=== PATIENT | female | born 1955 | race Caucasian/White ===

== ENCOUNTER 2022-05-14 21:08 | Inpatient (IN) | payer OTHER, SELFPAY ==
--- NOTE | ~2022-05-14 | XR_ITS ---
EXAMINATION: XR CHEST CLINICAL INFORMATION: Dyspnea COMPARISON: 08/25/2010 TECHNIQUE: Frontal view of the chest was obtained. FINDINGS: Heart is top normal in size. Bilateral pleural effusions with airspace opacity seen in the bilateral lower globes. Diffuse interstitial edema seen throughout the bilateral lung parenchyma. XR/XR chest 1V IMPRESSION: Diffuse interstitial edema with bilateral pleural effusions and bibasilar airspace opacities.
--- NOTE | ~2022-05-14 | XR_ITS ---
EXAMINATION: XR chest 2V CLINICAL INFORMATION: Reason for Exam persistent cough COMPARISON: No prior chest x-ray available in our system for comparison at the time of this dictation. TECHNIQUE: XR chest 2V Lungs and Ashley: Both lungs are clear. Pleura: Normal. Costophrenic angles are sharp. No pneumothorax. Heart: The heart is normal in size. Mediastinum: Subclavian line catheter tip projecting over the SVC/RA junction.. Bones: Skeletal structures included are normal for patient's age. XR/XR chest 2V IMPRESSION: Lungs remain clear. Central line catheter tip projecting over the SVC/RA junction roughly positioned.
--- NOTE | ~2022-05-14 | XR_ITS ---
EXAMINATION: XR CHEST CLINICAL INFORMATION: TLC placement COMPARISON: Chest x-ray 05/14/2022 TECHNIQUE: Frontal view of the chest was obtained. FINDINGS: Right-sided central venous catheter tip terminates in the distal SVC at the cavoatrial junction region. No pneumothorax visualized. Improved aeration at the lung bases since prior. Slightly indistinct costophrenic sulci equivocal for trace residual pleural effusions. No new airspace opacity. Unchanged cardiomediastinal silhouette. No evidence of pulmonary edema. No acute osseous injury identified. XR/XR chest 1V IMPRESSION: 1. Right-sided central venous catheter tip terminates in the distal SVC at the cavoatrial junction region. No pneumothorax. 2. Improved aeration at the lung bases since prior.
[2022-05-14 21:11] VITALS: BP 142/88; BP 144/91; PULSE 116; PULSE 119; RESP 20; TEMP 36.5; O2SAT 96; O2SAT 97; BMI 34.5
--- NOTE | 2022-05-14 21:17 | ECG_ITS ---
Test Reason : SOB Blood Pressure : / mmHG Vent. Rate : 112 BPM Atrial Rate : 112 BPM P-R Int : 206 ms QRS Dur : 132 ms QT Int : 328 ms P-R-T Axes : 048 -52 102 degrees QTc Int : 447 ms Sinus tachycardia with Premature supraventricular complexes Left axis deviation Non-specific intra-ventricular conduction block Minimal voltage criteria for LVH, may be normal variant ( Rojelio product ) Cannot rule out Septal infarct , age undetermined Possible Lateral infarct , age undetermined Abnormal ECG When compared with ECG of 25-AUG-2010 14:54, Non-specific intra-ventricular conduction block is now Present Referred By: Generic ED Physician Electronically Signed By:GIANNA DUTTON MD
[2022-05-14 21:37] LABS: MANUAL DIFF FLAG NO
[2022-05-14 21:38] LABS: Basophils Absolute Auto 0.1 X10*3/uL (0.0-0.2); Basophils Percent Auto 0.9 % (0-2); Eosinophils Absolute Auto 0.1 X10*3/uL (0.0-0.4); Eosinophils Percent Auto 0.9 % (0-4); Hematocrit 42.3 % (37.0-47.0); Hemoglobin 14.3 g/dl (12.0-16.0); Imm Gran Abs Auto 0.03 X10*3/uL (0.00-0.03); Imm Gran Pct Auto 0.4 % (0.0-0.4); Lymphocytes Absolute Auto 1.5 X10*3/uL (1.2-4.9); Mean Corpuscular HGB Conc 33.8 g/dl (31.0-35.0); Mean Corpuscular Hemoglobin 32.9 pg (27.0-33.0); Mean Corpuscular Volume 97.5 fL (80.0-98.0); Monocytes Absolute Auto 0.8 X10*3/uL (0.1-1.2); Monocytes Percent Auto 8.8 % (2-11); Platelet Count 220 X10*3/uL (160-400); Red Blood Count 4.34 X10*6/uL (4.20-5.50); Red Cell Distribution Width 12.1 % (11.0-16.0); White Blood Count 8.5 X10*3/uL (4.8-10.8)
[2022-05-14 21:51] LABS: Anion Gap 15 (12-20); Blood Urea Nitrogen 13 mg/dL (9-16); Calcium 9.5 mg/dL (8.4-10.2); Carbon Dioxide 24 mmol/L (22-29); Chloride 106 mmol/L (96-108); Creatinine Clr Calc Pharmacy 74.9; Estimated Glomerular Filt Rate > 60; Glucose Random 128 mg/dL (60-115); Potassium 4.4 mmol/L (3.3-5.1); Sodium 141 mmol/L (135-145)
[2022-05-14 22:02] VITALS: BP 128/90; PULSE 116; RESP 21; TEMP 36.7; O2SAT 97
[2022-05-14 22:14] LABS: Influenza A PCR NEGATIVE (Negative); Influenza B PCR NEGATIVE (Negative); Resp Syncy Virus RNA Qual PCR NEGATIVE (Negative); SARS COV2 PCR INHOUSE NEGATIVE (Negative)
--- NOTE | 2022-05-14 22:17 | ED.URI ---
HPI - URI/Sore Throat General Chief Complaint: Upper Respiratory Symptoms Stated Complaint: DYSPNEA Time Seen by Provider: 05/14/22 21:59 Source: patient and family Mode of arrival: ambulatory Limitations: no limitations History of Present Illness HPI Narrative: 66-year-old female in the ED today for evaluation of worsening of difficulty breathing. About a week ago patient developed upper respiratory symptoms patient thought to be viral infection, presented with coughing and congestion patient progressively been having shortness of breath which is mostly exertional and sometimes at rest, develop chest pain only with coughing. 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 Patient declined fever, chills, sick contacts, recent travel. Related Data Home Medications Medication Instructions Recorded Confirmed lisinopril 40 mg tablet 1 tab PO DAILY 05/15/22 05/15/22 Allergies Allergy/AdvReac Type Severity Reaction Status Date / Time adhesive tape [ADHESIVE TAPE] AdvReac Unknown RASH Unverified 02/02/20 15:22 Review of Systems Review of Systems: All other systems are reviewed and are negative Constitutional: Reports as per HPI and Reports no additional constitutional complaints Eyes: Reports as per HPI and Reports no additional eye complaints Reports system reviewed and no additional complaints, except as documented Cardiovascular: Reports as per HPI and Reports no additional cardiovascular complaints Respiratory: Reports as per HPI and Reports no additional respiratory complaints Gastrointestinal: Reports as per HPI and Reports no additional gastrointestinal complaints Genitourinary: Reports no additional female genitourinary complaints Musculoskeletal: Reports no additional musculoskeletal complaints Skin/Breast: Reports system reviewed and no additional complaints, except as docu Psychiatric: Reports no additional psychiatric complaints Endocrine: Reports no additional endocrine complaints Hematologic/Lymphatic: Reports no additional hematologic/lymphatic complaints Allergic/Immunologic: Reports no additional allergic/immunologic complaints Reports system reviewed and no additional complaints, except as documented and Reports Abnormal speech present [facility] Social History Social History Smoked in Last 30 Days: No Use of substances other than those prescribed or required for medical reasons: No Advance Directives: No Advance Directives Information Provided: No Patient : No Physical Exam Vital Signs: Vital Signs: Last Vital Signs Temp 97.5 F 05/15/22 01:34 Pulse 109 H 05/15/22 01:34 Resp 24 H 05/15/22 01:34 BP 145/92 H 05/15/22 01:34 Pulse Ox 94 05/15/22 01:34 O2 Del Method 05/15/22 01:34 O2 Flow Rate 2 05/15/22 01:34 Oxygen Flow Rate 3 05/14/22 21:11 BMI result Body Mass Index 34.5 Vital signs have been reviewed as appeared to be correct. Blood pressure normal. Heart rate elevated. Respiration rate normal. Temperature normal. Oxygen saturation normal. Appearance: Alert. Oriented X3. No acute distress. Head: Normal external exam. Normocephalic. Atraumatic. No Cárdenas signs noted. No raccoon eyes noted Eyes: PERRLA. EOMI. Conjunctiva and sclera normal. Eyelids normal. ENT: TM's Normal. Pharynx normal. Uvula midline. Moist mucous membranes. No trismus noted. No drooling noted. No muffled voice noted. Neck: Normal inspection. Neck supple. FROM. No adenopathy. Thyroid Normal. No meningeal signs. No neck mass noted. CVS: Normal heart rate and rhythm. Heart sound normal. No murmurs noted. Pulses normal throughout. Respiratory: No respiratory distress. Painless inspiration. Breath sounds normal. No wheezes/rales/rhonchi noted. Chest nontender. No accessory muscle usage noted or decreased air movement noted. Abdomen: Soft and nontender. Bowel sounds normal in all 4 quadrants. No distention noted. No organomegaly noted. No visible injury noted. Back: No CVA tenderness. Full range of motion noted. Skin: Skin warm and dry. Normal skin color. Normal skin turgor. No rashes/lesions/lacerations noted. Extremities: +1 bilateral lower extremity pitting edema. Extremities exhibit normal range of motion. Extremities nontender. Neuro: Oriented X 3. Cranial nerve exam: II-XII are grossly intact No motor deficit. No sensory deficit. Reflexes normal. Course Course Course Narrative: 66-year-old female came in for evaluation of progressively worsening of difficulty breathing over the past week, physical exam and history and chest x-ray is consistent with congestive heart failure. Will admit the patient for further cardiac evaluation and diuresis. Patient just moved from out of state has no cardiology or PCP in the area yet. Slight troponin elevation but no delta changes. Medications Administered Generic Name Dose Route Start Last Admin Trade Name Jadq PRN Reason Stop Dose Admin Enoxaparin Sodium 40 mg 05/15/22 01:30 05/15/22 01:46 Enoxaparin Sodium 40 Mg/0.4 Ml Syringe SUBCUT 40 mg Q24H HODAN Administration Discontinued Medications Generic Name Dose Route Start Last Admin Trade Name [place] PRN Reason Stop Dose Admin Albuterol Sulfate 2.5 mg 05/14/22 22:22 05/14/22 22:34 Albuterol Sulfate (0.083%) 2.5 Mg/3 Ml Vial.Neb INHALE 05/14/22 22:23 2.5 mg ONCE ONE Administration Albuterol/Ipratropium 3 ml 05/14/22 22:22 05/14/22 22:34 Albuterol/Iprat 2.5/0.5mg 3 Ml Ampul.Neb INHALE 05/14/22 22:23 3 ml ONCE ONE Administration Furosemide 40 mg 05/15/22 00:08 05/15/22 01:35 Furosemide 40 Mg/4 Ml Vial IVPUSH 05/15/22 00:09 40 mg ONCE ONE Administration Protocol Methylprednisolone Sodium Succinate 125 mg 05/14/22 22:22 05/14/22 22:41 Methylprednisolone Sod Succ 125 Mg/2 Ml Vial IVPUSH 05/14/22 22:23 125 mg ONCE ONE Administration Nitroglycerin 0.5 inch 05/15/22 00:08 05/15/22 00:40 Nitroglycerin 2 % Oint 1 Gm Packet TRANSDERMA 05/15/22 00:09 0.5 inch ONCE ONE Administration Medical Decision Making Differential Diagnosis Differential Diagnoses: The differential diagnosis associated with the presentation includes (Pneumonia/pulmonary embolism/viral infection/congestive heart failure/ACS.) Admission/Observation Consideration of admission/observation: Escalation of care including admission/observation considered Consult Healthcare Provider Management of the patient was discussed with: Hospitalist Lab Data MDM Lab Attestation statement: I reviewed the patient's lab results. Result Diagrams: 05/14/22 21:31 05/14/22 21:31 Labs: Lab Results 05/14/22 05/14/22 05/14/22 Range/Units 21:31 21:31 21:31 WBC 8.5 (4.8-10.8) X10*3/uL RBC 4.34 (4.20-5.50) X10*6/uL Hgb 14.3 (12.0-16.0) g/dl Hct 42.3 (37.0-47.0) % MCV 97.5 (80.0-98.0) fL MCH 32.9 (27.0-33.0) pg MCHC 33.8 (31.0-35.0) g/dl RDW 12.1 (11.0-16.0) % Plt Count 220 (160-400) X10*3/uL MPV 10.0 (9.4-12.3) fL Immature Gran % (Auto) 0.4 (0.0-0.4) % Neut % (Auto) 71.0 (45-73) % Lymph % (Auto) 18.0 L (20-40) % Mingo % (Auto) 8.8 (2-11) % Eos % (Auto) 0.9 (0-4) % Baso % (Auto) 0.9 (0-2) % Lymph # (Auto) 1.5 (1.2-4.9) X10*3/uL Mingo # (Auto) 0.8 (0.1-1.2) X10*3/uL Eos # (Auto) 0.1 (0.0-0.4) X10*3/uL Baso # (Auto) 0.1 (0.0-0.2) X10*3/uL Abs Immat Gran (auto) 0.03 (0.00-0.03) X10*3/uL Absolute Neuts (auto) 6.0 (2.0-8.3) x10*3/uL Absolute Nucleated RBC 0.000 (0.0-0.012) X10*3/uL Nucleated RBC % (auto) 0.0 (0.0-0.2) /100WBC D-Dimer High Sensitivty NG/ML Sodium 141 (135-145) mmol/L Potassium 4.4 (3.3-5.1) mmol/L Chloride 106 (96-108) mmol/L Carbon Dioxide 24 (22-29) mmol/L Anion Gap 15 (12-20) BUN 13 (9-16) mg/dL Creatinine 0.80 (0.5-1.4) mg/dL Estim Creat Clear Calc 74.9 Estimated GFR > 60 Random Glucose 128 H (60-115) mg/dL Calcium 9.5 (8.4-10.2) mg/dL Troponin I High Sens (<3.5-17.0) ng/L B-Natriuretic Peptide (<100) pg/mL Influenza Type A (PCR) NEGATIVE (Negative) Influenza Type B (PCR) NEGATIVE (Negative) RSV RNA Qual (PCR) NEGATIVE (Negative) SARS-CoV-2 RNA (RT-PCR) NEGATIVE (Negative) 05/14/22 05/14/22 05/14/22 Range/Units 21:31 23:15 23:15 WBC (4.8-10.8) X10*3/uL RBC (4.20-5.50) X10*6/uL Hgb (12.0-16.0) g/dl Hct (37.0-47.0) % MCV (80.0-98.0) fL MCH (27.0-33.0) pg MCHC (31.0-35.0) g/dl RDW (11.0-16.0) % Plt Count (160-400) X10*3/uL MPV (9.4-12.3) fL Immature Gran % (Auto) (0.0-0.4) % Neut % (Auto) (45-73) % Lymph % (Auto) (20-40) % Mingo % (Auto) (2-11) % Eos % (Auto) (0-4) % Baso % (Auto) (0-2) % Lymph # (Auto) (1.2-4.9) X10*3/uL Mingo # (Auto) (0.1-1.2) X10*3/uL Eos # (Auto) (0.0-0.4) X10*3/uL Baso # (Auto) (0.0-0.2) X10*3/uL Abs Immat Gran (auto) (0.00-0.03) X10*3/uL Absolute Neuts (auto) (2.0-8.3) x10*3/uL Absolute Nucleated RBC (0.0-0.012) X10*3/uL Nucleated RBC % (auto) (0.0-0.2) /100WBC D-Dimer High Sensitivty 211 NG/ML Sodium (135-145) mmol/L Potassium (3.3-5.1) mmol/L Chloride (96-108) mmol/L Carbon Dioxide (22-29) mmol/L Anion Gap (12-20) BUN (9-16) mg/dL Creatinine (0.5-1.4) mg/dL Estim Creat Clear Calc Estimated GFR Random Glucose (60-115) mg/dL Calcium (8.4-10.2) mg/dL Troponin I High Sens 18.0 H (<3.5-17.0) ng/L B-Natriuretic Peptide 961 H (<100) pg/mL Influenza Type A (PCR) (Negative) Influenza Type B (PCR) (Negative) RSV RNA Qual (PCR) (Negative) SARS-CoV-2 RNA (RT-PCR) (Negative) Independent Interpretation I performed an independent interpretation of an: EKG (Sinus tachycardia at 112 beats per minutes, left axis deviation, LVH, fascicular heart block.) and Plain X-Ray (Chest: Interstitial edema with bilateral pleural effusion) Radiology Impression Discussion of test interpretation with radiology: I have reviewed the radiologist's reading. Discharge Plan Discharge Clinical Impression: Congestive heart failure, Cardiomyopathy Patient Disposition: Admitted As Inpatient
[2022-05-14] MEDS: Albuterol Sulfate (0.083%) 2.5 MG/3 ML VIAL.NEB INHALE (22:34)
[2022-05-14] MEDS: Albuterol/Iprat 2.5/0.5MG 3 ML AMPUL.NEB INHALE (22:34)
[2022-05-14 22:35] VITALS: PULSE 100; RESP 18; O2SAT 94
[2022-05-14] MEDS: methylPREDNISolone Sod Succ 125 MG/2 ML VIAL IVPUSH (22:41)
[2022-05-14 22:42] VITALS: RESP 25; O2SAT 94
--- NOTE | 2022-05-14 22:58 | PC.NURSE ---
Pt BP is stable, pt is sinus tachy on the monitor. Pt's lung sound throughout the bases fine crackles. Pt has + skin turgor, a/o x 3, pt's son is at bedside.
[2022-05-14 23:27] LABS: D Dimer High Sensitivity 211 NG/ML
[2022-05-14 23:51] LABS: B Type Natriuretic Peptide 961 pg/mL (<100)
[2022-05-14 23:53] VITALS: BP 141/85; PULSE 109; RESP 30; TEMP 36.6; O2SAT 94
[2022-05-15] VITALS (8 sets, daily range): BP systolic 104–145; BP diastolic 62–92; PULSE 77–115; RESP 15–24; TEMP 36.1–36.6; O2SAT 94–96; BMI 34.4
[2022-05-15] MEDS: Nitroglycerin 2 % Oint 1 GM Packet 0.5 INCH TRANSDERMA (00:40)
--- NOTE | 2022-05-15 01:20 | PM.IMHP ---
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 pt reports orthopnea, PND, Dyspnea on minimal exertion. symptoms started 2 days ago. She denies any fever, no chills, no chest pain, no palpitations, no abdominal pain nausea or vomiting, no diarrhea constipation, no urinary symptoms and reports that she has not noticed any swelling in her legs. She reports she does not take any water pill at home. On arrival to the ED noted to be tachypneic, tachycardic, stable blood pressure, unclear if she was hypoxic but currently on 2 L of nasal cannula 94% labs are significant for a BNP of 961, otherwise unremarkable Chest x-ray shows diffuse bilateral edema with bilateral pleural effusion and bibasilar airspace opacities Review of Systems Review of Systems: Yes all other systems are reviewed and are negative [facility] Medical History (Updated 05/15/22 @ 06:13 by Dallin Mitchell MD) Cardiomyopathy due to chemotherapy GERD (gastroesophageal reflux disease) Hypertension Family History (Updated 05/15/22 @ 06:13 by Dallin Mitchell MD) Father Heart disease Surgical History (Updated 05/15/22 @ 06:13 by Dallin Mitchell MD) No pertinent past surgical history Social History (Updated 05/15/22 @ 06:13 by Dallin Mitchell MD) Alcohol intake: current Alcohol intake frequency: holidays/special occasions only Patient Tobacco Use Status: Never used Tobacco Smoked in Last 30 Days: No Use of substances other than those prescribed or required for medical reasons: No Advance Directives: No Advance Directives Information Provided: No Patient : No Meds Allergies Allergy/AdvReac Type Severity Reaction Status Date / Time adhesive tape [ADHESIVE TAPE] AdvReac Unknown RASH Unverified 02/02/20 15:22 Home Medications Medication Instructions Recorded Confirmed Last Taken Type lisinopril 40 mg tablet 1 tab PO DAILY 05/15/22 05/15/22 Unknown History Physical Exam Vital Signs and Narrative: Vital Signs: Last Vital Signs Temp 97.9 F 05/14/22 23:53 Pulse 115 H 05/15/22 00:40 Resp 30 H 05/14/22 23:53 BP 141/85 H 05/15/22 00:40 Pulse Ox 94 05/14/22 23:53 O2 Del Method 05/14/22 23:53 Oxygen Flow Rate 3 05/14/22 21:11 BMI result Body Mass Index 34.5 Results Labs CBC and Chem 7: 05/14/22 21:31 05/14/22 21:31 Labs: Laboratory Results - last 24 hr 05/14/22 05/14/22 05/14/22 21:31 21:31 21:31 MCV 97.5 MCH 32.9 MCHC 33.8 RDW 12.1 Plt Count 220 MPV 10.0 Immature Gran % (Auto) 0.4 Neut % (Auto) 71.0 Lymph % (Auto) 18.0 L Collin % (Auto) 8.8 Eos % (Auto) 0.9 Baso % (Auto) 0.9 Lymph # (Auto) 1.5 Collin # (Auto) 0.8 Eos # (Auto) 0.1 Baso # (Auto) 0.1 Abs Immat Gran (auto) 0.03 Absolute Neuts (auto) 6.0 Absolute Nucleated RBC 0.000 Nucleated RBC % (auto) 0.0 D-Dimer High Sensitivty Anion Gap 15 Estim Creat Clear Calc 74.9 Estimated GFR > 60 Random Glucose 128 H Calcium 9.5 Troponin I High Sens B-Natriuretic Peptide Influenza Type A (PCR) NEGATIVE Influenza Type B (PCR) NEGATIVE RSV RNA Qual (PCR) NEGATIVE SARS-CoV-2 RNA (RT-PCR) NEGATIVE 05/14/22 05/14/22 05/14/22 21:31 23:15 23:15 MCV MCH MCHC RDW Plt Count MPV Immature Gran % (Auto) Neut % (Auto) Lymph % (Auto) Collin % (Auto) Eos % (Auto) Baso % (Auto) Lymph # (Auto) Collin # (Auto) Eos # (Auto) Baso # (Auto) Abs Immat Gran (auto) Absolute Neuts (auto) Absolute Nucleated RBC Nucleated RBC % (auto) D-Dimer High Sensitivty 211 Anion Gap Estim Creat Clear Calc Estimated GFR Random Glucose Calcium Troponin I High Sens 18.0 H B-Natriuretic Peptide 961 H Influenza Type A (PCR) Influenza Type B (PCR) RSV RNA Qual (PCR) SARS-CoV-2 RNA (RT-PCR) Imaging Radiologist's Impressions: Impressions Chest X-Ray 05/14/22 21:44 IMPRESSION: Diffuse interstitial edema with bilateral pleural effusions and bibasilar airspace opacities. 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 presents to the hospital with complaints of shortness of breath, orthopnea, found to have CHF exacerbation # acute CHF exacerbation - has elevated BNP, chest x-ray evidence of volume overload - will treat with low sodium diet, strict I&O, daily weight, Lasix 40 daily - will obtain echocardiogram - cardiology consulted # community-acquired pneumonia - evidence of consolidation on chest x-ray - viral serology negative, afebrile, no leukocytosis, - will treat with ceftriaxone and azithromycin - follow cultures # tachycardia - likely secondary to dyspnea from CHF and volume overload, - this is not related to sepsis as patient has no fever, no leukocytosis, as well as no cough and no sputum production - treat underlying CHF # hypertension - stable - continue home antihypertensive DVT prophylaxis: Lovenox Given patient's requirement for IV Lasix patient required minimum 2 night inpatient hospital stay for further management and monitoring Time Spent With Patient Time: Total time managing care of this patient today ____ minutes. Quality Stroke Does the patient have a stroke diagnosis?: No VTE Prior VTE?: No VTE Risk Level:: Medical - moderate - high VTE Device Contraindication: Treatment Not Indicated VTE Drug Contraindication: N/A - Med Ordered
[2022-05-15] MEDS: Furosemide 40 MG/4 ML VIAL IVPUSH ×2 (01:35→08:23)
[2022-05-15] MEDS: Enoxaparin Sodium 40 MG/0.4 ML SYRINGE SUBCUT (01:46)
--- NOTE | 2022-05-15 01:47 | PC.NURSE ---
Pt's BP is elevated, pt reports she has not taken lisinopril today d/t she needs to pick the med up at the pharmacy. Pt is on going compliance aide, and it shows sinus tachy. Pt has headache 5/10, and she is diaphoretic. PT had Nitro 0.5 and it was removed d/t pt started feeling flushed and anxious. MD gave the verbal order verbally, first. Pt' son is at bedside. PT is diaphoretic at the time of the re-assessment, O2 is on 2L d/t pt sat was drooping to 88 . Pt is in sitting position and waiting for a room on the telemetry unit.
[2022-05-15 01:53] LABS: Troponin-I High Sensitivity 19.3 ng/L (<3.5-17.0)
--- NOTE | 2022-05-15 02:30 | PC.NURSE ---
Re- assessment: Pt's BP is slightly elevated, sinus tachy on the awake overnight monitor, afribile ad diaphoretic, provider was notified. Pt was placed a 16F Pro cath d/t pt HR increases during exertion and o2 drops. Pt is a/ox4, son is at bedside. PT was changed and provided a sheet, fan and a cool cloth d/t pt is sweating. Pt meds were given as order. Pt has IV 20g on her RAC. Pt has crackles on the based of the lungs. No edema, =+skin turgor, no noticeable jugular vein, pt is on NC 2L d/t o2 sat keep dropping during movement.
--- NOTE | 2022-05-15 05:29 | PC.NURSE ---
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 PT Pro was empty and her urinary output was 1,400. Pt is asleep.
--- NOTE | 2022-05-15 06:56 | PC.NURSE ---
ordered iv abx in [facility] remains unverified by pharmacy at this time, pharmacy aware.
--- NOTE | 2022-05-15 07:00 | CA_ITS ---
Transthoracic Echocardiogram Patient (Last, First, Middle): Marie العراقي A Gender: Female Date of : 1955 Age: 66 Procedure Date: 05/15/2022 Procedure Type: Transthoracic Echocardiogram Location: ER Height: 160.02 cm Weight: 88.45 kg BSA: 1.91 m2 Heart Rate: bpm BP: 120 / 77 mmHg Saddle Stitch Operator: ESPERANZA Referring MD: Dallin Mitchell MD Meat Wrapper: Thuan Pena MD Symptoms: CHF Study Quality: Technically Difficult, contrast ECG Rhythm: Sinus tachycardia Conclusions: - 1. Moderately severe LV systolic dysfunction with LVEF of 30 35% 2. Moderately dilated left atrium 3. Mild mitral regurgitation 4. Normal calculated RV systolic pressure 5. No gross pericardial effusion Findings Procedure Information Contrast agent, definity, is being given per protocol without apparent complications. Left Ventricle Normal left ventricular cavity size. There is normal left ventricular wall thickness. The left ventricular systolic function is moderate to severely decreased. The visually estimated ejection fraction is between 30-35%. Diastolic function is indeterminate on the basis of available data. Right Ventricle Normal right ventricular cavity size. There is normal right ventricular systolic function. Atria The left atrium is moderately dilated. There is lipomatous hypertrophy of the interatrial septum. Interatrial shunt cannot be excluded. The right atrium was not well visualized. Aortic Valve The aortic valve structure and function is likely normal. There is no aortic valve stenosis. There is no aortic valve regurgitation. Mitral Valve There is mild anterior and posterior mitral leaflet thickening. There is mild mitral valve regurgitation. There is no mitral valve stenosis. Pulmonic Valve The pulmonic valve was not well visualized. Tricuspid Valve Likely normal tricuspid valve structure and function. There is trace tricuspid valve regurgitation. The right ventricular systolic pressure is normal. The right ventricular systolic pressure is 22 mmHg. Normal right atrial pressure. There is no evidence of pulmonary hypertension. Great Vessels All visible segments of the aorta are normal in size. The pulmonary artery was not well visualized. Venous The inferior vena cava is normal in size and collapses greater than 50% with inspiration. Pericardium/Pleural There is no evidence of pericardial effusion. Prior Study Comparison No prior study available for comparison. Measurements 2D Linear Measurements IVSd: 0.97 0.6-0.9/0.6-1.0 cm LVIDd: 4.95 3.9-5.3/4.2-5.9 cm LVIDd Index: 2.59 2.4-3.2/2.2-3.1 cm/m2 LVIDs: 4.27 2.0-3.6 cm LVPWd: 0.92 0.7-1.1 cm LA Diam: 4.30 2.7-3.8/3.0-4.0 cm LAIDs Index: 2.25 1.5-2.3 cm/m2 LV Mass: 206.24 67-162/88-224 g LV Mass Index: 107.98 43-95/49-115 g/m2 LVOT Diam: 2.00 3.0+(-)1.3 cm 2D Systolic Function EF 4C: 37.50 >55% EF 2C: 31.80 >55% Mitral Valve E'Lateral: 2.72 E'Medial: 3.05 Aortic Valve AoV Pk Tanner: 1.04 AoV Mn Tanner: 0.77 AoV VTI: 0.18 AoV Pk Grad: 4.00 Aov Mn Grad: 3.00 LOUISA Cont.VTI: 2.17 LVOT LVOT Pk Tanner: 0.71 LVOT Mn Tanner: 0.47 LVOT VTI: 0.13 LVOT Pk Grad: 2.00 LVOT Mn Grad: 1.00 LVOT Diam: 2.00 LVOT Area: 3.14 Diastolic Function E'Medial: 3.05 E' Laterial: 2.72 Right Ventricle TAPSE (mm): 23.40 TVS' Tanner: 11.30 Tricuspid Valve TR Pk Tanner: 1.85 TR Pk Grad: 14.00 RA Press: 8.00 RVSP: 22.00 Great Vessels Aorta Sinus of Valsalva: 3.20 2.0-3.[address] Ridge: 2.44 1.7-3.4 cm Ao Asc: 3.20 2.1-3.4 cm Updated in Other Vendor System with Status of Final Thuan Pena MD electronically signed on 05/15/2022 11:54:59 AM with status of Final
[2022-05-15] MEDS: cefTRIAXone sodium 1 GM in 0.9 % Sodium Chloride 50 ML IV (07:12)
--- NOTE | 2022-05-15 07:16 | PHA.MEDREC ---
Pharmacy Consult ? Medication Reconciliation Pharmacy has reviewed the medication reconciliation completed by [facility]. There are no remarkakable issues for provider's attention. Augusta Perez, [place]
[2022-05-15 07:18] LABS: Lactic Acid 1.1 mmol/L (0.5-2.0)
[2022-05-15 07:23] LABS: Alanine Aminotransferase 26 U/L (0-31); Albumin Level 4.1 g/dL (3.5-5.0); Alkaline Phosphatase 59 U/L (39-117); Anion Gap 15 (12-20); Aspartate Amino Transferase 15 U/L (5-31); Bilirubin Total 0.8 mg/dL (0.0-1.0); Blood Urea Nitrogen 14 mg/dL (9-16); Calcium 9.2 mg/dL (8.4-10.2); Carbon Dioxide 26 mmol/L (22-29); Chloride 104 mmol/L (96-108); Estimated Glomerular Filt Rate > 60; Glucose Random 232 mg/dL (60-115); Potassium 4.1 mmol/L (3.3-5.1); Sodium 141 mmol/L (135-145); Total Protein 6.6 g/dL (6.5-8.0)
[2022-05-15] MEDS: Azithromycin 500 MG in 0.9 % Sodium Chloride 250 ML 125 MG IV (07:38)
--- NOTE | 2022-05-15 07:51 | PC.NURSE ---
report taken from citlaly marte pt here w dyspnea, elevated bnp on bloodwork, hx of cardiomyopathy in past. pt admitted inpt for chf exac/cap tx. on 2l nc satting 95% spo2... experiencing orthopnea, pt remains in semi fowlers to high fowlers for comfort. a&ox3, makes all needs known, abx infusing in rac 20g. pt has osorio catheter in place d/t diuretic tx and inability to bear weight on ble at this time. pt ate small amount of breakfast in small bites. awaiting inpt bed assignment.
[2022-05-15] MEDS: lisinopriL 40 MG TABLET PO (08:23)
--- NOTE | 2022-05-15 10:41 | MHC.CM.PN ---
CM ATTEMPTED TO SEE PT WHO WAS WITH IMAGING SERVICES CM TO RETURN
--- NOTE | 2022-05-15 11:00 | MHC.CM.PN ---
PT REPORTS SHE LIVES ALONE AND IS INDEPENDENT WITH CARE SHE DENIES USE OF DME OR SERVICES PT REPORTS SHE IS COVID VAX, NOT BOOSTED PT HAD A FIRST APPT SCHEDULED WITH LEIGHA MCLAUGHLIN TODAY, HOWEVER IS NOW INPT SHE REQUESTS APPT BE RESCHEDULED REQUEST SENT TO [facility] SHE IS UNSURE IF SHE HAS A HCP, SHE WILL CONSIDER COMPLETING ONE AND IS AWARE CM CAN ASSIST DCP HOME NO SERVICES BROTHER TO TRANSPORT
--- NOTE | 2022-05-15 11:26 | P.CONCA_ITS ---
History of Present Illness History of Present Illness Date of Service: 05/15/22 Requesting physician: Dallin Mitchell Consult reason: congestive heart failure Chief complaint: CHF exacerbation Narrative: I was consulted to see Marie in cardiology consultation today for decompensated congestive heart failure. She is a 66-year-old female with prior history of chemotherapy-induced cardiomyopathy diagnosed in 2012 and with medical therapy had recovered LVEF, last followed radiology locally couple years ago. Had no follow-up recently. She was taken off for neurohormonal modulation as per her because she said her LV ejection fraction improved and she did not need anymore. She had done well over the last few years but over the last 5 days developed progressive shortness of breath. She started with congestion starting Thursday. Then subsequently notice that she was having difficulty breathing and and yesterday was in significant respiratory distress and could not breathe and therefore decided come to the emergency room. She initially decided that this would past but did not. She had some cough but no productive phlegm. She denies any fever or chills or wheezing. When she came to the emergency room she was noted to be decompensated congestive heart failure with BNP in the 900 range which chest x-ray finding consistent with pulmonary edema there is a concern for bibasilar infiltrates and a started also on treatment for pneumonia. Patient continues to be short of breath and is emotional about it. She denies any chest pain, palpitations. Said yesterday night when she tried to get out of bed to chair and commode she was very short of breath. They therefore decided to put a Pro catheter in. Her oxygen saturations have been better but she continues to be short of breath. Denies any lightheadedness, syncope. Review of Systems Constitutional: Constitutional: Reports no additional constitutional complaints Eyes: Eyes: Reports no additional eye complaints Cardiovascular: Cardiovascular: Denies chest pain, Denies syncope, Denies rapid heart rate, Denies leg edema, Denies lightheadedness, Reports dyspnea on exertion and Reports orthopnea Respiratory: Respiratory: Reports cough and Reports dyspnea on exertion Gastrointestinal: Gastrointestinal: Reports no additional gastrointestinal com plaints Genitourinary: Genitourinary: Reports no additional female genitourinary complaints Musculoskeletal: Musculoskeletal: Reports no additional musculoskeletal complaints Integumentary/Breasts: Skin/Breast: Reports system reviewed and no additional complaints, except as docu Neurologic: Reports system reviewed and no additional complaints, except as documented and Denies syncope Psychiatric: Psychiatric: Reports no additional psychiatric complaints Endocrine: Endocrine: Reports no additional endocrine complaints Hematologic/Lymphatic: Hematologic/Lymphatic: Reports no additional hematologic/lymphatic complaints [facility] Past Medical History Medical History Cardiomyopathy due to chemotherapy GERD (gastroesophageal reflux disease) Hypertension Family History Family History Father Heart disease Surgical History Surgical History No pertinent past surgical history Social History Social History Alcohol intake: current Alcohol intake frequency: holidays/special occasions only Patient Tobacco Use Status: Never used Tobacco Smoked in Last 30 Days: No Use of substances other than those prescribed or required for medical reasons: No Advance Directives: No Advance Directives Information Provided: No Patient : No service: No Current occupational status: retired [employer] Allergies Allergy/AdvReac Type Severity Reaction Status Date / Time adhesive tape [ADHESIVE TAPE] AdvReac Unknown RASH Unverified 02/02/20 15:22 Active Medications: Current Medications Acetaminophen (Acetaminophen 325 Mg Tablet) 650 mg PO Q6H PRN PRN Reason: Pain, Mild (Pain Scale 1-3) Docusate Sodium (Docusate Sodium 100 Mg Capsule) 100 mg PO DAILY PRN PRN Reason: Constipation Enoxaparin Sodium (Enoxaparin Sodium 40 Mg/0.4 Ml Syringe) 40 mg SUBCUT Q24H [facility] Last Admin: 05/15/22 01:46 Dose: 40 mg Furosemide (Furosemide 40 Mg/4 Ml Vial) 40 mg IVPUSH DAILY [facility]; Protocol Last Admin: 05/15/22 08:23 Dose: 40 mg Ceftriaxone Sodium 1 gm/ (Sodium Chloride) 50 mls @ 100 mls/hr IV Q24H [facility] Last Infusion: 05/15/22 07:38 Dose: Infused Azithromycin 500 mg/ Sodium (Chloride) 250 mls @ 125 mls/hr IV Q24H [facility] Last Infusion: 05/15/22 09:52 Dose: Infused Lisinopril (Lisinopril 40 Mg Tablet) 40 mg PO DAILY [facility]; Protocol Last Admin: 05/15/22 08:23 Dose: 40 mg Ondansetron HCl (Ondansetron Hcl 4 Mg/2 Ml Vial) 4 mg IVPUSH Q8H PRN PRN Reason: Nausea and Vomiting Sodium Chloride (0.9 % Sodium Chloride Flush 3 Ml Syringe) 3 ml IVFLUSH QSHIFT [facility] Last Admin: 05/15/22 07:12 Dose: Not Given Home Medications Medication Instructions Recorded Confirmed Last Taken Type lisinopril 40 mg tablet 1 tab PO DAILY 05/15/22 05/15/22 Unknown History Physical Exam Vital Signs: Vital Signs: Last Vital Signs Temp 97.8 F 05/15/22 06:09 Pulse 89 05/15/22 07:01 Resp 23 H 05/15/22 07:01 BP 120/77 05/15/22 07:01 Pulse Ox 95 05/15/22 07:44 O2 Del Method 05/15/22 07:44 O2 Flow Rate 2 05/15/22 07:01 Oxygen Flow Rate 2 05/15/22 07:44 BMI result Body Mass Index 34.5 Const: General: cooperative, alert, awake and in distress moderate and respiratory Nutritional Appearance: obese Orientation/consciousness: patient oriented x3 HEENT: Head: Yes normocephalic and Yes atraumatic Neck: Neck: Yes trachea midline, Yes supple and Yes JVD Resp: Effort & Inspection: normal respiratory effort Auscultation: rales bilateral 1/[address] up Cardio: Jugular venous distension: JVD Palpation: abnormal PMI displaced PMI Rate: tachycardic Rhythm: regular rhythm Heart sounds: S1 normal heart sound present, S2 normal heart sound present, no click, Gallop heart sound present, no murmurs and no rubs GI: Auscultation: normal bowel sounds Skin: General skin exam: no rashes or lesions noted Neuro: General: patient oriented x3 and no focal motor deficits Extrem: General: Yes no clubbing, cyanosis or edema Psych: Affect: Anxious affect present Objective Labs and Meds Result diagrams: 05/14/22 21:31 05/15/22 06:55 Lab results: Laboratory Results - last 24 hr 05/14/22 05/14/22 05/14/22 21:31 21:31 21:31 WBC 8.5 RBC 4.34 Hgb 14.3 Hct 42.3 MCV 97.5 MCH 32.9 MCHC 33.8 RDW 12.1 Plt Count 220 MPV 10.0 Immature Gran % (Auto) 0.4 Neut % (Auto) 71.0 Lymph % (Auto) 18.0 L [place] % (Auto) 8.8 Eos % (Auto) 0.9 Baso % (Auto) 0.9 Lymph # (Auto) 1.5 [place] # (Auto) 0.8 Eos # (Auto) 0.1 Baso # (Auto) 0.1 Abs Immat Gran (auto) 0.03 Absolute Neuts (auto) 6.0 Absolute Nucleated RBC 0.000 Nucleated RBC % (auto) 0.0 D-Dimer High Sensitivty Sodium 141 Potassium 4.4 Chloride 106 Carbon Dioxide 24 Anion Gap 15 BUN 13 Creatinine 0.80 Estim Creat Clear Calc 74.9 Estimated GFR > 60 Random Glucose 128 H Lactic Acid Calcium 9.5 Total Bilirubin AST ALT Alkaline Phosphatase Troponin I High Sens B-Natriuretic Peptide Total Protein Albumin Influenza Type A (PCR) NEGATIVE Influenza Type B (PCR) NEGATIVE RSV RNA Qual (PCR) NEGATIVE SARS-CoV-2 RNA (RT-PCR) NEGATIVE 05/14/22 05/14/22 05/14/22 21:31 23:15 23:15 WBC RBC Hgb Hct MCV MCH MCHC RDW Plt Count MPV Immature Gran % (Auto) Neut % (Auto) Lymph % (Auto) [place] % (Auto) Eos % (Auto) Baso % (Auto) Lymph # (Auto) [place] # (Auto) Eos # (Auto) Baso # (Auto) Abs Immat Gran (auto) Absolute Neuts (auto) Absolute Nucleated RBC Nucleated RBC % (auto) D-Dimer High Sensitivty 211 Sodium Potassium Chloride Carbon Dioxide Anion Gap BUN Creatinine Estim Creat Clear Calc Estimated GFR Random Glucose Lactic Acid Calcium Total Bilirubin AST ALT Alkaline Phosphatase Troponin I High Sens 18.0 H B-Natriuretic Peptide 961 H Total Protein Albumin Influenza Type A (PCR) Influenza Type B (PCR) RSV RNA Qual (PCR) SARS-CoV-2 RNA (RT-PCR) 05/15/22 05/15/22 05/15/22 01:21 06:55 06:55 WBC RBC Hgb Hct MCV MCH MCHC RDW Plt Count MPV Immature Gran % (Auto) Neut % (Auto) Lymph % (Auto) [place] % (Auto) Eos % (Auto) Baso % (Auto) Lymph # (Auto) [place] # (Auto) Eos # (Auto) Baso # (Auto) Abs Immat Gran (auto) Absolute Neuts (auto) Absolute Nucleated RBC Nucleated RBC % (auto) D-Dimer High Sensitivty Sodium 141 Potassium 4.1 Chloride 104 Carbon Dioxide 26 Anion Gap 15 BUN 14 Creatinine 0.81 Estim Creat Clear Calc 74.0 Estimated GFR > 60 Random Glucose 232 H Lactic Acid 1.1 Calcium 9.2 Total Bilirubin 0.8 AST 15 ALT 26 Alkaline Phosphatase 59 Troponin I High Sens 19.3 H B-Natriuretic Peptide Total Protein 6.6 Albumin 4.1 Influenza Type A (PCR) Influenza Type B (PCR) RSV RNA Qual (PCR) SARS-CoV-2 RNA (RT-PCR) EKG shows sinus tachycardia with nonspecific interventricular conduction delay with left bundle morphology with PACs Imaging Radiologist's impression: Impressions Chest X-Ray 05/14/22 21:44 IMPRESSION: Diffuse interstitial edema with bilateral pleural effusions and bibasilar airspace opacities. Assessment and Plan (1) Acute exacerbation of CHF (congestive heart failure): Status: Acute Decompensated congestive heart failure which is most likely systolic in nature in this middle-aged woman with prior history of chemotherapy induced card iomyopathy with no current neurohormonal modulation. Most likely there is recurrence of her cardiomyopathy at this point time. Will obtain echocardiogram. Patient continues to remain in respiratory distress with evidence of florid heart failure. Will start on Lasix drip 5 mg an hour. Strict intake and output chart needs to be pursued. Will also start a vasodilators therapy with Diovan 40 mg b.i.d.. Hold off on beta-blockers given her acute decompensation at this point time. Once she is more euvolemic, will need neurohormonal modulation with beta-blockers. Please also add low-dose spir onolactone 12.5 mg to regimen. Eventually once blood pressure remains stable will also add Jardiance to her regimen. Echocardiogram should be done more urgently. Requested technicians to do the same. Will review once performed. Management of heart failure was discussed in details the she was emotional and anxious about it. Continue supportive therapy with oxygen replacement as needed. Will continue to follow with her. Prognosis is guarded Time Spent With Patient Time: Total time managing care of this patient today ____ minutes. Procedures Date of Service Date of Service: 05/15/22
--- NOTE | 2022-05-15 11:49 | PM.EVENT ---
Event Note Date of Service: 05/15/22 Event Note: Chart reviewed patient examined. Exam demonstrates crackles bilaterally from the inferior scapular border down. Seen by Cardiology; will start Lasix drip at 5 milligrams/hour add Diovan 20 b.i.d. and Jardiance in a.m.. Urgent 2D echo to be read by Dr. Pena. Further plans based on forthcoming data Time Spent With Patient Time: Total time managing care of this patient today ____ minutes.
[2022-05-15] MEDS: Furosemide 200 MG in 0.9 % Sodium Chloride 80 ML IVCONT (13:40)
[2022-05-15] MEDS: Valsartan 40 MG TABLET 20 MG PO ×2 (13:40→20:00)
[2022-05-15] MEDS: 0.9 % Sodium Chloride Flush 3 ML SYRINGE IVFLUSH (13:51)
[2022-05-16] MEDS: Enoxaparin Sodium 40 MG/0.4 ML SYRINGE SUBCUT (01:48)
[2022-05-16] MEDS: cefTRIAXone sodium 1 GM in 0.9 % Sodium Chloride 50 ML IV (05:23)
[2022-05-16] MEDS: Azithromycin 500 MG in 0.9 % Sodium Chloride 250 ML 125 MG IV (07:30)
[2022-05-16 08:00] VITALS: BP 96/64; PULSE 92; RESP 16; TEMP 36.1; O2SAT 96
[2022-05-16 09:07] LABS: MANUAL DIFF FLAG NO
[2022-05-16 09:11] LABS: Basophils Absolute Auto 0.1 X10*3/uL (0.0-0.2); Basophils Percent Auto 0.7 % (0-2); Eosinophils Absolute Auto 0.1 X10*3/uL (0.0-0.4); Hematocrit 43.8 % (37.0-47.0); Hemoglobin 14.5 g/dl (12.0-16.0); Imm Gran Abs Auto 0.04 X10*3/uL (0.00-0.03); Imm Gran Pct Auto 0.3 % (0.0-0.4); Lymphocytes Absolute Auto 2.8 X10*3/uL (1.2-4.9); Lymphocytes Percent Auto 24.5 % (20-40); Mean Corpuscular HGB Conc 33.1 g/dl (31.0-35.0); Mean Corpuscular Hemoglobin 32.6 pg (27.0-33.0); Mean Corpuscular Volume 98.4 fL (80.0-98.0); Mean Platelet Volume 10.7 fL (9.4-12.3); Monocytes Absolute Auto 0.8 X10*3/uL (0.1-1.2); Neutrophils Absolute Auto 7.7 x10*3/uL (2.0-8.3); Neutrophils Percent Auto 66.5 % (45-73); Platelet Count 235 X10*3/uL (160-400); Red Blood Count 4.45 X10*6/uL (4.20-5.50); Red Cell Distribution Width 12.2 % (11.0-16.0); White Blood Count 11.6 X10*3/uL (4.8-10.8)
[2022-05-16 09:45] LABS: Alanine Aminotransferase 28 U/L (0-31); Albumin Level 4.3 g/dL (3.5-5.0); Alkaline Phosphatase 54 U/L (39-117); Anion Gap 14 (12-20); Aspartate Amino Transferase 35 U/L (5-31); Bilirubin Total 0.6 mg/dL (0.0-1.0); Blood Urea Nitrogen 19 mg/dL (9-16); Calcium 9.4 mg/dL (8.4-10.2); Carbon Dioxide 34 mmol/L (22-29); Chloride 98 mmol/L (96-108); Creatinine Clr Calc Pharmacy 65.8; Estimated Glomerular Filt Rate > 60; Glucose Random 145 mg/dL (60-115); Potassium 3.8 mmol/L (3.3-5.1); Sodium 142 mmol/L (135-145)
[2022-05-16 10:21] LABS: B Type Natriuretic Peptide 251 pg/mL (<100)
[2022-05-16 11:44] VITALS: BP 123/74; PULSE 92; RESP 16; TEMP 36.1; O2SAT 94
[2022-05-16] MEDS: Spironolactone 25 MG TABLET 12.5 MG PO (12:52)
[2022-05-16] MEDS: Furosemide 200 MG in 0.9 % Sodium Chloride 80 ML IVCONT (12:53)
--- NOTE | 2022-05-16 13:27 | PM.PNCARD ---
Subjective Subjective Date of Service: 05/16/22 <ARMIDA Jeffers - Last Filed: 05/16/22 13:39> 05/16/22 <Thuan Pena MD - Last Filed: 05/16/22 13:46> Principal diagnosis: CHF, CMP <ARMIDA Jeffers - Last Filed: 05/16/22 13:39> Interval history: Seen at 1115. Today she reports breathing is improving but not back to baseline yet. SOB with moving and talking. She is still wearing O2 with cannula. Orthopnea present. No chest pains, palpitations, dizziness. Edema resolved. Tele shows SR, PACs, rate 80-100. IV lasix drip infusing. Pro in place. <ARMIDA Jeffers - Last Filed: 05/16/22 13:39> Review of Systems Review of Systems as above <ARMIDA Jeffers - Last Filed: 05/16/22 13:39> Yes all other systems are reviewed and are negative <ARMIDA Jeffers - Last Filed: 05/16/22 13:39> Physical Exam Vital Signs: Last Vital Signs Temp 97.0 F 05/16/22 11:44 Pulse 92 05/16/22 11:44 Resp 16 05/16/22 11:44 BP 123/74 05/16/22 11:44 Pulse Ox 94 05/16/22 11:44 O2 Del Method 05/16/22 11:44 O2 Flow Rate 1 05/15/22 19:43 Oxygen Flow Rate 2 05/15/22 07:44 BMI result Body Mass Index 34.4 <ARMIDA Jeffers - Last Filed: 05/16/22 13:39> Const General: cooperative and no acute distress <ARMIDA Jeffers - Last Filed: 05/16/22 13:39> Orientation/consciousness: patient oriented x3 <ARMIDA Jeffers - Last Filed: 05/16/22 13:39> Neck Neck: Yes normal visual inspection <ARMIDA Jeffers - Last Filed: 05/16/22 13:39> Resp Other: Speech is mildly strained. Increased work of breathing with movement in bed. <Renetta Dejesus NPC - Last Filed: 05/16/22 13:39> Auscultation: rales (lower lobes bilaterally), no rhonchi and no wheezes <Renetta Dejesus NPC - Last Filed: 05/16/22 13:39> Cardio Jugular venous distension: no JVD <Renetta Dejesus NPC - Last Filed: 05/16/22 13:39> Rate: regular rate <Renetta Dejesus NPC - Last Filed: 05/16/22 13:39> Rhythm: regular rhythm <Renetta Dejesus NPC - Last Filed: 05/16/22 13:39> Heart sounds: S1 normal heart sound present, S2 normal heart sound present, no gallops, no murmurs and no rubs <Renetta Dejesus TEST ENG-C - Last Filed: 05/16/22 13:39> GI Inspection: Yes normal to inspection <Renetta Dejesus NP - Last Filed: 05/16/22 13:39> Neuro General: patient oriented x3 <Renetta Dejesus NPC - Last Filed: 05/16/22 13:39> Extrem General: Yes normal to inspection <Renetta Dejesus NPC - Last Filed: 05/16/22 13:39> Psych Appearance: grossly normal <Renetta Dejesus NPC - Last Filed: 05/16/22 13:39> Mental Status: mental status grossly normal <Renetta Dejesus NPC - Last Filed: 05/16/22 13:39> Speech and movement: Normal speech and movement present <[facility] Dejesus [facility] - Last Filed: 05/16/22 13:39> Objective Labs and Meds Result diagrams: : 05/16/22 09:03 05/16/22 09:03 <Renetta Dejesus NPC - Last Filed: 05/16/22 13:39> Lab results: Laboratory Results - last 24 hr 05/16/22 05/16/22 05/16/22 09:03 09:03 09:06 WBC 11.6 H RBC 4.45 Hgb 14.5 Hct 43.8 MCV 98.4 H MCH 32.6 MCHC 33.1 RDW 12.2 Plt Count 235 MPV 10.7 Immature Gran % (Auto) 0.3 Neut % (Auto) 66.5 Lymph % (Auto) 24.5 [place] % (Auto) 7.0 Eos % (Auto) 1.0 Baso % (Auto) 0.7 Lymph # (Auto) 2.8 [place] # (Auto) 0.8 Eos # (Auto) 0.1 Baso # (Auto) 0.1 Abs Immat Gran (auto) 0.04 H Absolute Neuts (auto) 7.7 Absolute Nucleated RBC 0.000 Nucleated RBC % (auto) 0.0 Sodium 142 Potassium 3.8 Chloride 98 Carbon Dioxide 34 H Anion Gap 14 BUN 19 H Creatinine 0.91 Estim Creat Clear Calc 65.8 Estimated GFR > 60 Random Glucose 145 H Calcium 9.4 Total Bilirubin 0.6 AST 35 H ALT 28 Alkaline Phosphatase 54 B-Natriuretic Peptide 251 H Total Protein 7.0 Albumin 4.3 <ARMIDA Jeffers - Last Filed: 05/16/22 13:39> Progress Note: A&P Assessment and plan (1) Acute exacerbation of CHF (congestive heart failure): Status: Acute <ARMIDA Jeffers - Last Filed: 05/16/22 13:39> Assessment and Plan: Remote hx of chemo induced CMP with normalization of EF with med mgt. At some point was taken of neurohormonal modulation. Developed increase sob. CXR this admit showing pulm edema. BNP 961. Echo showed EF 30-35%, mod LA dilation. She is being treated for acute systolic heart failure. She is being diuresed with IV Lasix drip at 5mg hour. Fluid balance neg 1 liter. Today she reports breathing improving but not normal. Still has clinical signs of HF. BNP 251 today. Continue lasix drip. Strict I+O monitoring. Close monitoring of electrolyte and kidney function with electrolyte replacement as warranted. Continue Diovan. - Lisinopril was also on med list and it was stopped. BP this am on low side. Continue close BP monitoring. <ARMIDA Jeffers - Last Filed: 05/16/22 13:39> Remote hx of chemo induced CMP with normalization of EF with med mgt. At some point was taken of neurohormonal modulation. Developed increase sob. CXR this admit showing pulm edema. BNP 961. Echo showed EF 30-35%, mod LA dilation. She is being treated for acute systolic heart failure. She is being diuresed with IV Lasix drip at 5mg hour. Fluid balance neg 1 liter. Today she reports breathing improving but not normal. Still has clinical signs of HF. BNP 251 today. Continue lasix drip. Strict I+O monitoring. Close monitoring of electrolyte and kidney function with electrolyte replacement as warranted. Continue Diovan. - Lisinopril was also on med list and it was stopped. BP this am on low side. Continue close BP monitoring. Patient seen and examined. Case discussed with Renetta Patient doing much better. Still continues to have rales. Will continue IV Lasix drip. Blood pressure is low but was both on lisinopril and Diovan. Lisinopril has been discontinued. Continue Diovan therapy. As clinical status improves, will add other neurohormonal modulation. Added low-dose spironolactone today. Continue monitor renal function closely. Better intake and output chart needs to be maintained to guide therapy. Most likely recurrence of chemo induced cardiomyopathy. Will continue to follow with you <Thuan Pena MD - Last Filed: 05/16/22 13:46> (2) Cardiomyopathy: Status: Acute <ARMIDA Jeffers - Last Filed: 05/16/22 13:39> Assessment and Plan: No known hx of CAD. CMP most likely nonischemic in nature. Started on Diovan and will continue to add appropriate medications as condition and BP allows. <ARMIDA Jeffers - Last Filed: 05/16/22 13:39> Time Spent With Patient Time: Total time managing care of this patient today __22__ minutes. <ARMIDA Jeffers - Last Filed: 05/16/22 13:39> Progress Note: Quality Stroke Does the patient have a stroke diagnosis?: No <ARMIDA Jeffers - Last Filed: 05/16/22 13:39> Procedures Date of Service Date of Service: 05/16/22 <ARMIDA Jeffers - Last Filed: 05/16/22 13:39>
--- NOTE | 2022-05-16 14:15 | HO.PM.IMPN ---
Subjective Subjective Date of Service: 05/16/22 Interval History: Notes improvement in breathing however not back to baseline Review of Systems Denies chest pain Admits to shortness of breath improved but not back to baseline Denies nausea vomiting diarrhea Denies fever chills Physical Exam Vital Signs: Vital Signs: Last Vital Signs Temp 97.0 F 05/16/22 11:44 Pulse 92 05/16/22 11:44 Resp 16 05/16/22 11:44 BP 123/74 05/16/22 11:44 Pulse Ox 94 05/16/22 11:44 O2 Del Method 05/16/22 11:44 O2 Flow Rate 1 05/15/22 19:43 Oxygen Flow Rate 2 05/15/22 07:44 BMI result Body Mass Index 34.4 Const: Other: Awake alert no acute distress Resp: Other: Diminished throughout with scant crackles at bases Cardio: Other: No S4; positive S1-S2; GI: Other: Soft nontender nondistended normoactive bowel sounds Extrem: Other: No edema bilaterally Objective Data Active Medications Acetaminophen (Acetaminophen 325 Mg Tablet) 650 mg PO Q6H PRN PRN Reason: Pain, Mild (Pain Scale 1-3) Docusate Sodium (Docusate Sodium 100 Mg Capsule) 100 mg PO DAILY PRN PRN Reason: Constipation Enoxaparin Sodium (Enoxaparin Sodium 40 Mg/0.4 Ml Syringe) 40 mg SUBCUT Q24H [facility] Last Admin: 05/16/22 01:48 Dose: 40 mg Documented By: OSWALDO Ceftriaxone Sodium 1 gm/ (Sodium Chloride) 50 mls @ 100 mls/hr IV Q24H [facility] Last Infusion: 05/16/22 05:55 Dose: 0 mls/hr Documented By: OSWALDO Azithromycin 500 mg/ Sodium (Chloride) 250 mls @ 125 mls/hr IV Q24H [facility] Last Infusion: 05/16/22 10:18 Dose: 0 mls/hr Documented By: NILO Furosemide 200 mg/ Sodium (Chloride) 100 mls @ 2.5 mls/hr IVCONT .Q24H [facility] Last Admin: 05/16/22 12:53 Dose: 5 mg/hr, 2.5 mls/hr Documented By: NILO Ondansetron HCl (Ondansetron Hcl 4 Mg/2 Ml Vial) 4 mg IVPUSH Q8H PRN PRN Reason: Nausea and Vomiting Sodium Chloride (0.9 % Sodium Chloride Flush 3 Ml Syringe) 3 ml IVFLUSH QSHIFT [facility] Last Admin: 05/16/22 10:18 Dose: Not Given Documented By: NILO Non-Admin Reason: IV Running Spironolactone (Spironolactone 25 Mg Tablet) 12.5 mg PO DAILY [facility]; Protocol Last Admin: 05/16/22 12:52 Dose: 12.5 mg Documented By: NILO Valsartan (Valsartan 40 Mg Tablet) 20 mg PO BID [facility]; Protocol Last Admin: 05/16/22 09:59 Dose: Not Given Documented By: NILO Non-Admin Reason: Decreased Blood Pressure Labs CBC & Chem 7: 05/16/22 09:03 05/16/22 09:03 Labs: Laboratory Results - last 24 hr 05/16/22 05/16/22 05/16/22 09:03 09:03 09:06 MCV 98.4 H MCH 32.6 MCHC 33.1 RDW 12.2 Plt Count 235 MPV 10.7 Immature Gran % (Auto) 0.3 Neut % (Auto) 66.5 Lymph % (Auto) 24.5 [place] % (Auto) 7.0 Eos % (Auto) 1.0 Baso % (Auto) 0.7 Lymph # (Auto) 2.8 [place] # (Auto) 0.8 Eos # (Auto) 0.1 Baso # (Auto) 0.1 Abs Immat Gran (auto) 0.04 H Absolute Neuts (auto) 7.7 Absolute Nucleated RBC 0.000 Nucleated RBC % (auto) 0.0 Anion Gap 14 Estim Creat Clear Calc 65.8 Estimated GFR > 60 Random Glucose 145 H Calcium 9.4 Total Bilirubin 0.6 AST 35 H ALT 28 Alkaline Phosphatase 54 B-Natriuretic Peptide 251 H Total Protein 7.0 Albumin 4.3 Microbiology Microbiology Results: Microbiology 05/15/22 06:55 Blood Culture - Preliminary Blood - Venous No growth after 24 hours. 05/15/22 06:55 Blood Culture - Preliminary Blood - Venous No growth after 24 hours. 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 presents to the hospital with complaints of shortness of breath, orthopnea, found to have CHF exacerbation 1.Acute CHF exacerbation - improved on Lasix drip -2D echo demonstrates moderately severe LV systolic dysfunction with LVEF of 30-35% -continue current therapies including Diovan 20 mg b.i.d. 2.Community-acquired pneumonia - ceftriaxone/azithromycin (2) -titrate O2 to maintain sats greater than equal to 92% 3.Hypertension - acceptable control on current therapies - adjust as indicated DVT prophylaxis: Lovenox Given patient's requirement for IV Lasix patient required minimum 2 night inpatient hospital stay for further management and monitoring Time Spent With Patient Time: Total time managing care of this patient today ____ minutes. Quality Stroke Does the patient have a stroke diagnosis?: No VTE Prior VTE?: No VTE Risk Level:: Medical - moderate - high VTE Device Contraindication: Treatment Not Indicated VTE Drug Contraindication: N/A - Med Ordered
--- NOTE | 2022-05-16 15:20 | MHC.CM.PN ---
pt will be here over the weekend no sevices anticapated
[2022-05-16 15:54] VITALS: BP 101/58; PULSE 92; RESP 18; TEMP 36.2; O2SAT 95
[2022-05-16 20:00] VITALS: BP 99/66; PULSE 95; RESP 18; TEMP 36.3; O2SAT 96
[2022-05-16] MEDS: Valsartan 40 MG TABLET 20 MG PO (22:01)
[2022-05-16] MEDS: Melatonin 3 MG TABLET 6 MG PO (22:01)
[2022-05-16] MEDS: Omeprazole 40 MG CAPSULE.DR PO (22:01)
[2022-05-16 23:49] VITALS: BP 96/51; PULSE 82; RESP 18; TEMP 36.4; O2SAT 97
[2022-05-17] VITALS (7 sets, daily range): BP systolic 101–124; BP diastolic 57–71; PULSE 83–162; RESP 18–20; TEMP 36.1–36.4; O2SAT 94–97
[2022-05-17] MEDS: 0.9 % Sodium Chloride Flush 3 ML SYRINGE IVFLUSH ×4 (00:45→21:33)
[2022-05-17] MEDS: Enoxaparin Sodium 40 MG/0.4 ML SYRINGE SUBCUT (01:45)
[2022-05-17 02:58] LABS: Anion Gap 15 (12-20); Blood Urea Nitrogen 23 mg/dL (9-16); Calcium 9.1 mg/dL (8.4-10.2); Carbon Dioxide 31 mmol/L (22-29); Chloride 96 mmol/L (96-108); Creatinine Clr Calc Pharmacy 75.8; Estimated Glomerular Filt Rate > 60; Glucose Random 136 mg/dL (60-115); Magnesium 1.6 mg/dL (1.6-2.6); Potassium 3.5 mmol/L (3.3-5.1); Sodium 138 mmol/L (135-145)
[2022-05-17] MEDS: cefTRIAXone sodium 1 GM in 0.9 % Sodium Chloride 50 ML IV (06:13)
[2022-05-17] MEDS: Spironolactone 25 MG TABLET 12.5 MG PO (08:35)
[2022-05-17] MEDS: Valsartan 40 MG TABLET 20 MG PO ×2 (08:35→21:30)
[2022-05-17] MEDS: Azithromycin 500 MG in 0.9 % Sodium Chloride 250 ML 125 MG IV (08:36)
--- NOTE | 2022-05-17 10:48 | PM.PNCARD ---
Subjective Subjective Date of Service: 05/17/22 Principal diagnosis: CHF, CMP Interval history: Patient breathing much better today. Negative balance of heart 2300 CCS charted. Blood pressure is stable. Tolerating current medications. One wide complex run suggestive nonsustained VT. Either on which is suggestive more short runs of PACs with intermittent sinus rhythm Review of Systems Constitutional: Reports no additional constitutional complaints Cardiovascular: Reports dyspnea Respiratory: Reports no additional respiratory complaints and Reports dyspnea Gastrointestinal: Reports no additional gastrointestinal complaints Genitourinary: Reports no additional female genitourinary complaints Musculoskeletal: Reports no additional musculoskeletal complaints Reports system reviewed and no additional complaints, except as documented Psychiatric: Reports no additional psychiatric complaints Endocrine: Reports no additional endocrine complaints Hematologic/Lymphatic: Reports no additional hematologic/lymphatic complaints Allergic/Immunologic: Reports no additional allergic/immunologic complaints Physical Exam Vital Signs: Last Vital Signs Temp 96.9 F 05/17/22 07:49 Pulse 86 05/17/22 07:49 Resp 20 05/17/22 07:49 BP 101/57 L 05/17/22 07:49 Pulse Ox 95 05/17/22 07:49 O2 Del Method 05/17/22 07:49 O2 Flow Rate 1 05/17/22 07:49 Oxygen Flow Rate 2 05/15/22 07:44 BMI result Body Mass Index 34.4 Const General: cooperative, comfortable, alert and awake Nutritional Appearance: obese Orientation/consciousness: patient oriented x3 Neck Neck: Yes trachea midline, Yes supple and Yes no JVD Resp Effort & Inspection: normal respiratory effort Auscultation: no rales and wheezes Cardio Jugular venous distension: no JVD Palpation: abnormal PMI displaced PMI Rate: regular rate Rhythm: regular rhythm Heart sounds: S1 normal heart sound present, S2 normal heart sound present, no click, no gallops and no murmurs GI Auscultation: normal bowel sounds Skin General skin exam: no rashes or lesions noted Neuro General: patient oriented x3 and no focal motor deficits Extrem General: Yes no clubbing, cyanosis or edema Objective Labs and Meds Result diagrams: 05/16/22 09:03 05/17/22 02:24 Lab results: Laboratory Results - last 24 hr 05/17/22 02:24 Sodium 138 Potassium 3.5 Chloride 96 Carbon Dioxide 31 H Anion Gap 15 BUN 23 H Creatinine 0.79 Estim Creat Clear Calc 75.8 Estimated GFR > 60 Random Glucose 136 H Calcium 9.1 Magnesium 1.6 Progress Note: A&P Assessment and plan (1) Acute exacerbation of CHF (congestive heart failure): Status: Acute Assessment and Plan: Decompensated congestive after which is doing a lot better with 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 Clinically much improved. Switch Lasix drip to 40 mg IV daily. Strict intake and output chart needs to be pursued. Continue to monitor renal function electrolytes and replace as needed. Will add Coreg 3.125 mg b.i.d. today because of cardiomyopathy neurohormonal modulation as well as nonsustained VT. Continue valsartan Aldactone. Continue monitor blood pressure closely. Out of bed to chair. Oxygen desaturation and patient does not require oxygen ambulating the hallways. If doing okay by tomorrow plan to discharge day after tomorrow. Will continue to follow with you Time Spent With Patient Time: Total time managing care of this patient today ____ minutes. Progress Note: Quality Stroke Does the patient have a stroke diagnosis?: No Procedures Date of Service Date of Service: 05/17/22
--- NOTE | 2022-05-17 13:25 | PC.NURSE ---
Patient off of floor to ICU for central venous access via bed accompanied by Dr. Huber and DONG Mello at this time.
[2022-05-17] MEDS: LORazepam 1 MG TABLET PO (13:44)
--- NOTE | 2022-05-17 14:42 | PCN2_ITS ---
Brief Operative Note Date of procedure: 05/17/22 Pre-op diagnosis: Lack of IV access Post-op diagnosis: same Procedure: PROCEDURE:? Insertion right supraclavicular subclavian central venous line. INDICATION:? No IV access. ANESTHESIA:? local. PROCEDURE:? Vascular ultrasound was used to examine the right side (the left side was avoided because of a previous port on that side).?A medium-sized compressible subclavian vein was noted in the right infraclavicular fossa, with substantial inspiratory collapse. A much larger subclavian vein was found in the supraclavicular fossa, with less inspiratory collapse. The subclavian artery was noted more laterally. The right neck and upper chest were widely prepped and draped in full sterile fashion.? The vessels were located by US.? The medial supraclavicular subclavian vein was cannulated on the 2nd pass of the 18 gauge thin wall.? The wire was threaded without incident.? A 7 [place] by 16 cm triple-lumen catheter was advanced into the vein up to the hub via the Seldinger technique without incident.? There was good aspirate of blood x3.? The catheter was sutured x3 w 3-0 silk and a Biopatch and dry sterile dressing were applied. Postop chest x-ray showed the line in perfect position. There was no pneumothorax. The patient tolerated the procedure well w no complications. Surgeon: Pepe Link
--- NOTE | 2022-05-17 14:43 | PC.NURSE ---
Patient back on floor at this time.
--- NOTE | 2022-05-17 15:21 | HO.PM.IMPN ---
Subjective Subjective Date of Service: 05/17/22 Interval History: Breathing improved on Lasix drip. Persisting cough Review of Systems Denies chest pain Admits to shortness of breath improved but not back to baseline Denies nausea vomiting diarrhea Denies fever chills Physical Exam Vital Signs: Vital Signs: Last Vital Signs Temp 97.1 F 05/17/22 11:05 Pulse 92 05/17/22 11:05 Resp 20 05/17/22 11:05 BP 106/70 05/17/22 11:05 Pulse Ox 97 05/17/22 11:05 O2 Del Method 05/17/22 11:05 O2 Flow Rate 1 05/17/22 11:05 Oxygen Flow Rate 2 05/15/22 07:44 BMI result Body Mass Index 34.4 Const: Other: Awake alert no acute distress Resp: Other: Diminished throughout with scant crackles at bases Cardio: Other: No S4; positive S1-S2; GI: Other: Soft nontender nondistended normoactive bowel sounds Extrem: Other: No edema bilaterally Objective Data Active Medications Acetaminophen (Acetaminophen 325 Mg Tablet) 650 mg PO Q6H PRN PRN Reason: Pain, Mild (Pain Scale 1-3) Carvedilol (Carvedilol 3.125 Mg Tablet) 3.125 mg PO BID [facility]; Protocol Docusate Sodium (Docusate Sodium 100 Mg Capsule) 100 mg PO DAILY PRN PRN Reason: Constipation Enoxaparin Sodium (Enoxaparin Sodium 40 Mg/0.4 Ml Syringe) 40 mg SUBCUT Q24H [facility] Last Admin: 05/17/22 01:45 Dose: 40 mg Documented By: LEIGHTON Furosemide (Furosemide 40 Mg/4 Ml Vial) 40 mg IVPUSH DAILY [facility]; Protocol Ceftriaxone Sodium 1 gm/ (Sodium Chloride) 50 mls @ 100 mls/hr IV Q24H [facility] Last Infusion: 05/17/22 06:45 Dose: 0 mls/hr Documented By: LEIGHTON Azithromycin 500 mg/ Sodium (Chloride) 250 mls @ 125 mls/hr IV Q24H [facility] Last Infusion: 05/17/22 14:29 Dose: 0 mls/hr Documented By: MACARIO Melatonin (Melatonin 3 Mg Tablet) 6 mg PO BEDTIME PRN PRN Reason: insomnia Last Admin: 05/16/22 22:01 Dose: 6 mg Documented By: LEIGHTON Ondansetron HCl (Ondansetron Hcl 4 Mg/2 Ml Vial) 4 mg IVPUSH Q8H PRN PRN Reason: Nausea and Vomiting Sodium Chloride (0.9 % Sodium Chloride Flush 3 Ml Syringe) 3 ml IVFLUSH QSHIFT [facility] Last Admin: 05/17/22 08:37 Dose: 3 ml Documented By: MACARIO Spironolactone (Spironolactone 25 Mg Tablet) 12.5 mg PO DAILY [facility]; Protocol Last Admin: 05/17/22 08:35 Dose: 12.5 mg Documented By: MACARIO Comments: gave 0.5 pill Valsartan (Valsartan 40 Mg Tablet) 20 mg PO BID [facility]; Protocol Last Admin: 05/17/22 08:35 Dose: 20 mg Documented By: MACARIO Comments: gave 0.5 pill Labs CBC & Chem 7: 05/16/22 09:03 05/17/22 02:24 Labs: Laboratory Results - last 24 hr 05/17/22 02:24 Anion Gap 15 Estim Creat Clear Calc 75.8 Estimated GFR > 60 Random Glucose 136 H Calcium 9.1 Magnesium 1.6 Microbiology Microbiology Results: Microbiology 05/15/22 06:55 Blood Culture - Preliminary Blood - Venous No growth after 48 hours. 05/15/22 06:55 Blood Culture - Preliminary Blood - Venous No growth after 48 hours. 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 presents to the hospital with complaints of shortness of breath, orthopnea, found to have CHF exacerbation 1.Acute CHF exacerbation - DC Lasix drip. -Lasix 40 mg IV daily -continue current therapies including Diovan 20 mg b.i.d... Add Coreg 3.25 b.i.d. 2.Community-acquired pneumonia - ceftriaxone/azithromycin (3) -titrate O2 to maintain sats greater than equal to 92% 3.Hypertension - acceptable control on current therapies - adjust as indicated DVT prophylaxis: Lovenox Given patient's requirement for IV Lasix patient required minimum 2 night inpatient hospital stay for further management and monitoring Time Spent With Patient Time: Total time managing care of this patient today ____ minutes. Quality Stroke Does the patient have a stroke diagnosis?: No VTE Prior VTE?: No VTE Risk Level:: Medical - moderate - high VTE Device Contraindication: Treatment Not Indicated VTE Drug Contraindication: N/A - Med Ordered
[2022-05-17] MEDS: Metoprolol Tartrate 5 MG/5 ML VIAL IVPUSH (15:35)
--- NOTE | 2022-05-17 15:49 | PC.NURSE ---
SVT 160's started at 15:28 after pt 's family delivered the news about in the family. DR Huber notified ,came to evaluate the patient in her room. Lopressor 5 mg IV override per DR Huber order for emergency . Lopressor given at 15:35 , heart rate decreased to 110's after the Lopressor. Pt is being comforted by the family.
[2022-05-17] MEDS: carvediloL 3.125 MG TABLET PO (21:30)
[2022-05-18] VITALS (7 sets, daily range): BP systolic 95–144; BP diastolic 55–76; PULSE 72–105; RESP 15–20; TEMP 36.2–37.1; O2SAT 92–96
[2022-05-18] MEDS: Enoxaparin Sodium 40 MG/0.4 ML SYRINGE SUBCUT (01:38)
[2022-05-18] MEDS: cefTRIAXone sodium 1 GM in 0.9 % Sodium Chloride 50 ML IV (06:26)
[2022-05-18 06:32] LABS: MANUAL DIFF FLAG NO
[2022-05-18 06:36] LABS: Basophils Absolute Auto 0.1 X10*3/uL (0.0-0.2); Basophils Percent Auto 0.8 % (0-2); Eosinophils Absolute Auto 0.3 X10*3/uL (0.0-0.4); Eosinophils Percent Auto 3.7 % (0-4); Hematocrit 43.3 % (37.0-47.0); Hemoglobin 14.7 g/dl (12.0-16.0); Imm Gran Abs Auto 0.03 X10*3/uL (0.00-0.03); Imm Gran Pct Auto 0.4 % (0.0-0.4); Lymphocytes Absolute Auto 0.6 X10*3/uL (1.2-4.9); Lymphocytes Percent Auto 8.3 % (20-40); Mean Corpuscular HGB Conc 33.9 g/dl (31.0-35.0); Mean Corpuscular Hemoglobin 32.5 pg (27.0-33.0); Mean Corpuscular Volume 95.8 fL (80.0-98.0); Mean Platelet Volume 10.3 fL (9.4-12.3); Monocytes Absolute Auto 0.7 X10*3/uL (0.1-1.2); Monocytes Percent Auto 9.5 % (2-11); Neutrophils Absolute Auto 5.8 x10*3/uL (2.0-8.3); Neutrophils Percent Auto 77.3 % (45-73); Platelet Count 202 X10*3/uL (160-400); Red Blood Count 4.52 X10*6/uL (4.20-5.50); Red Cell Distribution Width 11.9 % (11.0-16.0); White Blood Count 7.6 X10*3/uL (4.8-10.8)
[2022-05-18 06:56] LABS: Alanine Aminotransferase 47 U/L (0-31); Alkaline Phosphatase 57 U/L (39-117); Anion Gap 14 (12-20); Aspartate Amino Transferase 53 U/L (5-31); Blood Urea Nitrogen 18 mg/dL (9-16); Calcium 9.8 mg/dL (8.4-10.2); Carbon Dioxide 31 mmol/L (22-29); Chloride 97 mmol/L (96-108); Creatinine Clr Calc Pharmacy 76.8; Estimated Glomerular Filt Rate > 60; Glucose Fasting 137 mg/dL (60-99); Potassium 3.8 mmol/L (3.3-5.1); Sodium 138 mmol/L (135-145); Total Protein 6.5 g/dL (6.5-8.0)
[2022-05-18 09:13] LABS: Procalcitonin 0.05 ng/mL
[2022-05-18] MEDS: Valsartan 40 MG TABLET 20 MG PO ×2 (09:54→21:10)
[2022-05-18] MEDS: Furosemide 40 MG/4 ML VIAL IVPUSH (09:54)
[2022-05-18] MEDS: 0.9 % Sodium Chloride Flush 3 ML SYRINGE IVFLUSH ×3 (09:54→21:11)
[2022-05-18] MEDS: carvediloL 3.125 MG TABLET PO ×2 (09:55→21:10)
[2022-05-18] MEDS: Spironolactone 25 MG TABLET 12.5 MG PO (09:56)
[2022-05-18] MEDS: Azithromycin 500 MG in 0.9 % Sodium Chloride 250 ML 125 MG IV (09:57)
--- NOTE | 2022-05-18 13:14 | P.PNCA_ITS ---
Subjective Subjective Date of Service: 05/18/22 Principal diagnosis: CHF, CMP Interval history: Patient developed some rapid heart rate yesterday. Reviewing the cardiac telemetry appears to be atrial fibrillation with rapid ventricular response. Converted. She had some bad news yesterday. Complains of lightheadedness. Blood pressure on the lower side. Heart rate in the 90s. Shortness of breath is much improved. Currently not using any oxygen. Review of Systems Constitutional: Reports no additional constitutional complaints Cardiovascular: Reports lightheadedness, Denies Loss of Consciousness, Reports palpitations and Reports dyspnea on exertion Respiratory: Reports no additional respiratory complaints and Reports dyspnea on exertion Gastrointestinal: Reports no additional gastrointestinal complaints Genitourinary: Reports no additional female genitourinary complaints Musculoskeletal: Reports no additional musculoskeletal complaints Reports system reviewed and no additional complaints, except as documented Psychiatric: Reports no additional psychiatric complaints Endocrine: Reports palpitations Physical Exam Vital Signs: Last Vital Signs Temp 97.2 F 05/18/22 11:17 Pulse 92 05/18/22 11:17 Resp 18 05/18/22 11:17 BP 95/55 L 05/18/22 11:17 Pulse Ox 96 05/18/22 11:17 O2 Del Method 05/18/22 11:17 O2 Flow Rate 1 05/17/22 11:05 Oxygen Flow Rate 2 05/15/22 07:44 BMI result Body Mass Index 34.4 Const General: cooperative, comfortable, alert and awake Nutritional Appearance: obese Orientation/consciousness: patient oriented x3 Neck Neck: Yes trachea midline, Yes supple and Yes no JVD Resp Effort & Inspection: normal respiratory effort Auscultation: no rales and wheezes Cardio Jugular venous distension: no JVD Palpation: abnormal PMI displaced PMI Rate: regular rate Rhythm: regular rhythm Heart sounds: S1 normal heart sound present, S2 normal heart sound present, no click, no gallops and no murmurs GI Auscultation: normal bowel sounds Skin General skin exam: no rashes or lesions noted Neuro General: patient oriented x3 and no focal motor deficits Extrem General: Yes no clubbing, cyanosis or edema Objective Labs and Meds Result diagrams: 05/18/22 06:00 05/18/22 06:00 Lab results: Laboratory Results - last 24 hr 05/18/22 05/18/22 05/18/22 06:00 06:00 06:00 WBC 7.6 RBC 4.52 Hgb 14.7 Hct 43.3 MCV 95.8 MCH 32.5 MCHC 33.9 RDW 11.9 Plt Count 202 MPV 10.3 Immature Gran % (Auto) 0.4 Neut % (Auto) 77.3 H Lymph % (Auto) 8.3 L [place] % (Auto) 9.5 Eos % (Auto) 3.7 Baso % (Auto) 0.8 Lymph # (Auto) 0.6 L [place] # (Auto) 0.7 Eos # (Auto) 0.3 Baso # (Auto) 0.1 Abs Immat Gran (auto) 0.03 Absolute Neuts (auto) 5.8 Absolute Nucleated RBC 0.000 Nucleated RBC % (auto) 0.0 Sodium 138 Potassium 3.8 Chloride 97 Carbon Dioxide 31 H Anion Gap 14 BUN 18 H Creatinine 0.78 Estim Creat Clear Calc 76.8 Estimated GFR > 60 Fasting Glucose 137 H Calcium 9.8 D Total Bilirubin 1.0 AST 53 H ALT 47 H Alkaline Phosphatase 57 Total Protein 6.5 Albumin 4.0 Procalcitonin 0.05 Imaging Radiologist's impression: Impressions Chest X-Ray 05/17/22 14:38 IMPRESSION: 1. Right-sided central venous catheter tip terminates in the distal SVC at the cavoatrial junction region. No pneumothorax. 2. Improved aeration at the lung bases since prior. Progress Note: A&P Assessment and plan (1) Acute exacerbation of CHF (congestive heart failure): Status: Acute Assessment and Plan: Patient with heart failure with acute exacerbation secondary to systolic dysfunction secondary to cardiomyopathy which appears to be recurrent chemo therapy induced cardiomyopathy. Low blood pressure noted. Not tolerating neurohormonal modulation. Hold spironolactone. Continue valsartan as well as carvedilol therapy. Can switch to p.o. Lasix starting tomorrow. Continue to monitor strict intake and output chart. Needs CHF education to be provided. Will eventually need ischemic workup can be done as outpatient although in the past she had a cardiac catheterization 2012 with cardiomyopathy which was thorpe ggestive of chemotherapy-induced cardiomyopathy. Recurrence most likely due to stopping of or outpatient neurohormonal modulation. (2) Paroxysmal atrial fibrillation: Status: Acute Assessment and Plan: Paroxysmal atrial fibrillation noted yesterday after stressful news. Currently in sinus rhythm. Add digoxin to her regimen. Will avoid antiarrhythmic drug therapy at this point time. Start on full oral anticoagulation with Eliquis 5 mg b.i.d. due to high risk for thromboembolic complication. Will continue to follow with you Time Spent With Patient Time: Total time managing care of this patient today ____ minutes. Progress Note: Quality Stroke Does the patient have a stroke diagnosis?: No Procedures Date of Service Date of Service: 05/18/22
--- NOTE | 2022-05-18 13:21 | P.PNIM_ITS ---
Subjective Subjective Date of Service: 05/18/22 Interval History: symptomatic AF yesterday, converted c/o dyspnea though improved Review of Systems Review of Systems: Yes all other systems are reviewed and are negative Physical Exam Vital Signs: Vital Signs: Last Vital Signs Temp 97.2 F 05/18/22 11:17 Pulse 92 05/18/22 11:17 Resp 18 05/18/22 11:17 BP 95/55 L 05/18/22 11:17 Pulse Ox 96 05/18/22 11:17 O2 Del Method 05/18/22 11:17 O2 Flow Rate 1 05/17/22 11:05 Oxygen Flow Rate 2 05/15/22 07:44 BMI result Body Mass Index 34.4 Gen: in no acute distress HEENT: sclera anicteric, moist mucus membranes Neck: supple Lungs: clear to auscultation bilaterally Heart: regular rate and rhythm, no murmurs Abd: soft, non-tender, non-distended Ext: no edema Skin: warm/well-perfused Neuro: alert and oriented x3, no focal findings Psych: appropriate affect Objective Data Active Medications Acetaminophen (Acetaminophen 325 Mg Tablet) 650 mg PO Q6H PRN PRN Reason: Pain, Mild (Pain Scale 1-3) Albuterol/Ipratropium (Albuterol/Iprat 2.5/0.5mg 3 Ml Ampul.Neb) 3 ml INHALE RQ4H PRN PRN Reason: shortness of breath or wheeze Carvedilol (Carvedilol 3.125 Mg Tablet) 3.125 mg PO BID [facility]; Protocol Last Admin: 05/18/22 09:55 Dose: 3.125 mg Documented By: MACARIO Docusate Sodium (Docusate Sodium 100 Mg Capsule) 100 mg PO DAILY PRN PRN Reason: Constipation Enoxaparin Sodium (Enoxaparin Sodium 40 Mg/0.4 Ml Syringe) 40 mg SUBCUT Q24H [facility] Last Admin: 05/18/22 01:38 Dose: 40 mg Documented By: MEI Furosemide (Furosemide 40 Mg/4 Ml Vial) 40 mg IVPUSH DAILY [facility]; Protocol Last Admin: 05/18/22 09:54 Dose: 40 mg Documented By: MACARIO Ceftriaxone Sodium 1 gm/ (Sodium Chloride) 50 mls @ 100 mls/hr IV Q24H [facility] Last Infusion: 05/18/22 10:04 Dose: 0 mls/hr Documented By: MACARIO Azithromycin 500 mg/ Sodium (Chloride) 250 mls @ 125 mls/hr IV Q24H [facility] Last Infusion: 05/18/22 12:12 Dose: 0 mls/hr Documented By: MACARIO Melatonin (Melatonin 3 Mg Tablet) 6 mg PO BEDTIME PRN PRN Reason: insomnia Last Admin: 05/16/22 22:01 Dose: 6 mg Documented By: LEIGHTON Ondansetron HCl (Ondansetron Hcl 4 Mg/2 Ml Vial) 4 mg IVPUSH Q8H PRN PRN Reason: Nausea and Vomiting Sodium Chloride (0.9 % Sodium Chloride Flush 3 Ml Syringe) 3 ml IVFLUSH QSHIFT [facility] Last Admin: 05/18/22 09:54 Dose: 3 ml Documented By: MACARIO Spironolactone (Spironolactone 25 Mg Tablet) 12.5 mg PO DAILY [facility]; Protocol Last Admin: 05/18/22 09:56 Dose: 12.5 mg Documented By: MACARIO Valsartan (Valsartan 40 Mg Tablet) 20 mg PO BID [facility]; Protocol Last Admin: 05/18/22 09:54 Dose: 20 mg Documented By: MACARIO Labs CBC & Chem 7: 05/18/22 06:00 05/18/22 06:00 Labs: Laboratory Results - last 24 hr 05/18/22 05/18/22 05/18/22 06:00 06:00 06:00 MCV 95.8 MCH 32.5 MCHC 33.9 RDW 11.9 Plt Count 202 MPV 10.3 Immature Gran % (Auto) 0.4 Neut % (Auto) 77.3 H Lymph % (Auto) 8.3 L [place] % (Auto) 9.5 Eos % (Auto) 3.7 Baso % (Auto) 0.8 Lymph # (Auto) 0.6 L [place] # (Auto) 0.7 Eos # (Auto) 0.3 Baso # (Auto) 0.1 Abs Immat Gran (auto) 0.03 Absolute Neuts (auto) 5.8 Absolute Nucleated RBC 0.000 Nucleated RBC % (auto) 0.0 Anion Gap 14 Estim Creat Clear Calc 76.8 Estimated GFR > 60 Fasting Glucose 137 H Calcium 9.8 D Total Bilirubin 1.0 AST 53 H ALT 47 H Alkaline Phosphatase 57 Total Protein 6.5 Albumin 4.0 Procalcitonin 0.05 Microbiology Microbiology Results: Microbiology 05/15/22 06:55 Blood Culture - Preliminary Blood - Venous No growth after 48 hours. 05/15/22 06:55 Blood Culture - Preliminary Blood - Venous No growth after 48 hours. 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 presenting with dyspnea + orthopnea, found to have HFrEF # acute HFrEF (LVEF 30%) - furosemide gtt -> 40 mg IV daily, monitor I+O (2.8L cumulatively this admission) + BNP + electrolytes - continue valsartan + carvedilol, hold spironolactone due to low BP - outpt cardiology clinic f/u and ischemic evaluation # paroxysmal AF - continue carvedilol, start digoxin - anticoagulate with apixaban # PNA - d#4 ceftriaxone + azithromycin # VTE ppx: apixaban # dispo: anticipate home with [facility]NA in next 1-2d In my clinical judgment, the patient requires continued inpatient hospitalization for the following reasons: IV diuresis + ABX Time Spent With Patient Time: Total time managing care of this patient today __39__ minutes. Quality Stroke Does the patient have a stroke diagnosis?: No VTE Prior VTE?: No VTE Risk Level:: Medical - moderate - high VTE Device Contraindication: Treatment Not Indicated VTE Drug Contraindication: N/A - Med Ordered
[2022-05-18] MEDS: Digoxin 0.25 MG TABLET PO (13:44)
[2022-05-18] MEDS: guaiFENesin DM 100/10/5 ML 5 ML SYRUP PO (21:45)
[2022-05-19 03:21] VITALS: BP 138/79; PULSE 98; RESP 15; TEMP 36.8; O2SAT 91
[2022-05-19] MEDS: cefTRIAXone sodium 1 GM in 0.9 % Sodium Chloride 50 ML IV (05:56)
[2022-05-19 06:01] LABS: MANUAL DIFF FLAG NO
[2022-05-19 06:16] LABS: Basophils Absolute Auto 0.1 X10*3/uL (0.0-0.2); Basophils Percent Auto 0.8 % (0-2); Eosinophils Absolute Auto 0.2 X10*3/uL (0.0-0.4); Eosinophils Percent Auto 2.2 % (0-4); Hematocrit 42.5 % (37.0-47.0); Hemoglobin 14.6 g/dl (12.0-16.0); Imm Gran Abs Auto 0.06 X10*3/uL (0.00-0.03); Imm Gran Pct Auto 0.8 % (0.0-0.4); Lymphocytes Absolute Auto 0.6 X10*3/uL (1.2-4.9); Lymphocytes Percent Auto 8.4 % (20-40); Mean Corpuscular HGB Conc 34.4 g/dl (31.0-35.0); Mean Corpuscular Hemoglobin 33.2 pg (27.0-33.0); Mean Corpuscular Volume 96.6 fL (80.0-98.0); Mean Platelet Volume 10.3 fL (9.4-12.3); Monocytes Absolute Auto 0.9 X10*3/uL (0.1-1.2); Monocytes Percent Auto 13.1 % (2-11); Neutrophils Absolute Auto 5.4 x10*3/uL (2.0-8.3); Neutrophils Percent Auto 74.7 % (45-73); Platelet Count 168 X10*3/uL (160-400); Red Cell Distribution Width 11.9 % (11.0-16.0); White Blood Count 7.2 X10*3/uL (4.8-10.8)
[2022-05-19 06:27] LABS: B Type Natriuretic Peptide 207 pg/mL (<100)
[2022-05-19 06:37] LABS: Alanine Aminotransferase 54 U/L (0-31); Albumin Level 3.9 g/dL (3.5-5.0); Alkaline Phosphatase 50 U/L (39-117); Anion Gap 14 (12-20); Aspartate Amino Transferase 60 U/L (5-31); Bilirubin Total 0.6 mg/dL (0.0-1.0); Blood Urea Nitrogen 13 mg/dL (9-16); Calcium 9.4 mg/dL (8.4-10.2); Carbon Dioxide 31 mmol/L (22-29); Chloride 96 mmol/L (96-108); Creatinine Clr Calc Pharmacy 80.9; Estimated Glomerular Filt Rate > 60; Glucose Fasting 143 mg/dL (60-99); Magnesium 1.8 mg/dL (1.6-2.6); Potassium 3.7 mmol/L (3.3-5.1); Sodium 137 mmol/L (135-145); Total Protein 6.4 g/dL (6.5-8.0)
[2022-05-19 08:00] VITALS: BP 115/61; PULSE 96; RESP 20; TEMP 36.7; O2SAT 96
[2022-05-19] MEDS: Valsartan 40 MG TABLET 20 MG PO ×2 (09:37→21:30)
[2022-05-19] MEDS: Digoxin 0.25 MG TABLET PO (09:37)
[2022-05-19] MEDS: Furosemide 40 MG/4 ML VIAL IVPUSH (09:37)
[2022-05-19] MEDS: Azithromycin 500 MG in 0.9 % Sodium Chloride 250 ML 125 MG IV (09:37)
[2022-05-19] MEDS: carvediloL 3.125 MG TABLET PO ×2 (09:37→21:29)
[2022-05-19] MEDS: 0.9 % Sodium Chloride Flush 3 ML SYRINGE IVFLUSH ×3 (09:38→21:30)
[2022-05-19] MEDS: guaiFENesin DM 100/10/5 ML 5 ML SYRUP PO ×3 (09:44→21:29)
[2022-05-19 11:14] VITALS: BP 97/57; PULSE 92; RESP 20; TEMP 36.7; O2SAT 93
--- NOTE | 2022-05-19 11:31 | PM.DS ---
DS: Providers Provider Date of Service: 05/19/22 Date of admission: 05/15/22 01:18 Date of discharge: 05/19/22 Primary care physician: Jasmina Carballo MD Consults: 05/15/22 01:18 Consult to Cardiology Routine Consulting Provider: Thuan Pena Reason for consultation: CHF Has provider been notified: No DS: Diagnosis Discharge Diagnosis (1) Acute exacerbation of CHF (congestive heart failure): Status: Acute (2) Community acquired pneumonia: Status: Acute (3) Acute on chronic HFrEF (heart failure with reduced ejection fraction): Status: Acute (4) Cardiomyopathy: Status: Acute DS: Summary Hospital Course Hospital Course: from admission history and physical by hospitalist Dallin Mitchell MD, 05/15/22: 66-year-old female with past medical history of 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 pt reports orthopnea, PND, Dyspnea on minimal exertion.? symptoms started 2 days ago.? She denies any fever, no chills, no chest pain, no palpitations, no abdominal pain nausea or vomiting, no diarrhea constipation, no urinary symptoms and reports that she has not noticed any swelling in her legs.? She reports she does not take any water pill at home.? 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 She was presenting with dyspnea + orthopnea and admitted for decompensated HF. Echocardiography demonstrated markedly reduced LVEF of 30%. She was diuresed with furosemide drip and fluid balance was cumulatively 2.7L over the course of admission. Cardiology was consulted. She was started on neurohormonal modulation with valsartan and carvedilol and will need close outpatient cardiology follow-up including ischemic workup. She had a few runs of paroxysmal atrial fibrillation and digoxin was started, along with apixaban for anticoagulation. For pneumonia, she was treated with five days of ceftriaxone and azithromycin and discharged on two days of cefuroxime. VNA services were arranged and she should follow up with Primary Care and Cardiology in 1-2 weeks. \ Time Spent with Patient Time attestation: Total time managing care of this patient today __41__ minutes. Discharge coordination time: Greater than 30 minutes Quality: Safe Use of Opioids Does Pt have an Active Cancer Diagnosis on the Problem List?: No Quality: Stroke Does the patient have a stroke diagnosis?: No Physical Exam Vital Signs: Vital Signs: Last Vital Signs Temp 98.0 F 05/19/22 11:14 Pulse 92 05/19/22 11:14 Resp 20 05/19/22 11:14 BP 97/57 L 05/19/22 11:14 Pulse Ox 93 05/19/22 11:14 O2 Del Method 05/19/22 11:14 O2 Flow Rate 1 05/17/22 11:05 Oxygen Flow Rate 2 05/15/22 07:44 BMI result Body Mass Index 34.4 Gen: in no acute distress HEENT: sclera anicteric, moist mucus membranes Neck: supple Lungs: clear to auscultation bilaterally Heart: regular rate and rhythm, no murmurs Abd: soft, non-tender, non-distended Ext: no edema Skin: warm/well-perfused Neuro: alert and oriented x3, no focal findings Psych: appropriate affect DS: Data Data Completed and Pending Completed studies during hospitalization [Text1]: Laboratory Results WBC 7.2 X10*3/uL (4.8-10.8) 05/19/22 05:51 RBC 4.40 X10*6/uL (4.20-5.50) 05/19/22 05:51 Hgb 14.6 g/dl (12.0-16.0) 05/19/22 05:51 Hct 42.5 % (37.0-47.0) 05/19/22 05:51 MCV 96.6 fL (80.0-98.0) 05/19/22 05:51 MCH 33.2 pg (27.0-33.0) H 05/19/22 05:51 MCHC 34.4 g/dl (31.0-35.0) 05/19/22 05:51 RDW 11.9 % (11.0-16.0) 05/19/22 05:51 Plt Count 168 X10*3/uL (160-400) 05/19/22 05:51 MPV 10.3 fL (9.4-12.3) 05/19/22 05:51 Immature Gran % (Auto) 0.8 % (0.0-0.4) H 05/19/22 05:51 Neut % (Auto) 74.7 % (45-73) H 05/19/22 05:51 Lymph % (Auto) 8.4 % (20-40) L 05/19/22 05:51 [place] % (Auto) 13.1 % (2-11) H 05/19/22 05:51 Eos % (Auto) 2.2 % (0-4) 05/19/22 05:51 Baso % (Auto) 0.8 % (0-2) 05/19/22 05:51 Lymph # (Auto) 0.6 X10*3/uL (1.2-4.9) L 05/19/22 05:51 [place] # (Auto) 0.9 X10*3/uL (0.1-1.2) 05/19/22 05:51 Eos # (Auto) 0.2 X10*3/uL (0.0-0.4) 05/19/22 05:51 Baso # (Auto) 0.1 X10*3/uL (0.0-0.2) 05/19/22 05:51 Abs Immat Gran (auto) 0.06 X10*3/uL (0.00-0.03) H 05/19/22 05:51 Absolute Neuts (auto) 5.4 x10*3/uL (2.0-8.3) 05/19/22 05:51 Absolute Nucleated RBC 0.000 X10*3/uL (0.0-0.012) 05/19/22 05:51 Nucleated RBC % (auto) 0.0 /100WBC (0.0-0.2) 05/19/22 05:51 D-Dimer High Sensitivty 211 NG/ML 05/14/22 23:15 Sodium 137 mmol/L (135-145) 05/19/22 05:51 Potassium 3.7 mmol/L (3.3-5.1) 05/19/22 05:51 Chloride 96 mmol/L (96-108) 05/19/22 05:51 Carbon Dioxide 31 mmol/L (22-29) H 05/19/22 05:51 Anion Gap 14 (12-20) 05/19/22 05:51 BUN 13 mg/dL (9-16) 05/19/22 05:51 Creatinine 0.74 mg/dL (0.5-1.4) 05/19/22 05:51 Estim Creat Clear Calc 80.9 05/19/22 05:51 Estimated GFR > 60 05/19/22 05:51 Random Glucose Cancelled 05/19/22 05:51 Fasting Glucose 143 mg/dL (60-99) H 05/19/22 05:51 Lactic Acid 1.1 mmol/L (0.5-2.0) 05/15/22 06:55 Calcium 9.4 mg/dL (8.4-10.2) 05/19/22 05:51 Magnesium 1.8 mg/dL (1.6-2.6) 05/19/22 05:51 Total Bilirubin 0.6 mg/dL (0.0-1.0) 05/19/22 05:51 AST 60 U/L (5-31) H 05/19/22 05:51 ALT 54 U/L (0-31) H 05/19/22 05:51 Alkaline Phosphatase 50 U/L (39-117) 05/19/22 05:51 Troponin I High Sens 19.3 ng/L (<3.5-17.0) H 05/15/22 01:21 B-Natriuretic Peptide 207 pg/mL (<100) H 05/19/22 05:51 Total Protein 6.4 g/dL (6.5-8.0) L 05/19/22 05:51 Albumin 3.9 g/dL (3.5-5.0) 05/19/22 05:51 Procalcitonin 0.05 ng/mL 05/18/22 06:00 Influenza Type A (PCR) NEGATIVE (Negative) 05/14/22 21:31 Influenza Type B (PCR) NEGATIVE (Negative) 05/14/22 21:31 RSV RNA Qual (PCR) NEGATIVE (Negative) 05/14/22 21:31 SARS-CoV-2 RNA (RT-PCR) NEGATIVE (Negative) 05/14/22 21:31 Impressions Chest X-Ray 05/17/22 14:38 IMPRESSION: 1. Right-sided central venous catheter tip terminates in the distal SVC at the cavoatrial junction region. No pneumothorax. 2. Improved aeration at the lung bases since prior. TTE 05/15/22 1. Moderately severe LV systolic dysfunction with LVEF of 30-35%? 2. Moderately dilated left atrium? 3. Mild mitral regurgitation ? 4. Normal calculated RV systolic pressure? 5. No gross pericardial effusion ? ?? Discharge Plan Discharge Anticipated Discharge Date/Time: 05/19/22 11:16 Patient Disposition: Home Health Service Discharge Diagnosis: congestive heart failure atrial fibrillation pneumonia Referrals: Jasmina Carballo MD [Primary Care Provider] - 1 Week Thuan Pena MD [Physician] - 1 Week Discharge Medications: New digoxin 250 mcg (0.25 mg) Tablet 0.25 mg PO DAILY Qty: 30 0RF carvedilol 3.125 mg Tablet 3.125 mg PO BID Qty: 60 0RF Protocol: Hold for SBP/HR < HOLD for SBP < : 90 HOLD for HR < : 60 valsartan 40 mg Tablet 20 mg PO BID Qty: 30 0RF Protocol: Hold for SBP< HOLD for SBP < : 90 cefuroxime axetil 500 mg tablet 500 mg PO BID Qty: 4 0RF apixaban 5 mg tablet 5 mg PO BID Qty: 60 0RF furosemide 40 mg tablet 40 mg PO DAILY Qty: 30 0RF Discontinued lisinopril 40 mg tablet 1 tab PO DAILY Label Comments: 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 Discharge Orders: Discharge Order (Routine); Ordered 05/19/22 Ordered By: Porfirio Lindo Diet: Low salt diet Activity on Discharge: As tolerated Stand Alone Forms: Patient Portal Discharge page Care Plan Goals: cardiac health stroke prevention recovery from pneumonia Health Concerns: congestive heart failure atrial fibrillation Plan of Treatment: stop lisinopril take carvedilol 3.125 mg twice daily take valsartan 20 mg twice daily take digoxin 250 mcg once daily take furosemide 40 mg once daily take apixaban 5 mg twice daily restrict sodium to maximum 2000 mg/day weigh yourself daily and call your doctor if your weight goes up by 5 lb or more follow up with Dr Pena from [facility] in 1-2 weeks take cefuroxime 500 mg twice daily for 2 more days Please follow up with your primary care doctor within 1 week. Return to the hospital if you experience recurrent or worsening symptoms. Assessment: See Discharge Summary.
--- NOTE | 2022-05-19 11:48 | MHC.CM.PN ---
Patient has been medically cleared for dc to home today with new VNA for CHF teaching. CM has informed MD that it is very unlikely (despite broad vna search initiation)that a VNA can be secured because all VNAs in this area have been reporting the inability to accept Patients related to staffing and/or various reasons. Also, Patient is not yet established with her PCP/Dr. Jasmina Carballo.
[2022-05-19] MEDS: Apixaban 5 MG TABLET PO ×2 (11:50→21:29)
--- NOTE | 2022-05-19 12:09 | HO.PM.IMPN ---
Subjective Subjective Date of Service: 05/19/22 Interval History: dyspnea improved no runs of AF Review of Systems Review of Systems: Yes all other systems are reviewed and are negative Physical Exam Vital Signs: Vital Signs: Last Vital Signs Temp 98.0 F 05/19/22 11:14 Pulse 92 05/19/22 11:14 Resp 20 05/19/22 11:14 BP 97/57 L 05/19/22 11:14 Pulse Ox 93 05/19/22 11:14 O2 Del Method 05/19/22 11:14 O2 Flow Rate 1 05/17/22 11:05 Oxygen Flow Rate 2 05/15/22 07:44 BMI result Body Mass Index 34.4 Gen: in no acute distress HEENT: sclera anicteric, moist mucus membranes Neck: supple Lungs: clear to auscultation bilaterally Heart: regular rate and rhythm, no murmurs Abd: soft, non-tender, non-distended Ext: no edema Skin: warm/well-perfused Neuro: alert and oriented x3, no focal findings Psych: appropriate affect Objective Data Active Medications Acetaminophen (Acetaminophen 325 Mg Tablet) 650 mg PO Q6H PRN PRN Reason: Pain, Mild (Pain Scale 1-3) Albuterol/Ipratropium (Albuterol/Iprat 2.5/0.5mg 3 Ml Ampul.Neb) 3 ml INHALE RQ4H PRN PRN Reason: shortness of breath or wheeze Apixaban (Apixaban 5 Mg Tablet) 5 mg PO BID [facility] Last Admin: 05/19/22 11:50 Dose: 5 mg Documented By: CARY Carvedilol (Carvedilol 3.125 Mg Tablet) 3.125 mg PO BID [facility]; Protocol Last Admin: 05/19/22 09:37 Dose: 3.125 mg Documented By: CARY Digoxin (Digoxin 0.25 Mg Tablet) 0.25 mg PO DAILY [facility] Last Admin: 05/19/22 09:37 Dose: 0.25 mg Documented By: CARY Docusate Sodium (Docusate Sodium 100 Mg Capsule) 100 mg PO DAILY PRN PRN Reason: Constipation Furosemide (Furosemide 40 Mg/4 Ml Vial) 40 mg IVPUSH DAILY [facility]; Protocol Last Admin: 05/19/22 09:37 Dose: 40 mg Documented By: CARY Guaifenesin/Dextromethorphan (Guaifenesin Dm 100/10/5 Ml 5 Ml Syrup) 5 ml PO Q4H PRN PRN Reason: cough Last Admin: 05/19/22 09:44 Dose: 5 ml Documented By: CARY Ceftriaxone Sodium 1 gm/ (Sodium Chloride) 50 mls @ 100 mls/hr IV Q24H [facility] Last Infusion: 05/19/22 07:28 Dose: 0 mls/hr Documented By: PETE Azithromycin 500 mg/ Sodium (Chloride) 250 mls @ 125 mls/hr IV Q24H [facility] Last Infusion: 05/19/22 11:51 Dose: 0 mls/hr Documented By: CARY Melatonin (Melatonin 3 Mg Tablet) 6 mg PO BEDTIME PRN PRN Reason: insomnia Last Admin: 05/16/22 22:01 Dose: 6 mg Documented By: LEIGHTON Ondansetron HCl (Ondansetron Hcl 4 Mg/2 Ml Vial) 4 mg IVPUSH Q8H PRN PRN Reason: Nausea and Vomiting Sodium Chloride (0.9 % Sodium Chloride Flush 3 Ml Syringe) 3 ml IVFLUSH QSHIFT [facility] Last Admin: 05/19/22 09:38 Dose: 3 ml Documented By: CARY Valsartan (Valsartan 40 Mg Tablet) 20 mg PO BID [facility]; Protocol Last Admin: 05/19/22 09:37 Dose: 20 mg Documented By: CARY Labs CBC & Chem 7: 05/19/22 05:51 05/19/22 05:51 Labs: Laboratory Results - last 24 hr 05/19/22 05/19/22 05/19/22 05:51 05:51 05:51 MCV 96.6 MCH 33.2 H MCHC 34.4 RDW 11.9 Plt Count 168 MPV 10.3 Immature Gran % (Auto) 0.8 H Neut % (Auto) 74.7 H Lymph % (Auto) 8.4 L [place] % (Auto) 13.1 H Eos % (Auto) 2.2 Baso % (Auto) 0.8 Lymph # (Auto) 0.6 L [place] # (Auto) 0.9 Eos # (Auto) 0.2 Baso # (Auto) 0.1 Abs Immat Gran (auto) 0.06 H Absolute Neuts (auto) 5.4 Absolute Nucleated RBC 0.000 Nucleated RBC % (auto) 0.0 Anion Gap 14 Estim Creat Clear Calc 80.9 Estimated GFR > 60 Random Glucose Cancelled Fasting Glucose 143 H Calcium 9.4 Magnesium 1.8 Total Bilirubin 0.6 AST 60 H ALT 54 H Alkaline Phosphatase 50 B-Natriuretic Peptide 207 H Total Protein 6.4 L Albumin 3.9 Assessment and Plan (1) Acute exacerbation of CHF (congestive heart failure): Status: Acute (2) Community acquired pneumonia: Status: Acute Plan hospital d#5 66yo F with hx 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 13 yr ago presenting with dyspnea + orthopnea, found to have HFrEF # acute HFrEF (LVEF 30%) - furosemide gtt -> 40 mg IV daily, monitor I+O (2.7L cumulatively this admission) + BNP + electrolytes - continue valsartan + carvedilol, hold spironolactone due to low BP - outpt cardiology clinic f/u and ischemic evaluation # paroxysmal AF - continue carvedilol, start digoxin - anticoagulate with apixaban # PNA - d#5 ceftriaxone + azithromycin # VTE ppx: apixaban # dispo: PT eval In my clinical judgment, the patient requires continued inpatient hospitalization for the following reasons: IV diuresis + ABX Time Spent With Patient Time: Total time managing care of this patient today __35__ minutes. Quality Stroke Does the patient have a stroke diagnosis?: No VTE Prior VTE?: No VTE Risk Level:: Medical - moderate - high VTE Device Contraindication: Treatment Not Indicated VTE Drug Contraindication: N/A - Med Ordered
--- NOTE | 2022-05-19 12:09 | MHC.CM.PN ---
Per MD, Patient will not be dc to home today and MD is ordering a PT eval. CM will follow.
--- NOTE | 2022-05-19 13:09 | P.PNCA_ITS ---
Subjective Subjective Date of Service: 05/19/22 Principal diagnosis: CHF, CMP Interval history: Patient complains of fatigue. He is to be exertional shortness of breath but says she is 90% better. Noted to have brief atrial flutter. Was started on digoxin yesterday. Denies palpitations. Denies lightheadedness, syncope. Blood pressure has improved. Review of Systems Constitutional: Reports fatigue and Reports weakness Cardiovascular: Reports no additional cardiovascular complaints Respiratory: Reports no additional respiratory complaints Musculoskeletal: Reports no additional musculoskeletal complaints Skin/Breast: Reports system reviewed and no additional complaints, except as docu Reports system reviewed and no additional complaints, except as documented and Reports weakness Endocrine: Reports no additional endocrine complaints and Reports fatigue Physical Exam Vital Signs: Last Vital Signs Temp 98.0 F 05/19/22 11:14 Pulse 92 05/19/22 11:14 Resp 20 05/19/22 11:14 BP 97/57 L 05/19/22 11:14 Pulse Ox 93 05/19/22 11:14 O2 Del Method 05/19/22 11:14 O2 Flow Rate 1 05/17/22 11:05 Oxygen Flow Rate 2 05/15/22 07:44 BMI result Body Mass Index 34.4 Const General: cooperative, comfortable, alert and awake Nutritional Appearance: obese Orientation/consciousness: patient oriented x3 Neck Neck: Yes trachea midline, Yes supple and Yes no JVD Resp Effort & Inspection: normal respiratory effort Auscultation: no rales and wheezes Cardio Jugular venous distension: no JVD Palpation: abnormal PMI displaced PMI Rate: regular rate Rhythm: regular rhythm Heart sounds: S1 normal heart sound present, S2 normal heart sound present, no click, no gallops and no murmurs GI Auscultation: normal bowel sounds Skin General skin exam: no rashes or lesions noted Neuro General: patient oriented x3 and no focal motor deficits Extrem General: Yes no clubbing, cyanosis or edema Objective Labs and Meds Result diagrams: 05/19/22 05:51 05/19/22 05:51 Lab results: Laboratory Results - last 24 hr 05/19/22 05/19/22 05/19/22 05:51 05:51 05:51 WBC 7.2 RBC 4.40 Hgb 14.6 Hct 42.5 MCV 96.6 MCH 33.2 H MCHC 34.4 RDW 11.9 Plt Count 168 MPV 10.3 Immature Gran % (Auto) 0.8 H Neut % (Auto) 74.7 H Lymph % (Auto) 8.4 L [place] % (Auto) 13.1 H Eos % (Auto) 2.2 Baso % (Auto) 0.8 Lymph # (Auto) 0.6 L [place] # (Auto) 0.9 Eos # (Auto) 0.2 Baso # (Auto) 0.1 Abs Immat Gran (auto) 0.06 H Absolute Neuts (auto) 5.4 Absolute Nucleated RBC 0.000 Nucleated RBC % (auto) 0.0 Sodium 137 Potassium 3.7 Chloride 96 Carbon Dioxide 31 H Anion Gap 14 BUN 13 Creatinine 0.74 Estim Creat Clear Calc 80.9 Estimated GFR > 60 Random Glucose Cancelled Fasting Glucose 143 H Calcium 9.4 Magnesium 1.8 Total Bilirubin 0.6 AST 60 H ALT 54 H Alkaline Phosphatase 50 B-Natriuretic Peptide 207 H Total Protein 6.4 L Albumin 3.9 Progress Note: A&P Assessment and plan (1) Acute on chronic HFrEF (heart failure with reduced ejection fraction): Status: Acute Assessment and Plan: Heart failure with reduced ejection fraction secondary to moderately severe LV systolic dysfunction. Patient ischemic workup. Continue current neurohormonal modulation with valsartan, carvedilol. Could not tolerate Aldactone therapy due to low blood pressure. This is on hold. It as outpatient will eventually try to switch her to Entresto and add Aldactone to her regimen. Consider Jardiance 10 mg to her regimen. Continue rhythm control approach, see below. Continue current diuretic dose. Out of bed to chair. Consider physical therapy consultation. Pulmonary management as per hospitalist team. (2) Paroxysmal atrial fibrillation: Status: Acute Assessment and Plan: Continues to intermittent episodes of atrial flutter. Given her heart failure with reduced ejection fraction, will benefit from rhythm control approach will continue pursue rhythm control approach. Start on amiodarone 400 mg b.i.d. to maintain rhythm for 2 weeks followed by 200 mg daily. Continue full oral anticoagulation Eliquis. Discontinue digoxin therapy. Will sign of the case at this point time. Please perform EKG tomorrow morning. Will follow-up as outpatient Time Spent With Patient Time: Total time managing care of this patient today ____ minutes. Progress Note: Quality Stroke Does the patient have a stroke diagnosis?: No Procedures Date of Service Date of Service: 05/19/22
[2022-05-19] MEDS: Amiodarone HCL 200 MG TABLET 400 MG PO ×2 (13:43→21:29)
[2022-05-19 15:20] VITALS: BP 100/65; PULSE 102; RESP 20; TEMP 36.1; O2SAT 96
[2022-05-19 19:09] VITALS: BP 107/74; PULSE 95; RESP 20; TEMP 36.2; O2SAT 94
[2022-05-19 23:10] VITALS: BP 115/55; PULSE 85; RESP 17; TEMP 36.3; O2SAT 97
[2022-05-20 03:53] VITALS: BP 103/57; PULSE 75; RESP 17; TEMP 36.4; O2SAT 92
[2022-05-20] MEDS: cefTRIAXone sodium 1 GM in 0.9 % Sodium Chloride 50 ML IV (06:20)
[2022-05-20 06:33] LABS: MANUAL DIFF FLAG NO
[2022-05-20 06:36] LABS: Basophils Absolute Auto 0.1 X10*3/uL (0.0-0.2); Eosinophils Absolute Auto 0.1 X10*3/uL (0.0-0.4); Eosinophils Percent Auto 2.4 % (0-4); Hematocrit 43.1 % (37.0-47.0); Hemoglobin 14.8 g/dl (12.0-16.0); Imm Gran Abs Auto 0.05 X10*3/uL (0.00-0.03); Imm Gran Pct Auto 0.9 % (0.0-0.4); Lymphocytes Absolute Auto 0.9 X10*3/uL (1.2-4.9); Mean Corpuscular HGB Conc 34.3 g/dl (31.0-35.0); Mean Corpuscular Hemoglobin 33.2 pg (27.0-33.0); Mean Corpuscular Volume 96.6 fL (80.0-98.0); Mean Platelet Volume 10.6 fL (9.4-12.3); Monocytes Absolute Auto 1.1 X10*3/uL (0.1-1.2); Monocytes Percent Auto 19.2 % (2-11); Neutrophils Absolute Auto 3.5 x10*3/uL (2.0-8.3); Neutrophils Percent Auto 61.5 % (45-73); Platelet Count 163 X10*3/uL (160-400); Red Blood Count 4.46 X10*6/uL (4.20-5.50); White Blood Count 5.7 X10*3/uL (4.8-10.8)
[2022-05-20 06:56] LABS: B Type Natriuretic Peptide 115 pg/mL (<100)
[2022-05-20 06:59] LABS: Alanine Aminotransferase 60 U/L (0-31); Albumin Level 3.9 g/dL (3.5-5.0); Alkaline Phosphatase 51 U/L (39-117); Anion Gap 14 (12-20); Aspartate Amino Transferase 54 U/L (5-31); Bilirubin Total 0.5 mg/dL (0.0-1.0); Blood Urea Nitrogen 14 mg/dL (9-16); Calcium 9.4 mg/dL (8.4-10.2); Carbon Dioxide 30 mmol/L (22-29); Chloride 96 mmol/L (96-108); Creatinine Clr Calc Pharmacy 80.9; Estimated Glomerular Filt Rate > 60; Glucose Fasting 124 mg/dL (60-99); Glucose Random 124 mg/dL (60-115); Magnesium 1.9 mg/dL (1.6-2.6); Potassium 3.5 mmol/L (3.3-5.1); Sodium 136 mmol/L (135-145); Total Protein 6.4 g/dL (6.5-8.0)
[2022-05-20 08:00] VITALS: BP 102/62; PULSE 79; RESP 20; TEMP 36.7; O2SAT 92
--- NOTE | 2022-05-20 08:00 | ECG_ITS ---
Test Reason : cp Blood Pressure : / mmHG Vent. Rate : 104 BPM Atrial Rate : 104 BPM P-R Int : 210 ms QRS Dur : 136 ms QT Int : 370 ms P-R-T Axes : 057 -65 097 degrees QTc Int : 486 ms Sinus tachycardia with 1st degree A-V block Premature atrial complexes Left axis deviation Left ventricular hypertrophy with QRS widening and repolarization abnormality ( R in aVL , Rojelio product ) Abnormal ECG When compared with ECG of 14-MAY-2022 21:20, No significant changes seen Referred By: Porfirio Lindo Electronically Signed By:JITENDRA SAHU
[2022-05-20 08:37] LABS: Procalcitonin 0.05 ng/mL
[2022-05-20] MEDS: Valsartan 40 MG TABLET 20 MG PO (09:37)
[2022-05-20] MEDS: Amiodarone HCL 200 MG TABLET 400 MG PO ×2 (09:37→20:29)
[2022-05-20] MEDS: 0.9 % Sodium Chloride Flush 3 ML SYRINGE IVFLUSH ×3 (09:37→20:30)
[2022-05-20] MEDS: Furosemide 40 MG TABLET PO (09:37)
[2022-05-20] MEDS: Apixaban 5 MG TABLET PO ×2 (09:38→20:29)
[2022-05-20] MEDS: carvediloL 3.125 MG TABLET PO ×2 (09:38→20:30)
[2022-05-20] MEDS: guaiFENesin DM 100/10/5 ML 5 ML SYRUP PO ×2 (09:41→20:29)
--- NOTE | 2022-05-20 11:10 | P.PNIM_ITS ---
Subjective Subjective Date of Service: 05/20/22 Interval History: very tired dyspnea improved no chest pain no further atrial flutter since yesterday around noon Review of Systems Review of Systems: Yes all other systems are reviewed and are negative Physical Exam Vital Signs: Vital Signs: Last Vital Signs Temp 98.1 F 05/20/22 08:00 Pulse 79 05/20/22 08:00 Resp 20 05/20/22 08:00 BP 102/62 05/20/22 08:00 Pulse Ox 92 05/20/22 08:00 O2 Del Method 05/20/22 08:00 O2 Flow Rate 1 05/17/22 11:05 Oxygen Flow Rate 2 05/15/22 07:44 BMI result Body Mass Index 34.4 Gen: in no acute distress HEENT: sclera anicteric, moist mucus membranes Neck: supple Lungs: clear to auscultation bilaterally Heart: regular rate and rhythm, no murmurs Abd: soft, non-tender, non-distended Ext: no edema Skin: warm/well-perfused Neuro: alert and oriented x3, no focal findings Psych: appropriate affect Objective Data Active Medications Acetaminophen (Acetaminophen 325 Mg Tablet) 650 mg PO Q6H PRN PRN Reason: Pain, Mild (Pain Scale 1-3) Albuterol/Ipratropium (Albuterol/Iprat 2.5/0.5mg 3 Ml Ampul.Neb) 3 ml INHALE RQ4H PRN PRN Reason: shortness of breath or wheeze Amiodarone HCl (Amiodarone Hcl 200 Mg Tablet) 400 mg PO BID [facility] Last Admin: 05/20/22 09:37 Dose: 400 mg Documented By: PRERNA Apixaban (Apixaban 5 Mg Tablet) 5 mg PO BID [facility] Last Admin: 05/20/22 09:38 Dose: 5 mg Documented By: PRERNA Carvedilol (Carvedilol 3.125 Mg Tablet) 3.125 mg PO BID [facility]; Protocol Last Admin: 05/20/22 09:38 Dose: 3.125 mg Documented By: PRERNA Docusate Sodium (Docusate Sodium 100 Mg Capsule) 100 mg PO DAILY PRN PRN Reason: Constipation Furosemide (Furosemide 40 Mg Tablet) 40 mg PO DAILY [facility]; Protocol Last Admin: 05/20/22 09:37 Dose: 40 mg Documented By: PRERNA Guaifenesin/Dextromethorphan (Guaifenesin Dm 100/10/5 Ml 5 Ml Syrup) 5 ml PO Q4H PRN PRN Reason: cough Last Admin: 05/20/22 09:41 Dose: 5 ml Documented By: PRERNA Ceftriaxone Sodium 1 gm/ (Sodium Chloride) 50 mls @ 100 mls/hr IV Q24H [facility] Last Infusion: 05/20/22 09:38 Dose: 0 mls/hr Documented By: PRERNA Melatonin (Melatonin 3 Mg Tablet) 6 mg PO BEDTIME PRN PRN Reason: insomnia Last Admin: 05/16/22 22:01 Dose: 6 mg Documented By: JOSHUA-HODANLM Ondansetron HCl (Ondansetron Hcl 4 Mg/2 Ml Vial) 4 mg IVPUSH Q8H PRN PRN Reason: Nausea and Vomiting Sodium Chloride (0.9 % Sodium Chloride Flush 3 Ml Syringe) 3 ml IVFLUSH QSHIFT [facility] Last Admin: 05/20/22 09:37 Dose: 3 ml Documented By: PRERNA Valsartan (Valsartan 40 Mg Tablet) 20 mg PO BID [facility]; Protocol Last Admin: 05/20/22 09:37 Dose: 20 mg Documented By: PRERNA Labs CBC & Chem 7: 05/20/22 06:21 05/20/22 06:21 Labs: Laboratory Results - last 24 hr 05/20/22 05/20/22 05/20/22 06:21 06:21 06:21 MCV 96.6 MCH 33.2 H MCHC 34.3 RDW 12.0 Plt Count 163 MPV 10.6 Immature Gran % (Auto) 0.9 H Neut % (Auto) 61.5 Lymph % (Auto) 15.0 L Donley % (Auto) 19.2 H Eos % (Auto) 2.4 Baso % (Auto) 1.0 Lymph # (Auto) 0.9 L Donley # (Auto) 1.1 Eos # (Auto) 0.1 Baso # (Auto) 0.1 Abs Immat Gran (auto) 0.05 H Absolute Neuts (auto) 3.5 Absolute Nucleated RBC 0.000 Nucleated RBC % (auto) 0.0 Anion Gap 14 Estim Creat Clear Calc 80.9 Estimated GFR > 60 Random Glucose 124 H Fasting Glucose 124 H Calcium 9.4 Magnesium 1.9 Total Bilirubin 0.5 AST 54 H ALT 60 H Alkaline Phosphatase 51 B-Natriuretic Peptide 115 H Total Protein 6.4 L Albumin 3.9 Procalcitonin 05/20/22 06:21 MCV MCH MCHC RDW Plt Count MPV Immature Gran % (Auto) Neut % (Auto) Lymph % (Auto) Donley % (Auto) Eos % (Auto) Baso % (Auto) Lymph # (Auto) Donley # (Auto) Eos # (Auto) Baso # (Auto) Abs Immat Gran (auto) Absolute Neuts (auto) Absolute Nucleated RBC Nucleated RBC % (auto) Anion Gap Estim Creat Clear Calc Estimated GFR Random Glucose Fasting Glucose Calcium Magnesium Total Bilirubin AST ALT Alkaline Phosphatase B-Natriuretic Peptide Total Protein Albumin Procalcitonin 0.05 Microbiology Microbiology Results: Microbiology 05/15/22 06:55 Blood Culture - Final Blood - Venous No growth after 5 days. 05/15/22 06:55 Blood Culture - Final Blood - Venous No growth after 5 days. 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 amiodarone started 05/19/22, plan 400 mg bid x 2 wk then 200 mg daily per Cardiology - anticoagulate with apixaban # PNA - d#10/22 ceftriaxone, completed 5d of azithromycin, PCT low, BCx negative # VTE ppx: apixaban # dispo: PT eval In my clinical judgment, the patient requires continued inpatient hospitalization for the following reasons: placement Time Spent With Patient Time: Total time managing care of this patient today ____ minutes. Quality Stroke Does the patient have a stroke diagnosis?: No VTE Prior VTE?: No VTE Risk Level:: Medical - moderate - high VTE Device Contraindication: Treatment Not Indicated VTE Drug Contraindication: N/A - Med Ordered
[2022-05-20 11:44] VITALS: BP 90/54; PULSE 75; RESP 20; TEMP 36.2; O2SAT 96
[2022-05-20 12:21] VITALS: BP 100/60
--- NOTE | 2022-05-20 15:03 | MHC.CM.PN ---
CM SPOKE WITH PT INSURANCE CO ([employer]) AND THEY DO NOT HAVE A SNF BENEFIT. NOTIFIED. PT HAS NOT YET ESTABLISHED WITH HER NEW PCP. CM WILL CONTINUE TO FOLLOW.
[2022-05-20 15:22] VITALS: BP 110/61; PULSE 81; RESP 17; TEMP 36.2; O2SAT 93
--- NOTE | 2022-05-20 16:00 | MHC.CM.PN ---
CM MET WITH FAMILY AND PT TO INFORM THAT PT'S INSURANCE DOES NOT HAVE A SNF BENEFIT AND TO CONFIRM NAME OF PCP (WINIFRED MCLAUGHLIN AT [facility]) CM WILL CONTINUE TO FOLLOW.
[2022-05-20 16:48] LABS: TSH reflex Free T4 1.29 uIU/mL (0.32-4.0)
[2022-05-20 19:22] VITALS: BP 101/56; PULSE 80; RESP 17; TEMP 36.2; O2SAT 94
[2022-05-21] VITALS (11 sets, daily range): BP systolic 96–117; BP diastolic 56–75; PULSE 71–87; RESP 12–20; TEMP 35.7–36.6; O2SAT 93–97
--- NOTE | 2022-05-21 00:19 | PC.NURSE ---
HS BP 101/56, pt asymptomatic. Dr Kraus notified pt was due to receive Amiodarone, Carvedilol and Valsartan. Was reported earlier in the day pt's BP 90/54 and pt was dizzy and diaphoretic. Told to hold Valsartan and give the others.
[2022-05-21] MEDS: cefTRIAXone sodium 1 GM in 0.9 % Sodium Chloride 50 ML IV (06:23)
--- NOTE | 2022-05-21 09:30 | P.CDIC_ITS ---
CDI Concurrent Query Documentation Clarification: PHYSICIAN'S DOCUMENTATION REQUEST Date of Query: 05/21/22929 Patient Name: Marie العراقي Admit Date: 05/15/22 Dear Doctor, A review of the medical record indicates additional documentation may be needed. Please review below and update the documentation accordingly. Clinical Indicators: Is there a diagnosis that correlates with the findings below: Risk Factors/Clinical Indicators/Treatments POA/RESOLVED/TREAT/RULE OUT Per provider progress note on 05/17: Admits to SOB and persisting cough Per provider note on 05/18: c/o dyspnea and crackles heard bilaterally Per cardiology consult on 05/15: Patient continues to remain in respiratory distress with evidence of florid heart failure. Rales heard bilaterally 1/[address] Per cardiology consult on 05/16: Speech is mildly strained. Increased work of breathing with movement in bed. Vitals: RR -05/14: 30 -05/15: 24 O2 sat remaining low 90s with patient requiring supplemental O2 Other indicators: -Patient being treated for PNA -Patient being treated for acute CHF exa cerbation Clarify which of the following accurately represents the patient's respiratory status: * Acute respiratory failure * Other (please specify) * Unable to determine Please include type if known: * Hypoxic * Hypercapnic * Hypoxic and hypercapnic * Unable to determine Use of terms such as suspected, likely, concern for, or probable (associated with a specific diagnosis that is being evaluated, monitored, or treated as if it exists) are acceptable and can be coded in the inpatient setting, when documented at the time of discharge. Thank you, Valencia Angeles MS, RN, CCRN Extension: [phone] Please use your independent medical judgment in providing your response. THIS QUERY IS PART OF THE PERMANENT MEDICAL RECORD Provider Response: Other Other Diagnosis: ahrf
--- NOTE | 2022-05-21 09:46 | P.CDIC_ITS ---
CDI Concurrent Query Documentation Clarification: PHYSICIAN'S DOCUMENTATION REQUEST Date of Query: 05/21/22 0947 Patient Name: Marie العراقي Admit Date: 05/15/22 Dear Doctor, A review of the medical record indicates additional documentation may be needed. Please review below and update the documentation accordingly. Clinical Indicators: Is there a diagnosis that correlates with the findings below: Risk Factors/Clinical Indicators/Treatments BMI: 34.5 Height: 5t 3in Weight: 88.36kg If possible, please provide an associated diagnosis related to the abnormal BMI, such as: BMI: * Obesity * Due to excess calories * Drug induced * Due to other cause * Severe or Morbid Obesity * With alveolar hypoventilation * Without alveolar hypoventilation Or: * BMI is not significant * Other (please specify) * Unable to determine Use of terms such as suspected, likely, concern for, or probable (associated with a specific diagnosis that is being evaluated, monitored, or treated as if it exists) are acceptable and can be coded in the inpatient setting, when documented at the time of discharge. Thank you, Valencia Angeles MS, RN, CCRN Extension: [phone] Please use your independent medical judgment in providing your response. THIS QUERY IS PART OF THE PERMANENT MEDICAL RECORD Provider Response: Other Other Diagnosis: nonmorbid obesity
[2022-05-21] MEDS: Furosemide 40 MG TABLET PO (09:47)
[2022-05-21] MEDS: Apixaban 5 MG TABLET PO ×2 (09:47→20:29)
[2022-05-21] MEDS: Amiodarone HCL 200 MG TABLET 400 MG PO ×2 (09:47→20:29)
[2022-05-21] MEDS: 0.9 % Sodium Chloride Flush 3 ML SYRINGE IVFLUSH ×2 (09:48→16:40)
--- NOTE | 2022-05-21 11:30 | P.PNCA_ITS ---
Subjective Subjective Date of Service: 05/21/22 Principal diagnosis: CHF, CMP Interval history: Patient states that she just feels weak. Very dizzy. Shortness of breath is significantly improved since the time of admission. Review of Systems Review of Systems Yes all other systems are reviewed and are negative Constitutional: Reports as per HPI Eyes: Reports as per HPI Reports as per HPI Cardiovascular: Reports as per HPI, Denies acrocyanosis, Denies cool extremities, Denies chest pain, Denies leg edema, Reports lightheadedness, Denies palpitations and Denies dyspnea Respiratory: Reports as per HPI, Reports no additional respiratory complaints and Denies dyspnea Gastrointestinal: Reports as per HPI and Reports no additional gastrointestinal complaints Genitourinary: Reports as per HPI Musculoskeletal: Reports no additional musculoskeletal complaints and Reports as per HPI Skin/Breast: Reports system reviewed and no additional complaints, except as docu Reports system reviewed and no additional complaints, except as documented and Reports as per HPI Psychiatric: Reports no additional psychiatric complaints and Reports as per HPI Endocrine: Reports no additional endocrine complaints, Reports as per HPI and Denies palpitations Hematologic/Lymphatic: Reports no additional hematologic/lymphatic complaints and Reports as per HPI Allergic/Immunologic: Reports no additional allergic/immunologic complaints and Reports as per HPI Physical Exam Vital Signs: Last Vital Signs Temp 96.8 F 05/21/22 07:44 Pulse 87 05/21/22 11:14 Resp 12 05/21/22 07:44 BP 98/70 05/21/22 11:14 Pulse Ox 95 05/21/22 07:44 O2 Del Method 05/21/22 07:44 O2 Flow Rate 1 05/17/22 11:05 Oxygen Flow Rate 2 05/15/22 07:44 BMI result Body Mass Index 34.4 Const General: comfortable and no acute distress Orientation/consciousness: patient oriented x3 HEENT Other: Unremarkable Head: Yes normal to inspection Neck Neck: Yes normal visual inspection Chest Chest palpation & inspection: normal inspection of the chest Resp Other: Minimal crackles Cardio Palpation: normal PMI Heart sounds: S1 normal heart sound present, S2 normal heart sound present, no gallops, no murmurs and no rubs GI Palpation (GI): Soft to palpation Back/Spine/Pelvis Other: unremarkable Skin General skin exam: no rashes or lesions noted Neuro General: patient oriented x3 Extrem General: Yes normal to inspection Psych Mental Status: mental status grossly normal Objective Labs and Meds Result diagrams: 05/20/22 06:21 05/20/22 06:21 Lab results: Laboratory Results - last 24 hr 05/20/22 06:21 TSH 1.29 Progress Note: A&P Assessment and plan (1) Acute on chronic HFrEF (heart failure with reduced ejection fraction): Status: Acute Assessment and Plan: Echocardiogram with LVEF of 30-35%. Moderately dilated left atrium and mild mitral regurgitation. 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 She used to see Dr. Wilkinson, but nothing recently. At this time, she is significantly improved from volume status. Cardiac BNP has also come down lot from the admission numbers. Initially, 961 but now 115. Currently, main concern is rather feeling dizzy and she has blood pressures and 90s. Hence we will hold off on the Coreg and valsartan. Okay for p.o. Lasix but if still dizzy may have to cut back on the dose for that too. Eventually, she will need ischemia workup. (2) Paroxysmal atrial fibrillation: Status: Acute Assessment and Plan: Remains in sinus rhythm. On amiodarone and Eliquis. In the EKG from yesterday, sinus rhythm with PACs; slight KS prolongation. Corrected QT is also slightly prolonged at 486 milliseconds but she also has a widening QRS and hence that plays a role. Can follow LFTs. Thyroid function seems okay. Plan Discussed with Dr. Lindo. Time Spent With Patient Time: Total time managing care of this patient today 40 minutes. Progress Note: Quality Stroke Does the patient have a stroke diagnosis?: No Procedures Date of Service Date of Service: 05/21/22
--- NOTE | 2022-05-21 11:32 | HO.PM.IMPN ---
Subjective Subjective Date of Service: 05/21/22 Interval History: Tired, dizzy. BP improved. Orthostatics negative. No chest pain. No dyspnea. Mild cough. Review of Systems Review of Systems: Yes all other systems are reviewed and are negative Physical Exam Vital Signs: Vital Signs: Last Vital Signs Temp 96.8 F 05/21/22 07:44 Pulse 87 05/21/22 11:14 Resp 12 05/21/22 07:44 BP 98/70 05/21/22 11:14 Pulse Ox 95 05/21/22 07:44 O2 Del Method 05/21/22 07:44 O2 Flow Rate 1 05/17/22 11:05 Oxygen Flow Rate 2 05/15/22 07:44 BMI result Body Mass Index 34.4 Gen: in no acute distress HEENT: sclera anicteric, moist mucus membranes Neck: supple Lungs: clear to auscultation bilaterally Heart: regular rate and rhythm, no murmurs Abd: soft, non-tender, non-distended Ext: no edema Skin: warm/well-perfused Neuro: alert and oriented x3, no focal findings Psych: appropriate affect Objective Data Active Medications Acetaminophen (Acetaminophen 325 Mg Tablet) 650 mg PO Q6H PRN PRN Reason: Pain, Mild (Pain Scale 1-3) Albuterol/Ipratropium (Albuterol/Iprat 2.5/0.5mg 3 Ml Ampul.Neb) 3 ml INHALE RQ4H PRN PRN Reason: shortness of breath or wheeze Amiodarone HCl (Amiodarone Hcl 200 Mg Tablet) 400 mg PO BID [facility] Last Admin: 05/21/22 09:47 Dose: 400 mg Documented By: PRERNA Apixaban (Apixaban 5 Mg Tablet) 5 mg PO BID [facility] Last Admin: 05/21/22 09:47 Dose: 5 mg Documented By: PRERNA Docusate Sodium (Docusate Sodium 100 Mg Capsule) 100 mg PO DAILY PRN PRN Reason: Constipation Furosemide (Furosemide 40 Mg Tablet) 40 mg PO DAILY [facility]; Protocol Last Admin: 05/21/22 09:47 Dose: 40 mg Documented By: PRERNA Guaifenesin/Dextromethorphan (Guaifenesin Dm 100/10/5 Ml 5 Ml Syrup) 5 ml PO Q4H PRN PRN Reason: cough Last Admin: 05/20/22 20:29 Dose: 5 ml Documented By: JR Melatonin (Melatonin 3 Mg Tablet) 6 mg PO BEDTIME PRN PRN Reason: insomnia Last Admin: 05/16/22 22:01 Dose: 6 mg Documented By: JOSHUA-HODANLM Ondansetron HCl (Ondansetron Hcl 4 Mg/2 Ml Vial) 4 mg IVPUSH Q8H PRN PRN Reason: Nausea and Vomiting Sodium Chloride (0.9 % Sodium Chloride Flush 3 Ml Syringe) 3 ml IVFLUSH QSHIFT [facility] Last Admin: 05/21/22 09:48 Dose: 3 ml Documented By: BERHANEORRuYni Labs CBC & Chem 7: 05/20/22 06:21 05/20/22 06:21 Labs: Laboratory Results - last 24 hr 05/20/22 06:21 TSH 1.29 Microbiology Microbiology Results: Microbiology 05/15/22 06:55 Blood Culture - Final Blood - Venous No growth after 5 days. 05/15/22 06:55 Blood Culture - Final Blood - Venous No growth after 5 days. 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 amiodarone started 05/19/22, plan 400 mg bid x 2 wk then 200 mg daily per Cardiology. no recurrence of AF since 05/19 - anticoagulate with apixaban # mildly elevated transaminases - recheck LFTs in AM # PNA - completed 7d of ceftriaxone plus 5d of azithromycin, PCT low, BCx negative # VTE ppx: apixaban # dispo: PT eval pending In my clinical judgment, the patient requires continued inpatient hospitalization for the following reasons: low BP, placement Pt and family requesting transfer to [facility] They spoke to underground utility locator Juan Merida there who said he would accept the patient if a bed became available. Per Diane at the [facility] transfer line, no bed openings currently but recheck tomorrow. Records faxed over yesterday. Time Spent With Patient Time: Total time managing care of this patient today __40__ minutes. Quality Stroke Does the patient have a stroke diagnosis?: No VTE Prior VTE?: No VTE Risk Level:: Medical - moderate - high VTE Device Contraindication: Treatment Not Indicated VTE Drug Contraindication: N/A - Med Ordered
--- NOTE | 2022-05-21 13:04 | MHC.CM.PN ---
Per [facility]OUNDS discussion, Patient is not yet medically cleared for dc (BP monitoring & needs PT eval); PT eval to assist with best disposition. CM will follow.
[2022-05-22] MEDS: 0.9 % Sodium Chloride Flush 3 ML SYRINGE IVFLUSH ×2 (00:45→09:14)
[2022-05-22 04:00] VITALS: BP 116/58; PULSE 67; RESP 15; TEMP 36.1; O2SAT 97
[2022-05-22 07:43] VITALS: BP 104/58; PULSE 79; RESP 20; TEMP 36.3; O2SAT 95
[2022-05-22 08:23] LABS: Alanine Aminotransferase 48 U/L (0-31); Albumin Level 3.9 g/dL (3.5-5.0); Alkaline Phosphatase 50 U/L (39-117); Anion Gap 13 (12-20); Aspartate Amino Transferase 30 U/L (5-31); Bilirubin Total 0.4 mg/dL (0.0-1.0); Blood Urea Nitrogen 16 mg/dL (9-16); Calcium 9.2 mg/dL (8.4-10.2); Carbon Dioxide 30 mmol/L (22-29); Chloride 99 mmol/L (96-108); Estimated Glomerular Filt Rate > 60; Glucose Random 115 mg/dL (60-115); Potassium 3.3 mmol/L (3.3-5.1); Sodium 139 mmol/L (135-145); Total Protein 6.2 g/dL (6.5-8.0)
[2022-05-22] MEDS: Furosemide 40 MG TABLET PO (09:14)
[2022-05-22] MEDS: Apixaban 5 MG TABLET PO (09:14)
[2022-05-22] MEDS: guaiFENesin DM 100/10/5 ML 5 ML SYRUP PO (09:14)
[2022-05-22] MEDS: Amiodarone HCL 200 MG TABLET 400 MG PO (09:14)
--- NOTE | 2022-05-22 10:33 | P.PNCA_ITS ---
Subjective Subjective Date of Service: 05/22/22 Principal diagnosis: CHF, CMP Interval history: Dizziness seems improved. Shortness of breath is much improved from time of admission. Review of Systems Review of Systems Yes all other systems are reviewed and are negative Constitutional: Reports as per HPI Eyes: Reports as per HPI Reports as per HPI Cardiovascular: Reports as per HPI, Denies acrocyanosis, Denies cool extremitie s, Denies chest pain, Denies leg edema, Reports lightheadedness, Denies palpitations and Denies dyspnea Respiratory: Reports as per HPI, Reports no additional respiratory complaints and Denies dyspnea Gastrointestinal: Reports as per HPI and Reports no additional gastrointestinal complaints Musculoskeletal: Reports no additional musculoskeletal complaints and Reports as per HPI Skin/Breast: Reports system reviewed and no additional complaints, except as docu Reports system reviewed and no additional complaints, except as documented and Reports as per HPI Psychiatric: Reports no additional psychiatric complaints and Reports as per HPI Endocrine: Reports no additional endocrine complaints, Reports as per HPI and Denies palpitations Hematologic/Lymphatic: Reports no additional hematologic/lymphatic complaints and Reports as per HPI Allergic/Immunologic: Reports no additional allergic/immunologic complaints and Reports as per HPI Physical Exam Vital Signs: Last Vital Signs Temp 97.3 F 05/22/22 07:43 Pulse 79 05/22/22 07:43 Resp 20 05/22/22 07:43 BP 104/58 L 05/22/22 07:43 Pulse Ox 95 05/22/22 07:43 O2 Del Method 05/22/22 07:43 O2 Flow Rate 1 05/17/22 11:05 Oxygen Flow Rate 2 05/15/22 07:44 BMI result Body Mass Index 34.4 Const General: comfortable and no acute distress Orientation/consciousness: patient oriented x3 HEENT Other: Unremarkable Head: Yes normal to inspection Neck Neck: Yes normal visual inspection Chest Chest palpation & inspection: normal inspection of the chest Resp Other: Minimal crackles Cardio Palpation: normal PMI Heart sounds: S1 normal heart sound present, S2 normal heart sound present, no gallops, no murmurs and no rubs GI Palpation (GI): Soft to palpation Back/Spine/Pelvis Other: unremarkable Skin General skin exam: no rashes or lesions noted Neuro General: patient oriented x3 Extrem General: Yes normal to inspection Psych Mental Status: mental status grossly normal Objective Labs and Meds Result diagrams: 05/20/22 06:21 05/22/22 07:22 Lab results: Laboratory Results - last 24 hr 05/22/22 07:22 Sodium 139 Potassium 3.3 Chloride 99 Carbon Dioxide 30 H Anion Gap 13 BUN 16 Creatinine 0.73 Estim Creat Clear Calc 82.0 Estimated GFR > 60 Random Glucose 115 Calcium 9.2 Total Bilirubin 0.4 AST 30 ALT 48 H Alkaline Phosphatase 50 Total Protein 6.2 L Albumin 3.9 Progress Note: A&P Assessment and plan (1) Acute on chronic HFrEF (heart failure with reduced ejection fraction): Status: Acute Assessment and Plan: Echocardiogram with LVEF of 30-35%. Moderately dilated left atrium and mild mitral regurgitation. By history, chemo induced cardiomyopathy but no active cardiology follow-up recently. Due to low blood pressure/continue dizziness, off Coreg and valsartan. Dizziness seems improved. She states she even walk without much of difficulty. Otherwise, euvolemic appearing on exam. Hence can decrease the Lasix even further. Eventually, ischemia workup. (2) Paroxysmal atrial fibrillation: Status: Acute Assessment and Plan: Remains in sinus rhythm. On amiodarone and Eliquis. After 1 week loading dose, can decrease to 200 mg daily. Telemetry shows sinus rhythm with PACs but no clear atrial fibrillation. She does feel some chest fluttering likely from PACs. Discussed about this with the patient. EKG/thyroid function will need to be followed up as an outpatient. Plan Discussed with Dr. Fraire. Time Spent With Patient Time: Total time managing care of this patient today 35 minutes. Progress Note: Quality Stroke Does the patient have a stroke diagnosis?: No Procedures Date of Service Date of Service: 05/22/22
--- NOTE | 2022-05-22 10:53 | PM.DS ---
DS: Providers Provider Date of Service: 05/22/22 Date of admission: 05/15/22 01:18 Primary care physician: Jasmina Carballo MD Consults: 05/15/22 01:18 Consult to Cardiology Routine Consulting Provider: Thuan Pena Reason for consultation: CHF Has provider been notified: No DS: Diagnosis Discharge Diagnosis (1) Acute on chronic HFrEF (heart failure with reduced ejection fraction): Status: Acute (2) Paroxysmal atrial fibrillation: Status: Acute DS: Summary Hospital Course Hospital Course: from admission history and physical by hospitalist Dallin Mitchell MD, 05/15/22: 66-year-old female with past medical history of 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 pt reports orthopnea, PND, Dyspnea on minimal exertion.? symptoms started 2 days ago.? She denies any fever, no chills, no chest pain, no palpitations, no abdominal pain nausea or vomiting, no diarrhea constipation, no urinary symptoms and reports that she has not noticed any swelling in her legs.? She reports she does not take any water pill at home.? 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 She was presenting with dyspnea + orthopnea and admitted for decompensated HF. Echocardiography demonstrated markedly reduced LVEF of 30%. She was diuresed with furosemide drip and fluid balance was cumulatively 2.7L over the course of admission. Cardiology was consulted. She was started on neurohormonal modulation with valsartan and carvedilol but medications were subsequently discontinued due to dizziness and soft blood pressures, will need close outpatient cardiology follow-up including ischemic workup. Patient is now being discharged home on 20 mg of Lasix. She was noted to have paroxysmal atrial fibrillation and digoxin was started, along with apixaban for anticoagulation, on May 19 patient went into atrial flutter with heart rate in 100s BP was stable but patient was symptomatic, seen by Cardiology digoxin was discontinued and patient started on amiodarone loading dose patient spontaneously converted to normal sinus rhythm, will continue amiodarone 400 mg b.i.d. through June 02 and then 200 mg by mouth daily. QTC 486 with wide QRS likely repolarization abnormality recommend outpatient EKG follow-up cardiology. Patient's family requested transfer to [facility], They spoke to tram operator Juan Merida there who said he would accept the patient, patient waited in the hospital for 2 days , since no beds available therefore patient wishes to be discharged home recommended outpatient follow-up at [facility]. For pneumonia, she was treated with five days of ceftriaxone and azithromycin and discharged on two days of cefuroxime. follow up with Primary Care and Cardiology in 1-2 weeks. Acute hypoxic respiratory failure due to heart failure and pneumonia resolved Obesity weight reduction recommended Time Spent with Patient Time attestation: Total time managing care of this patient today ____ minutes. Discharge coordination time: Greater than 30 minutes Quality: Safe Use of Opioids Does Pt have an Active Cancer Diagnosis on the Problem List?: No Quality: Stroke Does the patient have a stroke diagnosis?: No Physical Exam Vital Signs: Vital Signs: Last Vital Signs Temp 97.3 F 05/22/22 07:43 Pulse 79 05/22/22 07:43 Resp 20 05/22/22 07:43 BP 104/58 L 05/22/22 07:43 Pulse Ox 95 05/22/22 07:43 O2 Del Method 05/22/22 07:43 O2 Flow Rate 1 05/17/22 11:05 Oxygen Flow Rate 2 05/15/22 07:44 BMI result Body Mass Index 34.4 Const: Other: General resting comfortably in no acute distress. Neck supple no JVD. CVS regular rate rhythm, Respiratory lungs clear to auscultation, no respiratory distress, no wheeze, no rhonchi. Gastrointestinal abdomen soft, nontender, bowel sounds audible, no guarding , no rigidity. Extremities no edema. Neuro nonfocal Skin no rash Psych appropriate affect DS: Data Data Completed and Pending Labs on day of discharge: Laboratory Results - last 24 hr 05/22/22 07:22 Sodium 139 Potassium 3.3 Chloride 99 Carbon Dioxide 30 H Anion Gap 13 BUN 16 Creatinine 0.73 Estim Creat Clear Calc 82.0 Estimated GFR > 60 Random Glucose 115 Calcium 9.2 Total Bilirubin 0.4 AST 30 ALT 48 H Alkaline Phosphatase 50 Total Protein 6.2 L Albumin 3.9 Discharge Plan Discharge Anticipated Discharge Date/Time: 05/19/22 11:16 Patient Disposition: Home Health Service Discharge Diagnosis: congestive heart failure atrial fibrillation pneumonia Acute hypoxic respiratory failure resolved Referrals: Jasmina Carballo MD [Primary Care Provider] - 1 Week Thuan Pena MD [Physician] - 1 Week Discharge Medications: New apixaban 5 mg tablet 5 mg PO BID Qty: 60 0RF amiodarone 200 mg tablet See Rx Instructions .ROUTE .COMPLEX Qty: 90 0RF Rx Instructions: take amiodarone 2x 200 mg (400mg) twice daily through June 02 Then take amiodarone 200 mg 1 tablet by mouth daily orally furosemide [Lasix] 20 mg tablet 20 mg PO DAILY Qty: 30 0RF Discontinued lisinopril 40 mg tablet 1 tab PO DAILY Label Comments: PT reports, 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 Discharge Orders: Discharge Order (Routine); Ordered 05/22/22 Ordered By: Reva Fraire Diet: Low salt diet Activity on Discharge: As tolerated Stand Alone Forms: Patient Portal Discharge page Care Plan Goals: cardiac health stroke prevention recovery from pneumonia Health Concerns: congestive heart failure atrial fibrillation Plan of Treatment: stop lisinopril take furosemide 20 mg once daily, check weight daily if noted to have 3 lb weight gain take additional lasix 20mg, and call your doctor. take apixaban 5 mg twice daily Take amiodarone 200 mg x 2 total 400 mg twice daily through June 02 then take amiodarone 200 mg once daily restrict sodium to maximum 2000 mg/day weigh yourself daily and call your doctor if your weight goes up by 3 lb or more follow up with Dr Pena from [facility] in 1-2 weeks Please follow up with your primary care doctor within 1 week. Return to the hospital if you experience recurrent or worsening symptoms. Assessment: See Discharge Summary.
--- NOTE | 2022-05-22 11:19 | MHC.CM.PN ---
Patient has been medically cleared for dc to home today and per ROUNDS discussion, it will be home, self care.
[2022-05-22 11:31] VITALS: BP 106/64; PULSE 69; RESP 20; TEMP 36.2; O2SAT 94
== END 2022-05-22 12:25 | disposition home or self-care (01) | DRG 291 ==
LOC: HO.ED 05-15 00:30 → HO.EDOVER 05-15 01:29 → HO.IMC 05-15 11:40
PROVIDERS: Family Medicine; Hospitalist; Nurse Practitioner Family; Admitting Provider Internal Medicine; Emergency Provider Emergency Medicine; PCP Family Medicine; Visit Provider Hospitalist
DX: I11.0 Hypertensive heart disease with heart failure (principal); I50.21 Acute systolic (congestive) heart failure; J18.9 Pneumonia, unspecified organism; J96.01 Acute respiratory failure with hypoxia; I48.92 Unspecified atrial flutter; I48.0 Paroxysmal atrial fibrillation; E66.9 Obesity, unspecified; K21.9 Gastro-esophageal reflux disease without esophagitis; I42.7 Cardiomyopathy due to drug and external agent; R00.0 Tachycardia, unspecified; T45.1X5S Adverse effect of antineoplastic and immunosuppressive drugs, sequela; Z91.040 Latex allergy status; Z68.34 Body mass index [BMI] 34.0-34.9, adult; Z85.72 Personal history of non-Hodgkin lymphomas; Z20.822 Contact with and (suspected) exposure to COVID-19
CPT/HCPCS: 0241U; 36415; 71045; 71046; 80048; 80053; 83605; 83735; 83880; 84145; 84443; 84484; 85025; 85379; 87040; 93005; 93306; 94640; 96374; 96375; 99285; C1758; J0456; J0696; J1650; J1940; J2930; Q9957

== ENCOUNTER → 2022-07-14 09:24 | Outpatient (REF) | payer OTHER, SELFPAY ==
--- NOTE | ~2022-07-14 | NM_ITS ---
Lexiscan Myocardial perfusion study Indication: Congestive heart failure, assess for coronary disease and ischemia Technique: The patient was brought in for a Lexiscan perfusion study on 07/14/2022 and was injected 0.4 mg of Lexiscan intravenously. Within a minute of this injection 30 mCi of sestamibi was given intravenously. Images were obtained using the SPECT gamma camera interlaced with the gating device. Images were obtained in supine position. Resting perfusion study was performed on 07/17/2022. Patient was administered 30 mCi of sestamibi intravenously at rest. Images were then obtained in supine position. Total DLP 117mGy-cm. Images were processed with the software and compared side to side in short axis, horizontal long axis and vertical long axis views. Findings: Raw acquisition reviewed. The stress perfusion study showed absent tracer uptake in the apical part of inferior wall and adjacent apex. There is some improvement with CT attenuation correction. Possibly diaphragmatic attenuation components.. The gated study shows diminished LV systolic function with calculated LVEF of 34%. LV cavity is dilated in size. The gated study shows globally reduced wall thickening and contraction of segments. Inferior apex appears severely hypokinetic. Resting study shows mildly reduced tracer uptake in the apical inferior wall. With CT attenuation correction, similar. Gating at rest reveals ejection fraction of 40% with diminished inferior apical contractility. The findings are consistent with inferior apical and adjacent apical perfusion defect with reversible and some fixed components. NM/NM loren perf SPECT rest & str Impression: 1. Myocardial perfusion imaging study shows probable infarction in the inferior apex and adjacent apex with some christin-infarct ischemia. However, this is not adequate to explain the degree of cardiomyopathy. 2. Gated LVEF is 34% during stress and 40% during rest. 3. Transient ischemic dilatation not present, but LV cavity dilated. EKG component of the test reported separately.
--- NOTE | 2022-07-14 09:28 | CA_ITS ---
Acquisition Time: 2022-07-14 09:45:53 Total Exercise Time: 00:02:00 Test Indications: AFIB, LVH Medications: SEE H Protocol: LEXISCAN Max HR: 096 BPM 61% of Pred: 156 BPM Max BP: 128/070 mmHG Max Work Load: 1.0 METS Pharmacological stress test using Lexiscan while sitting. Patient tolerated well, reported chest pressure after injection, resolved in recovery period. EKG without arrhythmias, non-diagnostic for ischemia. Normotensive response to exercise. Test reviewed with Dr. Pena. Referred By: Thuan Pena Overread By: Milana Deleon NP
--- NOTE | 2022-07-14 09:28 | HM_ITS ---
Conclusion: 1. Patient was monitored for total period of 3 days and 3 hours 2. Baseline was normal sinus rhythm with average heart of 85 beats per minute 3. Very rare ectopy noted 4. No atrial fibrillation noted 5. No significant pauses or bradycardia noted 6. Patient reported 4 events that correlated with sinus rhythm MTDD
[2022-07-14 12:40] LABS: B Type Natriuretic Peptide 165 pg/mL (<100)
[2022-07-14 12:46] LABS: Anion Gap 11 (12-20); Blood Urea Nitrogen 13 mg/dL (9-16); Calcium 9.4 mg/dL (8.4-10.2); Carbon Dioxide 29 mmol/L (22-29); Chloride 104 mmol/L (96-108); Estimated Glomerular Filt Rate > 60; Glucose Random 124 mg/dL (60-115); Potassium 4.4 mmol/L (3.3-5.1); Sodium 140 mmol/L (135-145)
== END ==
LOC: HO.CARD 09:24
PROVIDERS: Visit Provider Internal Medicine Cardiovascular Disease
DX: I50.9 Heart failure, unspecified (principal); I42.9 Cardiomyopathy, unspecified; I48.0 Paroxysmal atrial fibrillation
CPT/HCPCS: 36415; 78452; 80048; 83880; 93017; 93242; A9500; J0280; J2785

== ENCOUNTER → 2022-07-23 14:33 | Outpatient (BNVA) | payer OTHER, SELFPAY | PROVIDERS: Visit Provider Internal Medicine Cardiovascular Disease | DX: I50.20 Unspecified systolic (congestive) heart failure (principal); I48.0 Paroxysmal atrial fibrillation | CPT/HCPCS: 99212 ==

== ENCOUNTER 2022-07-30 12:44 | Outpatient (REF) | payer OTHER, SELFPAY ==
[2022-07-30 13:09] LABS: Hematocrit 42.4 % (37.0-47.0); Hemoglobin 13.7 g/dl (12.0-16.0); Mean Corpuscular HGB Conc 32.3 g/dl (31.0-35.0); Mean Corpuscular Hemoglobin 31.5 pg (27.0-33.0); Mean Corpuscular Volume 97.5 fL (80.0-98.0); Mean Platelet Volume 10.1 fL (9.4-12.3); Platelet Count 256 X10*3/uL (160-400); Red Blood Count 4.35 X10*6/uL (4.20-5.50); Red Cell Distribution Width 13.5 % (11.0-16.0); White Blood Count 6.9 X10*3/uL (4.8-10.8)
[2022-07-30 13:15] LABS: INTERNATIONAL NORM RATIO 1.3 (0.9-1.1); Prothrombin Time 14.9 SEC (10.0-13.1)
[2022-07-30 13:51] LABS: Anion Gap 12 (12-20); Blood Urea Nitrogen 19 mg/dL (9-16); Calcium 9.6 mg/dL (8.4-10.2); Carbon Dioxide 33 mmol/L (22-29); Chloride 101 mmol/L (96-108); Estimated Glomerular Filt Rate 52; Glucose Random 154 mg/dL (60-115); Potassium 4.7 mmol/L (3.3-5.1); Sodium 141 mmol/L (135-145)
== END 2022-07-30 12:45 | disposition home or self-care (01) ==
LOC: HO.LAB 12:44
PROVIDERS: Visit Provider Internal Medicine Cardiovascular Disease
DX: I50.20 Unspecified systolic (congestive) heart failure (principal)
CPT/HCPCS: 36415; 80048; 85027; 85610

== ENCOUNTER → 2022-09-08 10:28 | Outpatient (BNVA) | payer OTHER, SELFPAY | PROVIDERS: Visit Provider Internal Medicine Cardiovascular Disease | DX: I50.20 Unspecified systolic (congestive) heart failure (principal); I48.0 Paroxysmal atrial fibrillation | CPT/HCPCS: 93005; 99212 ==

== ENCOUNTER → 2022-10-06 10:41 | Outpatient (REF) | payer MEDICARE, SELFPAY ==
[2022-09-30 08:58] VITALS: BP 110/58; BP 116/60; BP 118/60; BMI 35.1
--- NOTE | 2022-10-06 10:49 | CA_ITS ---
Transthoracic Echocardiogram Patient (Last, First, Middle): Marie العراقي A Gender: Female Date of : 1955 Age: 67 Procedure Date: 10/06/2022 Procedure Type: Transthoracic Echocardiogram Location: OP Height: 160.02 cm Weight: 86.18 kg BSA: 1.89 m2 Heart Rate: 63 bpm BP: 115 / 70 mmHg Supervisor Receiving And Processing: HAROON Referring MD: Thuan Pena MD Symptoms: I42.9 - Cardiomyopathy, unspecified Study Quality: Adequate. Limited Echo ECG Rhythm: Sinus Conclusions: - The left ventricular systolic function is mildly decreased. The visually estimated ejection fraction is between 40-45%. Findings Left Ventricle Normal left ventricular cavity size. The left ventricular systolic function is mildly decreased. The visually estimated ejection fraction is between 40 45%. The calculated ejection fraction is 44% by biplane method. There is paradoxical septal motion consistent with a left bundle branch block. There is mild septal asymmetric hypertrophy. Venous The inferior vena cava is normal in size and collapses greater than 50% with inspiration. Prior Study Comparison Changes noted compared to prior study dated: 05/15/2022. Improvement in LVEF. Measurements 2D Linear Measurements IVSd: 1.05 0.6-0.9/0.6-1.0 cm LVIDd: 5.24 3.9-5.3/4.2-5.9 cm LVIDd Index: 2.77 2.4-3.2/2.2-3.1 cm/m2 LVIDs: 3.88 2.0-3.6 cm LVPWd: 0.87 0.7-1.1 cm LA Diam: 4.70 2.7-3.8/3.0-4.0 cm LAIDs Index: 2.49 1.5-2.3 cm/m2 LV Mass: 232.43 67-162/88-224 g LV Mass Index: 122.98 43-95/49-115 g/m2 LVOT Diam: 2.10 3.0+(-)1.3 cm 2D Systolic Function EF 4C: 45.60 >55% EF 2C: 42.80 >55% EF BiP: 43.70 >55% Mitral Valve MV Pk E: 0.78 MV PK A: 0.60 MV Decel Time: 170.00 E/A: 1.30 E'Lateral: 6.96 E'Medial: 6.09 E/E' Med: 12.70 E/E' Lat: 11.10 PHT: 50.00 MVA PHT: 4.40 Decel [place]: 4.56 LVOT LVOT Pk Tanner: 0.71 LVOT Mn Tanner: 0.56 LVOT VTI: 0.17 LVOT Pk Grad: 2.00 LVOT Mn Grad: 1.00 LVOT Diam: 2.10 LVOT Area: 3.46 Diastolic Function MV Pk E: 0.78 MV Pk A: 0.60 E/A: 1.30 E'Medial: 6.09 E/E' Med: 12.70 E' Laterial: 6.96 E/E' Lat: 11.10 Updated in Other Vendor System with Status of Final Brennen Kapadia MD electronically signed on 10/08/2022 10:52:08 AM with status of Final
[2022-10-06 12:41] LABS: Cholesterol 318 mg/dL; HDL Cholesterol 81 mg/dL; LDL Cholesterol Calculated 211 mg/dl; Triglycerides 131 mg/dL
== END ==
LOC: HO.CARD 10:41
PROVIDERS: Absent Provider Nurse Practitioner Family; Visit Provider Internal Medicine Cardiovascular Disease
DX: I25.10 Atherosclerotic heart disease of native coronary artery without angina pectoris (principal); I42.9 Cardiomyopathy, unspecified; I50.20 Unspecified systolic (congestive) heart failure
CPT/HCPCS: 36415; 80061; 93308

== ENCOUNTER → 2022-11-20 10:34 | Outpatient (BNVA) | payer MEDICARE, SELFPAY ==
[2022-09-30 08:58] VITALS: BP 110/58; BP 116/60
[2022-10-30 08:31] VITALS: BP 94/50; BMI 35.1
== END ==
PROVIDERS: Visit Provider Internal Medicine Cardiovascular Disease
DX: I50.20 Unspecified systolic (congestive) heart failure (principal); I48.0 Paroxysmal atrial fibrillation
CPT/HCPCS: 93005; 99212

== ENCOUNTER 2022-12-12 10:53 | Outpatient (REF) | payer MEDICARE, SELFPAY ==
[2022-09-30 08:58] VITALS: BP 110/58; BP 116/60
[2022-11-26 11:39] VITALS: BP 94/50; BMI 35.1
[2022-12-12 12:23] LABS: Alanine Aminotransferase 14 U/L (0-31); Albumin Level 4.1 g/dL (3.5-5.0); Alkaline Phosphatase 55 U/L (39-117); Anion Gap 14 (12-20); Aspartate Amino Transferase 15 U/L (5-31); Bilirubin Total 0.7 mg/dL (0.0-1.0); Blood Urea Nitrogen 16 mg/dL (9-16); Carbon Dioxide 27 mmol/L (22-29); Chloride 103 mmol/L (96-108); Cholesterol 211 mg/dL; Estimated Glomerular Filt Rate > 60; Glucose Random 130 mg/dL (60-115); HDL Cholesterol 86 mg/dL; LDL Cholesterol Calculated 107 mg/dl; Potassium 4.4 mmol/L (3.3-5.1); Sodium 140 mmol/L (135-145); Total Protein 6.9 g/dL (6.5-8.0); Triglycerides 90 mg/dL
[2022-12-12 12:26] LABS: B Type Natriuretic Peptide 44 pg/mL (<100)
== END 2022-12-12 10:54 | disposition home or self-care (01) ==
LOC: HO.LAB 10:53
PROVIDERS: Internal Medicine Cardiovascular Disease; Visit Provider Nurse Practitioner Family
DX: E78.5 Hyperlipidemia, unspecified (principal); I50.20 Unspecified systolic (congestive) heart failure
CPT/HCPCS: 36415; 80053; 80061; 83880

== ENCOUNTER → 2023-02-20 09:56 | Outpatient (REF) | payer MEDICARE, SELFPAY ==
[2022-12-09 15:08] VITALS: BP 110/58; BP 116/60; BP 94/50; BMI 35.1
== END ==
LOC: HO.CARD 09:56
PROVIDERS: Visit Provider Internal Medicine Cardiovascular Disease
DX: I42.9 Cardiomyopathy, unspecified (principal); I50.20 Unspecified systolic (congestive) heart failure
CPT/HCPCS: 93308; Q9957

== ENCOUNTER → 2023-02-20 10:12 | Outpatient (BNV) | payer MEDICARE, SELFPAY ==
[2022-12-09 15:08] VITALS: BP 110/58; BP 116/60; BP 94/50; BMI 35.1
== END ==
PROVIDERS: Visit Provider Internal Medicine
DX: I42.9 Cardiomyopathy, unspecified (principal)
CPT/HCPCS: 93308

== ENCOUNTER 2023-03-11 14:08 | Outpatient (AMB) | payer MEDICARE, SELFPAY ==
[2022-09-30 08:58] VITALS: BP 110/58; BP 116/60
[2022-10-30 08:31] VITALS: BP 94/50; BMI 35.1
[2022-12-09 15:08] VITALS: BP 110/58; BP 116/60; BP 94/50; BMI 35.1
--- NOTE | 2023-03-11 14:19 | MHC.OFFVIS ---
Intake Vital Signs 03/11/23 14:20 Height 5 ft 3 in Weight 209 lb 7.026 oz BMI 37.1 BP 132/74 Blood Pressure Location Lt brachial Position Sitting Pulse 71 Intake Visit Reasons: 3 mth f/up labs/ bryson echo/ [facility]al[facility]b Intake Note: 3 month follow-up limited echo and labs has been feeling good Enrollment Advisor Required: No Allergies adhesive tape [ADHESIVE TAPE] Adverse Reaction (Unknown, Verified 05/16/22 00:05) RASH latex Adverse Reaction (Unknown, Verified 05/16/22 00:05) Rash perflutren Adverse Reaction (Verified 02/20/23 11:18) Back Pain Medication List - Last Reconciled 03/11/23 by Thuan Pena MD amiodarone 200 mg PO DAILY apixaban 5 mg PO BID atorvastatin 40 mg PO BEDTIME carvedilol (Coreg) 6.25 mg PO BID 90 days furosemide (Lasix) 20 mg PO DAILY sacubitril-valsartan 49-51 mg (Entresto) 1 tab PO BID HPI HPI Comments History of Present Illness Details Marie comes for follow-up. She has been doing very well from cardiac perspective. However she canceled her appointment to electrophysiology as she thought that she was not having any recurrent episodes of atrial fibrillation she did not need ablation. She is taking all her medications. Heart failure symptoms are well controlled. She has no orthopnea, PND, leg edema. She started working again. She denies any prolonged palpitations irregular heartbeat. No bleeding issues or neurologic events. [facility] Medical History GERD (gastroesophageal reflux disease) Hypertension Cardiomyopathy due to chemotherapy Cardiomyopathy Congestive heart failure Surgical History No pertinent past surgical history Family History Father Heart disease Social History Household Members: None Housing: House Do you presently have visiting nurse or other home services: No Alcohol intake: current Alcohol intake frequency: holidays/special occasions only Patient Tobacco Use Status: Never used Tobacco service: No Current occupational status: retired Review of Systems Const Denies chills, Denies fatigue, Denies fever(s), Denies frequent falls, Denies weakness, Denies weight gain and Denies weight loss ENT Denies dizziness Card Denies chest pain, Denies leg edema, Denies lightheadedness, Denies palpitations, Denies dyspnea, Denies dyspnea on exertion, Denies orthopnea and Denies other (loss of consciousness) Resp Denies cough, Denies dyspnea and Denies dyspnea on exertion GI Denies hematochezia and Denies change in stool character Musc Denies abnormal gait, Denies muscle weakness, Denies numbness, Denies radiating pain into limb and Denies tingling Neuro Denies abnormal gait, Denies dizziness, Denies frequent falls, Denies numbness, Denies tingling and Denies weakness Endo Denies fatigue and Denies palpitations Physical Exam Vital Signs: Last Vital Signs Pulse 71 03/11/23 14:20 BP 132/74 03/11/23 14:20 BMI result Body Mass Index 37.1 Const General: cooperative, comfortable, no acute distress, alert, awake and well groomed Nutritional Appearance: overweight Orientation/consciousness: patient oriented x3 Limitations: no limitations Neck Neck: Yes trachea midline, Yes supple and Yes no JVD Resp Effort & Inspection: normal respiratory effort Auscultation: clear to auscultation bilaterally Cardio Jugular venous distension: no JVD Rate: regular rate Rhythm: regular rhythm Heart sounds: S1 normal heart sound present, S2 normal heart sound present, no click, no gallops and no murmurs GI Auscultation: normal bowel sounds Skin General skin exam: no rashes or lesions noted Neuro General: patient oriented x3 and no focal motor deficits Extrem General: Yes no clubbing, cyanosis or edema Office Procedures EKG Details: EKG shows normal sinus rhythm with first-degree AV block with left axis deviation and nonspecific intraventricular conduction delay with QT interval of 458 milliseconds and QRS duration 130 milliseconds [id number], Complete Assessment & Plan Assessment & Plan (1) Heart failure with reduced ejection fraction: Code(s): I50.20 - Unspecified systolic (congestive) heart failure Plan: Heart failure with reduced ejection fraction with [id number] LV systolic dysfunction with last LVEF of 41%. 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 LV systolic function has stabilized. Her heart failure symptoms have significantly improved and currently NYHA class 1 with rhythm management as well as current medical therapy. Continue current diuretic regimen. Daily weight monitoring avoidance of salt loading was discussed continue current neurohormonal modulation with carvedilol as well as Entresto therapy. Semi annual renal function test should be pursued. Management of heart failure was discussed in details including daily weight monitoring avoidance of salt loading. Additional diuretics as need be. Continue participate in physical activity as tolerated as well as weight reduction program. (2) Paroxysmal atrial fibrillation: Code(s): I48.0 - Paroxysmal atrial fibrillation Plan: Paroxysmal atrial fibrillation with stabilized episodes of atrial fibrillation with no recurrence. Currently on amiodarone therapy to maintain rhythm. Has done very well with rhythm control approach. Will continue pursue rhythm control approach although given her age, should pursue an alternative antiarrhythmic drug therapy after ablation. This was discussed with her in details. Will refer to EPS again to further consider for the same. Consider alternative agent such as Tikosyn. Continue full oral anticoagulation, currently on Eliquis 5 mg b.i.d.. Semi annual renal function test should be pursued. Will follow up in the clinic in 6 months time, sooner p.r.n.. Thank you for allowing me to partake in her care Medications: Refilled sacubitril-valsartan 49-51 mg (Entresto) 1 tab PO BID 180 tabs 3RF Coding Level of Care Code Est Pt Level 4 (53701) Diagnoses Heart failure with reduced ejection fraction I50.20 Paroxysmal atrial fibrillation I48.0 CPT Codes EKG - CPT: 54204-[id number], Complete ([id number])
[2023-03-11 14:20] VITALS: BP 132/74; PULSE 71; BMI 37.1
== END 2023-03-11 14:42 | disposition home or self-care (01) ==
PROVIDERS: PCP Family Medicine; Visit Provider Internal Medicine Cardiovascular Disease
DX: I50.20 Unspecified systolic (congestive) heart failure (principal); I48.0 Paroxysmal atrial fibrillation
CPT/HCPCS: 93010; 99214

== ENCOUNTER → 2023-03-11 14:08 | Outpatient (BNVA) | payer MEDICARE, SELFPAY ==
[2022-12-09 15:08] VITALS: BP 110/58; BP 116/60; BP 94/50; BMI 35.1
== END ==
PROVIDERS: Visit Provider Internal Medicine Cardiovascular Disease
DX: I50.20 Unspecified systolic (congestive) heart failure (principal); I48.0 Paroxysmal atrial fibrillation
CPT/HCPCS: 93005; 99212

== ENCOUNTER 2023-06-26 10:54 | Outpatient (AMB) | payer MEDICARE, SELFPAY ==
[2022-12-09 15:08] VITALS: BP 110/58; BP 116/60; BP 94/50; BMI 35.1
[2023-06-23 08:35] VITALS: BP 110/58; BP 116/60; BP 94/50; BMI 35.1
--- NOTE | 2023-06-26 11:22 | MHC.OFFVISCO ---
Intake Intake Visit Reasons: Anticoagulation Communications And Signals Supervisor Required: No Allergies adhesive tape [ADHESIVE TAPE] Adverse Reaction (Unknown, Verified 06/26/23 11:09) RASH latex Adverse Reaction (Unknown, Verified 06/26/23 11:09) Rash perflutren Adverse Reaction (Verified 06/26/23 11:09) Back Pain and leg pain Medication List - Last Reconciled 06/26/23 by Georgiana Casanova RN amiodarone 200 mg PO DAILY apixaban 5 mg PO BID 90 days atorvastatin 40 mg PO BEDTIME 90 days carvedilol (Coreg) 6.25 mg PO BID 90 days furosemide (Lasix) 20 mg PO Q OTHER DAY sacubitril-valsartan 49-51 mg (Entresto) 1 tab PO BID warfarin 5 mg PO DIRECTED Is last menstrual period known: No Post menopausal: Yes Patient : No Nursing Note New patient, Anticoagulation Education INR 1.3? out of therapeutic range Medications and supplements reviewed Patient status: s/p ablation last 06/25/23 - states she has not noticed any prolonged afib - maybe occ irregular heart beats, states she feels much better Eliquis too expensive for her and refuses to tile picker another prescription pt on warfarin x 3 days now,today will be her 4th day, bridged with her last 3 doses of Eliquis finished her last dose of Eliquis yesterday 06/25/23, She is filling out financial form to submit to [employer] in hopes to reduce cost to go back on it Medications or supplements: no new meds but states she will be weaning off amiodarone Diet: good - eats a mix of fruits and vegetables - eating healthier, and trying to loose weight, discussed to avoid snacking in between meal Denies any signs and symptoms of bleeding or clotting or unusual bruising Bleeding, bruising, clotting discussed s/sx with education Nutritional guidance given: cont to eat a mix of fruits and vegetables - avoiding greens today Dose: increase todays dose to 7.5mg then 5mg sat sun and recheck Thursday F/U INR Date : 06/29/23?? pt came for warfarin education today and given education packet with instruction and good verbal understanding HR regular 68 b/p 114/70 lungs clear bilat, resp easy and unlabored, no edema, pt pleasant A+Ox3, states she has a little bit of a lazy left s/p clot during time of her chemo 2002 Patient verbalizing understanding of instructions given. 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 Illness/Depression: No Is last menstrual period known: No Post menopausal: Yes Patient : No Surgeries: HYSTERECTOMY 1999, APPENDECTOMY AND GALL BLADDER AGE LATE 30S, KNEE SURGERY LIU CYST REMOVAL AGE EARLY 40S, CARDIAC ABLATION 06/2023 DISCS REPAIR IN NECK C 3-4 Anti-Coag. Education Record Teaching Recipient: Patient What is the easiest way to learn: Reading, Listening and Demonstration List any additional concerns (family/financial etc.): may transfer back to [facility] Communications And Signals Supervisor Required: No Readiness To Learn: Excellent Teaching Methods: Audiovisual Education Intervention/Brief Description of Teaching 1. Able to state reason for taking Warfarin: Yes 2. Able to state Pain Management techniques: Yes 3. Able to state action of Warfarin.: Yes Able to state current dose, pill color, how and when Warfarin to be taken: Yes Able to identify signs of bleeding &/or clotting: Yes 4. Able to identify need to keep diet consistent in regard to vitamin K intake: Yes Able to state restriction on alcohol: Yes 5. Able to state need for compliance with PT/INR testing: Yes Describes rationale for carrying ID and wearing Medic Alert bracelet: Yes Patient instructed to monitor for excess bruising or signs/symptoms of clotting or bleeding: Yes 6. Able to state that there are drugs that interact with Warfin: Yes 7. Able to state the need to seek medical attention when illness/injury occur.: Yes Describes the need to avoid activities with high risk of injury: Yes 8. Able to state duration of treatment: Yes 9. Demonstrates understanding of notifying all providers of pending dental surgical, or other invasive procedures: Yes 10. Able to state Home Care instructions Questionnaires HAS-BLED Does the patient had uncontrolled Hypertension?: No Does the patient have renal disease?: No Does the patient have liver disease?: No Does the patient have a history of stroke?: No Has the patient had major bleeding or predisposition to bleeding?: No Does the patient have labile INRs?: Yes Is the patient over 65 years of age?: Yes Is the patient on medications that gives them a predisposition to bleeding?: Yes Does the patient use alcohol?: Yes HAS-BLED Score: 4 CHADSVASC Age: <65 Gender: Female Does the patient have a history of CHF?: Yes Does the patient have a history of Hypertension?: Yes Does the patient have a history of Stroke/TIA/Thromboembolism?: Yes Does the patient have a history of Vascular Disease (prior KS, PAD or aortic plaque)?: Yes Does the patient have a history of Diabetes?: No CHADS VACS Score: 6 Himanshu Prediction Score Rsk VTE Active Cancer: No Previous VTE, excluding superficial vein thrombosis: Yes (pt states behind left eye) Reduced mobility: No Already known Thrombophilic Condition: Yes With-in last month Trauma and/or Surgery: No Elderly 70 year or older: No Heart and/or Respiratory Failure: Yes Acute Myocardial infarction and/or Ischemic Stroke: No Acute Infection and/or Rheumatologic Disorder: No Obesity (BMI 30 or greater): Yes Ongoing Hormonal Treatment: No Score: 8 Himanshu Score less than 4; Low Risk of VTE Himanshu Score 4 or greater; High Risk of VTE Coding Level of Care Code New Patient Level 2 Diagnoses Current use of anticoagulant therapy Z79.01 Assessment & Plan Assessment & Plan (1) Current use of anticoagulant therapy: Code(s): Z79.01 - assisted (current) use of anticoagulants Category: Medical Medications: Changed From furosemide (Lasix) 20 mg PO DAILY 90 tabs 3RF To furosemide (Lasix) 20 mg PO Q OTHER DAY
[2023-06-26 14:24] LABS: Prothrombin Time Whole Bld POC 15.8 sec (11.1-13.5); ~PT, ~INR - Anti Coag Clinic 1.3 (0.9-1.1)
== END 2023-06-26 13:54 | disposition home or self-care (01) ==
LOC: HO.ACS 10:54
PROVIDERS: PCP Internal Medicine; Visit Provider Internal Medicine
DX: Z79.01 Long term (current) use of anticoagulants (principal)

== ENCOUNTER → 2023-06-26 10:54 | Outpatient (BNVA) | payer MEDICARE, SELFPAY ==
[2023-06-23 08:35] VITALS: BP 110/58; BP 116/60; BP 94/50; BMI 35.1
== END ==
PROVIDERS: PCP Internal Medicine; Visit Provider Internal Medicine
DX: I48.0 Paroxysmal atrial fibrillation (principal); Z79.01 Long term (current) use of anticoagulants; Z51.81 Encounter for therapeutic drug level monitoring
CPT/HCPCS: 85610; 99202

== ENCOUNTER 2023-07-01 08:32 | Outpatient (AMB) | payer MEDICARE, SELFPAY ==
[2022-12-09 15:08] VITALS: BP 110/58; BP 116/60; BP 94/50; BMI 35.1
[2023-06-23 08:35] VITALS: BP 110/58; BP 116/60; BP 94/50; BMI 35.1
[2023-07-01 08:38] LABS: Prothrombin Time Whole Bld POC 34.9 sec (11.1-13.5); ~PT, ~INR - Anti Coag Clinic 2.9 (0.9-1.1)
--- NOTE | 2023-07-01 08:49 | MHC.OFFVISCO ---
Intake Intake Visit Reasons: Anticoagulation Allergies adhesive tape [ADHESIVE TAPE] Adverse Reaction (Unknown, Verified 07/01/23 08:33) RASH latex Adverse Reaction (Unknown, Verified 07/01/23 08:33) Rash perflutren Adverse Reaction (Verified 07/01/23 08:33) Back Pain and leg pain Nursing Note INR: 2.9 in therapeutic range Medications and supplements reviewed No changes in health, diet, medications, or supplements, Denies any signs and symptoms of bleeding or bruising or clotting. Bleeding, bruising, clotting discussed Nutritional guidance given, be sure to resume usual greens Dose: continue 5 mg daily F/U INR: 5 days Patient verbalizes understanding of instructions given Anti-Coag Initial Assessment Social Hx Patient Tobacco Use Status: Never used Tobacco alcohol intake: current Alcohol intake frequency: a few times a week (MAYBE 1 A WEEK) Cardiovascular Hx: CHF (2002), Arrhythmias (ABLATION AT [facility] 06/18/2023 ), Cardiomyopathy (DX 2002 S/P CHEMO TREAT) and Varicose Veins Lung Disease HX: DVT/PE (HX DVT BEHIND EYE 2002 S/P [facility] ) Blood Disorder Hx: Anemia (ONLY DURING THE CHEMO ) and Hyperlipidemia (CHOLESTORAL MED ) Hx: Other (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 Illness/Depression: No Coding Level of Care Code Est Patient Level 1 Diagnoses Current use of anticoagulant therapy Z79.01 Results AMB INR Fingerstick AMB INR Fingerstick 2.9 Last Edit by Lola Tran RN on 07/01/23 08:37 interface delay Assessment & Plan Assessment & Plan (1) Current use of anticoagulant therapy: Code(s): Z79.01 - emt intermediate (current) use of anticoagulants Category: Medical
== END 2023-07-01 08:53 | disposition home or self-care (01) ==
LOC: HO.ACS 08:32
PROVIDERS: PCP Internal Medicine; Visit Provider Internal Medicine
DX: Z79.01 Long term (current) use of anticoagulants (principal)

== ENCOUNTER → 2023-07-01 08:32 | Outpatient (BNVA) | payer MEDICARE, SELFPAY ==
[2023-06-23 08:35] VITALS: BP 110/58; BP 116/60; BP 94/50; BMI 35.1
== END ==
PROVIDERS: PCP Internal Medicine; Visit Provider Internal Medicine
DX: I48.0 Paroxysmal atrial fibrillation (principal); Z79.01 Long term (current) use of anticoagulants; Z51.81 Encounter for therapeutic drug level monitoring
CPT/HCPCS: 85610; 99211

== ENCOUNTER 2023-07-07 09:21 | Outpatient (AMB) | payer MEDICARE, SELFPAY ==
[2023-06-23 08:35] VITALS: BP 110/58; BP 116/60; BP 94/50; BMI 35.1
[2023-07-07 09:29] LABS: Prothrombin Time Whole Bld POC 65.2 sec (11.1-13.5); ~PT, ~INR - Anti Coag Clinic 5.4 (0.9-1.1)
--- NOTE | 2023-07-07 09:44 | MHC.OFFVISCO ---
Intake Intake Visit Reasons: Anticoagulation Allergies adhesive tape [ADHESIVE TAPE] Adverse Reaction (Unknown, Verified 07/01/23 08:33) RASH latex Adverse Reaction (Unknown, Verified 07/01/23 08:33) Rash perflutren Adverse Reaction (Verified 07/01/23 08:33) Back Pain and leg pain Nursing Note INR 5.4 out of therapeutic range - refused lab draw today - not feeling well with her cold - has not been tested -however presents itself as Upper Resp Virus Flu or RSV with the copious amt of phlegm and coughing and fatigue Medications and supplements reviewed Patient status: * pt developed cold symptoms and decrease appetite and all over malaise x 5 days or so. *decreased appetite- explained can raise the INR *did not eat greens- explained can raise the INR * took tyelnol and ibuprofen, and dayquil- explained both can raise the INR and the risk of taking ibuprofen *dosing still being adjusted only her 3 rd visit today *not aquainted with PCP yet *leaving for [facility] next week 07/16/23 x 12 days to visit grandchildren - tripped booked for a while needs script to have INR checked while there x 2 weekly and prn symptoms to report to [facility] [phone] or fax [phone] filled out financial form for Charleen will fax today - it is hoped that it will be approved prior trip next week Medications or supplements: cold meds Diet: has been fair, feels like she can eat today Denies any signs and symptoms of bleeding or clotting or unusual bruising Bleeding, bruising, clotting discussed Nutritional guidance given: try to eat cooked greens today or tomorrow Dose: hold today's dose, 2.5mg tomorrow, then 5mg and chk Thursday F/U INR Date : 07/10/23Thursday ?? Patient verbalizing understanding of instructions given. Anti-Coag Initial Assessment Social Hx Patient Tobacco Use Status: Never used Tobacco alcohol intake: current Alcohol intake frequency: a few times a week (MAYBE 1 A WEEK) Cardiovascular Hx: CHF (2002), Arrhythmias (ABLATION AT [facility] 06/18/2023 ), Cardiomyopathy (DX 2002 S/P CHEMO TREAT) and Varicose Veins Lung Disease HX: DVT/PE (HX DVT BEHIND EYE 2002 S/P [facility] ) Blood Disorder Hx: Anemia (ONLY DURING THE CHEMO ) and Hyperlipidemia (CHOLESTORAL MED ) Hx: Other (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 Illness/Depression: No Coding Level of Care Code Est Patient Level 1 Diagnoses Current use of anticoagulant therapy Z79.01 Results AMB INR Fingerstick AMB INR Fingerstick 5.4 Last Edit by Georgiana Casanova RN on 07/07/23 09:34 manual entry Assessment & Plan Assessment & Plan (1) Current use of anticoagulant therapy: Code(s): Z79.01 - skilled nursing (current) use of anticoagulants Category: Medical
== END 2023-07-07 10:16 | disposition home or self-care (01) ==
LOC: HO.ACS 09:21
PROVIDERS: PCP Internal Medicine; Visit Provider Internal Medicine
DX: Z79.01 Long term (current) use of anticoagulants (principal)

== ENCOUNTER → 2023-07-07 09:21 | Outpatient (BNVA) | payer MEDICARE, SELFPAY ==
[2023-06-23 08:35] VITALS: BP 110/58; BP 116/60; BP 94/50; BMI 35.1
== END ==
PROVIDERS: PCP Internal Medicine; Visit Provider Internal Medicine
DX: I48.0 Paroxysmal atrial fibrillation (principal); Z79.01 Long term (current) use of anticoagulants; Z51.81 Encounter for therapeutic drug level monitoring
CPT/HCPCS: 85610; 99211

== ENCOUNTER 2023-07-10 15:36 | Outpatient (AMB) | payer MEDICARE, SELFPAY ==
[2023-06-23 08:35] VITALS: BP 110/58; BP 116/60; BP 94/50; BMI 35.1
[2023-07-10 15:43] LABS: Prothrombin Time Whole Bld POC 47.4 sec (11.1-13.5)
--- NOTE | 2023-07-10 16:04 | MHC.OFFVISCO ---
Intake Intake Visit Reasons: Anticoagulation Allergies adhesive tape [ADHESIVE TAPE] Adverse Reaction (Unknown, Verified 07/10/23 15:41) RASH latex Adverse Reaction (Unknown, Verified 07/10/23 15:41) Rash perflutren Adverse Reaction (Verified 07/10/23 15:41) Back Pain and leg pain Medication List - Last Reconciled 07/10/23 by Maya Felton RN amiodarone 200 mg PO DAILY apixaban 5 mg PO BID 90 days atorvastatin 40 mg PO BEDTIME 90 days carvedilol (Coreg) 6.25 mg PO BID 90 days esomeprazole magnesium (Nexium) 20 mg PO DAILY furosemide (Lasix) 20 mg PO Q OTHER DAY sacubitril-valsartan 49-51 mg (Entresto) 1 tab PO BID warfarin 5 mg See Protocol PO DIRECTED Nursing Note NO CP,SOB,DIET/MED CHANGES,FALLS OR SX OF BLEEDING. HOLD WARFARIN TODAY, 5MGM TOMORROW AND DECREASE TO 2.5MGM ON 07/12 AND FOLLOW-UP ON 07/13. WILL BE SURE TO HAVE GREENS GOOD UNDERSTANFING OF DOSING INSTR. Anti-Coag Initial Assessment Social Hx Patient Tobacco Use Status: Never used Tobacco alcohol intake: current Alcohol intake frequency: a few times a week (MAYBE 1 A WEEK) Cardiovascular Hx: CHF (2002), Arrhythmias (ABLATION AT [facility] 06/18/2023 ), Cardiomyopathy (DX 2002 S/P CHEMO TREAT) and Varicose Veins Lung Disease HX: DVT/PE (HX DVT BEHIND EYE 2002 S/P [facility] ) Blood Disorder Hx: Anemia (ONLY DURING THE CHEMO ) and Hyperlipidemia (CHOLESTORAL MED ) Hx: Other (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 Illness/Depression: No Coding Level of Care Code Est Patient Level 1 Diagnoses Current use of anticoagulant therapy Z79.01 Results AMB INR Fingerstick AMB INR Fingerstick 4.0 Last Edit by Maya Felton RN on 07/10/23 15:43 Assessment & Plan Assessment & Plan (1) Current use of anticoagulant therapy: Code(s): Z79.01 - half-way (current) use of anticoagulants Category: Medical
== END 2023-07-10 16:06 | disposition home or self-care (01) ==
LOC: HO.ACS 15:36
PROVIDERS: PCP Internal Medicine; Visit Provider Internal Medicine
DX: Z79.01 Long term (current) use of anticoagulants (principal)

== ENCOUNTER → 2023-07-10 15:36 | Outpatient (BNVA) | payer MEDICARE, SELFPAY ==
[2023-06-23 08:35] VITALS: BP 110/58; BP 116/60; BP 94/50; BMI 35.1
== END ==
PROVIDERS: PCP Internal Medicine; Visit Provider Internal Medicine
DX: I48.0 Paroxysmal atrial fibrillation (principal); Z79.01 Long term (current) use of anticoagulants; Z51.81 Encounter for therapeutic drug level monitoring
CPT/HCPCS: 85610; 99211

== ENCOUNTER 2023-07-13 15:55 | Outpatient (AMB) | payer MEDICARE, SELFPAY ==
[2023-06-23 08:35] VITALS: BP 110/58; BP 116/60; BP 94/50; BMI 35.1
[2023-07-13 16:02] LABS: Prothrombin Time Whole Bld POC 39.2 sec (11.1-13.5); ~PT, ~INR - Anti Coag Clinic 3.3 (0.9-1.1)
--- NOTE | 2023-07-13 16:15 | MHC.OFFVISCO ---
Intake Intake Visit Reasons: Anticoagulation Allergies adhesive tape [ADHESIVE TAPE] Adverse Reaction (Unknown, Verified 07/13/23 15:56) RASH latex Adverse Reaction (Unknown, Verified 07/13/23 15:56) Rash perflutren Adverse Reaction (Verified 07/13/23 15:56) Back Pain and leg pain Medication List - Last Reconciled 07/13/23 by Georgiana Casanova RN amiodarone 200 mg PO DAILY apixaban 5 mg PO BID 90 days atorvastatin 40 mg PO BEDTIME 90 days carvedilol (Coreg) 6.25 mg PO BID 90 days esomeprazole magnesium (Nexium) 20 mg PO DAILY furosemide (Lasix) 20 mg PO Q OTHER DAY sacubitril-valsartan 49-51 mg (Entresto) 1 tab PO BID warfarin 5 mg See Protocol PO DIRECTED Nursing Note INR 3.3 out of therapeutic range Medications and supplements reviewed Patient status: FEELING BETTER S/P URI ATE GREENS AND BLUEGBERRIES AND CHICKEN SOUP Medications or supplements: NO CHANGES Diet: IMPROVED Denies any signs and symptoms of bleeding or clotting or unusual bruising Bleeding, bruising, clotting discussed Nutritional guidance given: GREENS THEN RESUME USUAL DIET TOMORROW Dose: 2.5MG TODAY AND TOMORROW F/U INR Date : THU ELIQUIS FORMS FILLED IN AGAIN AND FAXED AGAIN TODAY?? Patient verbalizing understanding of instructions given. 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
== END 2023-07-13 16:17 | disposition home or self-care (01) ==
LOC: HO.ACS 15:55
PROVIDERS: PCP Internal Medicine; Visit Provider Internal Medicine
DX: Z79.01 Long term (current) use of anticoagulants (principal)

== ENCOUNTER → 2023-07-13 15:55 | Outpatient (BNVA) | payer MEDICARE, SELFPAY ==
[2023-06-23 08:35] VITALS: BP 110/58; BP 116/60; BP 94/50; BMI 35.1
== END ==
PROVIDERS: PCP Internal Medicine; Visit Provider Internal Medicine
DX: I48.0 Paroxysmal atrial fibrillation (principal); Z79.01 Long term (current) use of anticoagulants; Z51.81 Encounter for therapeutic drug level monitoring
CPT/HCPCS: 85610; 99211

== ENCOUNTER 2023-07-15 09:06 | Outpatient (AMB) | payer MEDICARE, SELFPAY ==
[2023-06-23 08:35] VITALS: BP 110/58; BP 116/60; BP 94/50; BMI 35.1
[2023-07-15 09:22] LABS: Prothrombin Time Whole Bld POC 25.9 sec (11.1-13.5); ~PT, ~INR - Anti Coag Clinic 2.2 (0.9-1.1)
--- NOTE | 2023-07-15 09:29 | MHC.OFFVISCO ---
Intake Intake Visit Reasons: Anticoagulation Allergies adhesive tape [ADHESIVE TAPE] Adverse Reaction (Unknown, Verified 07/15/23 09:06) RASH latex Adverse Reaction (Unknown, Verified 07/15/23 09:06) Rash perflutren Adverse Reaction (Verified 07/15/23 09:06) Back Pain and leg pain Medication List - Last Reconciled 07/15/23 by Georgiana Casanova RN amiodarone 200 mg PO DAILY apixaban 5 mg PO BID 90 days atorvastatin 40 mg PO BEDTIME 90 days carvedilol (Coreg) 6.25 mg PO BID 90 days esomeprazole magnesium (Nexium) 20 mg PO DAILY furosemide (Lasix) 20 mg PO Q OTHER DAY sacubitril-valsartan 49-51 mg (Entresto) 1 tab PO BID warfarin 5 mg See Protocol PO DIRECTED Nursing Note Pt leaving for vacation to [place] tomorrow to return 07/29/23. Pt has lab slip for INR chk while in [place] for 07/20/23 then prn per INR, Eliquis financial assist form sent x 2, paper work given to pt incase she needs it in [place], Pt instructed to call Eliquis to assess status, if approved,pt instructed to call Probate Lawyer for Eliquis order, Pt educated that an INR needs to be done prior to starting Eliquis to determine when safe to start. INR: 2.2 in therapeutic range Medications and supplements reviewed Pt feeling better and has recovered from cold No changes in health, diet, medications, or supplements, Denies any signs and symptoms of bleeding or bruising or clotting. Bleeding, bruising, clotting discussed Nutritional guidance given - review food list weekly, eat a mix of fruits and vegetables Dose: 2.5mg x 5 days/ 5mg x 2 days =22.5mg for the week F/U INR: 07/20/23 then prn situatution of INR and Eliquis Any unusual bleeding or bruising - call [facility] or go to ER or urgent care Patient verbalizes understanding of instructions given Anti-Coag Initial Assessment Social Hx Patient Tobacco Use Status: Never used Tobacco alcohol intake: current Alcohol intake frequency: a few times a week (MAYBE 1 A WEEK) Cardiovascular Hx: CHF (2002), Arrhythmias (ABLATION AT [facility] 06/18/2023 ), Cardiomyopathy (DX 2002 S/P CHEMO TREAT) and Varicose Veins Lung Disease HX: DVT/PE (HX DVT BEHIND EYE 2002 S/P [facility] ) Blood Disorder Hx: Anemia (ONLY DURING THE CHEMO ) and Hyperlipidemia (CHOLESTORAL MED ) Hx: Other (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
== END 2023-07-15 09:35 | disposition home or self-care (01) ==
LOC: HO.ACS 09:06
PROVIDERS: PCP Internal Medicine; Visit Provider Internal Medicine
DX: Z79.01 Long term (current) use of anticoagulants (principal)

== ENCOUNTER → 2023-07-15 09:06 | Outpatient (BNVA) | payer MEDICARE, SELFPAY ==
[2023-06-23 08:35] VITALS: BP 110/58; BP 116/60; BP 94/50; BMI 35.1
== END ==
PROVIDERS: PCP Internal Medicine; Visit Provider Internal Medicine
DX: I48.0 Paroxysmal atrial fibrillation (principal); Z79.01 Long term (current) use of anticoagulants; Z51.81 Encounter for therapeutic drug level monitoring
CPT/HCPCS: 85610; 99211

== ENCOUNTER 2023-07-30 09:51 | Outpatient (AMB) | payer MEDICARE, SELFPAY ==
[2023-06-23 08:35] VITALS: BP 110/58; BP 116/60; BP 94/50; BMI 35.1
[2023-07-30 10:03] LABS: Prothrombin Time Whole Bld POC 24.4 sec (11.1-13.5)
--- NOTE | 2023-07-30 10:11 | MHC.OFFVISCO ---
Intake Intake Visit Reasons: Anticoagulation Allergies adhesive tape [ADHESIVE TAPE] Adverse Reaction (Unknown, Verified 07/30/23 09:56) RASH latex Adverse Reaction (Unknown, Verified 07/30/23 09:56) Rash perflutren Adverse Reaction (Verified 07/30/23 09:56) Back Pain and leg pain Medication List - Last Reconciled 07/30/23 by Lola Tran, RN amiodarone 200 mg PO DAILY apixaban 5 mg PO BID 90 days atorvastatin 40 mg PO BEDTIME 90 days carvedilol (Coreg) 6.25 mg PO BID 90 days esomeprazole magnesium (Nexium) 20 mg PO DAILY furosemide (Lasix) 20 mg PO Q OTHER DAY sacubitril-valsartan 49-51 mg (Entresto) 1 tab PO BID warfarin 5 mg See Protocol PO DIRECTED Nursing Note INR: 2.0 in therapeutic range OF 2-3 Medications and supplements reviewed, no changes No changes in health, diet, medications, or supplements, Denies any signs and symptoms of bleeding or bruising or clotting. Bleeding, bruising, clotting discussed Nutritional guidance given to have a serving of food from the reds list today then to continue to balance greens and reds. Food list reviewed with pt and education given regarding food list and servings. 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
== END 2023-07-30 10:14 | disposition home or self-care (01) ==
LOC: HO.ACS 09:51
PROVIDERS: PCP Internal Medicine; Visit Provider Internal Medicine
DX: Z79.01 Long term (current) use of anticoagulants (principal)

== ENCOUNTER → 2023-07-30 09:51 | Outpatient (BNVA) | payer MEDICARE, SELFPAY ==
[2023-06-23 08:35] VITALS: BP 110/58; BP 116/60; BP 94/50; BMI 35.1
== END ==
PROVIDERS: PCP Internal Medicine; Visit Provider Internal Medicine
DX: I48.0 Paroxysmal atrial fibrillation (principal); Z79.01 Long term (current) use of anticoagulants; Z51.81 Encounter for therapeutic drug level monitoring
CPT/HCPCS: 85610; 99212

== ENCOUNTER 2023-08-06 09:53 | Outpatient (AMB) | payer MEDICARE, SELFPAY ==
[2023-06-23 08:35] VITALS: BP 110/58; BP 116/60; BP 94/50; BMI 35.1
[2023-08-06 10:01] LABS: Prothrombin Time Whole Bld POC 63.9 sec (11.1-13.5); ~PT, ~INR - Anti Coag Clinic 5.3 (0.9-1.1)
--- NOTE | 2023-08-06 10:15 | MHC.OFFVISCO ---
Intake Intake Visit Reasons: Anticoagulation Allergies adhesive tape [ADHESIVE TAPE] Adverse Reaction (Unknown, Verified 08/06/23 09:56) RASH latex Adverse Reaction (Unknown, Verified 08/06/23 09:56) Rash perflutren Adverse Reaction (Verified 08/06/23 09:56) Back Pain and leg pain Medication List - Last Reconciled 08/06/23 by Lola Tran, RN amiodarone 200 mg PO DAILY apixaban 5 mg PO BID 90 days atorvastatin 40 mg PO BEDTIME 90 days carvedilol (Coreg) 6.25 mg PO BID 90 days esomeprazole magnesium (Nexium) 20 mg PO DAILY furosemide (Lasix) 20 mg PO Q OTHER DAY sacubitril-valsartan 49-51 mg (Entresto) 1 tab PO BID warfarin 5 mg See Protocol PO DIRECTED Nursing Note INR: 5.3 out of therapeutic range of 2-3 Medications and supplements reviewed, no changes No changes in health, diet, medications, or supplements, Denies any signs and symptoms of bleeding or bruising or clotting. Bleeding, bruising, clotting discussed and pt understands she is at an increased risk of bleeding and to go to ER if any injury, fall where she hit her head, or any injury with increased bleeding or unusual bruising utritional guidance given to avoid food from the reds list for next 2 days and to have foods from the greens list next 2 days the to balance reds and greens Dose: 5.3 F/U INR: 5 days Patient verbalizes understanding of instructions given Anti-Coag Initial Assessment Social Hx Patient Tobacco Use Status: Never used Tobacco alcohol intake: current Alcohol intake frequency: a few times a week (MAYBE 1 A WEEK) Cardiovascular Hx: CHF (2002), Arrhythmias (ABLATION AT [facility] 06/18/2023 ), Cardiomyopathy (DX 2002 S/P CHEMO TREAT) and Varicose Veins Lung Disease HX: DVT/PE (HX DVT BEHIND EYE 2002 S/P [facility] ) Blood Disorder Hx: Anemia (ONLY DURING THE CHEMO ) and Hyperlipidemia (CHOLESTORAL MED ) Hx: Other (HYSTERECTOMY 1999 FIBROID TUMORS- LEFT OVARIES, 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
== END 2023-08-06 10:21 | disposition home or self-care (01) ==
LOC: HO.ACS 09:53
PROVIDERS: PCP Internal Medicine; Visit Provider Internal Medicine
DX: Z79.01 Long term (current) use of anticoagulants (principal)

== ENCOUNTER → 2023-08-06 09:53 | Outpatient (BNVA) | payer MEDICARE, SELFPAY ==
[2023-06-23 08:35] VITALS: BP 110/58; BP 116/60; BP 94/50; BMI 35.1
== END ==
PROVIDERS: PCP Internal Medicine; Visit Provider Internal Medicine
DX: I48.0 Paroxysmal atrial fibrillation (principal); Z79.01 Long term (current) use of anticoagulants; Z51.81 Encounter for therapeutic drug level monitoring
CPT/HCPCS: 85610; 99211

== ENCOUNTER 2023-08-10 10:13 | Outpatient (AMB) | payer MEDICARE, SELFPAY ==
[2023-06-23 08:35] VITALS: BP 110/58; BP 116/60; BP 94/50; BMI 35.1
[2023-08-10 10:29] LABS: Prothrombin Time Whole Bld POC 23.4 sec (11.1-13.5); ~PT, ~INR - Anti Coag Clinic 1.9 (0.9-1.1)
--- NOTE | 2023-08-10 10:44 | MHC.OFFVISCO ---
Intake Intake Visit Reasons: Anticoagulation Allergies adhesive tape [ADHESIVE TAPE] Adverse Reaction (Unknown, Verified 08/10/23 10:22) RASH latex Adverse Reaction (Unknown, Verified 08/10/23 10:22) Rash perflutren Adverse Reaction (Verified 08/10/23 10:22) Back Pain and leg pain Medication List - Last Reconciled 08/10/23 by Lola García, RN amiodarone 200 mg PO DAILY apixaban 5 mg PO BID 90 days atorvastatin 40 mg PO BEDTIME 90 days carvedilol (Coreg) 6.25 mg PO BID 90 days esomeprazole magnesium (Nexium) 20 mg PO DAILY furosemide (Lasix) 20 mg PO Q OTHER DAY sacubitril-valsartan 49-51 mg (Entresto) 1 tab PO BID warfarin 5 mg See Protocol PO DIRECTED Nursing Note Amb to ACS feeling ok Medications and supplements reviewed No new changes in health, diet, medications, or supplements Denies any unusual signs and symptoms of bruising, bleeding Denies any new Chest pain, SOB, or clotting INR: 1.9 just below therapeutic range ( recent 5.3 with 1 day hold 08/05) Nutritional guidance given: balance greens and reds in diet, be consistent Dose: continue current dosing;2.5mg x 6 days and 5mg x 1 day (Thursday) F/U INR:1 week Patient verbalizes understanding of instructions given with accurate read back/ teach back of dosing Anti-Coag Initial Assessment Social Hx Patient Tobacco Use Status: Never used Tobacco alcohol intake: current Alcohol intake frequency: a few times a week (MAYBE 1 A WEEK) Cardiovascular Hx: CHF (2002), Arrhythmias (ABLATION AT [facility] 06/18/2023 ), Cardiomyopathy (DX 2002 S/P CHEMO TREAT) and Varicose Veins Lung Disease HX: DVT/PE (HX DVT BEHIND EYE 2003 S/P [facility] ) Blood Disorder Hx: Anemia (ONLY DURING THE CHEMO ) and Hyperlipidemia (CHOLESTORAL MED ) Hx: Other (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
== END 2023-08-10 14:22 | disposition home or self-care (01) ==
LOC: HO.ACS 10:13
PROVIDERS: PCP Internal Medicine; Visit Provider Internal Medicine
DX: Z79.01 Long term (current) use of anticoagulants (principal)

== ENCOUNTER → 2023-08-10 10:13 | Outpatient (BNVA) | payer MEDICARE, SELFPAY ==
[2023-06-23 08:35] VITALS: BP 110/58; BP 116/60; BP 94/50; BMI 35.1
== END ==
PROVIDERS: PCP Internal Medicine; Visit Provider Internal Medicine
DX: I48.0 Paroxysmal atrial fibrillation (principal); Z79.01 Long term (current) use of anticoagulants; Z51.81 Encounter for therapeutic drug level monitoring
CPT/HCPCS: 85610; 99211

== ENCOUNTER 2023-08-21 10:51 | Outpatient (AMB) | payer MEDICARE, SELFPAY ==
[2023-06-23 08:35] VITALS: BP 110/58; BP 116/60; BP 94/50; BMI 35.1
--- NOTE | 2023-08-21 11:04 | MHC.OFFVISCO ---
Intake Intake Visit Reasons: Anticoagulation Allergies adhesive tape [ADHESIVE TAPE] Adverse Reaction (Unknown, Verified 08/21/23 10:59) RASH latex Adverse Reaction (Unknown, Verified 08/21/23 10:59) Rash perflutren Adverse Reaction (Verified 08/21/23 10:59) Back Pain and leg pain Medication List - Last Reconciled 08/21/23 by Andreina Montana, RN amiodarone 200 mg PO DAILY apixaban 5 mg PO BID 90 days atorvastatin 40 mg PO BEDTIME 90 days carvedilol (Coreg) 6.25 mg PO BID 90 days esomeprazole magnesium (Nexium) 20 mg PO DAILY furosemide (Lasix) 20 mg PO Q OTHER DAY sacubitril-valsartan 49-51 mg (Entresto) 1 tab PO BID warfarin 5 mg See Protocol PO DIRECTED Nursing Note INR: 2.6- in therapeutic range of 2-3 Medications and supplements reviewed- pt took increased lasix this week x 2 for weight gain and sob per cardiology back to furosemide 20mg qod No changes in health, diet, medications, or supplements, Denies any signs and symptoms of bleeding or bruising or clotting. Bleeding, bruising, clotting discussed Nutritional guidance given Dose: 2.5mg x 6, 5mg x 1 F/U INR: 1 week Patient verbalizes understanding of instructions given pt with recent c.o cold symptoms Anti-Coag Initial Assessment Social Hx Patient Tobacco Use Status: Never used Tobacco alcohol intake: current Alcohol intake frequency: a few times a week (MAYBE 1 A WEEK) Cardiovascular Hx: CHF (2002), Arrhythmias (ABLATION AT [facility] 06/18/2023 ), Cardiomyopathy (DX 2002 S/P CHEMO TREAT) and Varicose Veins Lung Disease HX: DVT/PE (HX DVT BEHIND EYE 2003 S/P [place] ) Blood Disorder Hx: Anemia (ONLY DURING THE CHEMO ) and Hyperlipidemia (CHOLESTORAL MED ) Hx: Other (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
[2023-08-21 11:05] LABS: Prothrombin Time Whole Bld POC 31.2 sec (11.1-13.5); ~PT, ~INR - Anti Coag Clinic 2.6 (0.9-1.1)
== END 2023-08-21 11:15 | disposition home or self-care (01) ==
LOC: HO.ACS 10:51
PROVIDERS: PCP Internal Medicine; Visit Provider Internal Medicine
DX: Z79.01 Long term (current) use of anticoagulants (principal)

== ENCOUNTER → 2023-08-21 10:51 | Outpatient (BNVA) | payer MEDICARE, SELFPAY ==
[2023-06-23 08:35] VITALS: BP 110/58; BP 116/60; BP 94/50; BMI 35.1
== END ==
PROVIDERS: PCP Internal Medicine; Visit Provider Internal Medicine
DX: I48.0 Paroxysmal atrial fibrillation (principal); Z79.01 Long term (current) use of anticoagulants; Z51.81 Encounter for therapeutic drug level monitoring
CPT/HCPCS: 85610; 99211

== ENCOUNTER 2023-09-02 13:21 | Outpatient (AMB) | payer MEDICARE, SELFPAY ==
[2023-06-23 08:35] VITALS: BP 110/58; BP 116/60; BP 94/50; BMI 35.1
--- NOTE | 2023-09-02 13:46 | MHC.OFFVISCO ---
Intake Intake Visit Reasons: Anticoagulation Allergies adhesive tape [ADHESIVE TAPE] Adverse Reaction (Unknown, Verified 09/02/23 13:38) RASH latex Adverse Reaction (Unknown, Verified 09/02/23 13:38) Rash perflutren Adverse Reaction (Verified 09/02/23 13:38) Back Pain and leg pain Medication List - Last Reconciled 09/02/23 by Andreina Montana RN amiodarone 200 mg PO DAILY apixaban 5 mg PO BID 90 days atorvastatin 40 mg PO BEDTIME 90 days carvedilol (Coreg) 6.25 mg PO BID 90 days esomeprazole magnesium (Nexium) 20 mg PO DAILY furosemide (Lasix) 20 mg PO Q OTHER DAY sacubitril-valsartan 49-51 mg (Entresto) 1 tab PO BID warfarin 5 mg See Protocol PO DIRECTED Nursing Note INR 3.4-? out of therapeutic range of 2-3 Medications and supplements reviewed Patient status: pt c.o left knee pain Medications or supplements: taking ibuprofen- aware of bleed risk, tylenol enc, has pcp appt thursday Diet: good Denies any signs and symptoms of bleeding or clotting or unusual bruising Bleeding, bruising, clotting discussed Nutritional guidance given: eat greens to lower Dose: 2.5mg today then cont reg, 2.5mg x 6, 5mg x 1 F/U INR Date : 1 week Patient verbalizing understanding of instructions given. Anti-Coag Initial Assessment Social Hx Patient Tobacco Use Status: Never used Tobacco alcohol intake: current Alcohol intake frequency: a few times a week (MAYBE 1 A WEEK) Cardiovascular Hx: CHF (2002), Arrhythmias (ABLATION AT [facility] 06/18/2023 ), Cardiomyopathy (DX 2002 S/P CHEMO TREAT) and Varicose Veins Lung Disease HX: DVT/PE (HX DVT BEHIND EYE 2002 S/P [place] ) Blood Disorder Hx: Anemia (ONLY DURING THE CHEMO ) and Hyperlipidemia (CHOLESTORAL MED ) Hx: Other (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
[2023-09-02 13:53] LABS: Prothrombin Time Whole Bld POC 41.2 sec (11.1-13.5); ~PT, ~INR - Anti Coag Clinic 3.4 (0.9-1.1)
== END 2023-09-02 14:02 | disposition home or self-care (01) ==
LOC: HO.ACS 13:21
PROVIDERS: PCP Internal Medicine; Visit Provider Internal Medicine
DX: Z79.01 Long term (current) use of anticoagulants (principal)

== ENCOUNTER → 2023-09-02 13:21 | Outpatient (BNVA) | payer MEDICARE, SELFPAY ==
[2023-06-23 08:35] VITALS: BP 110/58; BP 116/60; BP 94/50; BMI 35.1
== END ==
PROVIDERS: PCP Internal Medicine; Visit Provider Internal Medicine
DX: I48.0 Paroxysmal atrial fibrillation (principal); Z79.01 Long term (current) use of anticoagulants; Z51.81 Encounter for therapeutic drug level monitoring
CPT/HCPCS: 85610; 99211

== ENCOUNTER 2023-09-07 07:56 | Outpatient (AMB) | payer MEDICARE, SELFPAY ==
[2022-12-09 15:08] VITALS: BP 110/58; BP 116/60; BP 94/50; BMI 35.1
[2023-06-23 08:35] VITALS: BP 110/58; BP 116/60; BP 94/50; BMI 35.1
[2023-09-07 07:59] VITALS: BP 132/68; PULSE 72; O2SAT 98; BMI 36.3
--- NOTE | 2023-09-07 07:59 | A.OFFPC_ITS ---
Vital Signs 09/07/23 07:59 Height 5 ft 3 in Weight 205 lb BMI 36.3 BP 132/68 Blood Pressure Location Lt brachial Position Sitting Pulse 72 Pulse Source Pulse Oximeter Pulse Oximetry (%) 98 Oxygen Delivery Method Room Air Intake Visit Reasons: npv- discuss medical issues( rescheduled) Portfolio Lead Required: No Accompanied by: Self / Same As Patient Allergies adhesive tape [ADHESIVE TAPE] Adverse Reaction (Unknown, Verified 09/07/23 08:15) RASH latex Adverse Reaction (Unknown, Verified 09/07/23 08:15) Rash perflutren Adverse Reaction (Verified 09/07/23 08:15) Back Pain and leg pain Medication List - Last Reconciled 09/07/23 by Lela Nichols MD amiodarone 200 mg PO DAILY apixaban 5 mg PO BID 90 days atorvastatin 40 mg PO BEDTIME 90 days carvedilol (Coreg) 6.25 mg PO BID 90 days esomeprazole magnesium (Nexium) 20 mg PO DAILY furosemide (Lasix) 20 mg PO Q OTHER DAY sacubitril-valsartan 49-51 mg (Entresto) 1 tab PO BID warfarin 5 mg See Protocol PO DIRECTED Tobacco use date assessed: 09/07/23 Fall risk assessment: No Falls in past year Last assessed Fall Risk: 09/07/23 Dental Screening Dental Screen Date: 09/07/23 Did you have a dental visit in the last 12 months?: No Did you have a dental problem in the last 6 months where you did not have access to dental care?: No Was dental information given to patient?: Patient has dentist HPI HPI Comments History of Present Illness Details This is a 67-year-old female with chronic systolic congestive heart failure secondary to chemotherapy, paroxysmal atrial fibrillation currently on Coumadin, GERD and pure hypercholesterolemia that comes today to establish care. She complains of left knee and lower leg pain medially and has a lump that is tender that started about a week ago. Ultrasound venous duplex will be done today to rule out DVT. She denies any previous trauma. She has history of non- Hodgkin's lymphoma over 20 years ago and received chemotherapy and is currently in remission. Denies any fever or lymphadenopathy. Has some dyspnea on exertion. No chest pain. Compliant with medications. GERD has been stable with PPIs. Has history of elevated cholesterol and lipid panel will be order. Congestive heart failure and atrial fibrillation are follow by cardiology which has an appointment next week. Last echocardiogram showed ejection fraction of 41%. Has not gain 5 lb in a week. For her atrial fibrillation she was on Eliquis at the beginning but it is too expensive and now she is on Coumadin. [facility] Medical History (Updated 09/07/23 @ 08:43 by Lela Nichols MD) Hyperlipemia Community acquired pneumonia GERD (gastroesophageal reflux disease) Hypertension Cardiomyopathy due to chemotherapy Cardiomyopathy Congestive heart failure Surgical History S/P ablation of atrial fibrillation No pertinent past surgical history Family History Father Heart disease Mother Stroke Daughter No problems noted. Son No problems noted. Son No problems noted. 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 1. Little interest or pleasure in doing things: not at all 2. Feeling down, depressed, or hopeless: not at all 3. Trouble falling or staying asleep, or sleeping too much: not at all 4. Feeling tired or having little energy: not at all 5. Poor appetite or overeating: not at all 6. Feeling bad about yourself - or that you are a failure or have let yourself or your family down: not at all 7. Trouble concentrating on things, such as reading the newspaper or watching television: not at all 8. Moving or speaking so slowly that other people could have noticed. Or the opposite - being so fidgety or restless that you have been moving around a lot more than usual: not at all 9. Thoughts that you would be better off or of hurting yourself in some way: not at all Total score: 0 Depression Screening Interpretation: Negative Depression Screening Done: Yes 39592 - PHQ-9 Billing: Yes Source: Developed by Drs. Jay Valencia, Jasmina Barth, Han Chavez and colleagues, with an educational victorina from [employer]. Thrive Questionnaire Date Thrive assessed: 09/07/23 I am a: Patient What is your living situation today?: I have a steady place to live Within the past 12 months, did the food you bought not last and you didn't have the money to get more?: Never true Within the past 12 months, did you worry whether your food would run out before you got money to buy more?: Never true Do you have trouble paying for medicines?: No Do you have trouble getting transportation to medical appointments?: No Do you have trouble paying your heating and electricity bill?: No Do you have trouble taking care of your child, family member or friend?: No Do you have trouble with day-to-day activities such as bathing, preparing meals, shopping, managing finances, etc.?: No Are you currently unemployed and looking for a job?: No Are you interested in more education?: No Currently or been in a relationship where the following occur: no concerns reported THRIVE Score: 0 AUDIT C Alcohol Use Questionnaire (AUDIT-C) 1. How often do you have a drink containing alcohol?: 2-3 times a week 2. How many drinks containing alcohol do you have on a typical day when you are drinking?: 1 or 2 3. How often do you have six or more drinks on one occasion?: Never Total Score: 3 HOUSTON-7 AMB Questionnaire HOUSTON-7 Date HOUSTON - 7 assessed: 09/07/23 Feeling nervous, anxious, or on edge: 0 = Not at all Not being able to stop or control worryin = Not at all Worrying too much about different things: 0 = Not at all Trouble relaxin = Not at all Being so restless that it is hard to sit still: 0 = Not at all Becoming easily annoyed or irritable: 0 = Not at all Feeling afraid as if something awful might happen: 0 = Not at all Total HOUSTON-7 score (0-4 normal; 5-9 mild; 10-14 moderate; 15-21 severe): 0 Source: Developed by Drs. Jay Valencia, Jasmina Barth, Han Chavez and colleagues, with an educational victorina from [employer]. HOUSTON-7 Assessment Billing HOUSTON-7 Assessment Tool: HOUSTON-7 Assessment 07571 Review of Systems Const All systems reviewed & are unremarkable except as noted in HPI and below Eyes Reports no additional complaints, Denies change in vision and Denies other visual disturbances Card Denies chest pain at rest, Denies chest pain with activity, Denies edema, Denies irregular heart rhythm, Denies claudication, Denies dyspnea, Reports dyspnea on exertion, Denies orthopnea, Denies paroxysmal nocturnal dyspnea and Denies slow heart rate Resp Denies cough, Denies dyspnea and Reports dyspnea on exertion Musc Reports arthralgias and Reports joint swelling Physical exam (Primary Care) Vital Signs: Last Vital Signs Pulse 72 09/07/23 07:59 BP 132/68 09/07/23 07:59 Pulse Ox 98 09/07/23 07:59 Oxygen Delivery Method Room Air 09/07/23 07:59 BMI result Body Mass Index 36.3 BMI Assessment/Plan discussion: High Tobacco/Smoking Status: Tobacco use Status Tobacco use date assessed 09/07/23 09/07/23 08:08 Patient Tobacco Use Status Never used Tobacco 09/07/23 08:08 e-Cigarette/Vaping Use Never Used 09/07/23 08:08 PHQ-9: PHQ-9 Score PHQ-9: Total score 0 09/07/23 08:08 Depression Screening Interpretation: Negative Thrive Assessment: Date of Thrive Assessment Date Thrive assessed 09/07/23 09/07/23 08:08 Currently or been in a relationship where the following occur: no concerns repo rted Resp Effort & Inspection: normal respiratory effort Auscultation: clear to auscultation bilaterally Cardio Jugular venous distension: no JVD Rate: regular rate Rhythm: regular rhythm Heart sounds: S1 normal heart sound present and S2 normal heart sound present Extrem General: Yes full ROM Left lower extremity: knee (mass palpated medially posterior) Details: tenderness Psych Appearance: grossly normal Assessment and Plan Assessment & Plan (1) Heart failure with reduced ejection fraction: Code(s): I50.20 - Unspecified systolic (congestive) heart failure Plan: Continue carvedilol and furosemide every other day. The goal is to not gain 5 lb in a week. Follow-up with Cardiology. (2) Paroxysmal atrial fibrillation: Code(s): I48.0 - Paroxysmal atrial fibrillation Plan: Continue amiodarone and Coumadin. The goal is heart rate control. Keep INR from 2-3 and follow with Coumadin Clinic. Continue follow-up with Cardiology. (3) Non-Hodgkins lymphoma: Comment: In remission Code(s): C85.90 - Non-Hodgkin lymphoma, unspecified, unspecified site Qualifiers: Non-Hodgkin lymphoma type: unspecified type Lymphoma site: multiple regions Qualified Code(s): C85.98 - Non-Hodgkin lymphoma, unspecified, lymph nodes of multiple sites Plan: CBC ordered. (4) GERD (gastroesophageal reflux disease): Code(s): K21.9 - Gastro-esophageal reflux disease without esophagitis Qualifiers: Esophagitis presence: esophagitis presence not specified Qualified Code(s): K21.9 - Gastro-esophageal reflux disease without esophagitis Plan: Continue PPIs. (5) Left leg pain: Code(s): M79.605 - Pain in left leg Plan: Ultrasound ordered to rule out DVT. Orders: Orders XR DEXA axial skeleton Today N95.9 - Unspecified menopausal and perimenopausal disorder US venous duplex LE LT Today M79.605 - Pain in left leg Lipid Panel Today E78.5 - Hyperlipidemia, unspecified Comprehensive [place]. Panel Fast Today I50.20 - Unspecified systolic (congestive) heart failure NT-proBNP Today I50.20 - Unspecified systolic (congestive) heart failure MM screening mammo BI Today Z12.31 - Encounter for screening mammogram for malignant neoplasm of breast XR knee LT 2V Today M25.562 - Pain in left knee Complete Blood Count Auto Diff Today C85.90 - Non-Hodgkin lymphoma, unspecified, unspecified site Referrals Cologuard Test Z12.11 - Encounter for screening for malignant neoplasm of colon, Z12.12 - Encounter for screening for malignant neoplasm of rectum Coding Level of Care Code New Pt Level 4 (53198) Diagnoses Heart failure with reduced ejection fraction I50.20 Paroxysmal atrial fibrillation I48.0 Non-Hodgkin lymphoma of lymph nodes of multiple regions, unspecified non-Hodgkin lymphoma type C85.98 Non-Hodgkin lymphoma type: unspecified type Lymphoma site: multiple regions Gastroesophageal reflux disease, unspecified whether esophagitis present K21.9 Esophagitis presence: esophagitis presence not specified Left leg pain M79.605 Additional Codes HOUSTON-7 Assessment Billing - HOUSTON-7 Assessment Tool: HOUSTON-7 Assessment 44694 ([id number]) Time Spent (min) 26
== END 2023-09-07 08:34 | disposition home or self-care (01) ==
PROVIDERS: PCP Internal Medicine; Visit Provider Internal Medicine
DX: I50.20 Unspecified systolic (congestive) heart failure (principal); I48.0 Paroxysmal atrial fibrillation; C85.98 Non-Hodgkin lymphoma, unspecified, lymph nodes of multiple sites; K21.9 Gastro-esophageal reflux disease without esophagitis; M79.605 Pain in left leg
CPT/HCPCS: 99204

== ENCOUNTER 2023-09-07 10:37 | Outpatient (REF) | payer MEDICARE, SELFPAY ==
[2023-06-23 08:35] VITALS: BP 110/58; BP 116/60; BP 94/50; BMI 35.1
--- NOTE | ~2023-09-07 | US_ITS ---
EXAMINATION: US VENOUS ULTRASOUND WITH DOPPLER LOWER EXTREMITY, LEFT CLINICAL INFORMATION: Left lower extremity pain COMPARISON: None available. TECHNIQUE: Ultrasound of the deep veins is performed from the hip to the calf with compression sonography and color and pulse Doppler assessment. Spectral analysis with color-flow imaging is performed. FINDINGS: There is normal venous compression and respiratory variation and augmented flow. The visualized common femoral vein, superficial femoral vein, profunda femoral vein, popliteal vein, and the trifurcation region shows no evidence of deep venous thrombosis. Mcarthur's cyst is seen in the left medial popliteal fossa measuring 3.9 x 1.1 x 0.9 cm . The contralateral right common femoral vein appears normal. If the patient's symptoms persist, followup ultrasound in 5 days 7 days might be of value to exclude proximal propagation from a non-visualized calf vein. US/US venous duplex LE IMPRESSION: No DVT demonstrated in the left lower extremity.
--- NOTE | 2023-09-07 14:47 | CA_ITS ---
Transthoracic Echocardiogram Patient (Last, First, Middle): Marie العراقي A Gender: Female Date of : 1955 Age: 67 Procedure Date: 09/07/2023 Procedure Type: Transthoracic Echocardiogram Location: OP Height: 160.02 cm Weight: 90.72 kg BSA: 1.93 m2 Heart Rate: bpm BP: 122 / 85 mmHg Braid Cutter: HAROON Referring MD: Thuan Pena MD Merchandising Team Lead: Thuan Pena MD Symptoms: I48.0 - Paroxysmal atrial fibrillation Study Quality: Fair ECG Rhythm: Undetermined Conclusions: - 1. Mildly reduced LV ejection fraction 45-50% with pseudonormal filling pattern 2. Mildly dilated left atrium 3. Normal cardiac valvular Dopplers 4. No gross pericardial effusion Findings Left Ventricle Normal left ventricular cavity size. There is normal left ventricular wall thickness. The left ventricular systolic function is mildly decreased. The visually estimated ejection fraction is between 45-50%. Spectral Doppler is indicative of a pseudonormal filling pattern. Definity was not given due to back pain reaction during previous Echocardiogram. Right Ventricle Normal right ventricular cavity size and systolic function. Atria The left atrium is mildly dilated. Interatrial shunt cannot be excluded. The right atrium is normal in size. Aortic Valve The aortic valve was not well visualized. There is no aortic valve stenosis. There is no aortic valve regurgitation. Mitral Valve There is mild anterior and posterior mitral leaflet thickening. There is mild mitral annular calcification. There is trace mitral valve regurgitation. There is no mitral valve stenosis. Pulmonic Valve The pulmonic valve was not well visualized. Tricuspid Valve Likely normal tricuspid valve structure and function. Tricuspid regurgitation envelope is inadequate for calculation of right ventricular systolic pressure. There is no evidence of pulmonary hypertension. Great Vessels The pulmonary artery was not well visualized. There is no dilatation of the ascending aorta measuring 3.40 cm. Venous The inferior vena cava is normal in size and collapses greater than 50% with inspiration. Pericardium/Pleural There is no evidence of pericardial effusion. Prior Study Comparison Changes noted compared to prior study dated: 02/20/2023. LV systolic function has improved marginally Measurements 2D Linear Measurements IVSd: 1.10 0.6-0.9/0.6-1.0 cm LVIDd: 5.33 3.9-5.3/4.2-5.9 cm LVIDd Index: 2.76 2.4-3.2/2.2-3.1 cm/m2 LVIDs: 4.29 2.0-3.6 cm LVPWd: 1.05 0.7-1.1 cm LA Diam: 5.20 2.7-3.8/3.0-4.0 cm LAIDs Index: 2.69 1.5-2.3 cm/m2 LV Mass: 277.77 67-162/88-224 g LV Mass Index: 143.92 43-95/49-115 g/m2 LVOT Diam: 2.00 3.0+(-)1.3 cm 2D Systolic Function EF 4C: 47.70 >55% EF 2C: 38.30 >55% EF BiP: 45.10 >55% Mitral Valve MV Pk E: 0.94 MV PK A: 0.46 MV Decel Time: 154.00 E/A: 2.00 E'Lateral: 9.14 E'Medial: 4.46 E/E' Med: 21.00 E/E' Lat: 10.30 PHT: 45.00 MVA PHT: 4.89 Decel [place]: 6.10 Aortic Valve AoV Pk Tanner: 1.28 AoV Mn Tanner: 0.95 AoV VTI: 0.26 AoV Pk Grad: 7.00 Aov Mn Grad: 4.00 LOUISA Cont.VTI: 1.98 LVOT LVOT Pk Tanner: 0.76 LVOT Mn Tanner: 0.53 LVOT VTI: 0.17 LVOT Pk Grad: 2.00 LVOT Mn Grad: 1.00 LVOT Diam: 2.00 LVOT Area: 3.14 Diastolic Function MV Pk E: 0.94 MV Pk A: 0.46 E/A: 2.00 E'Medial: 4.46 E/E' Med: 21.00 E' Laterial: 9.14 E/E' Lat: 10.30 Right Ventricle TAPSE (mm): 18.90 TVS' Tanner: 12.10 Tricuspid Valve RA Press: 3.00 Great Vessels Aorta Sinus of Valsalva: 3.20 2.0-3.5 cm Ao Asc: 3.40 2.1-3.4 cm Pulmonary Valve PV Pk Tanner: 0.80 Peak PV Grad: 3.00 Updated in Other Vendor System with Status of Final Thuan Pena MD electronically signed on 09/08/2023 11:40:54 AM with status of Final
== END 2023-09-07 10:38 | disposition home or self-care (01) ==
LOC: HO.US 10:37
PROVIDERS: PCP Internal Medicine; Visit Provider Internal Medicine
DX: I48.0 Paroxysmal atrial fibrillation (principal); I50.20 Unspecified systolic (congestive) heart failure; R06.02 Shortness of breath
CPT/HCPCS: 93306; 93971

== ENCOUNTER → 2023-09-07 14:47 | Outpatient (BNV) | payer MEDICARE, SELFPAY ==
[2023-06-23 08:35] VITALS: BP 110/58; BP 116/60; BP 94/50; BMI 35.1
== END ==
PROVIDERS: PCP Internal Medicine; Visit Provider Internal Medicine Cardiovascular Disease
DX: I34.81 Nonrheumatic mitral (valve) annulus calcification (principal)
CPT/HCPCS: 93306

== ENCOUNTER 2023-09-09 09:49 | Outpatient (AMB) | payer MEDICARE, SELFPAY ==
[2023-06-23 08:35] VITALS: BP 110/58; BP 116/60; BP 94/50; BMI 35.1
--- NOTE | 2023-09-09 09:57 | MHC.OFFVISCO ---
Intake Intake Visit Reasons: Anticoagulation Allergies adhesive tape [ADHESIVE TAPE] Adverse Reaction (Unknown, Verified 09/09/23 09:51) RASH latex Adverse Reaction (Unknown, Verified 09/09/23 09:51) Rash perflutren Adverse Reaction (Verified 09/09/23 09:51) Back Pain and leg pain Medication List - Last Reconciled 09/09/23 by Andreina Montana RN amiodarone 200 mg PO DAILY apixaban 5 mg PO BID 90 days atorvastatin 40 mg PO BEDTIME 90 days carvedilol (Coreg) 6.25 mg PO BID 90 days esomeprazole magnesium (Nexium) 20 mg PO DAILY furosemide (Lasix) 20 mg PO Q OTHER DAY sacubitril-valsartan 49-51 mg (Entresto) 1 tab PO BID warfarin 5 mg See Protocol PO DIRECTED Nursing Note INR 4.9-? out of therapeutic range of 2-3 Medications and supplements reviewed Patient status: pt cont to c.o left knee pain, taking tylenol 2 tabs per day, and ibuprofen prn- aware bleed risk pt had u/s of left leg per pcp which was neg, upcoming xray Medications or supplements: no changes Diet: appetite is good Denies any signs and symptoms of bleeding or clotting or unusual bruising Bleeding, bruising, clotting discussed - aware risk of bleeding with elev inr Nutritional guidance given: eat greens to lower, no reds for 2-3 days Dose: hold dose today then reduce to 2.5mg x 7 F/U INR Date : thursday09/11/23? Patient verbalizing understanding of instructions given. 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
[2023-09-09 09:58] LABS: ~PT, ~INR - Anti Coag Clinic 4.9 (0.9-1.1)
== END 2023-09-09 10:13 | disposition home or self-care (01) ==
LOC: HO.ACS 09:49
PROVIDERS: PCP Internal Medicine; Visit Provider Internal Medicine
DX: Z79.01 Long term (current) use of anticoagulants (principal)

== ENCOUNTER → 2023-09-09 09:49 | Outpatient (BNVA) | payer MEDICARE, SELFPAY ==
[2023-06-23 08:35] VITALS: BP 110/58; BP 116/60; BP 94/50; BMI 35.1
== END ==
PROVIDERS: PCP Internal Medicine; Visit Provider Internal Medicine
DX: I48.0 Paroxysmal atrial fibrillation (principal); Z51.81 Encounter for therapeutic drug level monitoring; Z79.01 Long term (current) use of anticoagulants
CPT/HCPCS: 85610; 99211

== ENCOUNTER 2023-09-11 14:31 | Outpatient (AMB) | payer MEDICARE, SELFPAY ==
[2023-06-23 08:35] VITALS: BP 110/58; BP 116/60; BP 94/50; BMI 35.1
--- NOTE | 2023-09-11 15:10 | MHC.OFFVISCO ---
Intake Intake Visit Reasons: Anticoagulation Allergies adhesive tape [ADHESIVE TAPE] Adverse Reaction (Unknown, Verified 09/11/23 14:51) RASH latex Adverse Reaction (Unknown, Verified 09/11/23 14:51) Rash perflutren Adverse Reaction (Verified 09/11/23 14:51) Back Pain and leg pain Medication List - Last Reconciled 09/11/23 by Georgiana Casanova RN amiodarone 200 mg PO DAILY apixaban 5 mg PO BID 90 days atorvastatin 40 mg PO BEDTIME 90 days carvedilol (Coreg) 6.25 mg PO BID 90 days esomeprazole magnesium (Nexium) 20 mg PO DAILY furosemide (Lasix) 20 mg PO Q OTHER DAY sacubitril-valsartan 49-51 mg (Entresto) 1 tab PO BID warfarin 5 mg See Protocol PO DIRECTED Nursing Note INR: 2.7 in therapeutic range Medications and supplements reviewed- has been taking tylenol for possible bakers cyst behind knee for discomfort- states it does not seem to be helping. tylenol can raise the INR - she has been taking it several days / week when she works because she stands for long periods of time. She ate a lot of greens the past few days Denies any signs and symptoms of bleeding or bruising or clotting. Bleeding, bruising, clotting discussed Nutritional guidance given - review food list - eat a mix of fruits and vegetables Dose: try dose of 2.5mg daily and f/u next week same day as cardiology appt F/U INR: 09/15/23 Patient verbalizes understanding of instructions given Anti-Coag Initial Assessment Social Hx Patient Tobacco Use Status: Never used Tobacco alcohol intake: current Alcohol intake frequency: a few times a month (MAYBE 1 A WEEK) Cardiovascular Hx: CHF (2002), Arrhythmias (ABLATION AT [facility] 06/18/2023 ), Cardiomyopathy (DX 2002 S/P CHEMO TREAT) and Varicose Veins Lung Disease HX: DVT/PE (HX DVT BEHIND EYE 2002 S/P [facility] ) Blood Disorder Hx: Anemia (ONLY DURING THE CHEMO ) and Hyperlipidemia (CHOLESTORAL MED ) Hx: Other (HYSTERECTOMY 1999 FIBROID TUMORS- LEFT OVARIES, 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
[2023-09-12 14:41] LABS: Prothrombin Time Whole Bld POC 31.9 sec (11.1-13.5); ~PT, ~INR - Anti Coag Clinic 2.7 (0.9-1.1)
== END 2023-09-11 15:14 | disposition home or self-care (01) ==
LOC: HO.ACS 14:31
PROVIDERS: PCP Internal Medicine; Visit Provider Internal Medicine
DX: Z79.01 Long term (current) use of anticoagulants (principal)

== ENCOUNTER → 2023-09-11 14:31 | Outpatient (BNVA) | payer MEDICARE, SELFPAY ==
[2023-06-23 08:35] VITALS: BP 110/58; BP 116/60; BP 94/50; BMI 35.1
== END ==
PROVIDERS: PCP Internal Medicine; Visit Provider Internal Medicine
DX: I48.0 Paroxysmal atrial fibrillation (principal); Z51.81 Encounter for therapeutic drug level monitoring; Z79.01 Long term (current) use of anticoagulants
CPT/HCPCS: 85610; 99211

== ENCOUNTER 2023-09-15 10:15 | Outpatient (REF) | payer MEDICARE, SELFPAY ==
[2023-06-23 08:35] VITALS: BP 110/58; BP 116/60; BP 94/50; BMI 35.1
--- NOTE | ~2023-09-15 | XR_ITS ---
EXAMINATION: XR KNEE, LEFT CLINICAL INFORMATION: Pain in left knee COMPARISON: None available. TECHNIQUE: AP and lateral views of the left knee. FINDINGS: No fracture. Trace joint effusion. Alignment is anatomic. There is mild narrowing of the medial joint compartment with marginal osteophyte formation. Question mild narrowing of the patellofemoral joint compartment. Varicose veins are seen in the medial aspect of the thigh and also in the medial aspect of the calf. Question mild soft tissue fullness posterior to the knee which could represent a Mcarthur's cyst. Ultrasound of the popliteal fossa could be obtained for further evaluation. XR/XR knee LT 2V IMPRESSION: 1. Mild osteoarthritis. 2. Question mild soft tissue fullness posterior to the knee which could represent a Mcarthur's cyst. Ultrasound of the popliteal fossa could be obtained for further evaluation.
== END 2023-09-15 10:16 | disposition home or self-care (01) ==
LOC: HO.XRAY 10:15
PROVIDERS: PCP Internal Medicine; Visit Provider Internal Medicine Cardiovascular Disease
DX: M25.562 Pain in left knee (principal); I50.20 Unspecified systolic (congestive) heart failure; I48.0 Paroxysmal atrial fibrillation; Z51.81 Encounter for therapeutic drug level monitoring; Z79.01 Long term (current) use of anticoagulants; Z79.899 Other long term (current) drug therapy
CPT/HCPCS: 73560; 85610; 93005; 99211; 99212

== ENCOUNTER 2023-09-15 10:15 | Outpatient (AMB) | payer MEDICARE, SELFPAY ==
[2023-06-23 08:35] VITALS: BP 110/58; BP 116/60; BP 94/50; BMI 35.1
[2023-09-15 10:20] VITALS: BP 120/80; PULSE 71; BMI 35.5
--- NOTE | 2023-09-15 10:20 | MHC.OFFVIS ---
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 Required: No Allergies adhesive tape [ADHESIVE TAPE] Adverse Reaction (Unknown, Verified 09/15/23 11:13) RASH latex Adverse Reaction (Unknown, Verified 09/15/23 11:13) Rash perflutren Adverse Reaction (Verified 09/15/23 11:13) Back Pain and leg pain Medication List - Last Reconciled 09/15/23 by Thuan Pena MD amiodarone 200 mg PO DAILY atorvastatin 40 mg PO BEDTIME 90 days carvedilol (Coreg) 6.25 mg PO BID 90 days esomeprazole magnesium (Nexium) 20 mg PO DAILY furosemide (Lasix) 20 mg PO Q OTHER DAY sacubitril-valsartan 49-51 mg (Entresto) 1 tab PO BID warfarin 5 mg See Protocol PO DIRECTED HPI Comments Details: Marie comes for follow-up. She underwent ablation in June. Following that she continues to have symptoms of palpitation underwent a Holter monitor. This did show no atrial fibrillation with intermittent episodes of PACs, PVCs and short episodes of SVT. Following that she would 1 episode where she had developed about 8 lb weight gain with worsening symptoms of shortness of breath. At that time she would call or office and we would increase Lasix on every day basis she is lost 7 lb. Her breathing is improved since then although she continues to have symptoms exertional fatigue also has exertional shortness of breath. She also not happy that she had to switch from Eliquis to warfarin therapy but she said the cost was a big issue. She would like to do more research on it. She says she is to come every week for her INR checks. Takes all her medications including amiodarone. Her most recent echocardiogram showed LV ejection fraction which has improved but mildly reduced at 45-50% with pseudonormal filling pattern. Left atrium is mildly enlarged. There is no significant abnormality of cardiac valvular Doppler. She denies any orthopnea, PND. FOR[facility]LY [facility], [facility] Medical History Hyperlipemia Community acquired pneumonia GERD (gastroesophageal reflux disease) Hypertension Cardiomyopathy due to chemotherapy Cardiomyopathy Congestive heart failure Surgical History S/P ablation of atrial fibrillation No pertinent past surgical history Family History Father Heart disease Mother Stroke Daughter No problems noted. Son No problems noted. Son No problems noted. 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 Current occupational exposures/hazards: No Cognitive needs: No Hearing needs: No Vision needs: Yes Review of Systems Const Denies chills, Denies fatigue, Denies fever(s), Denies frequent falls, Denies weakness, Denies weight gain and Denies weight loss ENT Denies dizziness Card Denies chest pain, Denies leg edema, Denies lightheadedness, Denies palpitations, Denies dyspnea, Denies dyspnea on exertion, Denies orthopnea and Denies other (loss of consciousness) Resp Denies cough, Denies dyspnea and Denies dyspnea on exertion GI Denies hematochezia and Denies change in stool character Musc Denies abnormal gait, Denies muscle weakness, Denies numbness, Denies radiating pain into limb and Denies tingling Neuro Denies abnormal gait, Denies dizziness, Denies frequent falls, Denies numbness, Denies tingling and Denies weakness Endo Denies fatigue and Denies palpitations Physical Exam Vital Signs: Last Vital Signs Pulse 71 09/15/23 10:20 BP 120/80 09/15/23 10:20 BMI result Body Mass Index 35.5 Const General: cooperative, comfortable, no acute distress, alert, awake and well groomed Nutritional Appearance: overweight Orientation/consciousness: patient oriented x3 Limitations: no limitations Neck Neck: Yes trachea midline, Yes supple and Yes no JVD Resp Effort & Inspection: normal respiratory effort Auscultation: clear to auscultation bilaterally Cardio Jugular venous distension: no JVD Rate: regular rate Rhythm: regular rhythm Heart sounds: S1 normal heart sound present, S2 normal heart sound present, no click, no gallops and no murmurs GI Auscultation: normal bowel sounds Skin General skin exam: no rashes or lesions noted Neuro General: patient oriented x3 and no focal motor deficits Extrem General: Yes no clubbing, cyanosis or edema Office Procedures EKG Details: EKG shows normal sinus rhythm with first-degree AV block with nonspecific IVCD [id number], Complete Results AMB INR Fingerstick AMB INR Fingerstick 3.0 Last Edit by Lola Tran RN on 09/15/23 11:18 interface delay Assessment & Plan Assessment & Plan (1) Heart failure with reduced ejection fraction: Code(s): I50.20 - Unspecified systolic (congestive) heart failure Category: Medical Plan: Heart failure with reduced ejection fraction with improving LV ejection fraction. However she continues to have symptoms exertional shortness of breath and fatigue. NYHA class 2 symptoms. She had recently developed worsening fluid overload which was easily treated with increased diuretic therapy. Advised to continue maintain Lasix 20 mg every other day. Importance of daily weight monitoring and taking additional diuretics right away was discussed with her to avoid hospitalizations. She understands and agrees. Continue rhythm control approach. Continue current neurohormonal modulation with Entresto and carvedilol therapy. Heart failure management was discussed. Given her persistent symptoms will refer her to phase 2 cardiac rehabilitation again. She like to participate in the same. Management of heart failure syndrome was discussed in details. (2) Paroxysmal atrial fibrillation: Code(s): I48.0 - Paroxysmal atrial fibrillation Category: Medical Plan: Paroxysmal atrial fibrillation still persistent symptoms of palpitations. Although the as reduction in overall palpitation burden since last month or so. Will continue monitor clinically. She is done well with rhythm control approach will continue pursue rhythm control approach. She is status post ablation therapy. Continue to avoid stimulants. Continue amiodarone therapy for now. Eventually if she remains in sinus rhythm will taper down amiodarone therapy with a goal to come off amiodarone therapy and to an alternative antiarrhythmic drug therapy. She will most likely require antiarrhythmic drug therapy in the future. Continue full oral anticoagulation, she wants to switch from warfarin to Eliquis. She will look at different options. Have provide her with a skip. She is advised to call me when she gets Eliquis and at that point time will give her further instructions. Follow up in the clinic in 3 months time, sooner p.r.n.. Thank you for allowing me to partake in the care Medications: New apixaban (Eliquis) 5 mg PO BID 60 tabs 5RF Coding Level of Care Code Est Pt Level 4 (48611) Diagnoses Heart failure with reduced ejection fraction I50.20 Paroxysmal atrial fibrillation I48.0 CPT Codes EKG - CPT: 76244-[id number], Complete ([id number])
== END 2023-09-15 10:56 | disposition home or self-care (01) ==
PROVIDERS: PCP Internal Medicine; Visit Provider Internal Medicine Cardiovascular Disease
DX: I50.20 Unspecified systolic (congestive) heart failure (principal); I48.0 Paroxysmal atrial fibrillation
CPT/HCPCS: 93010; 99214

== ENCOUNTER 2023-09-15 11:06 | Outpatient (AMB) | payer MEDICARE, SELFPAY ==
[2023-06-23 08:35] VITALS: BP 110/58; BP 116/60; BP 94/50; BMI 35.1
[2023-09-15 11:18] LABS: Prothrombin Time Whole Bld POC 35.9 sec (11.1-13.5)
--- NOTE | 2023-09-15 11:23 | MHC.OFFVISCO ---
Intake Intake Visit Reasons: Anticoagulation Allergies adhesive tape [ADHESIVE TAPE] Adverse Reaction (Unknown, Verified 09/15/23 11:13) RASH latex Adverse Reaction (Unknown, Verified 09/15/23 11:13) Rash perflutren Adverse Reaction (Verified 09/15/23 11:13) Back Pain and leg pain Medication List - Last Reconciled 09/15/23 by Lola Tran RN amiodarone 200 mg PO DAILY apixaban (Eliquis) 5 mg PO BID atorvastatin 40 mg PO BEDTIME 90 days carvedilol (Coreg) 6.25 mg PO BID 90 days esomeprazole magnesium (Nexium) 20 mg PO DAILY furosemide (Lasix) 20 mg PO Q OTHER DAY sacubitril-valsartan 49-51 mg (Entresto) 1 tab PO BID warfarin 5 mg See Protocol PO DIRECTED Nursing Note INR: 3.0 in therapeutic range of 2-3 Medications and supplements reviewed: no new or discontinued meds No changes in health, diet, medications, or supplements: NO Denies any signs and symptoms of bleeding or bruising or clotting. Bleeding, bruising, clotting discussed Nutritional guidance given to have a serving of greens today then to balance reds and greens Dose: continue usual dose of 2.5mg daily F/U INR: 2 weeks Patient verbalizes understanding of instructions given Anti-Coag Initial Assessment Social Hx Patient Tobacco Use Status: Never used Tobacco alcohol intake: current Alcohol intake frequency: a few times a month (MAYBE 1 A WEEK) Cardiovascular Hx: CHF (2002), Arrhythmias (ABLATION AT [facility] 06/18/2023 ), Cardiomyopathy (DX 2002 S/P CHEMO TREAT) and Varicose Veins Lung Disease HX: DVT/PE (HX DVT BEHIND EYE 2003 S/P [facility] ) Blood Disorder Hx: Anemia (ONLY DURING THE CHEMO ) and Hyperlipidemia (CHOLESTORAL MED ) Hx: Other (HYSTERECTOMY 1999 FIBROID TUMORS- LEFT OVARIES, 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
== END 2023-09-15 11:26 | disposition home or self-care (01) ==
LOC: HO.ACS 11:06
PROVIDERS: PCP Internal Medicine; Visit Provider Internal Medicine
DX: Z79.01 Long term (current) use of anticoagulants (principal)

== ENCOUNTER 2023-09-30 12:37 | Outpatient (REF) | payer MEDICARE, SELFPAY ==
[2023-06-23 08:35] VITALS: BP 110/58; BP 116/60; BP 94/50; BMI 35.1
--- NOTE | ~2023-09-30 | MM_ITS ---
EXAMINATION: BONE DENSITOMETRY CLINICAL INDICATION: Unspecified menopausal and perimenopausal disorder. COMPARISON: This is the patient's baseline examination. TECHNIQUE: Using a [employer] DXA System (software version: 13.1) manufactured by [employer], dual-energy x-ray absorptiometry was performed of the lumbar spine and left hip. The images are of good technical quality. Summary results are attached. FINDINGS: LEFT FEMUR, NECK: BMD 1.292 g/cm2, Z-score 2.7, T-score 1.8, normal. LEFT FEMUR, TOTAL: BMD 1.293 g/cm2, Z-score 2.8, T-score 2.3, normal. AP SPINE L1-L2 (excluding L3 and L4): The data of L1-L4 has been changed to exclude the L3 and L4 vertebral bodies, because degenerative sclerosis at these levels may cause overestimation of lumbar spine density. BMD 1.481 g/cm2, Z-score 3.3, T-score 2.6, normal. IDENTIFIED RISK FACTORS: Early menopause, secondary osteoporosis, hysterectomy, history of fracture (adult). HISTORY OF FRACTURE: Other. MEDICATIONS: None listed. MM/XR DEXA axial skeleton IMPRESSION: 1. DIAGNOSIS: Normal bone density based on the lowest T-score value of 1.8 in the femoral neck applying World Health Organization criteria. 2. 10-YEAR FRACTURE RISK PREDICTION, FRAX: According to the guidelines, FRAX calculation should only be performed on patients in the osteopenia bone density category. Therefore, FRAX was not performed on this patient. 3. Treatment Recommendations: NOF guidelines recommend consideration for treatment in postmenopausal women and men age 50 and older presenting with the following: -A hip or vertebral (clinical or morphometric) fracture. -T-score less than or equal to -2.5 at the femoral neck or spine after appropriate evaluation to exclude secondary causes. -Low bone mass at the hip or spine and a 10-year fracture probability by FRAX of greater than or equal to 3% for hip fracture or greater than or equal to 20% for major osteoporotic fracture based on the [place] adapted WHO algorithm. 4. Other Recommendations: All treatment decisions require clinical judgment and consideration of individual patient factors, including patient preferences, comorbidities, previous drug use, risk factors not captured in the FRAX model (e.g. frailty, falls, vitamin D deficiency, increased bone turnover, interval significant decline in bone density) and possible under or overestimation of fracture risk by FRAX. FUTURE SCAN RECOMMENDATION: People with diagnosed cases of osteoporosis or at high risk for fracture should have regular bone mineral density tests. For patients eligible for Medicare, routine testing is allowed once every 2 years. The testing frequency can be increased to one year for patients who have rapidly progressing disease, those who are receiving or discontinuing medical therapy to restore bone mass, or have additional risk factors.
--- NOTE | ~2023-09-30 | MM_ITS ---
EXAMINATION: MM SCREENING DIGITAL BREAST TOMOSYNTHESIS, BILATERAL CLINICAL INFORMATION: Screening. Asymptomatic. COMPARISON: Mammography: This study is compared with prior exams dating back to 2016. TECHNIQUE: Digital breast tomosynthesis is performed in both the craniocaudal and mediolateral oblique views along with computer-aided detection (CAD). Synthesized 2D images are generated from the tomosynthesis. FINDINGS: The breasts are almost entirely fatty (ACR BI-RADS breast composition Category a). There are no significant masses, abnormal calcifications, or other abnormalities. MM/MM tomosynthesis screening BI IMPRESSION: No mammographic evidence of malignancy. ASSESSMENT: BI-RADS BI-RADS 1 - Negative RECOMMENDATION: Routine annual mammography screening. 1 year F/U This examination should not preclude the clinical evaluation of a suspicious palpable abnormality. This patient's information was entered into a reminder system with a target due date for their next mammogram.
== END 2023-09-30 12:38 | disposition home or self-care (01) ==
LOC: HO.MAMMO 12:37
PROVIDERS: PCP Internal Medicine; Visit Provider Internal Medicine
DX: N95.9 Unspecified menopausal and perimenopausal disorder (principal); I48.0 Paroxysmal atrial fibrillation; Z12.31 Encounter for screening mammogram for malignant neoplasm of breast; Z13.820 Encounter for screening for osteoporosis; Z51.81 Encounter for therapeutic drug level monitoring; Z79.01 Long term (current) use of anticoagulants
CPT/HCPCS: 77063; 77067; 77080; 85610; 99211

== ENCOUNTER → 2023-09-30 13:00 | Outpatient (BNV) | payer MEDICARE, SELFPAY ==
[2023-06-23 08:35] VITALS: BP 110/58; BP 116/60; BP 94/50; BMI 35.1
== END ==
PROVIDERS: PCP Internal Medicine; Visit Provider Radiology Diagnostic Radiology
DX: Z12.31 Encounter for screening mammogram for malignant neoplasm of breast (principal)
CPT/HCPCS: 77063; 77067

== ENCOUNTER 2023-10-14 13:55 | Outpatient (AMB) | payer MEDICARE, SELFPAY ==
[2023-06-23 08:35] VITALS: BP 110/58; BP 116/60; BP 94/50; BMI 35.1
[2023-10-14 14:15] LABS: Prothrombin Time Whole Bld POC 24.5 sec (11.1-13.5)
--- NOTE | 2023-10-14 14:23 | MHC.OFFVISCO ---
Intake Intake Visit Reasons: Anticoagulation Allergies adhesive tape [ADHESIVE TAPE] Adverse Reaction (Unknown, Verified 10/14/23 14:07) RASH latex Adverse Reaction (Unknown, Verified 10/14/23 14:07) Rash perflutren Adverse Reaction (Verified 10/14/23 14:07) Back Pain and leg pain Medication List - Last Reconciled 10/14/23 by Georgiana Casanova RN amiodarone 200 mg PO DAILY apixaban (Eliquis) 5 mg PO BID atorvastatin 40 mg PO BEDTIME 90 days carvedilol (Coreg) 6.25 mg PO BID 90 days esomeprazole magnesium (Nexium) 20 mg PO DAILY furosemide (Lasix) 20 mg PO Q OTHER DAY sacubitril-valsartan 49-51 mg (Entresto) 1 tab PO BID warfarin 5 mg See Protocol PO DIRECTED Nursing Note INR: 2.0 in therapeutic range Pt has been eating more protein and greens - she was enc to eat more orange and reds to help raise the INR Medications and supplements reviewed No changes in health, diet, medications, or supplements, Denies any signs and symptoms of bleeding or bruising or clotting. Bleeding, bruising, clotting discussed Nutritional guidance given Dose: 2.5MG DAILY F/U INR: 2 WEEKS Patient verbalizes understanding of instructions given Anti-Coag Initial Assessment Social Hx Patient Tobacco Use Status: Never used Tobacco alcohol intake: current Alcohol intake frequency: a few times a month (MAYBE 1 A WEEK) Cardiovascular Hx: CHF (2002), Arrhythmias (ABLATION AT [facility] 06/18/2023 ), Cardiomyopathy (DX 2002 S/P CHEMO TREAT) and Varicose Veins Lung Disease HX: DVT/PE (HX DVT BEHIND EYE 2002 S/P [facility] ) Blood Disorder Hx: Anemia (ONLY DURING THE CHEMO ) and Hyperlipidemia (CHOLESTORAL MED ) Hx: Other (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
== END 2023-10-14 14:25 | disposition home or self-care (01) ==
LOC: HO.ACS 13:55
PROVIDERS: PCP Internal Medicine; Visit Provider Internal Medicine
DX: Z79.01 Long term (current) use of anticoagulants (principal)

== ENCOUNTER → 2023-10-14 13:55 | Outpatient (BNVA) | payer MEDICARE, SELFPAY ==
[2023-06-23 08:35] VITALS: BP 110/58; BP 116/60; BP 94/50; BMI 35.1
== END ==
PROVIDERS: PCP Internal Medicine; Visit Provider Internal Medicine
DX: I48.0 Paroxysmal atrial fibrillation (principal); Z79.01 Long term (current) use of anticoagulants; Z51.81 Encounter for therapeutic drug level monitoring
CPT/HCPCS: 85610; 99211

== ENCOUNTER 2023-11-06 13:56 | Outpatient (AMB) | payer MEDICARE, SELFPAY ==
[2023-06-23 08:35] VITALS: BP 110/58; BP 116/60; BP 94/50; BMI 35.1
[2023-11-06 14:05] LABS: Prothrombin Time Whole Bld POC 17.5 sec (11.1-13.5); ~PT, ~INR - Anti Coag Clinic 1.5 (0.9-1.1)
--- NOTE | 2023-11-06 14:17 | MHC.OFFVISCO ---
Intake Intake Visit Reasons: Anticoagulation Allergies adhesive tape [ADHESIVE TAPE] Adverse Reaction (Unknown, Verified 11/06/23 13:58) RASH latex Adverse Reaction (Unknown, Verified 11/06/23 13:58) Rash perflutren Adverse Reaction (Verified 11/06/23 13:58) Back Pain and leg pain Medication List - Last Reconciled 11/06/23 by Georgiana Casanova RN amiodarone 200 mg PO DAILY apixaban (Eliquis) 5 mg PO BID atorvastatin 40 mg PO BEDTIME 90 days carvedilol (Coreg) 6.25 mg PO BID 90 days esomeprazole magnesium (Nexium) 20 mg PO DAILY furosemide (Lasix) 20 mg PO Q OTHER DAY sacubitril-valsartan 49-51 mg (Entresto) 1 tab PO BID warfarin 5 mg See Protocol PO DIRECTED Nursing Note INR 1.5 out of therapeutic range- denies any missed doses Medications and supplements reviewed Patient status: Has changed out coffee for iced tea- only having 2 ice tea/ day, eating more salads with heat.(could be lowering INR) Medications or supplements: no longer taking ibuprofen or tylenol for a while for her knee( can have lower INR by not taking them) Diet: eating more madhavi lettuce Denies any signs and symptoms of bleeding or clotting or unusual bruising Bleeding, bruising, clotting discussed Nutritional guidance given: avoid greens today, eat orange or reds today and eat more foods that raise the INR when having more salads Dose: increase weekly dose 5mg x 1 day/ 2.5mg x 6 days F/U INR Date : 5 days due to low INR ? pt aware low INR is risk for clotting and stroke and will seek medical attention of any s/sx? Patient verbalizing understanding of instructions given. msg sent to PCP with f/u call - spoke with Ani who will convey msg to medical team Anti-Coag Initial Assessment Social Hx Patient Tobacco Use Status: Never used Tobacco alcohol intake: current Alcohol intake frequency: a few times a month (MAYBE 1 A WEEK) Cardiovascular Hx: CHF (2002), Arrhythmias (ABLATION AT [facility] 06/18/2023 ), Cardiomyopathy (DX 2002 S/P CHEMO TREAT) and Varicose Veins Lung Disease HX: DVT/PE (HX DVT BEHIND EYE 2002 S/P [facility] ) Blood Disorder Hx: Anemia (ONLY DURING THE CHEMO ) and Hyperlipidemia (CHOLESTORAL MED ) Hx: Other (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
== END 2023-11-06 14:35 | disposition home or self-care (01) ==
LOC: HO.ACS 13:56
PROVIDERS: PCP Internal Medicine; Visit Provider Internal Medicine
DX: Z79.01 Long term (current) use of anticoagulants (principal)

== ENCOUNTER → 2023-11-06 13:56 | Outpatient (BNVA) | payer MEDICARE, SELFPAY ==
[2023-06-23 08:35] VITALS: BP 110/58; BP 116/60; BP 94/50; BMI 35.1
== END ==
PROVIDERS: PCP Internal Medicine; Visit Provider Internal Medicine
DX: I48.0 Paroxysmal atrial fibrillation (principal); Z79.01 Long term (current) use of anticoagulants; Z51.81 Encounter for therapeutic drug level monitoring
CPT/HCPCS: 85610; 99211

== ENCOUNTER 2023-11-11 09:43 | Outpatient (AMB) | payer MEDICARE, SELFPAY ==
[2023-06-23 08:35] VITALS: BP 110/58; BP 116/60; BP 94/50; BMI 35.1
[2023-11-11 09:56] LABS: Prothrombin Time Whole Bld POC 22.3 sec (11.1-13.5); ~PT, ~INR - Anti Coag Clinic 1.9 (0.9-1.1)
--- NOTE | 2023-11-11 09:56 | MHC.OFFVISCO ---
Intake Intake Visit Reasons: Anticoagulation Allergies adhesive tape [ADHESIVE TAPE] Adverse Reaction (Unknown, Verified 11/11/23 09:52) RASH latex Adverse Reaction (Unknown, Verified 11/11/23 09:52) Rash perflutren Adverse Reaction (Verified 11/11/23 09:52) Back Pain and leg pain Medication List - Last Reconciled 11/11/23 by Andreina Montana RN amiodarone 200 mg PO DAILY apixaban (Eliquis) 5 mg PO BID atorvastatin 40 mg PO BEDTIME 90 days carvedilol (Coreg) 6.25 mg PO BID 90 days esomeprazole magnesium (Nexium) 20 mg PO DAILY furosemide (Lasix) 20 mg PO Q OTHER DAY sacubitril-valsartan 49-51 mg (Entresto) 1 tab PO BID warfarin 5 mg See Protocol PO DIRECTED Nursing Note INR 1.9?? out of therapeutic range of 2-3 Medications and supplements reviewed Patient status: no c.o, prev inr 1.5, weekly dosing increased Medications or supplements: no changes Diet: same- eating more protein Denies any signs and symptoms of bleeding or clotting or unusual bruising Bleeding, bruising, clotting discussed Nutritional guidance given: no greens today, eat a red today Dose: 5 mg today, then cont 2.5mg x 6. 5mg x 1 F/U INR Date : 10 days? Patient verbalizing understanding of instructions given. Anti-Coag Initial Assessment Social Hx Patient Tobacco Use Status: Never used Tobacco alcohol intake: current Alcohol intake frequency: a few times a month (MAYBE 1 A WEEK) Cardiovascular Hx: CHF (2002), Arrhythmias (ABLATION AT [facility] 06/18/2023 ), Cardiomyopathy (DX 2002 S/P CHEMO TREAT) and Varicose Veins Lung Disease HX: DVT/PE (HX DVT BEHIND EYE 2003 S/P [facility] ) Blood Disorder Hx: Anemia (ONLY DURING THE CHEMO ) and Hyperlipidemia (CHOLESTORAL MED ) Hx: Other (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 Illness/Depression: No Coding Level of Care Code Est Patient Level 1 Diagnoses Current use of anticoagulant therapy Z79.01 Assessment & Plan Assessment & Plan (1) Current use of anticoagulant therapy: Code(s): Z79.01 - prison (current) use of anticoagulants Category: Medical
== END 2023-11-11 10:03 | disposition home or self-care (01) ==
LOC: HO.ACS 09:43
PROVIDERS: PCP Internal Medicine; Visit Provider Internal Medicine
DX: Z79.01 Long term (current) use of anticoagulants (principal)

== ENCOUNTER → 2023-11-11 09:43 | Outpatient (BNVA) | payer MEDICARE, SELFPAY ==
[2023-06-23 08:35] VITALS: BP 110/58; BP 116/60; BP 94/50; BMI 35.1
== END ==
PROVIDERS: PCP Internal Medicine; Visit Provider Internal Medicine
DX: I48.0 Paroxysmal atrial fibrillation (principal); Z79.01 Long term (current) use of anticoagulants; Z51.81 Encounter for therapeutic drug level monitoring
CPT/HCPCS: 85610; 99211

== ENCOUNTER 2023-12-10 15:25 | Outpatient (AMB) | payer MEDICARE, SELFPAY ==
[2023-06-23 08:35] VITALS: BP 110/58; BP 116/60; BP 94/50; BMI 35.1
[2023-12-10 15:39] LABS: Prothrombin Time Whole Bld POC 54.8 sec (11.1-13.5); ~PT, ~INR - Anti Coag Clinic 4.6 (0.9-1.1)
--- NOTE | 2023-12-10 15:49 | MHC.OFFVISCO ---
Intake Intake Visit Reasons: Anticoagulation Allergies adhesive tape [ADHESIVE TAPE] Adverse Reaction (Unknown, Verified 12/10/23 15:27) RASH latex Adverse Reaction (Unknown, Verified 12/10/23 15:27) Rash perflutren Adverse Reaction (Verified 12/10/23 15:27) Back Pain and leg pain Medication List - Last Reconciled 12/10/23 by Lola Tran, RN amiodarone 200 mg PO DAILY apixaban (Eliquis) 5 mg PO BID atorvastatin 40 mg PO BEDTIME 90 days carvedilol (Coreg) 6.25 mg PO BID 90 days esomeprazole magnesium (Nexium) 20 mg PO DAILY furosemide (Lasix) 20 mg PO Q OTHER DAY sacubitril-valsartan 49-51 mg (Entresto) 1 tab PO BID warfarin 5 mg See Protocol PO DIRECTED Nursing Note INR 4.6?out of therapeutic range of 2-3 Pt has been on vacation for past 2 weeks and has had more summer fruits that raise the INR, also has had a couple alcoholic drinks. Upon further assessment, it was discovered that pt has been taking 5mg on Thu and Thu. She was only to take the extra warfarin on her last visit 11/11/23 because the INR then was 1.9. SHe has been taking 5mg 2x/wk since that visit. Medications and supplements reviewed Patient status: well Medications or supplements: no changes Diet: vacation diet as stated above Denies any signs and symptoms of bleeding or clotting or unusual bruising Bleeding, bruising, clotting discussed Nutritional guidance given: to hold the summer fruits and alcohol and to have a serving of cooked greens today and Dose: hold today's dose of 2.5mg then resume usual dose of 2.5mg X 6 days and 5 mg X 1 day (Sun) F/U INR Date : 4 days?? Patient verbalizing understanding of instructions given. 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
== END 2023-12-10 15:59 | disposition home or self-care (01) ==
LOC: HO.ACS 15:25
PROVIDERS: PCP Internal Medicine; Visit Provider Internal Medicine
DX: Z79.01 Long term (current) use of anticoagulants (principal)

== ENCOUNTER → 2023-12-10 15:25 | Outpatient (BNVA) | payer MEDICARE, SELFPAY ==
[2023-06-23 08:35] VITALS: BP 110/58; BP 116/60; BP 94/50; BMI 35.1
== END ==
PROVIDERS: PCP Internal Medicine; Visit Provider Internal Medicine
DX: I48.0 Paroxysmal atrial fibrillation (principal); Z79.01 Long term (current) use of anticoagulants; Z51.81 Encounter for therapeutic drug level monitoring
CPT/HCPCS: 85610; 99211

== ENCOUNTER 2023-12-14 11:02 | Outpatient (AMB) | payer MEDICARE, SELFPAY ==
[2023-06-23 08:35] VITALS: BP 110/58; BP 116/60; BP 94/50; BMI 35.1
[2023-12-14 11:08] LABS: Prothrombin Time Whole Bld POC 40.7 sec (11.1-13.5); ~PT, ~INR - Anti Coag Clinic 3.4 (0.9-1.1)
--- NOTE | 2023-12-14 11:17 | MHC.OFFVISCO ---
Intake Intake Visit Reasons: Anticoagulation Allergies adhesive tape [ADHESIVE TAPE] Adverse Reaction (Unknown, Verified 12/14/23 11:03) RASH latex Adverse Reaction (Unknown, Verified 12/14/23 11:03) Rash perflutren Adverse Reaction (Verified 12/14/23 11:03) Back Pain and leg pain Medication List - Last Reconciled 12/14/23 by Maya Felton RN amiodarone 200 mg PO DAILY apixaban (Eliquis) 5 mg PO BID atorvastatin 40 mg PO BEDTIME 90 days carvedilol (Coreg) 6.25 mg PO BID 90 days esomeprazole magnesium (Nexium) 20 mg PO DAILY furosemide (Lasix) 20 mg PO Q OTHER DAY sacubitril-valsartan 49-51 mg (Entresto) 1 tab PO BID warfarin 5 mg See Protocol PO DIRECTED Nursing Note NO CP,SOB,DIET/MED CHANGES,FALLS OR X OF BLEEDING. PT.STATES THAT SHE HAS BEEN EATING GREENS, SO WILL HOLD WARFARIN AGAIN TODAY TEN RESUME USUAL DOSE AND FOLLOW-UP IN 1 WEEK. GOOD UNDERSTANDING OF DOSING INSTR. SOME DIETARY INSTR.GIVEN Anti-Coag Initial Assessment Social Hx Patient Tobacco Use Status: Never used Tobacco alcohol intake: current Alcohol intake frequency: a few times a month (MAYBE 1 A WEEK) Cardiovascular Hx: CHF (2002), Arrhythmias (ABLATION AT [facility] 06/18/2023 ), Cardiomyopathy (DX 2002 S/P CHEMO TREAT) and Varicose Veins Lung Disease HX: DVT/PE (HX DVT BEHIND EYE 2002 S/P [facility] ) Blood Disorder Hx: Anemia (ONLY DURING THE CHEMO ) and Hyperlipidemia (CHOLESTORAL MED ) Hx: Other (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 Illness/Depression: No Coding Level of Care Code Est Patient Level 1 Diagnoses Current use of anticoagulant therapy Z79.01 Assessment & Plan Assessment & Plan (1) Current use of anticoagulant therapy: Code(s): Z79.01 - prison (current) use of anticoagulants Category: Medical
== END 2023-12-14 11:19 | disposition home or self-care (01) ==
LOC: HO.ACS 11:02
PROVIDERS: PCP Internal Medicine; Visit Provider Internal Medicine
DX: Z79.01 Long term (current) use of anticoagulants (principal)

== ENCOUNTER → 2023-12-14 11:02 | Outpatient (BNVA) | payer MEDICARE, SELFPAY ==
[2023-06-23 08:35] VITALS: BP 110/58; BP 116/60; BP 94/50; BMI 35.1
== END ==
PROVIDERS: PCP Internal Medicine; Visit Provider Internal Medicine
DX: I48.0 Paroxysmal atrial fibrillation (principal); Z79.01 Long term (current) use of anticoagulants; Z51.81 Encounter for therapeutic drug level monitoring
CPT/HCPCS: 85610; 99211

== ENCOUNTER 2023-12-24 13:16 | Outpatient (AMB) | payer MEDICARE, SELFPAY ==
[2023-06-23 08:35] VITALS: BP 110/58; BP 116/60; BP 94/50; BMI 35.1
[2023-12-24 13:37] LABS: Prothrombin Time Whole Bld POC 31.9 sec (11.1-13.5); ~PT, ~INR - Anti Coag Clinic 2.7 (0.9-1.1)
--- NOTE | 2023-12-24 13:45 | MHC.OFFVISCO ---
Intake Intake Visit Reasons: Anticoagulation Allergies adhesive tape [ADHESIVE TAPE] Adverse Reaction (Unknown, Verified 12/24/23 13:32) RASH latex Adverse Reaction (Unknown, Verified 12/24/23 13:32) Rash perflutren Adverse Reaction (Verified 12/24/23 13:32) Back Pain and leg pain Medication List - Last Reconciled 12/24/23 by Lola Tran, RN amiodarone 200 mg PO DAILY apixaban (Eliquis) 5 mg PO BID atorvastatin 40 mg PO BEDTIME 90 days carvedilol (Coreg) 6.25 mg PO BID 90 days esomeprazole magnesium (Nexium) 20 mg PO DAILY furosemide (Lasix) 20 mg PO Q OTHER DAY sacubitril-valsartan 49-51 mg (Entresto) 1 tab PO BID warfarin 5 mg See Protocol PO DIRECTED Nursing Note INR: 2.7 in therapeutic range 2-3 Medications and supplements reviewed No changes in health, diet, medications, or supplements, Denies any signs and symptoms of bleeding or bruising or clotting. Bleeding, bruising, clotting discussed Nutritional guidance given to continue to balance reds and greens Dose: 2.5mg X6 days and 5mg X 1 day F/U INR: 2 weeks Patient verbalizes understanding of instructions given Anti-Coag Initial Assessment Social Hx Patient Tobacco Use Status: Never used Tobacco alcohol intake: current Alcohol intake frequency: a few times a month (MAYBE 1 A WEEK) Cardiovascular Hx: CHF (2002), Arrhythmias (ABLATION AT [facility] 06/18/2023 ), Cardiomyopathy (DX 2002 S/P CHEMO TREAT) and Varicose Veins Lung Disease HX: DVT/PE (HX DVT BEHIND EYE 2003 S/P [facility] ) Blood Disorder Hx: Anemia (ONLY DURING THE CHEMO ) and Hyperlipidemia (CHOLESTORAL MED ) Hx: Other (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
== END 2023-12-24 13:53 | disposition home or self-care (01) ==
LOC: HO.ACS 13:16
PROVIDERS: PCP Internal Medicine; Visit Provider Internal Medicine
DX: Z79.01 Long term (current) use of anticoagulants (principal)

== ENCOUNTER → 2023-12-24 13:16 | Outpatient (BNVA) | payer MEDICARE, SELFPAY ==
[2023-06-23 08:35] VITALS: BP 110/58; BP 116/60; BP 94/50; BMI 35.1
== END ==
PROVIDERS: PCP Internal Medicine; Visit Provider Internal Medicine
DX: I48.0 Paroxysmal atrial fibrillation (principal); Z79.01 Long term (current) use of anticoagulants; Z51.81 Encounter for therapeutic drug level monitoring
CPT/HCPCS: 85610; 99211

== ENCOUNTER 2024-01-08 14:54 | Outpatient (AMB) | payer MEDICARE, SELFPAY ==
[2023-06-23 08:35] VITALS: BP 110/58; BP 116/60; BP 94/50; BMI 35.1
[2024-01-08 15:06] LABS: Prothrombin Time Whole Bld POC 26.1 sec (11.1-13.5); ~PT, ~INR - Anti Coag Clinic 2.2 (0.9-1.1)
--- NOTE | 2024-01-08 15:07 | MHC.OFFVISCO ---
Intake Intake Visit Reasons: Anticoagulation Allergies adhesive tape [ADHESIVE TAPE] Adverse Reaction (Unknown, Verified 01/08/24 14:56) RASH latex Adverse Reaction (Unknown, Verified 01/08/24 14:56) Rash perflutren Adverse Reaction (Verified 01/08/24 14:56) Back Pain and leg pain Medication List - Last Reconciled 01/08/24 by Lola Tran RN amiodarone 200 mg PO DAILY apixaban (Eliquis) 5 mg PO BID atorvastatin 40 mg PO BEDTIME 90 days carvedilol (Coreg) 6.25 mg PO BID 90 days esomeprazole magnesium (Nexium) 20 mg PO DAILY furosemide (Lasix) 20 mg PO Q OTHER DAY sacubitril-valsartan 49-51 mg (Entresto) 1 tab PO BID warfarin 5 mg See Protocol PO DIRECTED Nursing Note INR: 2.2 in therapeutic range Medications and supplements reviewed No changes in health, diet, medications, or supplements, Denies any signs and symptoms of bleeding or bruising or clotting. Bleeding, bruising, clotting discussed Nutritional guidance given Dose: 2.5mg X 6 days and 5mg X 1 day F/U INR: 3 weeks Patient verbalizes understanding of instructions given Anti-Coag Initial Assessment Social Hx Patient Tobacco Use Status: Never used Tobacco alcohol intake: current Alcohol intake frequency: a few times a month (MAYBE 1 A WEEK) Cardiovascular Hx: CHF (2002), Arrhythmias (ABLATION AT [facility] 06/18/2023 ), Cardiomyopathy (DX 2002 S/P CHEMO TREAT) and Varicose Veins Lung Disease HX: DVT/PE (HX DVT BEHIND EYE 2002 S/P [facility] ) Blood Disorder Hx: Anemia (ONLY DURING THE CHEMO ) and Hyperlipidemia (CHOLESTORAL MED ) Hx: Other (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
== END 2024-01-08 15:11 | disposition home or self-care (01) ==
LOC: HO.ACS 14:54
PROVIDERS: PCP Internal Medicine; Visit Provider Internal Medicine
DX: Z79.01 Long term (current) use of anticoagulants (principal)

== ENCOUNTER → 2024-01-08 14:54 | Outpatient (BNVA) | payer MEDICARE, SELFPAY ==
[2023-06-23 08:35] VITALS: BP 110/58; BP 116/60; BP 94/50; BMI 35.1
== END ==
PROVIDERS: PCP Internal Medicine; Visit Provider Internal Medicine
DX: I48.0 Paroxysmal atrial fibrillation (principal); Z79.01 Long term (current) use of anticoagulants; Z51.81 Encounter for therapeutic drug level monitoring
CPT/HCPCS: 85610; 99211

== ENCOUNTER 2024-02-02 14:07 | Outpatient (AMB) | payer MEDICARE, SELFPAY ==
[2023-06-23 08:35] VITALS: BP 110/58; BP 116/60; BP 94/50; BMI 35.1
[2024-02-02 14:28] LABS: Prothrombin Time Whole Bld POC 20.5 sec (11.1-13.5); ~PT, ~INR - Anti Coag Clinic 1.7 (0.9-1.1)
--- NOTE | 2024-02-02 14:35 | MHC.OFFVISCO ---
Intake Intake Visit Reasons: Anticoagulation Allergies adhesive tape [ADHESIVE TAPE] Adverse Reaction (Unknown, Verified 02/02/24 14:23) RASH latex Adverse Reaction (Unknown, Verified 02/02/24 14:23) Rash perflutren Adverse Reaction (Verified 02/02/24 14:23) Back Pain and leg pain Medication List - Last Reconciled 02/02/24 by Lola Tran, RN amiodarone 200 mg PO DAILY apixaban (Eliquis) 5 mg PO BID atorvastatin 40 mg PO BEDTIME 90 days carvedilol (Coreg) 6.25 mg PO BID 90 days esomeprazole magnesium (Nexium) 20 mg PO DAILY furosemide (Lasix) 20 mg PO Q OTHER DAY sacubitril-valsartan 49-51 mg (Entresto) 1 tab PO BID warfarin 5 mg See Protocol PO DIRECTED Nursing Note INR 1.7?out of therapeutic range of 2-3 Medications and supplements reviewed Patient status: well Medications or supplements: no changes Diet: pt states she stopped fruits such as melons from her diet when her INR was high and has increased greens intake Denies any signs and symptoms of bleeding or clotting or unusual bruising Bleeding, bruising, clotting discussed Nutritional guidance given: to balance fruits and vegetables Dose: increase today's dose to 5mg then resume usual dose of 2.5mg X 6 days and 5mg X 1 day F/U INR Date : 1 week?? Patient verbalizing understanding of instructions given. Anti-Coag Initial Assessment Social Hx Patient Tobacco Use Status: Never used Tobacco alcohol intake: current Alcohol intake frequency: a few times a month (MAYBE 1 A WEEK) Cardiovascular Hx: CHF (2002), Arrhythmias (ABLATION AT [facility] 06/18/2023 ), Cardiomyopathy (DX 2002 S/P CHEMO TREAT) and Varicose Veins Lung Disease HX: DVT/PE (HX DVT BEHIND EYE 2002 S/P [facility] ) Blood Disorder Hx: Anemia (ONLY DURING THE CHEMO ) and Hyperlipidemia (CHOLESTORAL MED ) Hx: Other (HYSTERECTOMY 1999 FIBROID TUMORS- LEFT OVARIES, 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 Illness/Depression: No Coding Level of Care Code Est Patient Level 1 Diagnoses Current use of anticoagulant therapy Z79.01 Results AMB INR Fingerstick AMB INR Fingerstick 1.7 Last Edit by Lola Tran RN on 02/02/24 14:31 interface delay Assessment & Plan Assessment & Plan (1) Current use of anticoagulant therapy: Code(s): Z79.01 - [facility] (current) use of anticoagulants Category: Medical
== END 2024-02-02 14:43 | disposition home or self-care (01) ==
LOC: HO.ACS 14:07
PROVIDERS: PCP Internal Medicine; Visit Provider Internal Medicine
DX: Z79.01 Long term (current) use of anticoagulants (principal)

== ENCOUNTER → 2024-02-02 14:07 | Outpatient (BNVA) | payer MEDICARE, SELFPAY ==
[2023-06-23 08:35] VITALS: BP 110/58; BP 116/60; BP 94/50; BMI 35.1
== END ==
PROVIDERS: PCP Internal Medicine; Visit Provider Internal Medicine
DX: I48.0 Paroxysmal atrial fibrillation (principal); Z79.01 Long term (current) use of anticoagulants; Z51.81 Encounter for therapeutic drug level monitoring
CPT/HCPCS: 85610; 99211

== ENCOUNTER 2024-02-18 09:31 | Outpatient (AMB) | payer MEDICARE, SELFPAY ==
[2023-06-23 08:35] VITALS: BP 110/58; BP 116/60; BP 94/50; BMI 35.1
--- NOTE | 2024-02-18 10:02 | MHC.OFFVISCO ---
Intake Intake Visit Reasons: Anticoagulation Allergies adhesive tape [ADHESIVE TAPE] Adverse Reaction (Unknown, Verified 02/18/24 09:53) RASH latex Adverse Reaction (Unknown, Verified 02/18/24 09:53) Rash perflutren Adverse Reaction (Verified 02/18/24 09:53) Back Pain and leg pain Medication List - Last Reconciled 02/18/24 by Lola Tran RN amiodarone 200 mg PO DAILY apixaban (Eliquis) 5 mg PO BID atorvastatin 40 mg PO BEDTIME 90 days carvedilol (Coreg) 6.25 mg PO BID 90 days esomeprazole magnesium (Nexium) 20 mg PO DAILY furosemide (Lasix) 20 mg PO Q OTHER DAY sacubitril-valsartan 49-51 mg (Entresto) 1 tab PO BID warfarin 5 mg See Protocol PO DIRECTED Nursing Note INR: 2.6 in therapeutic range of 2-3 Medications and supplements reviewed No changes in health, diet, medications, or supplements, Denies any signs and symptoms of bleeding or bruising or clotting. Bleeding, bruising, clotting discussed Nutritional guidance given Dose: 2.5mg X 6 days and 5mg X 1 day (SUN) F/U INR: 3 weeks Patient verbalizes understanding of instructions given Anti-Coag Initial Assessment Social Hx Patient Tobacco Use Status: Never used Tobacco alcohol intake: current Alcohol intake frequency: a few times a month (MAYBE 1 A WEEK) Cardiovascular Hx: CHF (2002), Arrhythmias (ABLATION AT [facility] 06/18/2023 ), Cardiomyopathy (DX 2002 S/P CHEMO TREAT) and Varicose Veins Lung Disease HX: DVT/PE (HX DVT BEHIND EYE 2002 S/P [facility] ) Blood Disorder Hx: Anemia (ONLY DURING THE CHEMO ) and Hyperlipidemia (CHOLESTORAL MED ) Hx: Other (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
[2024-02-18 10:04] LABS: Prothrombin Time Whole Bld POC 31.6 sec (11.1-13.5); ~PT, ~INR - Anti Coag Clinic 2.6 (0.9-1.1)
== END 2024-02-18 10:05 | disposition home or self-care (01) ==
LOC: HO.ACS 09:31
PROVIDERS: PCP Internal Medicine; Visit Provider Internal Medicine
DX: Z79.01 Long term (current) use of anticoagulants (principal)

== ENCOUNTER → 2024-02-18 09:31 | Outpatient (BNVA) | payer MEDICARE, SELFPAY ==
[2023-06-23 08:35] VITALS: BP 110/58; BP 116/60; BP 94/50; BMI 35.1
== END ==
PROVIDERS: PCP Internal Medicine; Visit Provider Internal Medicine
DX: I48.0 Paroxysmal atrial fibrillation (principal); Z79.01 Long term (current) use of anticoagulants; Z51.81 Encounter for therapeutic drug level monitoring
CPT/HCPCS: 85610; 99211

== ENCOUNTER 2024-03-31 14:29 | Outpatient (AMB) | payer MEDICARE, SELFPAY ==
[2023-06-23 08:35] VITALS: BP 110/58; BP 116/60; BP 94/50; BMI 35.1
[2024-03-31 14:39] LABS: Prothrombin Time Whole Bld POC 36.8 sec (11.1-13.5); ~PT, ~INR - Anti Coag Clinic 3.1 (0.9-1.1)
--- NOTE | 2024-03-31 14:45 | MHC.OFFVISCO ---
Intake Intake Visit Reasons: Anticoagulation Allergies adhesive tape [ADHESIVE TAPE] Adverse Reaction (Unknown, Verified 03/31/24 14:33) RASH latex Adverse Reaction (Unknown, Verified 03/31/24 14:33) Rash perflutren Adverse Reaction (Verified 03/31/24 14:33) Back Pain and leg pain Medication List - Last Reconciled 03/31/24 by Georgiana Casanova RN amiodarone 200 mg PO DAILY apixaban (Eliquis) 5 mg PO BID atorvastatin 40 mg PO BEDTIME 90 days carvedilol (Coreg) 6.25 mg PO BID 90 days esomeprazole magnesium (Nexium) 20 mg PO DAILY furosemide (Lasix) 20 mg PO Q OTHER DAY sacubitril-valsartan 49-51 mg (Entresto) 1 tab PO BID warfarin 5 mg See Protocol PO DIRECTED Nursing Note INR: 3.1 ALMOST therapeutic range Medications and supplements reviewed pt had URI and still lingering - she has taken coricidan which could raise the INR and some herbal teas Denies any signs and symptoms of bleeding or bruising or clotting. Bleeding, bruising, clotting discussed Nutritional guidance given - Review food list weekly, eat an extra serving of greens either today or tomorrow- do not go overboared - INR is only .1 over range Dose: KEEP Same dose 5mg x 1 day/ 2.5mg x 6 days F/U INR: 3 weeks if stable then go 4 weeks Patient verbalizes understanding of instructions given Anti-Coag Initial Assessment Social Hx Patient Tobacco Use Status: Never used Tobacco alcohol intake: current Alcohol intake frequency: a few times a month (MAYBE 1 A WEEK) Cardiovascular Hx: CHF (2002), Arrhythmias (ABLATION AT [facility] 06/18/2023 ), Cardiomyopathy (DX 2002 S/P CHEMO TREAT) and Varicose Veins Lung Disease HX: DVT/PE (HX DVT BEHIND EYE 2002 S/P [facility] ) Blood Disorder Hx: Anemia (ONLY DURING THE CHEMO ) and Hyperlipidemia (CHOLESTORAL MED ) Hx: Other (HYSTERECTOMY 1999 FIBROID TUMORS- LEFT OVARIES, 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 Illness/Depression: No Coding Level of Care Code Est Patient Level 1 Diagnoses Current use of anticoagulant therapy Z79.01 Assessment & Plan Assessment & Plan (1) Current use of anticoagulant therapy: Code(s): Z79.01 - [facility] (current) use of anticoagulants Category: Medical
== END 2024-03-31 14:52 | disposition home or self-care (01) ==
LOC: HO.ACS 14:29
PROVIDERS: PCP Internal Medicine; Visit Provider Internal Medicine
DX: Z79.01 Long term (current) use of anticoagulants (principal)

== ENCOUNTER → 2024-03-31 14:29 | Outpatient (BNVA) | payer MEDICARE, SELFPAY ==
[2023-06-23 08:35] VITALS: BP 110/58; BP 116/60; BP 94/50; BMI 35.1
== END ==
PROVIDERS: PCP Internal Medicine; Visit Provider Internal Medicine
DX: I48.0 Paroxysmal atrial fibrillation (principal); Z79.01 Long term (current) use of anticoagulants; Z51.81 Encounter for therapeutic drug level monitoring
CPT/HCPCS: 85610; 99211

== ENCOUNTER 2024-04-26 10:25 | Outpatient (AMB) | payer MEDICARE, SELFPAY ==
[2023-06-23 08:35] VITALS: BP 110/58; BP 116/60; BP 94/50; BMI 35.1
[2024-04-26 10:37] LABS: Prothrombin Time Whole Bld POC 35.4 sec (11.1-13.5)
--- NOTE | 2024-04-26 10:52 | MHC.OFFVISCO ---
Intake Intake Visit Reasons: Anticoagulation Allergies adhesive tape [ADHESIVE TAPE] Adverse Reaction (Unknown, Verified 04/26/24 10:30) RASH latex Adverse Reaction (Unknown, Verified 04/26/24 10:30) Rash perflutren Adverse Reaction (Verified 04/26/24 10:30) Back Pain and leg pain Medication List - Last Reconciled 04/26/24 by Georgiana Casanova RN amiodarone 200 mg PO DAILY atorvastatin 40 mg PO BEDTIME 90 days carvedilol (Coreg) 6.25 mg PO BID 90 days esomeprazole magnesium (Nexium) 20 mg PO DAILY furosemide (Lasix) 20 mg PO Q OTHER DAY PRN sacubitril-valsartan 49-51 mg (Entresto) 1 tab PO BID warfarin 5 mg See Protocol PO DIRECTED Nursing Note INR: 3.0 in therapeutic range Medications and supplements reviewed No changes in health, diet, medications, or supplements, Denies any signs and symptoms of bleeding or bruising or clotting. Bleeding, bruising, clotting discussed Nutritional guidance given - Eat a mix of fruits and vegetables review food list during the Holidays Dose: 5mg x 1 day/ 2.5mg x 6 days F/U INR: 4 weeks Patient verbalizes understanding of instructions given Anti-Coag Initial Assessment Social Hx Patient Tobacco Use Status: Never used Tobacco alcohol intake: current Alcohol intake frequency: a few times a month (MAYBE 1 A WEEK) Cardiovascular Hx: CHF (2002), Arrhythmias (ABLATION AT [facility] 06/18/2023 ), Cardiomyopathy (DX 2002 S/P CHEMO TREAT) and Varicose Veins Lung Disease HX: DVT/PE (HX DVT BEHIND EYE 2002 S/P [facility] ) Blood Disorder Hx: Anemia (ONLY DURING THE CHEMO ) and Hyperlipidemia (CHOLESTORAL MED ) Hx: Other (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 Illness/Depression: No Anti-Coag. Education Record Education Intervention/Brief Description of Teaching 4. Able to identify need to keep diet consistent in regard to vitamin K intake: Yes Able to state restriction on alcohol: Yes 9. Demonstrates understanding of notifying all providers of pending dental 10. Able to state Home Care instructions Additional comments: review of food lists for the holiday with good verbal understanding - she stated I think I got it Coding Level of Care Code Est Patient Level 1 Diagnoses Current use of anticoagulant therapy Z79.01 Results AMB INR Fingerstick AMB INR Fingerstick 3.0 Last Edit by Georgiana Casanova RN on 04/26/24 10:40 manual entry Assessment & Plan Assessment & Plan (1) Current use of anticoagulant therapy: Code(s): Z79.01 - half-way (current) use of anticoagulants Category: Medical
== END 2024-04-26 10:56 | disposition home or self-care (01) ==
LOC: HO.ACS 10:25
PROVIDERS: PCP Internal Medicine; Visit Provider Internal Medicine
DX: Z79.01 Long term (current) use of anticoagulants (principal)

== ENCOUNTER → 2024-04-26 10:25 | Outpatient (BNVA) | payer MEDICARE, SELFPAY ==
[2023-06-23 08:35] VITALS: BP 110/58; BP 116/60; BP 94/50; BMI 35.1
== END ==
PROVIDERS: PCP Internal Medicine; Visit Provider Internal Medicine
DX: I48.0 Paroxysmal atrial fibrillation (principal); Z79.01 Long term (current) use of anticoagulants; Z51.81 Encounter for therapeutic drug level monitoring
CPT/HCPCS: 85610; 99211

== ENCOUNTER 2024-05-24 10:13 | Outpatient (AMB) | payer MEDICARE, SELFPAY ==
[2023-06-23 08:35] VITALS: BP 110/58; BP 116/60; BP 94/50; BMI 35.1
[2024-05-24 10:27] LABS: Prothrombin Time Whole Bld POC 53.2 sec (11.1-13.5); ~PT, ~INR - Anti Coag Clinic 4.4 (0.9-1.1)
--- NOTE | 2024-05-24 10:33 | MHC.OFFVISCO ---
Intake Intake Visit Reasons: Anticoagulation Allergies adhesive tape [ADHESIVE TAPE] Adverse Reaction (Unknown, Verified 05/24/24 10:23) RASH latex Adverse Reaction (Unknown, Verified 05/24/24 10:23) Rash perflutren Adverse Reaction (Verified 05/24/24 10:23) Back Pain and leg pain Medication List - Last Reconciled 05/24/24 by Lola Tran RN amiodarone 200 mg PO DAILY atorvastatin 40 mg PO BEDTIME 90 days carvedilol (Coreg) 6.25 mg PO BID 90 days esomeprazole magnesium (Nexium) 20 mg PO DAILY furosemide (Lasix) 20 mg PO Q OTHER DAY PRN sacubitril-valsartan 49-51 mg (Entresto) 1 tab PO BID warfarin 5 mg See Protocol PO DIRECTED Nursing Note INR: 4.4?out of therapeutic range of 2-3 Pt confirms not watching her diet with the recent holidays and Medications and supplements reviewed Patient status: well Medications or supplements: no changes Denies any signs and symptoms of bleeding or clotting or unusual bruising Bleeding, bruising, clotting discussed Nutritional guidance given: to have a serving of greens today. Pt states she will have cooked spinach. Dose: Hold today's dose of 2.5mg then usual dose of 2.5mg X 6 days and 5mg X 1 day F/U INR Date : 2 weeks Patient verbalizing understanding of instructions given. Anti-Coag Initial Assessment Social Hx Patient Tobacco Use Status: Never used Tobacco alcohol intake: current Alcohol intake frequency: a few times a month (MAYBE 1 A WEEK) Cardiovascular Hx: CHF (2002), Arrhythmias (ABLATION AT [facility] 06/18/2023 ), Cardiomyopathy (DX 2002 S/P CHEMO TREAT) and Varicose Veins Lung Disease HX: DVT/PE (HX DVT BEHIND EYE 2003 S/P [facility] ) Blood Disorder Hx: Anemia (ONLY DURING THE CHEMO ) and Hyperlipidemia (CHOLESTORAL MED ) Hx: Other (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 Illness/Depression: No Coding Level of Care Code Est Patient Level 1 Diagnoses Current use of anticoagulant therapy Z79.01 Results AMB INR Fingerstick AMB INR Fingerstick 4.4 Last Edit by Lola Tran RN on 05/24/24 10:28 interface delay Assessment & Plan Assessment & Plan (1) Current use of anticoagulant therapy: Code(s): Z79.01 - longterm (current) use of anticoagulants Category: Medical
== END 2024-05-24 10:38 | disposition home or self-care (01) ==
LOC: HO.ACS 10:13
PROVIDERS: PCP Internal Medicine; Visit Provider Internal Medicine
DX: Z79.01 Long term (current) use of anticoagulants (principal)

== ENCOUNTER → 2024-05-24 10:13 | Outpatient (BNVA) | payer MEDICARE, SELFPAY ==
[2023-06-23 08:35] VITALS: BP 110/58; BP 116/60; BP 94/50; BMI 35.1
== END ==
PROVIDERS: PCP Internal Medicine; Visit Provider Internal Medicine
DX: I48.0 Paroxysmal atrial fibrillation (principal); Z79.01 Long term (current) use of anticoagulants; Z51.81 Encounter for therapeutic drug level monitoring
CPT/HCPCS: 85610; 99211

== ENCOUNTER 2024-07-06 14:35 | Outpatient (AMB) | payer MEDICARE, SELFPAY ==
[2023-06-23 08:35] VITALS: BP 110/58; BP 116/60; BP 94/50; BMI 35.1
--- OUTSIDE RECORDS SUMMARY | 2024-07-06 14:36 | XMS_ITS | Clinical Summary ---
Author Organization [facility] Address [address] [place] [address] Care Team Providers Care Dye Feeder Name Role Phone Unavailable Primary Care Provider Unavailabl e Source Comments PLEASE NOTE, if this patient is a minor, it may be UNLAWFUL to discuss sensitive information that is contained in these records (such as FAMILY PLANNING, MENTAL HEALTH or SUBSTANCE ABUSE) with the minor patient's parent or other person without the patient's specific authorization.[facility] Allergies Active Allergy Reactions Criticality Noted Date Comments Latex 09/22/2018 Medications carvediloL (COREG) 25 mg tablet TAKE 1 TABLET(25 MG) BY MOUTH DAILY 07/21/2019 Active esomeprazole magnesium (NEXIUM) [address] capsule Take 1 Cap by mouth Active lisinopriL 40 mg tablet TAKE 1 TABLET(40 MG) BY MOUTH DAILY 07/06/2019 Active Social History Tobacco Use Types Packs/Day Years Used Date Smoking Tobacco: Never Assessed Social Connections Answer Date Recorded Social Connections and Isolation 0 08/12/2019 Financial Resource Strain Answer Date R ecorded Financial Resource Strain 0 2019 Stress Answer Date Recorded Stress 0 08/12/2019 Physical Activity Answer Date Recorded Physical Activity 0 08/12/2019 Food Insecurity Answer Date Recorded Food 0 08/12/2019 Transportation Needs Answer Date Record ed Transportation 0 08/12/2019 Housing Stability Answer Date Recorded Housing 0 08/12/2019 Safety and Environment Answer Date Juarez rded Safety 0 08/12/2019 Utilities Answer Date Recorded Utilities 0 08/12/2019 Employment Answer Date Recorded Employment 0 08/12/2019 Comments Unknown Sex and Gender Information Value Date Recorded Sex Assigned at Not on file Legal Sex Female 1:46 PM PDT Gender Identity Not on file Sexual Orientation Not on file Last Filed Vital Signs Vital Sign Reading Time Taken Comments Blood Pressure 164/98 08/12/2019 2:10 PM PDT Pulse 78 08/12/2019 2:10 PM PDT Temperature 36.9 ??C (98.4 ??F) 08/12/2019 2:10 PM PD T Respiratory Rate 20 08/12/2019 2:10 PM PDT Oxygen Saturation 97% 08/12/2019 2:10 PM PDT Inhaled Oxygen Concentration - - Weight - - Height - - Body Mass Index - - Plan of Treatment Not on file Insurance [employer] COMMERCIAL CLAIMS Member Subscriber Plan / Payer (Ef fective 2019-Present) Name:Marie العراقي Relation to Subscriber:Self Name:Marie العراقي Payer ID:[id number] Group ID:Not on file Type:Thang Address: [facility] [address] [place] [address]
--- NOTE | 2024-07-06 14:42 | MHC.OFFVISCO ---
Intake Intake Visit Reasons: Anticoagulation Allergies adhesive tape [ADHESIVE TAPE] Adverse Reaction (Unknown, Verified 07/06/24 14:38) RASH latex Adverse Reaction (Unknown, Verified 07/06/24 14:38) Rash perflutren Adverse Reaction (Verified 07/06/24 14:38) Back Pain and leg pain Medication List - Last Reconciled 07/06/24 by Andreina Montana RN amiodarone 200 mg PO DAILY atorvastatin 40 mg PO BEDTIME 90 days carvedilol (Coreg) 6.25 mg PO BID 90 days esomeprazole magnesium (Nexium) 20 mg PO DAILY furosemide (Lasix) 20 mg PO Q OTHER DAY PRN sacubitril-valsartan 49-51 mg (Entresto) 1 tab PO BID warfarin 5 mg See Protocol PO DIRECTED Nursing Note INR 3.6- out of therapeutic range OF 2-3 Medications and supplements reviewed Patient status: pt has not been to acs since 05/24/24. states had cold symptoms, GI symptoms with diarrhea. now s/s resolved pt understands importance if inr monitoring Medications or supplements: no changes Diet: appetite is better Denies any signs and symptoms of bleeding or clotting or unusual bruising Bleeding, bruising, clotting discussed Nutritional guidance given: eat greens to lower, no reds for 2 days Dose: hold 2.5mg today then cont 2.5mg x 6, 5mg x 1 F/U INR Date : 2 weeks?? Patient verbalizing understanding of instructions given. Anti-Coag Initial Assessment Social Hx Patient Tobacco Use Status: Never used Tobacco alcohol intake: current Alcohol intake frequency: a few times a month (MAYBE 1 A WEEK) Cardiovascular Hx: CHF (2002), Arrhythmias (ABLATION AT [facility] 06/18/2023 ), Cardiomyopathy (DX 2002 S/P CHEMO TREAT) and Varicose Veins Lung Disease HX: DVT/PE (HX DVT BEHIND EYE 2002 S/P [facility] ) Blood Disorder Hx: Anemia (ONLY DURING THE CHEMO ) and Hyperlipidemia (CHOLESTORAL MED ) Hx: Other (HYSTERECTOMY 1999 FIBROID TUMORS- LEFT OVARIES, 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 Illness/Depression: No Coding Level of Care Code Est Patient Level 1 Diagnoses Current use of anticoagulant therapy Z79.01 Assessment & Plan Assessment & Plan (1) Current use of anticoagulant therapy: Code(s): Z79.01 - manager intermediate (current) use of anticoagulants Category: Medical
[2024-07-06 14:43] LABS: Prothrombin Time Whole Bld POC 43.3 sec (11.1-13.5); ~PT, ~INR - Anti Coag Clinic 3.6 (0.9-1.1)
== END 2024-07-06 14:49 | disposition home or self-care (01) ==
LOC: HO.ACS 14:35
PROVIDERS: PCP Internal Medicine; Visit Provider Internal Medicine
DX: Z79.01 Long term (current) use of anticoagulants (principal)

== ENCOUNTER → 2024-07-06 14:35 | Outpatient (BNVA) | payer MEDICARE, SELFPAY ==
[2023-06-23 08:35] VITALS: BP 110/58; BP 116/60; BP 94/50; BMI 35.1
== END ==
PROVIDERS: PCP Internal Medicine; Visit Provider Internal Medicine
DX: I48.0 Paroxysmal atrial fibrillation (principal); Z79.01 Long term (current) use of anticoagulants; Z51.81 Encounter for therapeutic drug level monitoring
CPT/HCPCS: 85610; 99211

== ENCOUNTER 2024-07-20 15:22 | Outpatient (AMB) | payer MEDICARE, SELFPAY ==
[2023-06-23 08:35] VITALS: BP 110/58; BP 116/60; BP 94/50; BMI 35.1
--- NOTE | 2024-07-20 15:28 | MHC.OFFVISCO ---
Intake Intake Visit Reasons: Anticoagulation Allergies adhesive tape [ADHESIVE TAPE] Adverse Reaction (Unknown, Verified 07/20/24 15:22) RASH latex Adverse Reaction (Unknown, Verified 07/20/24 15:22) Rash perflutren Adverse Reaction (Verified 07/20/24 15:22) Back Pain and leg pain Medication List - Last Reconciled 07/20/24 by Andreina Montana RN amiodarone 200 mg PO DAILY atorvastatin 40 mg PO BEDTIME 90 days carvedilol (Coreg) 6.25 mg PO BID 90 days esomeprazole magnesium (Nexium) 20 mg PO DAILY PRN furosemide (Lasix) 20 mg PO Q OTHER DAY PRN sacubitril-valsartan 49-51 mg (Entresto) 1 tab PO BID warfarin 5 mg See Protocol PO DIRECTED Nursing Note INR 3.4-?? out of therapeutic range of 2-3 Medications and supplements reviewed Patient status: occ diarrhea this week Medications or supplements: no changes Diet: appetite is good, eats greens Denies any signs and symptoms of bleeding or clotting or unusual bruising Bleeding, bruising, clotting discussed Nutritional guidance given: eat greens today Dose: hold dose today then cont 2.5mg x 6, 5mg x 1 F/U INR Date : 2 weeks? Patient verbalizing understanding of instructions given. Anti-Coag Initial Assessment Social Hx Patient Tobacco Use Status: Never used Tobacco alcohol intake: current Alcohol intake frequency: a few times a month (MAYBE 1 A WEEK) Cardiovascular Hx: CHF (2002), Arrhythmias (ABLATION AT [facility] 06/18/2023 ), Cardiomyopathy (DX 2002 S/P CHEMO TREAT) and Varicose Veins Lung Disease HX: DVT/PE (HX DVT BEHIND EYE 2003 S/P [facility] ) Blood Disorder Hx: Anemia (ONLY DURING THE CHEMO ) and Hyperlipidemia (CHOLESTORAL MED ) Hx: Other (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 Illness/Depression: No Coding Level of Care Code Est Patient Level 1 Diagnoses Current use of anticoagulant therapy Z79.01 Results AMB INR Fingerstick AMB INR Fingerstick 3.4 Last Edit by Andreina Montana RN on 07/20/24 15:35 interface delay Assessment & Plan Assessment & Plan (1) Current use of anticoagulant therapy: Code(s): Z79.01 - [facility] (current) use of anticoagulants Category: Medical
--- OUTSIDE RECORDS SUMMARY | 2024-07-20 18:36 | XMS_ITS | Clinical Summary ---
Author Organization [facility] Address [address] [place] [address] Care Team Providers Care Media Traffic Manager Name Role Phone Unavailable Primary Care Provider [...] Plan of Treatment Not on file Insurance [employer] COMMERCIAL CLAIMS Member Subscriber Plan / Payer (Ef fective 2019-Present) Name:Marie العراقي Relation to Subscriber:Self Name:Marie العراقي Payer ID:[id number] Group ID:Not on file Type:Thang Address: [facility] [address] [place] [address]
[2024-07-21 08:26] LABS: ~PT, ~INR - Anti Coag Clinic 3.4 (0.9-1.1)
== END 2024-07-20 15:40 | disposition home or self-care (01) ==
LOC: HO.ACS 15:22
PROVIDERS: PCP Internal Medicine; Visit Provider Internal Medicine
DX: Z79.01 Long term (current) use of anticoagulants (principal)

== ENCOUNTER → 2024-07-20 15:22 | Outpatient (BNVA) | payer MEDICARE, SELFPAY ==
[2023-06-23 08:35] VITALS: BP 110/58; BP 116/60; BP 94/50; BMI 35.1
== END ==
PROVIDERS: PCP Internal Medicine; Visit Provider Internal Medicine
DX: I48.0 Paroxysmal atrial fibrillation (principal); Z79.01 Long term (current) use of anticoagulants; Z51.81 Encounter for therapeutic drug level monitoring
CPT/HCPCS: 85610; 99211

== ENCOUNTER 2024-08-03 15:24 | Outpatient (AMB) | payer MEDICARE, SELFPAY ==
[2023-06-23 08:35] VITALS: BP 110/58; BP 116/60; BP 94/50; BMI 35.1
[2024-08-03 15:30] LABS: ~PT, ~INR - Anti Coag Clinic 2.5 (0.9-1.1)
--- NOTE | 2024-08-03 15:37 | MHC.OFFVISCO ---
Intake Intake Visit Reasons: Anticoagulation Allergies adhesive tape [ADHESIVE TAPE] Adverse Reaction (Unknown, Verified 08/03/24 15:23) RASH latex Adverse Reaction (Unknown, Verified 08/03/24 15:23) Rash perflutren Adverse Reaction (Verified 08/03/24 15:23) Back Pain and leg pain Medication List - Last Reconciled 08/03/24 by Lola García, RN amiodarone 200 mg PO DAILY atorvastatin 40 mg PO BEDTIME 90 days carvedilol (Coreg) 6.25 mg PO BID 90 days esomeprazole magnesium (Nexium) 20 mg PO DAILY PRN furosemide (Lasix) 20 mg PO Q OTHER DAY PRN sacubitril-valsartan 49-51 mg (Entresto) 1 tab PO BID warfarin 5 mg See Protocol PO DIRECTED Nursing Note Amb to ACS feeling well, sts so much better than last few visits Medications and supplements reviewed No changes in health, diet, medications, or supplements, no further diarrhea Denies any signs and symptoms of bleeding, bruising, or clotting. Bleeding, bruising, clotting discussed INR: 2.5 in therapeutic range Dose: continue usual dosing 5mg x 1 day an 2.5mg x 6 days balance greens and reds in diet, review food list, be consistent with greens F/U INR:2 weeks Patient verbalizes understanding of instructions given Anti-Coag Initial Assessment Social Hx Patient Tobacco Use Status: Never used Tobacco alcohol intake: current Alcohol intake frequency: a few times a month (MAYBE 1 A WEEK) Cardiovascular Hx: CHF (2002), Arrhythmias (ABLATION AT [facility] 06/18/2023 ), Cardiomyopathy (DX 2002 S/P CHEMO TREAT) and Varicose Veins Lung Disease HX: DVT/PE (HX DVT BEHIND EYE 2003 S/P [facility] ) Blood Disorder Hx: Anemia (ONLY DURING THE CHEMO ) and Hyperlipidemia (CHOLESTORAL MED ) Hx: Other (HYSTERECTOMY 1999 FIBROID TUMORS- LEFT OVARIES, 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
--- OUTSIDE RECORDS SUMMARY | 2024-08-03 17:23 | XMS_ITS | Clinical Summary ---
Author Organization [facility] Address [address] [place] [address] Care Team Providers Care Diamond Finishing Supervisor Name Role Phone Unavailable Primary Care Provider [...] Plan of Treatment Not on file Insurance [employer] COMMERCIAL CLAIMS Member Subscriber Plan / Payer (Ef fective 2019-Present) Name:Marie العراقي Relation to Subscriber:Self Name:Marie العراقي Payer ID:[id number] Group ID:Not on file Type:Thang Address: [facility] [address] [place] [address]
== END 2024-08-03 15:42 | disposition home or self-care (01) ==
LOC: HO.ACS 15:24
PROVIDERS: PCP Internal Medicine; Visit Provider Internal Medicine Medical Oncology
DX: Z79.01 Long term (current) use of anticoagulants (principal)

== ENCOUNTER → 2024-08-03 15:24 | Outpatient (BNVA) | payer MEDICARE, SELFPAY ==
[2023-06-23 08:35] VITALS: BP 110/58; BP 116/60; BP 94/50; BMI 35.1
== END ==
PROVIDERS: PCP Internal Medicine; Visit Provider Internal Medicine Medical Oncology
DX: I48.0 Paroxysmal atrial fibrillation (principal); Z79.01 Long term (current) use of anticoagulants; Z51.81 Encounter for therapeutic drug level monitoring
CPT/HCPCS: 85610; 99211

== ENCOUNTER 2024-08-26 13:59 | Outpatient (AMB) | payer MEDICARE, SELFPAY ==
[2023-06-23 08:35] VITALS: BP 110/58; BP 116/60; BP 94/50; BMI 35.1
--- NOTE | 2024-08-26 14:13 | MHC.OFFVISCO ---
Intake Intake Visit Reasons: Anticoagulation Allergies adhesive tape [ADHESIVE TAPE] Adverse Reaction (Unknown, Verified 08/03/24 15:23) RASH latex Adverse Reaction (Unknown, Verified 08/03/24 15:23) Rash perflutren Adverse Reaction (Verified 08/03/24 15:23) Back Pain and leg pain Post menopausal: Yes Patient : No Nursing Note INR: 2.3 in therapeutic range Medications and supplements reviewed No changes in health, diet, medications, or supplements, Denies any signs and symptoms of bleeding or bruising or clotting. Bleeding, bruising, clotting discussed Nutritional guidance given Dose: 5mg x 1 day/ 2.5mg x 6 days F/U INR: 3 weeks Patient verbalizes understanding of instructions given Anti-Coag Initial Assessment Social Hx Patient Tobacco Use Status: Never used Tobacco alcohol intake: current Alcohol intake frequency: a few times a month (MAYBE 1 A WEEK) Cardiovascular Hx: CHF (2002), Arrhythmias (ABLATION AT [facility] 06/18/2023 ), Cardiomyopathy (DX 2002 S/P CHEMO TREAT) and Varicose Veins Lung Disease HX: DVT/PE (HX DVT BEHIND EYE 2002 S/P [facility] ) Blood Disorder Hx: Anemia (ONLY DURING THE CHEMO ) and Hyperlipidemia (CHOLESTORAL MED ) Hx: Other (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 Illness/Depression: No Post menopausal: Yes Patient : No Questionnaires HAS-BLED Does the patient had uncontrolled Hypertension?: No Does the patient have renal disease?: No Does the patient have liver disease?: No Does the patient have a history of stroke?: No Has the patient had major bleeding or predisposition to bleeding?: No Does the patient have labile INRs?: Yes Is the patient over 65 years of age?: Yes Is the patient on medications that gives them a predisposition to bleeding?: Yes Does the patient use alcohol?: Yes HAS-BLED Score: 4 CHADSVASC Age: <65 Gender: Female Does the patient have a history of CHF?: Yes Does the patient have a history of Hypertension?: Yes Does the patient have a history of Stroke/TIA/Thromboembolism?: Yes (behind eye 2002 s/p chemo ) Does the patient have a history of Vascular Disease (prior [place], PAD or aortic plaque)?: Yes Does the patient have a history of Diabetes?: No CHADS VACS Score: 6 Himanshu Prediction Score Rsk VTE Active Cancer: No Previous VTE, excluding superficial vein thrombosis: Yes (pt states behind left eye) Reduced mobility: No Already known Thrombophilic Condition: No With-in last month Trauma and/or Surgery: No Elderly 70 year or older: No Heart and/or Respiratory Failure: Yes Acute Myocardial infarction and/or Ischemic Stroke: No Acute Infection and/or Rheumatologic Disorder: No Obesity (BMI 30 or greater): Yes Ongoing Hormonal Treatment: No Score: 5 Himanshu Score less than 4; Low Risk of VTE Himanshu Score 4 or greater; High Risk of VTE Coding Level of Care Code Est Patient Level 1 Diagnoses Current use of anticoagulant therapy Z79.01 Results AMB INR Fingerstick AMB INR Fingerstick 2.3 Last Edit by Georgiana Casanova RN on 08/26/24 14:09 manual entry Assessment & Plan Assessment & Plan (1) Current use of anticoagulant therapy: Code(s): Z79.01 - 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
--- OUTSIDE RECORDS SUMMARY | 2024-08-26 14:22 | XMS_ITS | Clinical Summary ---
Author Organization [facility] Address [address] [place] [address] Care Team Providers Care Painting Machine Operator Name Role Phone Unavailable Primary Care Provider [...] Plan of Treatment Not on file Insurance [email or web address] COMMERCIAL CLAIMS Member Subscriber Plan / Payer (Ef fective 2019-Present) Name:Marie العراقي Relation to Subscriber:Self Name:Marie العراقي Payer ID:[id number] Group ID:Not on file Type:Thang Address: [facility] [address] [place] [address]
[2024-08-26 14:51] LABS: Prothrombin Time Whole Bld POC 27.2 sec (11.1-13.5); ~PT, ~INR - Anti Coag Clinic 2.3 (0.9-1.1)
== END 2024-08-26 14:19 | disposition home or self-care (01) ==
LOC: HO.ACS 13:59
PROVIDERS: PCP Internal Medicine; Visit Provider Internal Medicine Medical Oncology
DX: Z79.01 Long term (current) use of anticoagulants (principal)

== ENCOUNTER → 2024-08-26 13:59 | Outpatient (BNVA) | payer MEDICARE, SELFPAY ==
[2023-06-23 08:35] VITALS: BP 110/58; BP 116/60; BP 94/50; BMI 35.1
== END ==
PROVIDERS: PCP Internal Medicine; Visit Provider Internal Medicine Medical Oncology
DX: I48.0 Paroxysmal atrial fibrillation (principal); Z51.81 Encounter for therapeutic drug level monitoring; Z79.01 Long term (current) use of anticoagulants
CPT/HCPCS: 85610; 99211

== ENCOUNTER 2024-09-22 09:11 | Outpatient (AMB) | payer MEDICARE, SELFPAY ==
[2023-06-23 08:35] VITALS: BP 110/58; BP 116/60; BP 94/50; BMI 35.1
[2024-09-22 09:19] LABS: Prothrombin Time Whole Bld POC 59.2 sec (11.1-13.5); ~PT, ~INR - Anti Coag Clinic 4.9 (0.9-1.1)
--- NOTE | 2024-09-22 09:27 | MHC.OFFVISCO ---
Intake Intake Visit Reasons: Anticoagulation Allergies adhesive tape [ADHESIVE TAPE] Adverse Reaction (Unknown, Verified 09/22/24 09:12) RASH latex Adverse Reaction (Unknown, Verified 09/22/24 09:12) Rash perflutren Adverse Reaction (Verified 09/22/24 09:12) Back Pain and leg pain Medication List - Last Reconciled 09/22/24 by Georgiana Casanova RN amiodarone 200 mg PO DAILY atorvastatin 40 mg PO BEDTIME 90 days carvedilol 6.25 mg PO BID esomeprazole magnesium (Nexium) 20 mg PO DAILY PRN furosemide (Lasix) 20 mg PO Q OTHER DAY PRN sacubitril-valsartan 49-51 mg (Entresto) 1 tab PO BID warfarin 5 mg See Protocol PO DIRECTED Nursing Note INR: 4.9 out of therapeutic range Medications and supplements reviewed *Has a family member about to pass on hospice - had a few drinks with family planning hospice preparations * May have not had enough greens or more reds *took a few doses of tylenol Denies any signs and symptoms of bleeding of bruising or clotting. Bleeding, bruising, clotting discussed Nutritional guidance given - have more greens when taking more tylenol and or ETOH Dose: hold today and tomorrow then resume usual dose 5mg x 1 day/ 2.5mg x 6 days F/U INR: 1 week Patient verbalizes understanding of instructions given with read back aware of bleeding risks Anti-Coag Initial Assessment Social Hx Patient Tobacco Use Status: Never used Tobacco alcohol intake: current Alcohol intake frequency: a few times a month (MAYBE 1 A WEEK) Cardiovascular Hx: CHF (2002), Arrhythmias (ABLATION AT [facility] 06/18/2023 ), Cardiomyopathy (DX 2002 S/P CHEMO TREAT) and Varicose Veins Lung Disease HX: DVT/PE (HX DVT BEHIND EYE 2003 S/P [facility] ) Blood Disorder Hx: Anemia (ONLY DURING THE CHEMO ) and Hyperlipidemia (CHOLESTORAL MED ) Hx: Other (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 Illness/Depression: No Coding Level of Care Code Est Patient Level 1 Diagnoses Current use of anticoagulant therapy Z79.01 Results AMB INR Fingerstick AMB INR Fingerstick 4.9 Last Edit by Georgiana Casanova RN on 09/22/24 09:24 manual entry Assessment & Plan Assessment & Plan (1) Current use of anticoagulant therapy: Code(s): Z79.01 - [facility] (current) use of anticoagulants Category: Medical
--- OUTSIDE RECORDS SUMMARY | 2024-09-22 09:42 | XMS_ITS | Clinical Summary ---
Author Organization [facility] Address [address] [place] [address] Care Team Providers Care Senior Systems Programmer Name Role Phone Unavailable Primary Care Provider [...] Plan of Treatment Not on file Insurance [employer] COMMERCIAL CLAIMS Member Subscriber Plan / Payer (Ef fective 2019-Present) Name:Marie العراقي Relation to Subscriber:Self Name:Marie العراقي Payer ID:[id number] Group ID:Not on file Type:Thang Address: [facility] [address] [place] [address]
== END 2024-09-22 10:11 | disposition home or self-care (01) ==
LOC: HO.ACS 09:11
PROVIDERS: PCP Internal Medicine; Visit Provider Internal Medicine Medical Oncology
DX: Z79.01 Long term (current) use of anticoagulants (principal)

== ENCOUNTER → 2024-09-22 09:11 | Outpatient (BNVA) | payer MEDICARE, SELFPAY ==
[2023-06-23 08:35] VITALS: BP 110/58; BP 116/60; BP 94/50; BMI 35.1
== END ==
PROVIDERS: PCP Internal Medicine; Visit Provider Internal Medicine Medical Oncology
DX: I48.0 Paroxysmal atrial fibrillation (principal); Z79.01 Long term (current) use of anticoagulants; Z51.81 Encounter for therapeutic drug level monitoring; I50.20 Unspecified systolic (congestive) heart failure
CPT/HCPCS: 85610; 93005; 99211; 99212

== ENCOUNTER 2024-09-22 09:38 | Outpatient (AMB) | payer MEDICARE, SELFPAY ==
[2023-06-23 08:35] VITALS: BP 110/58; BP 116/60; BP 94/50; BMI 35.1
[2024-09-22 09:58] VITALS: BP 120/80; PULSE 68; BMI 34.8
--- NOTE | 2024-09-22 09:58 | A.OFFVIS_ITS ---
Vital Signs 09/22/24 09:58 Height 5 ft 3 in Weight 196 lb 3.382 oz BMI 34.8 BP 120/80 Blood Pressure Location Lt brachial Position Sitting Pulse 68 Intake Visit Reasons: Follow up Intake Note: Follow-up with ekg feeling good Vacuum Cooker Operator Required: No Allergies adhesive tape [ADHESIVE TAPE] Adverse Reaction (Unknown, Verified 09/22/24 09:12) RASH latex Adverse Reaction (Unknown, Verified 09/22/24 09:12) Rash perflutren Adverse Reaction (Verified 09/22/24 09:12) Back Pain and leg pain Medication List - Last Reconciled 09/22/24 by Thuan Pena MD amiodarone 200 mg PO DAILY atorvastatin 40 mg PO BEDTIME 90 days carvedilol 6.25 mg PO BID esomeprazole magnesium (Nexium) 20 mg PO DAILY PRN furosemide (Lasix) 20 mg PO Q OTHER DAY PRN sacubitril-valsartan 49-51 mg (Entresto) 1 tab PO BID warfarin 5 mg See Protocol PO DIRECTED HPI Comments Details: Marie comes for follow-up. She comes after a very long gap. Not sure who was providing her with prescriptions for medications. She says she takes all her medications. She going to after more than a year. She says she has not had any episodes of atrial fibrillation in the last year. She has taking warfarin [facility]. Her last INR this morning was 4.9. She has been taking Entresto, carvedilol, atorvastatin. She takes Lasix every other day. Says and if she would not take Lasix she would get leg swelling in his left extremity only. Denies any orthopnea, PND. No prolonged palpitation irregular heartbeat, lightheadedness, syncope. [facility] Medical History Hyperlipemia Community acquired pneumonia GERD (gastroesophageal reflux disease) Hypertension Cardiomyopathy due to chemotherapy Cardiomyopathy Congestive heart failure Surgical History S/P ablation of atrial fibrillation No pertinent past surgical history Family History Father Heart disease Mother Stroke Daughter No problems noted. Son No problems noted. Son No problems noted. 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 Current occupational exposures/hazards: No Cognitive needs: No Hearing needs: No Vision needs: Yes Review of Systems Const Denies chills, Denies fatigue, Denies fever(s), Denies frequent falls, Denies weakness, Denies weight gain and Denies weight loss ENT Denies dizziness Card Denies chest pain, Denies leg edema, Denies lightheadedness, Denies palpitations, Denies dyspnea, Denies dyspnea on exertion, Denies orthopnea and Denies other (loss of consciousness) Resp Denies cough, Denies dyspnea and Denies dyspnea on exertion GI Denies hematochezia and Denies change in stool character Musc Denies abnormal gait, Denies muscle weakness, Denies numbness, Denies radiating pain into limb and Denies tingling Neuro Denies abnormal gait, Denies dizziness, Denies frequent falls, Denies numbness, Denies tingling and Denies weakness Endo Denies fatigue and Denies palpitations Physical Exam Vital Signs: Last Vital Signs Pulse 68 09/22/24 09:58 BP 120/80 09/22/24 09:58 BMI result Body Mass Index 34.8 Const General: cooperative, comfortable, no acute distress, alert, awake and well groomed Nutritional Appearance: overweight Orientation/consciousness: patient oriented x3 Limitations: no limitations Neck Neck: Yes trachea midline, Yes supple and Yes no JVD Resp Effort & Inspection: normal respiratory effort Auscultation: clear to auscultation bilaterally Cardio Jugular venous distension: no JVD Rate: regular rate Rhythm: regular rhythm Heart sounds: S1 normal heart sound present, S2 normal heart sound present, no click, no gallops and no murmurs GI Auscultation: normal bowel sounds Skin General skin exam: no rashes or lesions noted Neuro General: patient oriented x3 and no focal motor deficits Extrem General: Yes no clubbing, cyanosis or edema Office Procedures EKG Details: EKG shows normal sinus rhythm with first-degree AV block with nonspecific intraventricular conduction block with poor R-wave progression with suggestion of lateral as well as septal infarct, could be due to cardiomyopathy process 22433-[id number], Complete Results AMB INR Fingerstick AMB INR Fingerstick 4.9 Last Edit by Georgiana Casanova RN on 09/22/24 09:24 manual entry Assessment & Plan Assessment & Plan (1) Heart failure with reduced ejection fraction: Code(s): I50.20 - Unspecified systolic (congestive) heart failure Category: Medical Plan: Heart failure with reduced ejection fraction, clinically euvolemic and well compensated. Continue on current neurohormonal modulation with Entresto as well as carvedilol. Question chemotherapy-induced versus atrial fibril lation/tachycardia mediated cardiomyopathy. Unclear. Follow-up echocardiogram near future. Continue current low-dose diuretic therapy. Daily weight monitoring avoidance salt loading was discussed. Continue rhythm control approach. Importance of compliance with follow-up was discussed. If she has poor compliance, would ask her to switch to a different it audit manager in the future. (2) Paroxysmal atrial fibrillation: Code(s): I48.0 - Paroxysmal atrial fibrillation Category: Medical Plan: Paroxysmal atrial fibrillation which has remained suppressed status post ablation. Has not had any episodes of atrial fibrillation on amiodarone therap y. High risk for non follow-up with therapy was discussed with her. Toxicity associated with amiodarone was discussed. For now will reduce amiodarone 200 mg daily. Obtain blood work as his chest x-ray today. Continue to avoid stimulants. Eventually will switch to an alternative antiarrhythmic drug therapy if her left atrial chamber size is not significantly enlarged and/or LV ejection fraction is improved. Continue warfarin therapy as she says that Eliquis is too expensive. Being [facility]. Maintain target INR between 2 and 3. Follow up in the clinic in 3 months time, sooner p.r.n.. Thank you for allowing me to partake in her care Orders: Orders Basic Metabolic Panel Today I48.0 - Paroxysmal atrial fibrillation Complete Blood Count no Diff Today I48.0 - Paroxysmal atrial fibrillation B Type Natriuretic Peptide Today I48.0 - Paroxysmal atrial fibrillation TSH reflex Free T4 Today I48.0 - Paroxysmal atrial fibrillation CA echo transthoracic complete Today I50.20 - Unspecified systolic (congestive) heart failure Liver Panel Today I48.0 - Paroxysmal atrial fibrillation XR chest 2V Today I48.0 - Paroxysmal atrial fibrillation Medications: New amiodarone 100 mg PO DAILY 30 tabs 2RF I48.0 - Paroxysmal atrial fibrillation Discontinued amiodarone Discontinued Reason: Doctor's Order 200 mg PO DAILY 90 tabs 1RF Coding Level of Care Code Est Pt Level 4 (89176) Complex EM visit Add On G2211 Diagnoses Heart failure with reduced ejection fraction I50.20 Paroxysmal atrial fibrillation I48.0 CPT Codes EKG - CPT: 43188-Juxzzrizkybbauqox, Complete ([id number])
--- OUTSIDE RECORDS SUMMARY | 2024-09-22 10:23 | XMS_ITS | Clinical Summary ---
Author Organization [facility] Address [address] [place] [address] Care Team Providers Care Audio Visual Aids Director Name Role Phone Unavailable Primary Care Provider [...] Plan of Treatment Not on file Insurance [employer] COMMERCIAL CLAIMS Member Subscriber Plan / Payer (Ef fective 2019-Present) Name:Marie العراقي Relation to Subscriber:Self Name:Marie العراقي Payer ID:[id number] Group ID:Not on file Type:Thang Address: [facility] [address] [place] [address]
== END 2024-09-22 10:26 | disposition home or self-care (01) ==
LOC: HO.HCS 09:39
PROVIDERS: PCP Internal Medicine; Visit Provider Internal Medicine Cardiovascular Disease
DX: I50.20 Unspecified systolic (congestive) heart failure (principal); I48.0 Paroxysmal atrial fibrillation
CPT/HCPCS: 93010; 99214; G2211

== ENCOUNTER 2024-09-23 | Outpatient (REF) | payer MEDICARE, SELFPAY ==
[2023-06-23 08:35] VITALS: BP 110/58; BP 116/60; BP 94/50; BMI 35.1
--- NOTE | ~2024-09-23 | XR_ITS ---
EXAMINATION: XR CHEST CLINICAL INFORMATION: I48.0 - Paroxysmal atrial fibrillation COMPARISON: May 19, 2022. TECHNIQUE: 2 views of the chest were obtained. FINDINGS: Bilateral pulmonary reticular pattern. Mild prominence of the interstitial markings. No consolidation pleural effusion or pneumothorax. No hyperinflation. Cardiomediastinal silhouette size is normal. Right-sided central venous line has been removed. Multilevel thoracic and upper lumbar stenosis. Degenerative changes in the common clavicular joint radiopaque material overlapping the lower cervical spine. XR/XR chest 2V IMPRESSION: Acute on chronic airspace disease should be considered. Electronically signed by: Nir Wiseman MD 09/23/2024 09:14 AM EDT RP
[2024-09-23 09:47] LABS: Mean Corpuscular HGB Conc 32.5 g/dl (31.0-35.0); Mean Corpuscular Hemoglobin 32.2 pg (27.0-33.0); Mean Platelet Volume 10.8 fL (9.4-12.3); Platelet Count 218 X10*3/uL (160-400); Red Blood Count 4.04 X10*6/uL (4.20-5.50); Red Cell Distribution Width 14.1 % (11.0-16.0); White Blood Count 7.3 X10*3/uL (4.8-10.8)
[2024-09-23 10:11] LABS: B Type Natriuretic Peptide 532 pg/mL (<100)
[2024-09-23 10:18] LABS: Alanine Aminotransferase 19 U/L (0-31); Alkaline Phosphatase 61 U/L (39-117); Anion Gap 12 (12-20); Aspartate Amino Transferase 18 U/L (5-31); Bilirubin Direct 0.2 mg/dL (0.0-0.5); Bilirubin Total 0.5 mg/dL (0.0-1.0); Blood Urea Nitrogen 20 mg/dL (9-16); Calcium 9.3 mg/dL (8.4-10.2); Carbon Dioxide 29 mmol/L (22-29); Chloride 101 mmol/L (96-108); Estimated Glomerular Filt Rate > 60; Glucose Random 138 mg/dL (60-115); Sodium 137 mmol/L (135-145); Total Protein 6.7 g/dL (6.5-8.0)
[2024-09-23 10:39] LABS: TSH reflex Free T4 4.27 uIU/mL (0.32-4.0)
[2024-09-23 11:14] LABS: Free T4 (Free Thyroxine) 1.09 ng/dL (0.71-1.85)
--- OUTSIDE RECORDS SUMMARY | 2024-11-14 13:11 | XMS_ITS | Clinical Summary ---
Author Organization [facility] Address [address] [place] [address] Care Team Providers Care Screener Operator Name Role Phone Unavailable Primary Care [...] ID:[id number] Group ID:Not on file Type:Thang Address: [facility] [address] [place] [address]
== END 2024-09-23 00:01 | disposition home or self-care (01) ==
LOC: HO.XRAY
PROVIDERS: PCP Internal Medicine; Visit Provider Internal Medicine Cardiovascular Disease
DX: I48.0 Paroxysmal atrial fibrillation (principal); I11.0 Hypertensive heart disease with heart failure; I50.20 Unspecified systolic (congestive) heart failure
CPT/HCPCS: 36415; 71046; 80048; 80076; 83880; 84439; 84443; 85027

== ENCOUNTER → 2024-09-23 08:56 | Outpatient (BNV) | payer MEDICARE, SELFPAY ==
[2023-06-23 08:35] VITALS: BP 110/58; BP 116/60; BP 94/50; BMI 35.1
== END ==
PROVIDERS: PCP Internal Medicine; Visit Provider Radiology Diagnostic Radiology
DX: I48.0 Paroxysmal atrial fibrillation (principal)
CPT/HCPCS: 71046

== ENCOUNTER 2024-09-28 13:22 | Outpatient (REF) | payer MEDICARE, SELFPAY ==
[2023-06-23 08:35] VITALS: BP 110/58; BP 116/60; BP 94/50; BMI 35.1
--- OUTSIDE RECORDS SUMMARY | 2024-09-28 13:33 | XMS_ITS | Clinical Summary ---
Author Organization [facility] Address [address] [place] [address] Care Team Providers Care Superintendent Division Name Role Phone Unavailable Primary Care Provider [...] Plan of Treatment Not on file Insurance [email or web address] COMMERCIAL CLAIMS Member Subscriber Plan / Payer (Ef fective 2019-Present) Name:Marie العراقي Relation to Subscriber:Self Name:Marie العراقي Payer ID:[id number] Group ID:Not on file Type:Thang Address: [facility] [address] [place] [address]
[2024-09-28 15:00] LABS: Anion Gap 13 (12-20); Blood Urea Nitrogen 19 mg/dL (9-16); Calcium 9.6 mg/dL (8.4-10.2); Carbon Dioxide 32 mmol/L (22-29); Chloride 101 mmol/L (96-108); Estimated Glomerular Filt Rate > 60; Glucose Random 122 mg/dL (60-115); Potassium 4.9 mmol/L (3.3-5.1); Sodium 141 mmol/L (135-145)
[2024-09-28 15:05] LABS: B Type Natriuretic Peptide 306 pg/mL (<100)
== END 2024-09-28 13:23 | disposition home or self-care (01) ==
LOC: HO.LAB 13:22
PROVIDERS: Visit Provider Internal Medicine Cardiovascular Disease
DX: I50.20 Unspecified systolic (congestive) heart failure (principal); Z79.01 Long term (current) use of anticoagulants
CPT/HCPCS: 36415; 80048; 83880; 85610; 99211

== ENCOUNTER 2024-09-28 13:28 | Outpatient (AMB) | payer MEDICARE, SELFPAY ==
[2023-06-23 08:35] VITALS: BP 110/58; BP 116/60; BP 94/50; BMI 35.1
[2024-09-28 13:34] LABS: Prothrombin Time Whole Bld POC 21.5 sec (11.1-13.5); ~PT, ~INR - Anti Coag Clinic 1.8 (0.9-1.1)
--- NOTE | 2024-09-28 13:53 | MHC.OFFVISCO ---
Intake Intake Visit Reasons: Anticoagulation Allergies adhesive tape [ADHESIVE TAPE] Adverse Reaction (Unknown, Verified 09/28/24 13:29) RASH latex Adverse Reaction (Unknown, Verified 09/28/24 13:29) Rash perflutren Adverse Reaction (Verified 09/28/24 13:29) Back Pain and leg pain Medication List - Last Reconciled 09/28/24 by Maya Felton RN amiodarone 100 mg PO DAILY atorvastatin 40 mg PO BEDTIME 90 days carvedilol 6.25 mg PO BID esomeprazole magnesium (Nexium) 20 mg PO DAILY PRN furosemide (Lasix) 20 mg PO DAILY Jardiance (empagliflozin) 10 mg PO DAILY NS sacubitril-valsartan 49-51 mg (Entresto) 1 tab PO BID warfarin 5 mg See Protocol PO DIRECTED Nursing Note PT.HAS HAD INCREASED SOB WITH MINIMAL EXERTION AND SOME ANKLE EDEMA. AMIODARONE HAS BEEN DECREASED TO 100MGM DAILY, WITH HOPES TO D/C SOON. HAS INCREASED LASIX TO 20MGM DAILY INSTEAD OF PRN. PT.NOTES SOME IMPROVEMENT, BUT STILL VERY TIRED. CARDIAC ECHO AND LUNG CT ARE PLANNED. PT.HAS NO SOB OR CP AT THIS TIME, AND DENIES ANY SX OF BLEEDING. BOOST WARFARIN TO 5MGM TODAY THEN RESUME USUAL DOSE AND FOLLOW-UP HERE IN 1 WEEK. NO GREENS 2 DAYS GOOD UNDERSTANDING OF DOSING INSTR. 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 Illness/Depression: No Coding Level of Care Code Est Patient Level 1 Diagnoses Current use of anticoagulant therapy Z79.01 Assessment & Plan Assessment & Plan (1) Current use of anticoagulant therapy: Code(s): Z79.01 - alf (current) use of anticoagulants Category: Medical
== END 2024-09-28 14:00 | disposition home or self-care (01) ==
LOC: HO.ACS 13:28
PROVIDERS: PCP Internal Medicine; Visit Provider Internal Medicine Medical Oncology
DX: Z79.01 Long term (current) use of anticoagulants (principal)

== ENCOUNTER 2024-10-06 14:14 | Outpatient (AMB) | payer MEDICARE, SELFPAY ==
[2023-06-23 08:35] VITALS: BP 110/58; BP 116/60; BP 94/50; BMI 35.1
[2024-10-06 14:33] LABS: Prothrombin Time Whole Bld POC 44.6 sec (11.1-13.5); ~PT, ~INR - Anti Coag Clinic 3.7 (0.9-1.1)
--- NOTE | 2024-10-06 14:45 | MHC.OFFVISCO ---
Intake Intake Visit Reasons: Anticoagulation Allergies adhesive tape [ADHESIVE TAPE] Adverse Reaction (Unknown, Verified 10/06/24 14:24) RASH latex Adverse Reaction (Unknown, Verified 10/06/24 14:24) Rash perflutren Adverse Reaction (Verified 10/06/24 14:24) Back Pain and leg pain Medication List - Last Reconciled 10/06/24 by Georgiana Casanova RN amiodarone 100 mg PO DAILY atorvastatin 40 mg PO BEDTIME 90 days carvedilol 6.25 mg PO BID esomeprazole magnesium (Nexium) 20 mg PO DAILY PRN furosemide (Lasix) 20 mg PO DAILY Jardiance (empagliflozin) 10 mg PO DAILY NS sacubitril-valsartan 49-51 mg (Entresto) 1 tab PO BID warfarin 5 mg See Protocol PO DIRECTED Nursing Note INR 3.7 out of therapeutic range Medications and supplements reviewed Patient status: had a close family member just pass away today Medications or supplements: amiodarone was decreaed few weeks ago from 200mg to 100mg with the plan to winnie off, also started Jardiance - which has no effect on INR but may so indirectly in how it affects her. Diet: good Denies any signs and symptoms of bleeding or clotting or unusual bruising Bleeding, bruising, clotting discussed Nutritional guidance given: have a serving of greens today Dose: keep same dose for now 5mg thursday/ 2.5mg x 6 days F/U INR Date : 2 weeks ?? Patient verbalizing understanding of instructions given. Anti-Coag Initial Assessment Social Hx Patient Tobacco Use Status: Never used Tobacco alcohol intake: current Alcohol intake frequency: a few times a month (MAYBE 1 A WEEK) Cardiovascular Hx: CHF (2002), Arrhythmias (ABLATION AT [facility] 06/18/2023 ), Cardiomyopathy (DX 2002 S/P CHEMO TREAT) and Varicose Veins Lung Disease HX: DVT/PE (HX DVT BEHIND EYE 2002 S/P [facility] ) Blood Disorder Hx: Anemia (ONLY DURING THE CHEMO ) and Hyperlipidemia (CHOLESTORAL MED ) Hx: Other (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 Illness/Depression: No Coding Level of Care Code Est Patient Level 1 Diagnoses Current use of anticoagulant therapy Z79.01 Results AMB INR Fingerstick AMB INR Fingerstick 3.7 Last Edit by Georgiana Casanova RN on 10/06/24 14:34 Assessment & Plan Assessment & Plan (1) Current use of anticoagulant therapy: Code(s): Z79.01 - [facility] (current) use of anticoagulants Category: Medical
== END 2024-10-06 14:56 | disposition home or self-care (01) ==
LOC: HO.ACS 14:14
PROVIDERS: Visit Provider Internal Medicine Medical Oncology
DX: Z79.01 Long term (current) use of anticoagulants (principal)

== ENCOUNTER → 2024-10-06 14:14 | Outpatient (BNVA) | payer MEDICARE, SELFPAY ==
[2023-06-23 08:35] VITALS: BP 110/58; BP 116/60; BP 94/50; BMI 35.1
== END ==
PROVIDERS: Visit Provider Internal Medicine Medical Oncology
DX: I48.0 Paroxysmal atrial fibrillation (principal); Z79.01 Long term (current) use of anticoagulants; Z51.81 Encounter for therapeutic drug level monitoring
CPT/HCPCS: 85610; 99211

== ENCOUNTER → 2024-10-21 08:57 | Outpatient (REF) | payer MEDICARE, SELFPAY ==
[2023-06-23 08:35] VITALS: BP 110/58; BP 116/60; BP 94/50; BMI 35.1
--- NOTE | 2024-10-21 08:59 | CA_ITS ---
Transthoracic Echocardiogram Patient (Last, First, Middle): Marie العراقي A Gender: Female Date of : 1955 Age: 69 Procedure Date: 10/21/2024 Procedure Type: Transthoracic Echocardiogram Location: OP Height: 160.02 cm Weight: 88.91 kg BSA: 1.92 m2 Heart Rate: bpm BP: 128 / 78 mmHg Sales Development Executive: TO Referring MD: Thuan Pena MD Symptoms: I50.20 - Unspecified systolic (congestive) heart failure Study Quality: Fair/DEFINITY ALLERGY Conclusions: - The left ventricular systolic function is moderately decreased. The calculated ejection fraction is 35% by biplane method. - Evidence suggests grade II (moderate) diastolic dysfunction. - No obvious valvular pathology seen on this study. Findings Left Ventricle Normal left ventricular cavity size. There is normal left ventricular wall thickness. The left ventricular systolic function is moderately decreased. The calculated ejection fraction is 35% by biplane method. There is moderate global hypokinesis. Evidence suggests grade II (moderate) diastolic dysfunction. Right Ventricle Normal right ventricular cavity size. There is mildly decreased right ventricular systolic function. Atria The left atrium is moderately dilated. The right atrium is normal in size. Aortic Valve There is a normal trileaflet aortic valve. There is no aortic valve stenosis. There is no aortic valve regurgitation. Mitral Valve There is mild mitral annular calcification. There is trace mitral valve regurgitation. There is no mitral valve stenosis. Pulmonic Valve There is trace pulmonic valve regurgitation. Tricuspid Valve There is no tricuspid valve regurgitation. Tricuspid regurgitation envelope is inadequate for calculation of right ventricular systolic pressure. Great Vessels The asc aorta is normal in size. Venous The inferior vena cava is normal in size and collapses greater than 50% with inspiration. Pericardium/Pleural There is a trivial pericardial effusion. Prior Study Comparison Changes noted compared to prior study dated: 09/07/2023. LVEF lower than previously reported. Recommendations, Care & Conclusions No obvious valvular pathology seen on this study. Measurements 2D Linear Measurements IVSd: 0.97 0.6-0.9/0.6-1.0 cm LVIDd: 5.46 3.9-5.3/4.2-5.9 cm LVIDd Index: 2.84 2.4-3.2/2.2-3.1 cm/m2 LVIDs: 4.19 2.0-3.6 cm LVPWd: 0.87 0.7-1.1 cm LA Diam: 5.00 2.7-3.8/3.0-4.0 cm LAIDs Index: 2.60 1.5-2.3 cm/m2 LV Mass: 236.13 67-162/88-224 g LV Mass Index: 122.98 43-95/49-115 g/m2 LVOT Diam: 2.10 3.0+(-)1.3 cm 2D Systolic Function EF 4C: 35.30 >55% EF 2C: 33.30 >55% EF BiP: 34.50 >55% Mitral Valve MV Pk E: 0.67 MV PK A: 0.27 MV Decel Time: 214.00 E/A: 2.40 E'Lateral: 8.49 E'Medial: 3.48 E/E' Med: 19.20 E/E' Lat: 7.90 PHT: 63.00 MVA PHT: 3.49 Decel Villalba: 3.13 Aortic Valve AoV Pk Tanner: 1.01 AoV Mn Tanner: 0.80 AoV VTI: 0.24 AoV Pk Grad: 4.00 Aov Mn Grad: 3.00 LOUISA Cont.VTI: 2.12 LVOT LVOT Pk Tanner: 0.60 LVOT Mn Tanner: 0.48 LVOT VTI: 0.15 LVOT Pk Grad: 1.00 LVOT Mn Grad: 1.00 LVOT Diam: 2.10 LVOT Area: 3.46 Diastolic Function MV Pk E: 0.67 MV Pk A: 0.27 E/A: 2.40 E'Medial: 3.48 E/E' Med: 19.20 E' Laterial: 8.49 E/E' Lat: 7.90 Right Ventricle TAPSE (mm): 18.90 TVS' Tanner: 9.79 Tricuspid Valve RA Press: 3.00 Great Vessels Aorta Sinus of Valsalva: 3.15 2.0-3.5 cm Ao Asc: 3.30 2.1-3.4 cm Updated in Other Vendor System with Status of Final Brennen Kapadia MD electronically signed on 10/22/2024 1:55:09 PM with status of Final
--- OUTSIDE RECORDS SUMMARY | 2024-10-21 09:16 | XMS_ITS | Clinical Summary ---
Author Organization [facility] Address [address] [place] [address] Care Team Providers Care Movable Bulkhead Installer Name Role Phone Unavailable Primary Care Provider [...] Plan of Treatment Not on file Insurance [employer] COMMERCIAL CLAIMS Member Subscriber Plan / Payer (Ef fective 2019-Present) Name:Marie العراقي Relation to Subscriber:Self Name:Marie العراقي Payer ID:[id number] Group ID:Not on file Type:Thang Address: [facility] [address] [place] [address]
== END ==
LOC: HO.CARD 08:57
PROVIDERS: Visit Provider Internal Medicine Cardiovascular Disease
DX: I50.20 Unspecified systolic (congestive) heart failure (principal); I48.0 Paroxysmal atrial fibrillation; Z51.81 Encounter for therapeutic drug level monitoring; Z79.01 Long term (current) use of anticoagulants
CPT/HCPCS: 85610; 93306; 99211

== ENCOUNTER → 2024-10-21 08:59 | Outpatient (BNV) | payer MEDICARE, SELFPAY ==
[2023-06-23 08:35] VITALS: BP 110/58; BP 116/60; BP 94/50; BMI 35.1
== END ==
PROVIDERS: Visit Provider Internal Medicine
DX: I34.81 Nonrheumatic mitral (valve) annulus calcification (principal)
CPT/HCPCS: 93306

== ENCOUNTER 2024-10-21 10:00 | Outpatient (AMB) | payer MEDICARE, SELFPAY ==
[2023-06-23 08:35] VITALS: BP 110/58; BP 116/60; BP 94/50; BMI 35.1
[2024-10-21 10:04] LABS: Prothrombin Time Whole Bld POC 19.6 sec (11.1-13.5); ~PT, ~INR - Anti Coag Clinic 1.6 (0.9-1.1)
--- NOTE | 2024-10-21 10:12 | MHC.OFFVISCO ---
Intake Intake Visit Reasons: Anticoagulation Allergies adhesive tape [ADHESIVE TAPE] Adverse Reaction (Unknown, Verified 10/21/24 10:00) RASH latex Adverse Reaction (Unknown, Verified 10/21/24 10:00) Rash perflutren Adverse Reaction (Verified 10/21/24 10:00) Back Pain and leg pain Medication List - Last Reconciled 10/21/24 by Lola Tran, RN amiodarone 100 mg PO DAILY atorvastatin 40 mg PO BEDTIME 90 days carvedilol 6.25 mg PO BID esomeprazole magnesium (Nexium) 20 mg PO DAILY PRN furosemide (Lasix) 20 mg PO DAILY Jardiance (empagliflozin) 10 mg PO DAILY NS sacubitril-valsartan 49-51 mg (Entresto) 1 tab PO BID warfarin 5 mg See Protocol PO DIRECTED Nursing Note INR: 1.6?out of therapeutic range of 2-3 INR high, 3.7 last visit on 10/06/24 and pt had broccoli, asparagus and brussel sprouts Medications and supplements reviewed Patient status: well Medications or supplements: no change Diet: other than above, no changes Denies any signs and symptoms of bleeding or clotting or unusual bruising Bleeding, bruising, clotting discussed Nutritional guidance given: food list reviewed. Pt will hold greens X 2 days and will have strawberries and melons X 2 days Dose: increase today's dose to 5mg (2.5mg) then 2.5mg X 6 days and 5mg X 1 day (Sun) F/U INR Date: 2 weeks?? Patient verbalizing understanding of instructions given. Anti-Coag Initial Assessment Social Hx Patient Tobacco Use Status: Never used Tobacco alcohol intake: current Alcohol intake frequency: a few times a month (MAYBE 1 A WEEK) Cardiovascular Hx: CHF (2002), Arrhythmias (ABLATION AT [facility] 06/18/2023 ), Cardiomyopathy (DX 2002 S/P CHEMO TREAT) and Varicose Veins Lung Disease HX: DVT/PE (HX DVT BEHIND EYE 2002 S/P [facility] ) Blood Disorder Hx: Anemia (ONLY DURING THE CHEMO ) and Hyperlipidemia (CHOLESTORAL MED ) Hx: Other (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 Illness/Depression: No Coding Level of Care Code Est Patient Level 1 Diagnoses Current use of anticoagulant therapy Z79.01 Assessment & Plan Assessment & Plan (1) Current use of anticoagulant therapy: Code(s): Z79.01 - jail (current) use of anticoagulants Category: Medical
== END 2024-10-21 10:24 | disposition home or self-care (01) ==
LOC: HO.ACS 10:00
PROVIDERS: PCP Internal Medicine; Visit Provider Internal Medicine Medical Oncology
DX: Z79.01 Long term (current) use of anticoagulants (principal)

== ENCOUNTER 2024-11-04 13:30 | Outpatient (AMB) | payer MEDICARE, SELFPAY ==
[2023-06-23 08:35] VITALS: BP 110/58; BP 116/60; BP 94/50; BMI 35.1
--- OUTSIDE RECORDS SUMMARY | 2024-11-04 13:34 | XMS_ITS | Clinical Summary ---
Author Organization [facility] Address [address] [place] [address] Care Team Providers Care Rollway Worker Name Role Phone Unavailable Primary Care Provider [...] 78 08/12/2019 2:10 PM PDT Temperature 36.9 C (98.4 F) 08/12/2019 2:10 PM PDT Respiratory Rate 20 08/12/2019 2:10 PM PDT Oxygen Saturation 97% 08/12/2019 2:10 PM PDT Inhaled Oxygen Concentration - - Weight - - Height - - Body Mass Index - - Plan of Treatment Not on file Insurance [employer]ER[employer] CLAIMS Member Subscriber Plan / Payer (Ef fective 2019-Present) Name:Marie العراقي Relation to Subscriber:Self Name:Marie العراقي Payer ID:[id number] Group ID:Not on file Type:Thang Address: [facility] [address] [place] [address]
[2024-11-04 13:43] LABS: Prothrombin Time Whole Bld POC 21.1 sec (11.1-13.5); ~PT, ~INR - Anti Coag Clinic 1.8 (0.9-1.1)
--- NOTE | 2024-11-04 13:55 | MHC.OFFVISCO ---
Intake Intake Visit Reasons: Anticoagulation Allergies adhesive tape (ADHESIVE TAPE) Adverse Reaction (Unknown, Verified 11/04/24 13:37) RASH latex Adverse Reaction (Unknown, Verified 11/04/24 13:37) Rash perflutren Adverse Reaction (Verified 11/04/24 13:37) Back Pain and leg pain Medication List - Last Reconciled 11/04/24 by Georgiana Casanova RN amiodarone 100 mg PO DAILY atorvastatin 40 mg PO BEDTIME 90 days carvedilol 6.25 mg PO BID esomeprazole magnesium (Nexium) 20 mg PO DAILY PRN furosemide (Lasix) 20 mg PO DAILY Jardiance (empagliflozin) 10 mg PO DAILY NS sacubitril-valsartan 49-51 mg (Entresto) 1 tab PO BID warfarin 5 mg See Protocol PO DIRECTED Nursing Note INR: 1.8 out of therapeutic range range is 2.0 -3.0 Medications and supplements reviewed Pt eating healthier and exercising more EF down to 31% on Echo from chemo has up coming CT scan of lungs Denies any signs and symptoms of bleeding or bruising or clotting. Bleeding, bruising, clotting discussed Nutritional guidance given- no greens x 3 days, orange and reds to help raise the INR Dose: 5mg 2 days/ 2.5mg x 5 days F/U INR: 10 days to see affects of dosing Patient verbalizes understanding of instructions given Anti-Coag Initial Assessment Social Hx Patient Tobacco Use Status: Never used Tobacco alcohol intake: current Alcohol intake frequency: a few times a month (MAYBE 1 A WEEK) Cardiovascular Hx: CHF (2002), Arrhythmias (ABLATION AT [facility] 06/18/2023 ), Cardiomyopathy (DX 2002 S/P CHEMO TREAT) and Varicose Veins Lung Disease HX: DVT/PE (HX DVT BEHIND EYE 2002 S/P [facility] ) Blood Disorder Hx: Anemia (ONLY DURING THE CHEMO ) and Hyperlipidemia (CHOLESTORAL MED ) Hx: Other (HYSTERECTOMY 1999 FIBROID TUMORS- LEFT OVARIES, 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 Illness/Depression: No Coding Level of Care Code Est Patient Level 1 Diagnoses Current use of anticoagulant therapy Z79.01 Results AMB INR Fingerstick AMB INR Fingerstick 1.8 Last Edit by Georgiana Casanova RN on 11/04/24 13:43 manual entry Assessment & Plan Assessment & Plan (1) Current use of anticoagulant therapy: Code(s): Z79.01 - detention (current) use of anticoagulants Category: Medical
== END 2024-11-04 14:00 | disposition home or self-care (01) ==
LOC: HO.ACS 13:30
PROVIDERS: PCP Internal Medicine; Visit Provider Internal Medicine Medical Oncology
DX: Z79.01 Long term (current) use of anticoagulants (principal)

== ENCOUNTER → 2024-11-04 13:30 | Outpatient (BNVA) | payer MEDICARE, SELFPAY ==
[2023-06-23 08:35] VITALS: BP 110/58; BP 116/60; BP 94/50; BMI 35.1
== END ==
PROVIDERS: PCP Internal Medicine; Visit Provider Internal Medicine Medical Oncology
DX: I48.0 Paroxysmal atrial fibrillation (principal); Z79.01 Long term (current) use of anticoagulants; Z51.81 Encounter for therapeutic drug level monitoring
CPT/HCPCS: 85610; 99211

== ENCOUNTER 2024-11-23 15:53 | Outpatient (AMB) | payer MEDICARE, SELFPAY ==
[2023-06-23 08:35] VITALS: BP 110/58; BP 116/60; BP 94/50; BMI 35.1
[2024-11-23 16:02] LABS: Prothrombin Time Whole Bld POC 40.0 sec (11.1-13.5); ~PT, ~INR - Anti Coag Clinic 3.3 (0.9-1.1)
--- NOTE | 2024-11-23 16:07 | MHC.OFFVISCO ---
Intake Intake Visit Reasons: Anticoagulation Allergies adhesive tape (ADHESIVE TAPE) Adverse Reaction (Unknown, Verified 11/23/24 15:53) RASH latex Adverse Reaction (Unknown, Verified 11/23/24 15:53) Rash perflutren Adverse Reaction (Verified 11/23/24 15:53) Back Pain and leg pain Medication List - Last Reconciled 11/23/24 by Maya Felton RN amiodarone 100 mg PO DAILY atorvastatin 40 mg PO BEDTIME 90 days carvedilol 6.25 mg PO BID esomeprazole magnesium (Nexium) 20 mg PO DAILY PRN furosemide (Lasix) 20 mg PO DAILY Jardiance (empagliflozin) 10 mg PO DAILY NS sacubitril-valsartan 49-51 mg (Entresto) 1 tab PO BID warfarin 5 mg See Protocol PO DIRECTED Nursing Note NO CP,SOB,DIET/MED CHANGES,FALLS OR SX OF BLEEDING. DECREASE DOSE TODAY THEN RESUME 5MG X2 AND 2.5MGM X5 AND FOLLOW-UP IN 2 WEEKS, PRIOR TO CROSS COUNTRY FLIGHT. GOOD UNDERSTANDING OF DOSING INSTR. Anti-Coag Initial Assessment Social Hx Patient Tobacco Use Status: Never used Tobacco alcohol intake: current Alcohol intake frequency: a few times a month (MAYBE 1 A WEEK) Cardiovascular Hx: CHF (2002), Arrhythmias (ABLATION AT [facility] 06/18/2023 ), Cardiomyopathy (DX 2002 S/P CHEMO TREAT) and Varicose Veins Lung Disease HX: DVT/PE (HX DVT BEHIND EYE 2002 S/P [facility] ) Blood Disorder Hx: Anemia (ONLY DURING THE CHEMO ) and Hyperlipidemia (CHOLESTORAL MED ) Hx: Other (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 Illness/Depression: No Coding Level of Care Code Est Patient Level 1 Diagnoses Current use of anticoagulant therapy Z79.01 Results AMB INR Fingerstick AMB INR Fingerstick 3.3 Last Edit by Maya Felton RN on 11/23/24 16:01 Assessment & Plan Assessment & Plan (1) Current use of anticoagulant therapy: Code(s): Z79.01 - nursing home (current) use of anticoagulants Category: Medical
== END 2024-11-23 16:13 | disposition home or self-care (01) ==
LOC: HO.ACS 15:53
PROVIDERS: PCP Internal Medicine; Visit Provider Internal Medicine Medical Oncology
DX: Z79.01 Long term (current) use of anticoagulants (principal)

== ENCOUNTER 2024-11-23 16:10 | Outpatient (REF) | payer MEDICARE, SELFPAY ==
[2023-06-23 08:35] VITALS: BP 110/58; BP 116/60; BP 94/50; BMI 35.1
--- NOTE | ~2024-11-23 | CT_ITS ---
CLINICAL HISTORY: I50.20 - Unspecified systolic (congestive) heart failure --- Additional Notes or Special Instructions: Non-contrast CT scan of the chest to evaluate for amiodarone toxicity CT chest without contrast. Comparison: None Findings: The heart is enlarged. Aortic annular calcifications. Calcific atherosclerosis, including mild burden coronary artery calcifications. Trace pericardial effusion. No intrathoracic lymphadenopathy. Patchy bilateral ground-glass densities which are most conspicuous in the lower lobes. No focal consolidation or pleural effusion. No significant bronchiectasis. Cholecystectomy. Degenerative change of the spine. Partially imaged ACDF. IMPRESSION: 1. Patchy bilateral ground-glass densities which are most conspicuous within the lower lobes. No other evidence of pulmonary fibrosis. 2. Cardiomegaly and trace pericardial effusion. This document has been electronically signed by: Shaun Urbina DO on 11/25/2024 12:05:07
== END 2024-11-23 16:11 | disposition home or self-care (01) ==
LOC: HO.CT 16:10
PROVIDERS: PCP Internal Medicine; Visit Provider Internal Medicine Cardiovascular Disease
DX: I50.20 Unspecified systolic (congestive) heart failure (principal); I48.0 Paroxysmal atrial fibrillation; Z51.81 Encounter for therapeutic drug level monitoring; Z79.01 Long term (current) use of anticoagulants
CPT/HCPCS: 71250; 85610; 99211

== ENCOUNTER → 2024-11-23 16:11 | Outpatient (BNV) | payer MEDICARE, SELFPAY ==
[2023-06-23 08:35] VITALS: BP 110/58; BP 116/60; BP 94/50; BMI 35.1
== END ==
PROVIDERS: PCP Internal Medicine; Visit Provider Radiology Diagnostic Radiology
DX: I31.39 Other pericardial effusion (noninflammatory) (principal); I51.7 Cardiomegaly
CPT/HCPCS: 71250

== ENCOUNTER 2024-12-06 16:01 | Outpatient (REF) | payer MEDICARE, SELFPAY ==
[2023-06-23 08:35] VITALS: BP 110/58; BP 116/60; BP 94/50; BMI 35.1
[2024-12-06 16:31] LABS: Prothrombin Time 60.0 SEC (10.9-12.4)
[2024-12-06 16:34] LABS: INTERNATIONAL NORM RATIO 5.2 (0.9-1.1)
== END 2024-12-06 16:02 | disposition home or self-care (01) ==
LOC: HO.LAB 16:01
PROVIDERS: PCP Internal Medicine; Visit Provider Internal Medicine Medical Oncology
DX: Z51.81 Encounter for therapeutic drug level monitoring (principal); Z79.01 Long term (current) use of anticoagulants
CPT/HCPCS: 36415; 85610; 99212

== ENCOUNTER 2024-12-06 16:01 | Outpatient (AMB) | payer MEDICARE, SELFPAY ==
[2023-06-23 08:35] VITALS: BP 110/58; BP 116/60; BP 94/50; BMI 35.1
--- NOTE | 2024-12-06 16:32 | MHC.OFFVISCO ---
Intake Intake Visit Reasons: Anticoagulation Allergies adhesive tape (ADHESIVE TAPE) Adverse Reaction (Unknown, Verified 12/06/24 16:04) RASH latex Adverse Reaction (Unknown, Verified 12/06/24 16:04) Rash perflutren Adverse Reaction (Verified 12/06/24 16:04) Back Pain and leg pain Nursing Note INR: 5.1 out of therapeutic range of 2-3 Pt to lab for venous verification. Lab result 5.2 Pt states she has been having a lot of cherries and strawberries lately. Medications and supplements reviewed Patient status: well Medications or supplements: amiodarone d/c'd approx 2 weeks ago per pt Diet: usual diet per pt Denies any signs and symptoms of bleeding or clotting or unusual bruising Bleeding, bruising, clotting discussed Nutritional guidance given: to have a serving of greens today. Pt states she will have broccoli. Dose: hold today's dose of 2.5mg and decrease tomorrow's dose of 5mg to 2.5mg then resume usual dose of 2.5mg X 5 days and 5mg X 2 days (Finnegan/We) F/U INR Date: 12/23/24, (pt leaving 12/08/24 for 2 weeks to [place])?? Patient verbalizing understanding of instructions with read back given. Anti-Coag Initial Assessment Social Hx Patient Tobacco Use Status: Never used Tobacco alcohol intake: current Alcohol intake frequency: a few times a month (MAYBE 1 A WEEK) Cardiovascular Hx: CHF (2002), Arrhythmias (ABLATION AT [facility] 06/18/2023 ), Cardiomyopathy (DX 2002 S/P CHEMO TREAT) and Varicose Veins Lung Disease HX: DVT/PE (HX DVT BEHIND EYE 2003 S/P [facility] ) Blood Disorder Hx: Anemia (ONLY DURING THE CHEMO ) and Hyperlipidemia (CHOLESTORAL MED ) Hx: Other (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 Illness/Depression: No Coding Level of Care Code Est Patient Level 2 Diagnoses Current use of anticoagulant therapy Z79.01 Time Spent (min) 30 Comment critical INR, pt to lab for lab draw verification, pt instructions and teaching Assessment & Plan Assessment & Plan (1) Current use of anticoagulant therapy: Code(s): Z79.01 - terminal block assembler (current) use of anticoagulants Category: Medical Orders: Orders Prothrombin Time INR Today Z79.01 - senior care (current) use of anticoagulants Medications: Discontinued amiodarone Discontinued Reason: Doctor's Order 100 mg PO DAILY 90 tabs 3RF I48.0 - Paroxysmal atrial fibrillation
--- OUTSIDE RECORDS SUMMARY | 2024-12-06 16:37 | XMS_ITS | Clinical Summary ---
Author Organization [facility] Address [address] [place] [address] Care Team Providers Care Vb Developer Name Role Phone Unavailable Primary Care Provider [...] ID:[id number] Group ID:Not on file Type:Thang Address: [facility] [address] [place] [address]
--- OUTSIDE RECORDS SUMMARY | 2024-12-06 16:37 | XMS_ITS | Clinical Summary ---
Author Organization [facility] Address [address] [facility] [address] [place] [address] Phone Care Team Providers Care Material Control Analyst Name Role Phone Josef Moon MD Primary Care Provider [phone] Allergies Active Allergy Reactions Criticality Noted Date Comments Latex Unknown 11/08/2010 PER PT MED REC Morphine Other (See Comments) 04/28/2003 nausea/vomiting Social History Tobacco Use Types Packs/Day Years Used Date Smoking Tobacco: Never Assessed Education Answer Date Recorded Are you interested in more education? Not on amandeep e 09/14/2022 Are you concerned about learning? Not on file 09/14/2022 No 09/14/2022 No 09/14/2022 Digital Access Answer Date Recorded No 10/12/2022 No 10/12/2022 No 10/12/2022 Reliable internet access at home? Not on file 10/12/2022 Device with a working camera? Not on file Comments Unknown Sex and Gender Information Value Date Recorded Sex Assigned at Not on file Legal Sex Female 5:13 PM EST Gender Identity Not on file Sexual Orientation Not on file Last Filed Vital Signs Vital Sign Reading Time Taken Comments Blood Pressure 134/80 11/07/2010 12:58 PM EDT Pulse 103 11/07/2010 12:58 PM EDT Temperature 36.9 C (98.4 F) 11/07/2010 12:58 PM EDT Respiratory Rate 18 11/07/2010 12:58 PM EDT Oxygen Saturation - - Inhaled Oxygen Concentration - - Weight 94.4 kg (208 lb 1.8 oz) 11/07/2010 12:58 PM EDT Height 162.5 cm (5' 3.98 ) 11/07/2010 12:58 PM E DT Body Mass Index 35.75 11/07/2010 12:58 PM EDT Plan of Treatment Health Maintenance Due Date Last Done Comments Adult Td,Tdap Booster 1957 LIPID PANEL 1957 DEPRESSION SCREENING 1969 SMOKING Hx and SMOKELESS TOB ACCO SCREENING 1970 HEPATITIS C SCREENING 09/29/1975 MAMMOGRAM 1997 COLOGUARD 2002 COLONOSCOPY 2002 COLORECTAL CANCER SCREENING 2002 FIT TEST 2002 FOBT 2002 SIGMOIDOSCOPY 2002 VIRTUAL COLONOSCOPY 2002 PNEUMOCOCCAL VACCINES (50+ y ears) (1 of 1 - PCV) 09/29/2007 ZOSTER VACCINES (1 of 2) 09/29/2007 OSTEOPOROSIS SCREENING INITI AL (ONE-TIME) 2022 COVID-19 VACCINE (2 - 2023-2 5 season) 2024 08/24/2020 RSV VACCINE (1 - 1-dose 75+ series) 2032 HEPATITIS A VACCINES Aged Out No long er eligible based on patient's age to complete this topic HIB VACCINES Aged Out No longer eligi ble based on patient's age to complete this topic MENINGOCOCCAL VACCINES (ACWY) Aged Out No longer eligible based on patient's age to complete this topic MENINGOCOCCAL VACCINES (B) Aged Out N o longer eligible based on patient's age to complete this topic Medical Devices Not on file Insurance [facility] [employer] PLANS DIRECT PLANS DIRECT DIRECT DIRECT [facility] [place] [address] [place] [address] DIRECT Care Teams Material Control Analyst Relationship Specialty Start Date End Date Josef Moon MD [email or web address] PCP - General 09/22/14 Additional Source Comments The information contained in this document represents components of the legal health record. It is not the complete legal health record.[facility]
[2024-12-06 16:46] LABS: Prothrombin Time Whole Bld POC 61.1 sec (11.1-13.5); ~PT, ~INR - Anti Coag Clinic 5.1 (0.9-1.1)
== END 2024-12-06 16:48 | disposition home or self-care (01) ==
LOC: HO.ACS 16:01
PROVIDERS: PCP Internal Medicine; Visit Provider Internal Medicine Medical Oncology
DX: Z79.01 Long term (current) use of anticoagulants (principal)

== ENCOUNTER 2024-12-23 15:39 | Outpatient (AMB) | payer MEDICARE, SELFPAY ==
[2023-06-23 08:35] VITALS: BP 110/58; BP 116/60; BP 94/50; BMI 35.1
--- OUTSIDE RECORDS SUMMARY | 2024-12-23 15:42 | XMS_ITS | Clinical Summary ---
Author Organization [facility] Address [address] [facility] [address] [place] [address] Phone Care Team Providers Care Housemaid Name Role Phone Josef Moon MD Primary Care Provider [phone] Allergies Active Allergy Reactions Criticality Noted Date [...] topic Medical Devices Not on file Insurance [facility] [employer] PLANS DIRECT PLANS DIRECT DIRECT DIRECT [facility] [place] [place] [address] DIRECT Care Teams Housemaid Relationship Specialty Start Date End Date Josef Moon MD [email or web address] PCP - General 09/22/14 Additional Source Comments The information contained in this document represents components of the legal health record. It is not the complete legal health record.[facility]
[2024-12-23 15:47] LABS: Prothrombin Time Whole Bld POC 49.4 sec (11.1-13.5); ~PT, ~INR - Anti Coag Clinic 4.1 (0.9-1.1)
--- NOTE | 2024-12-23 15:52 | MHC.OFFVISCO ---
Intake Intake Visit Reasons: Anticoagulation Allergies adhesive tape (ADHESIVE TAPE) Adverse Reaction (Unknown, Verified 12/23/24 15:40) RASH latex Adverse Reaction (Unknown, Verified 12/23/24 15:40) Rash perflutren Adverse Reaction (Verified 12/23/24 15:40) Back Pain and leg pain Medication List - Last Reconciled 12/23/24 by Lola Tran, RN atorvastatin 40 mg PO BEDTIME 90 days carvedilol 6.25 mg PO BID esomeprazole magnesium (Nexium) 20 mg PO DAILY PRN furosemide (Lasix) 20 mg PO DAILY Jardiance (empagliflozin) 10 mg PO DAILY NS sacubitril-valsartan 49-51 mg (Entresto) 1 tab PO BID warfarin 5 mg See Protocol PO DIRECTED Nursing Note INR: 4.1 out of therapeutic range of 2-3 Medications and supplements reviewed Patient status: feels well but states she is having a lot of pain in her knee and needs to see an orthopedic MD. Due to the pain, she has been taking Tylenol 650mg one to two times a day Medications or supplements: no other changes Diet: usual diet for pt Denies any signs and symptoms of bleeding or clotting or unusual bruising Bleeding, bruising, clotting discussed Nutritional guidance given: to have a serving of greens today Dose: hold today's dose of 2.5mg then 2.5mg daily which is a decrease of 5mg per week. F/U INR Date: 01/02/25?? Patient verbalizing understanding of instructions with read back given. Anti-Coag Initial Assessment Social Hx Patient Tobacco Use Status: Never used Tobacco alcohol intake: current Alcohol intake frequency: a few times a month (MAYBE 1 A WEEK) Cardiovascular Hx: CHF (2002), Arrhythmias (ABLATION AT [facility] 06/18/2023 ), Cardiomyopathy (DX 2002 S/P CHEMO TREAT) and Varicose Veins Lung Disease HX: DVT/PE (HX DVT BEHIND EYE 2002 S/P [facility] ) Blood Disorder Hx: Anemia (ONLY DURING THE CHEMO ) and Hyperlipidemia (CHOLESTORAL MED ) Hx: Other (HYSTERECTOMY 1999 FIBROID TUMORS- LEFT OVARIES, 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 Illness/Depression: No Coding Level of Care Code Est Patient Level 1 Diagnoses Current use of anticoagulant therapy Z79.01 Results AMB INR Fingerstick AMB INR Fingerstick 4.1 Last Edit by Lola Tran RN on 12/23/24 15:46 interface delay Assessment & Plan Assessment & Plan (1) Current use of anticoagulant therapy: Code(s): Z79.01 - computer terminal operator (current) use of anticoagulants Category: Medical
== END 2024-12-23 15:56 | disposition home or self-care (01) ==
LOC: HO.ACS 15:39
PROVIDERS: PCP Internal Medicine; Visit Provider Internal Medicine Medical Oncology
DX: Z79.01 Long term (current) use of anticoagulants (principal)

== ENCOUNTER → 2024-12-23 15:39 | Outpatient (BNVA) | payer MEDICARE, SELFPAY ==
[2023-06-23 08:35] VITALS: BP 110/58; BP 116/60; BP 94/50; BMI 35.1
== END ==
PROVIDERS: PCP Internal Medicine; Visit Provider Internal Medicine Medical Oncology
DX: Z79.01 Long term (current) use of anticoagulants (principal)
CPT/HCPCS: 85610; 99211

== ENCOUNTER 2024-12-27 10:42 | Outpatient (AMB) | payer MEDICARE, SELFPAY ==
[2023-06-23 08:35] VITALS: BP 110/58; BP 116/60; BP 94/50; BMI 35.1
--- NOTE | 2024-12-27 10:47 | MHC.OFFVIS ---
Vital Signs 12/27/24 10:50 Height 5 ft 3 in Weight 198 lb 6.656 oz BMI 35.1 BP 124/72 Blood Pressure Location Lt brachial Position Sitting Pulse 60 Intake Visit Reasons: 3m follow up Intake Note: 3 month follow-up feeling Sole Stapler Welt Required: No Allergies amiodarone Adverse Reaction (Severe, Verified 12/27/24 11:13) Unknown adhesive tape (ADHESIVE TAPE) Adverse Reaction (Unknown, Verified 12/23/24 15:40) RASH latex Adverse Reaction (Unknown, Verified 12/23/24 15:40) Rash perflutren Adverse Reaction (Verified 12/23/24 15:40) Back Pain and leg pain Medication List - Last Reconciled 12/27/24 by Thuan Pena MD atorvastatin 40 mg PO BEDTIME 90 days carvedilol 6.25 mg PO BID esomeprazole magnesium (Nexium) 20 mg PO DAILY PRN furosemide (Lasix) 20 mg PO DAILY Jardiance (empagliflozin) 10 mg PO DAILY NS sacubitril-valsartan 49-51 mg (Entresto) 1 tab PO BID warfarin 5 mg See Protocol PO DIRECTED HPI Comments Details: Marie comes for follow-up. Recent CT scan showed bilateral ground-glass opacity which led to discontinuation of amiodarone. Since then she has had no episodes of atrial fibrillation. She denies any worsening shortness of breath. She continues to have exertional shortness of breath NYHA class 2. No orthopnea, PND, leg edema, weight gain. Taking all her medications. No lightheadedness, syncope. Her most recent echocardiogram shows persistent LV systolic dysfunction with LVEF of 35% with moderate left atrial enlargement. [facility] Medical History Hyperlipemia Community acquired pneumonia GERD (gastroesophageal reflux disease) Hypertension Cardiomyopathy due to chemotherapy Cardiomyopathy Congestive heart failure Surgical History S/P ablation of atrial fibrillation No pertinent past surgical history Family History Father Heart disease Mother Stroke Daughter No problems noted. Son No problems noted. Son No problems noted. 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 Current occupation: [employer] Current occupational exposures/hazards: No Cognitive needs: No Hearing needs: No Vision needs: Yes Review of Systems Const Denies chills, Denies fatigue, Denies fever(s), Denies frequent falls, Denies weakness, Denies weight gain and Denies weight loss ENT Denies dizziness Card Denies chest pain, Denies leg edema, Denies lightheadedness, Denies palpitations, Denies dyspnea, Denies dyspnea on exertion, Denies orthopnea and Denies other (loss of consciousness) Resp Denies cough, Denies dyspnea and Denies dyspnea on exertion GI Denies hematochezia and Denies change in stool character Musc Denies abnormal gait, Denies muscle weakness, Denies numbness, Denies radiating pain into limb and Denies tingling Neuro Denies abnormal gait, Denies dizziness, Denies frequent falls, Denies numbness, Denies tingling and Denies weakness Endo Denies fatigue and Denies palpitations Physical Exam Vital Signs: Last Vital Signs Pulse 60 12/27/24 10:50 BP 124/72 12/27/24 10:50 BMI result Body Mass Index 35.1 Const General: cooperative, comfortable, no acute distress, alert, awake and well groomed Nutritional Appearance: overweight Orientation/consciousness: patient oriented x3 Limitations: no limitations Neck Neck: Yes trachea midline, Yes supple and Yes no JVD Resp Effort & Inspection: normal respiratory effort Auscultation: clear to auscultation bilaterally Cardio Jugular venous distension: no JVD Rate: regular rate Rhythm: regular rhythm Heart sounds: S1 normal heart sound present, S2 normal heart sound present, no click, no gallops and no murmurs GI Auscultation: normal bowel sounds Skin General skin exam: no rashes or lesions noted Neuro General: patient oriented x3 and no focal motor deficits Extrem General: Yes no clubbing, cyanosis or edema Assessment & Plan Assessment & Plan (1) Heart failure with reduced ejection fraction: Code(s): I50.20 - Unspecified systolic (congestive) heart failure Category: Medical Plan: Heart failure with reduced ejection fraction with persistent moderate LV systolic dysfunction with NYHA class 2 symptoms without signs or symptoms of fluid overload. Patient appears to be euvolemic and doing well at current point time on current medications. 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 At this point time continue with the aggressive medical therapy including aggressive neurohormonal modulation with currently tolerated dose of Entresto as well as carvedilol and Jardiance. Continue current diuretic dose as needed. Daily weight monitoring avoidance salt loading was discussed. Advised to call me with worsening symptoms. Her LV ejection fraction is borderline at this point time will continue monitor it. Will defer defibrillator placement less that has reduction LV ejection fraction on current medical therapy. (2) Paroxysmal atrial fibrillation: Code(s): I48.0 - Paroxysmal atrial fibrillation Category: Medical Plan: Paroxysmal atrial fibrillation which was difficult control but has remained suppressed after ablation and off amiodarone at this point time. Given her lung findings she is not a candidate for amiodarone in the future. Will repeat noncontrast CTA in 6 months. Follow up in the clinic. If she has recurrent atrial fibrillation will need to use an alternative strategies such as sotalol or Tikosyn and/or consider ablation. She understands agrees. Continue aggressive therapy for heart failure as above. Avoidance of stimulants was discussed. Currently on full oral anticoagulation warfarin. Target INR between 2 and 3. Discussed with her about investing in a EKG sensor to assess for early-onset atrial fibrillation so that we can treat her more aggressively. Will follow up in the clinic in 6 months time, sooner p.r.n.. Thank you for allowing me to partake in his care Orders: Orders Basic Metabolic Panel Today I48.0 - Paroxysmal atrial fibrillation CT chest wo IV con 5 Months R91.8 - Other nonspecific abnormal finding of lung field Coding Level of Care Code Est Pt Level 4 (86785) Complex EM visit Add On G2211 Diagnoses Heart failure with reduced ejection fraction I50.20 Paroxysmal atrial fibrillation I48.0
[2024-12-27 10:50] VITALS: BP 124/72; PULSE 60; BMI 35.1
--- OUTSIDE RECORDS SUMMARY | 2024-12-27 11:49 | XMS_ITS | Clinical Summary ---
Author Organization [facility] Address [address] [facility] [address] [place] [address] Phone Care Team Providers Care Stock Parts Fabricator Name Role Phone Josef Moon MD Primary Care Provider [phone] Allergies Active Allergy Reactions Criticality Noted Date [...] topic Medical Devices Not on file Insurance [facility] [employer] PLANS DIRECT PLANS DIRECT DIRECT DIRECT [facility] [place] [address] DIRECT Care Teams Stock Parts Fabricator Relationship Specialty Start Date End Date Josef Moon MD [email or web address] PCP - General 09/22/14 Additional Source Comments The information contained in this document represents components of the legal health record. It is not the complete legal health record.[facility]
--- OUTSIDE RECORDS SUMMARY | 2024-12-27 11:49 | XMS_ITS | Clinical Summary ---
Author Organization [facility] Address [address] [place] [address] Care Team Providers Care Dorr Operator Name Role Phone Unavailable Primary Care [...] ID:[id number] Group ID:Not on file Type:Thang Address: [facility] [address] [place] [address]
== END 2024-12-27 11:16 | disposition home or self-care (01) ==
LOC: HO.HCS 10:43
PROVIDERS: PCP Internal Medicine; Visit Provider Internal Medicine Cardiovascular Disease
DX: I50.20 Unspecified systolic (congestive) heart failure (principal); I48.0 Paroxysmal atrial fibrillation
CPT/HCPCS: 99214; G2211

== ENCOUNTER 2024-12-27 10:42 | Outpatient (REF) | payer MEDICARE, SELFPAY ==
[2023-06-23 08:35] VITALS: BP 110/58; BP 116/60; BP 94/50; BMI 35.1
[2024-12-27 12:52] LABS: Anion Gap 14 (12-20); Blood Urea Nitrogen 14 mg/dL (9-16); Calcium 9.2 mg/dL (8.4-10.2); Carbon Dioxide 31 mmol/L (22-29); Chloride 104 mmol/L (96-108); Estimated Glomerular Filt Rate > 60; Potassium 4.8 mmol/L (3.3-5.1); Sodium 144 mmol/L (135-145)
== END 2024-12-27 10:43 | disposition home or self-care (01) ==
LOC: HO.LAB 10:42
PROVIDERS: PCP Internal Medicine; Visit Provider Internal Medicine Cardiovascular Disease
DX: I11.0 Hypertensive heart disease with heart failure (principal); I50.20 Unspecified systolic (congestive) heart failure; I48.0 Paroxysmal atrial fibrillation; I42.9 Cardiomyopathy, unspecified; R91.8 Other nonspecific abnormal finding of lung field; Z79.01 Long term (current) use of anticoagulants; Z79.899 Other long term (current) drug therapy
CPT/HCPCS: 36415; 80048; 99212

== ENCOUNTER 2025-01-05 14:20 | Outpatient (AMB) | payer MEDICARE, SELFPAY ==
[2023-06-23 08:35] VITALS: BP 110/58; BP 116/60; BP 94/50; BMI 35.1
--- OUTSIDE RECORDS SUMMARY | 2025-01-05 14:28 | XMS_ITS | Clinical Summary ---
Author Organization [facility] Address [address] [place] [address] Care Team Providers Care Vice President Diversity Name Role Phone Unavailable Primary Care Provider [...] ID:[id number] Group ID:Not on file Type:Thang Address: [facility] [address] [place] [address]
--- OUTSIDE RECORDS SUMMARY | 2025-01-05 14:28 | XMS_ITS | Clinical Summary ---
Author Organization [facility] Address [address] [facility] [address] [place] [address] Phone Care Team Providers Care Bleach Packer Name Role Phone Josef Moon MD Primary Care Provider Allergies Active Allergy Reactions Criticality Noted Date [...] topic Medical Devices Not on file Insurance [facility] [employer] PLANS DIRECT PLANS DIRECT DIRECT DIRECT [facility] [place] [address] [place] [address] DIRECT Care Teams Bleach Packer Relationship Specialty Start Date End Date Josef Moon MD [email or web address] PCP - General 09/22/14 Additional Source Comments The information contained in this document represents components of the legal health record. It is not the complete legal health record.[facility]
[2025-01-05 14:47] LABS: Prothrombin Time Whole Bld POC 38.5 sec (11.1-13.5); ~PT, ~INR - Anti Coag Clinic 3.2 (0.9-1.1)
--- NOTE | 2025-01-05 14:54 | MHC.OFFVISCO ---
Intake Intake Visit Reasons: Anticoagulation Allergies amiodarone Adverse Reaction (Severe, Verified 01/05/25 14:41) Unknown adhesive tape (ADHESIVE TAPE) Adverse Reaction (Unknown, Verified 01/05/25 14:41) RASH latex Adverse Reaction (Unknown, Verified 01/05/25 14:41) Rash perflutren Adverse Reaction (Verified 01/05/25 14:41) Back Pain and leg pain Medication List - Last Reconciled 01/05/25 by Georgiana Casanova RN atorvastatin 40 mg PO BEDTIME 90 days carvedilol 6.25 mg PO BID esomeprazole magnesium (Nexium) 20 mg PO DAILY PRN furosemide (Lasix) 20 mg PO DAILY Jardiance (empagliflozin) 10 mg PO DAILY NS sacubitril-valsartan 49-51 mg (Entresto) 1 tab PO BID warfarin 5 mg See Protocol PO DIRECTED Nursing Note INR 3.2 out of therapeutic range Medications and supplements reviewed Patient status: KNEE PAIN AND SCIATICE PAIN TAKING TYLENOL AND TOPICAL MEDS FOR PAIN- HAS ORTHO APPT 01/17/2025 Medications or supplements: NO CHANGES Diet: GOOD Denies any signs and symptoms of bleeding or clotting or unusual bruising Bleeding, bruising, clotting discussed Nutritional guidance given: GREENS TODAY AND TOMORROW Dose: KEEP SAME DOSE 2.5MG DAILY F/U INR Date: 01/17/2025 SAME DAY ORTHO ?? Patient verbalizing understanding of instructions given. Anti-Coag Initial Assessment Social Hx Patient Tobacco Use Status: Never used Tobacco alcohol intake: current Alcohol intake frequency: a few times a month (MAYBE 1 A WEEK) Cardiovascular Hx: CHF (2002), Arrhythmias (ABLATION AT [facility] 06/18/2023 ), Cardiomyopathy (DX 2002 S/P CHEMO TREAT) and Varicose Veins Lung Disease HX: DVT/PE (HX DVT BEHIND EYE 2003 S/P [facility] ) Blood Disorder Hx: Anemia (ONLY DURING THE CHEMO ) and Hyperlipidemia (CHOLESTORAL MED ) Hx: Other (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 Illness/Depression: No Coding Level of Care Code Est Patient Level 1 Diagnoses Current use of anticoagulant therapy Z79.01 Results AMB INR Fingerstick AMB INR Fingerstick 3.2 Last Edit by Georgiana Casanova RN on 01/05/25 14:49 manual entry Assessment & Plan Assessment & Plan (1) Current use of anticoagulant therapy: Code(s): Z79.01 - snf (current) use of anticoagulants Category: Medical
== END 2025-01-05 14:57 | disposition home or self-care (01) ==
LOC: HO.ACS 14:20
PROVIDERS: PCP Internal Medicine; Visit Provider Internal Medicine Medical Oncology
DX: Z79.01 Long term (current) use of anticoagulants (principal)

== ENCOUNTER → 2025-01-05 14:20 | Outpatient (BNVA) | payer MEDICARE, SELFPAY ==
[2023-06-23 08:35] VITALS: BP 110/58; BP 116/60; BP 94/50; BMI 35.1
== END ==
PROVIDERS: PCP Internal Medicine; Visit Provider Internal Medicine Medical Oncology
DX: I48.0 Paroxysmal atrial fibrillation (principal); Z79.01 Long term (current) use of anticoagulants; Z51.81 Encounter for therapeutic drug level monitoring
CPT/HCPCS: 85610; 99211

== ENCOUNTER 2025-01-27 09:14 | Outpatient (AMB) | payer MEDICARE, SELFPAY ==
[2023-06-23 08:35] VITALS: BP 110/58; BP 116/60; BP 94/50; BMI 35.1
[2025-01-27 09:24] LABS: Prothrombin Time Whole Bld POC 37.4 sec (11.1-13.5); ~PT, ~INR - Anti Coag Clinic 3.1 (0.9-1.1)
--- NOTE | 2025-01-27 09:28 | MHC.OFFVISCO ---
Intake Intake Visit Reasons: Anticoagulation Allergies amiodarone Adverse Reaction (Severe, Verified 01/27/25 09:18) Unknown adhesive tape (ADHESIVE TAPE) Adverse Reaction (Unknown, Verified 01/27/25 09:18) RASH latex Adverse Reaction (Unknown, Verified 01/27/25 09:18) Rash perflutren Adverse Reaction (Verified 01/27/25 09:18) Back Pain and leg pain Medication List - Last Reconciled 01/27/25 by Lola Tran RN atorvastatin 40 mg PO BEDTIME 90 days carvedilol 6.25 mg PO BID esomeprazole magnesium (Nexium) 20 mg PO DAILY PRN furosemide (Lasix) 20 mg PO DAILY Jardiance (empagliflozin) 10 mg PO DAILY NS sacubitril-valsartan 49-51 mg (Entresto) 1 tab PO BID warfarin 5 mg See Protocol PO DIRECTED Nursing Note INR: 3.1 out of therapeutic range of 2-3 C/o knee pain and taking Tylenol Medications and supplements reviewed, no changes No changes in health, diet or medications Denies any signs and symptoms of bleeding or bruising or clotting. Bleeding, bruising, clotting discussed Nutritional guidance given to increase her greens intake while taking Tylenol Dose: 2.5mg daily F/U INR: 4 weeks Patient verbalizes understanding of instructions given Anti-Coag Initial Assessment Social Hx Patient Tobacco Use Status: Never used Tobacco alcohol intake: current Alcohol intake frequency: a few times a month (MAYBE 1 A WEEK) Cardiovascular Hx: CHF (2002), Arrhythmias (ABLATION AT [facility] 06/18/2023 ), Cardiomyopathy (DX 2002 S/P CHEMO TREAT) and Varicose Veins Lung Disease HX: DVT/PE (HX DVT BEHIND EYE 2003 S/P [facility] ) Blood Disorder Hx: Anemia (ONLY DURING THE CHEMO ) and Hyperlipidemia (CHOLESTORAL MED ) Hx: Other (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 Illness/Depression: No Coding Level of Care Code Est Patient Level 1 Diagnoses Current use of anticoagulant therapy Z79.01 Assessment & Plan Assessment & Plan (1) Current use of anticoagulant therapy: Code(s): Z79.01 - [facility] (current) use of anticoagulants Category: Medical
--- OUTSIDE RECORDS SUMMARY | 2025-01-27 10:10 | XMS_ITS | Clinical Summary ---
Author Organization [facility] Address [address] [place] [address] Care Team Providers Care Rock Room Worker Name Role Phone Unavailable Primary Care [...] Group ID:Not on file Type:Thang Address: [facility] [address] [place] [address]
--- OUTSIDE RECORDS SUMMARY | 2025-01-27 10:10 | XMS_ITS | Clinical Summary ---
Author Organization [facility] Address [address] [place] [address] Phone Care Team Providers Care Route Sales Manager Name Role Phone Josef Moon MD Primary Care Provider [phone] Allergies Active Allergy Reactions Criticality Noted Date [...] topic Medical Devices Not on file Insurance [facility] [employer] PLANS DIRECT PLANS DIRECT DIRECT DIRECT [facility] [place] [address] [place] [address] DIRECT Care Teams Route Sales Manager Relationship Specialty Start Date End Date Josef Moon MD [email or web address] PCP - General 09/22/14 Additional Source Comments The information contained in this document represents components of the legal health record. It is not the complete legal health record.[facility]
== END 2025-01-27 09:32 | disposition home or self-care (01) ==
LOC: HO.ACS 09:14
PROVIDERS: PCP Internal Medicine; Visit Provider Internal Medicine Medical Oncology
DX: Z79.01 Long term (current) use of anticoagulants (principal)

== ENCOUNTER → 2025-01-27 09:14 | Outpatient (BNVA) | payer MEDICARE, SELFPAY ==
[2023-06-23 08:35] VITALS: BP 110/58; BP 116/60; BP 94/50; BMI 35.1
== END ==
PROVIDERS: PCP Internal Medicine; Visit Provider Internal Medicine Medical Oncology
DX: I48.0 Paroxysmal atrial fibrillation (principal); Z79.01 Long term (current) use of anticoagulants; Z51.81 Encounter for therapeutic drug level monitoring
CPT/HCPCS: 85610; 99211

== ENCOUNTER 2025-02-24 09:02 | Outpatient (AMB) | payer MEDICARE, SELFPAY ==
[2023-06-23 08:35] VITALS: BP 110/58; BP 116/60; BP 94/50; BMI 35.1
[2025-02-24 09:26] LABS: Prothrombin Time Whole Bld POC 17.3 sec (11.1-13.5); ~PT, ~INR - Anti Coag Clinic 1.4 (0.9-1.1)
--- OUTSIDE RECORDS SUMMARY | 2025-02-24 09:27 | XMS_ITS | Clinical Summary ---
Author Organization [facility] Address [address] [place] [address] Care Team Providers Care Manager Physical Name Role Phone Unavailable Primary Care Provider [...] ID:Not on file Type:Thang Address: [facility] [address] [place] [address]
--- OUTSIDE RECORDS SUMMARY | 2025-02-24 09:27 | XMS_ITS | Clinical Summary ---
Author Organization [facility] Address [address] [facility] [address] [address] [place] [address] Phone Care Team Providers Care Search Engineer Name Role Phone Josef Moon MD Primary Care Provider [phone] Allergies Active Allergy Reactions Criticality Noted Date [...] 09/29/2007 OSTEOPOROSIS SCREENING INITI AL (ONE-TIME) 2022 INFLUENZA VACCINE (#1) 2024 07/15/2012 COVID-19 VACCINE (2 - 2024-2 6 season) 2025 08/24/2020 RSV VACCINE (1 - 1-dose 75+ [...] topic Medical Devices Not on file Insurance [employer] PLANS DIRECT PLANS DIRECT DIRECT [place] [address] [employer] [facility] [place] [address] [place] [address] DIRECT Care Teams Search Engineer Relationship Specialty Start Date End Date Josef Moon MD [email or web address] PCP - General 09/22/14 Additional Source Comments The information contained in this document represents components of the legal health record. It is not the complete legal health record.[facility]
--- NOTE | 2025-02-24 09:40 | MHC.OFFVISCO ---
Intake Intake Visit Reasons: Anticoagulation Allergies amiodarone Adverse Reaction (Severe, Verified 02/24/25 09:13) Unknown adhesive tape (ADHESIVE TAPE) Adverse Reaction (Unknown, Verified 02/24/25 09:13) RASH latex Adverse Reaction (Unknown, Verified 02/24/25 09:13) Rash perflutren Adverse Reaction (Verified 02/24/25 09:13) Back Pain and leg pain Medication List - Last Reconciled 02/24/25 by Maya Felton RN atorvastatin 40 mg PO BEDTIME 90 days carvedilol 6.25 mg PO BID esomeprazole magnesium (Nexium) 20 mg PO DAILY PRN furosemide (Lasix) 20 mg PO DAILY Jardiance (empagliflozin) 10 mg PO DAILY NS sacubitril-valsartan 49-51 mg (Entresto) 1 tab PO BID warfarin 5 mg See Protocol PO DIRECTED Nursing Note PT.IS UNSURE IF SHE MISSED A DOSE,BUT THIS IS LIKELY THE CAUSE OF LOW INR TODAY. PT.DENIES ANY CP,SOB,DIET/MED CHANGES,FALLS OR SX OF BLEEDING. BOOST TO 5MGM 2 DAYS THEN RESUME USUAL DOSE AND FOLLOW-UP ON 02/28. NO GREENS 3 DAYS AND WILL INCREASE REDS. GOOD UNDERSRTANDING OF DOSING INSTR. ([facility] VOICE [facility]IL) NOTIFIED OF LOW INR AND PLAN OF CARE AT 9:40AM Anti-Coag Initial Assessment Social Hx Patient Tobacco Use Status: Never used Tobacco alcohol intake: current Alcohol intake frequency: a few times a month (MAYBE 1 A WEEK) Cardiovascular Hx: CHF (2002), Arrhythmias (ABLATION AT [facility] 06/18/2023 ), Cardiomyopathy (DX 2002 S/P CHEMO TREAT) and Varicose Veins Lung Disease HX: DVT/PE (HX DVT BEHIND EYE 2003 S/P [facility] ) Blood Disorder Hx: Anemia (ONLY DURING THE CHEMO ) and Hyperlipidemia (CHOLESTORAL MED ) Hx: Other (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 Illness/Depression: No Coding Level of Care Code Est Patient Level 1 Diagnoses Current use of anticoagulant therapy Z79.01 Assessment & Plan Assessment & Plan (1) Current use of anticoagulant therapy: Code(s): Z79.01 - termite helper (current) use of anticoagulants Category: Medical
== END 2025-02-24 09:51 | disposition home or self-care (01) ==
LOC: HO.ACS 09:02
PROVIDERS: PCP Internal Medicine; Visit Provider Internal Medicine Medical Oncology
DX: Z79.01 Long term (current) use of anticoagulants (principal)

== ENCOUNTER → 2025-02-24 09:02 | Outpatient (BNVA) | payer MEDICARE, SELFPAY ==
[2023-06-23 08:35] VITALS: BP 110/58; BP 116/60; BP 94/50; BMI 35.1
== END ==
PROVIDERS: PCP Internal Medicine; Visit Provider Internal Medicine Medical Oncology
DX: I48.0 Paroxysmal atrial fibrillation (principal); Z79.01 Long term (current) use of anticoagulants; Z51.81 Encounter for therapeutic drug level monitoring
CPT/HCPCS: 85610; 99211

== ENCOUNTER 2025-03-01 16:02 | Outpatient (AMB) | payer MEDICARE, SELFPAY ==
[2023-06-23 08:35] VITALS: BP 110/58; BP 116/60; BP 94/50; BMI 35.1
--- NOTE | 2025-03-01 16:05 | MHC.OFFVISCO ---
Intake Intake Visit Reasons: Anticoagulation Allergies amiodarone Adverse Reaction (Severe, Verified 03/01/25 16:04) Unknown adhesive tape (ADHESIVE TAPE) Adverse Reaction (Unknown, Verified 03/01/25 16:04) RASH latex Adverse Reaction (Unknown, Verified 03/01/25 16:04) Rash perflutren Adverse Reaction (Verified 03/01/25 16:04) Back Pain and leg pain Medication List - Last Reconciled 03/01/25 by Maya Felton RN atorvastatin 40 mg PO BEDTIME 90 days carvedilol 6.25 mg PO BID esomeprazole magnesium (Nexium) 20 mg PO DAILY PRN furosemide (Lasix) 20 mg PO DAILY Jardiance (empagliflozin) 10 mg PO DAILY NS sacubitril-valsartan 49-51 mg (Entresto) 1 tab PO BID warfarin 5 mg See Protocol PO DIRECTED Nursing Note pt.[place]aving [place]. will continue present dosing and follow-up here on 03/14/25 will be sure to move about while airborne to avoid any venous stasis good understanding of dosing instr. Anti-Coag Initial Assessment Social Hx Patient Tobacco Use Status: Never used Tobacco alcohol intake: current Alcohol intake frequency: a few times a month (MAYBE 1 A WEEK) Cardiovascular Hx: CHF (2002), Arrhythmias (ABLATION AT [facility] 06/18/2023 ), Cardiomyopathy (DX 2002 S/P CHEMO TREAT) and Varicose Veins Lung Disease HX: DVT/PE (HX DVT BEHIND EYE 2002 S/P [facility] ) Blood Disorder Hx: Anemia (ONLY DURING THE CHEMO ) and Hyperlipidemia (CHOLESTORAL MED ) Hx: Other (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 Illness/Depression: No Coding Level of Care Code Est Patient Level 1 Diagnoses Current use of anticoagulant therapy Z79.01 Results AMB INR Fingerstick AMB INR Fingerstick 2.5 Last Edit by Maya Felton RN on 03/01/25 16:09 Assessment & Plan Assessment & Plan (1) Current use of anticoagulant therapy: Code(s): Z79.01 - nursing home (current) use of anticoagulants Category: Medical
[2025-03-01 16:10] LABS: Prothrombin Time Whole Bld POC 30.1 sec (11.1-13.5); ~PT, ~INR - Anti Coag Clinic 2.5 (0.9-1.1)
--- OUTSIDE RECORDS SUMMARY | 2025-03-01 19:13 | XMS_ITS | Clinical Summary ---
Author Organization [facility] Address [address] [place] [address] Care Team Providers Care Assembly Operator Name Role Phone Unavailable Primary Care [...] ID:[id number] Group ID:Not on file Type:Thang Address: [facility] [address] [place] [address]
--- OUTSIDE RECORDS SUMMARY | 2025-03-01 19:13 | XMS_ITS | Clinical Summary ---
Author Organization [facility] Address [address] [facility] [address] [place] [address] Phone Care Team Providers Care Molding Line Operator Name Role Phone Josef Moon MD Primary Care Provider [phone] Allergies Active Allergy Reactions Criticality Noted Date [...] topic Medical Devices Not on file Insurance [employer] PLANS DIRECT PLANS DIRECT DIRECT [place] [address] [employer] [facility] [place] [address] DIRECT Care Teams Molding Line Operator Relationship Specialty Start Date End Date Josef Moon MD [email or web address] PCP - General 09/22/14 Additional Source Comments The information contained in this document represents components of the legal health record. It is not the complete legal health record.[facility]
== END 2025-03-01 16:25 | disposition home or self-care (01) ==
LOC: HO.ACS 16:02
PROVIDERS: PCP Internal Medicine; Visit Provider Internal Medicine Medical Oncology
DX: Z79.01 Long term (current) use of anticoagulants (principal)

== ENCOUNTER → 2025-03-01 16:02 | Outpatient (BNVA) | payer MEDICARE, SELFPAY ==
[2023-06-23 08:35] VITALS: BP 110/58; BP 116/60; BP 94/50; BMI 35.1
== END ==
PROVIDERS: PCP Internal Medicine; Visit Provider Internal Medicine Medical Oncology
DX: I48.0 Paroxysmal atrial fibrillation (principal); Z79.01 Long term (current) use of anticoagulants; Z51.81 Encounter for therapeutic drug level monitoring
CPT/HCPCS: 85610; 99211

== ENCOUNTER 2025-03-16 11:31 | Outpatient (AMB) | payer MEDICARE, SELFPAY ==
[2023-06-23 08:35] VITALS: BP 110/58; BP 116/60; BP 94/50; BMI 35.1
[2025-03-16 11:37] LABS: Prothrombin Time Whole Bld POC 24.1 sec (11.1-13.5); ~PT, ~INR - Anti Coag Clinic 2.0 (0.9-1.1)
--- NOTE | 2025-03-16 11:42 | MHC.OFFVISCO ---
Intake Intake Visit Reasons: Anticoagulation Allergies amiodarone Adverse Reaction (Severe, Verified 03/16/25 11:32) Unknown adhesive tape (ADHESIVE TAPE) Adverse Reaction (Unknown, Verified 03/16/25 11:32) RASH latex Adverse Reaction (Unknown, Verified 03/16/25 11:32) Rash perflutren Adverse Reaction (Verified 03/16/25 11:32) Back Pain and leg pain Medication List - Last Reconciled 03/16/25 by Lola Tran RN atorvastatin 40 mg PO BEDTIME 90 days carvedilol 6.25 mg PO BID esomeprazole magnesium (Nexium) 20 mg PO DAILY PRN furosemide (Lasix) 20 mg PO DAILY Jardiance (empagliflozin) 10 mg PO DAILY NS sacubitril-valsartan 49-51 mg (Entresto) 1 tab PO BID warfarin 5 mg See Protocol PO DIRECTED Nursing Note INR: 2.0 in therapeutic range of 2-3 Medications and supplements reviewed No changes in health, diet, medications, or supplements, Denies any signs and symptoms of bleeding or bruising or clotting. Bleeding, bruising, clotting discussed Nutritional guidance given to avoid greens X 2 days and to have a serving or two of the foods that raise the INR. Food list reviewed with pt. She states she will have watermelon or grapes or squash. 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 Illness/Depression: No Coding Level of Care Code Est Patient Level 1 Diagnoses Current use of anticoagulant therapy Z79.01 Assessment & Plan Assessment & Plan (1) Current use of anticoagulant therapy: Code(s): Z79.01 - oil heaterman (current) use of anticoagulants Category: Medical
--- OUTSIDE RECORDS SUMMARY | 2025-03-16 14:27 | XMS_ITS | Clinical Summary ---
Author Organization [facility] Address [address] [facility] [address] [place] [address] Phone Care Team Providers Care Bone Glue Maker Name Role Phone Josef Moon MD Primary Care Provider [phone] Allergies Active Allergy Reactions Criticality Noted Date [...] topic Medical Devices Not on file Insurance [employer] PLANS DIRECT PLANS DIRECT DIRECT [place] [address] [place] [address] [employer] [facility] [place] [address] DIRECT Care Teams Bone Glue Maker Relationship Specialty Start Date End Date Josef Moon MD [email or web address] PCP - General 09/22/14 Additional Source Comments The information contained in this document represents components of the legal health record. It is not the complete legal health record.[facility]
== END 2025-03-16 11:47 | disposition home or self-care (01) ==
LOC: HO.ACS 11:31
PROVIDERS: PCP Internal Medicine; Visit Provider Internal Medicine Medical Oncology
DX: Z79.01 Long term (current) use of anticoagulants (principal)

== ENCOUNTER → 2025-03-16 11:31 | Outpatient (BNVA) | payer MEDICARE, SELFPAY ==
[2023-06-23 08:35] VITALS: BP 110/58; BP 116/60; BP 94/50; BMI 35.1
== END ==
PROVIDERS: PCP Internal Medicine; Visit Provider Internal Medicine Medical Oncology
DX: I48.0 Paroxysmal atrial fibrillation (principal); Z79.01 Long term (current) use of anticoagulants; Z51.81 Encounter for therapeutic drug level monitoring
CPT/HCPCS: 85610; 99211

== ENCOUNTER → 2025-04-06 11:13 | Outpatient (BNVA) | payer MEDICARE, SELFPAY ==
[2023-06-23 08:35] VITALS: BP 110/58; BP 116/60; BP 94/50; BMI 35.1
== END ==
PROVIDERS: PCP Internal Medicine; Visit Provider Internal Medicine Medical Oncology
DX: I48.0 Paroxysmal atrial fibrillation (principal); Z51.81 Encounter for therapeutic drug level monitoring; Z79.01 Long term (current) use of anticoagulants
CPT/HCPCS: 85610; 99211

== ENCOUNTER 2025-05-08 14:04 | Outpatient (AMB) | payer MEDICARE, SELFPAY ==
[2023-06-23 08:35] VITALS: BP 110/58; BP 116/60; BP 94/50; BMI 35.1
[2025-05-08 14:28] LABS: Prothrombin Time Whole Bld POC 22.9 sec (11.1-13.5); ~PT, ~INR - Anti Coag Clinic 1.9 (0.9-1.1)
--- NOTE | 2025-05-08 14:33 | MHC.OFFVISCO ---
Intake Intake Visit Reasons: Anticoagulation Allergies amiodarone Adverse Reaction (Severe, Verified 05/08/25 14:21) Unknown adhesive tape (ADHESIVE TAPE) Adverse Reaction (Unknown, Verified 05/08/25 14:21) RASH latex Adverse Reaction (Unknown, Verified 05/08/25 14:21) Rash perflutren Adverse Reaction (Verified 05/08/25 14:21) Back Pain and leg pain Medication List - Last Reconciled 05/08/25 by Lola Tran RN atorvastatin 40 mg PO BEDTIME 90 days carvedilol 6.25 mg PO BID esomeprazole magnesium (Nexium) 20 mg PO DAILY PRN furosemide (Lasix) 20 mg PO DAILY Jardiance (empagliflozin) 10 mg PO DAILY NS sacubitril-valsartan 49-51 mg (Entresto) 1 tab PO BID warfarin 5 mg See Protocol PO DIRECTED Nursing Note INR: 1.9 out of therapeutic range of 2-3 Medications and supplements reviewed Patient status: no changes Medications or supplements: no changes. Pt was considering starting Vit D3 but has not started at this point. May in the future and will notify [facility]. Diet: no changes Denies any signs and symptoms of bleeding or clotting or unusual bruising Bleeding, bruising, clotting discussed Nutritional guidance given: to avoid greens today and to have a serving of foods that raise the INR. Dose: 2.5mg daily F/U INR Date: 06/01/25?? Patient verbalizing understanding of instructions with read back given. 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 Illness/Depression: No Coding Level of Care Code Est Patient Level 1 Diagnoses Current use of anticoagulant therapy Z79.01 Results AMB INR Fingerstick AMB INR Fingerstick 1.9 Last Edit by Lola Tran RN on 05/08/25 14:32 interface delay Assessment & Plan Assessment & Plan (1) Current use of anticoagulant therapy: Code(s): Z79.01 - sn[facility] (current) use of anticoagulants Category: Medical
--- OUTSIDE RECORDS SUMMARY | 2025-05-08 17:32 | XMS_ITS | Clinical Summary ---
Author Organization [facility] Address [address] [place] [address] Phone Care Team Providers Care Tuber Operator Name Role Phone Josef Moon MD Primary Care Provider [phone] Allergies Active Allergy Reactions Criticality Noted Date [...] topic Medical Devices Not on file Insurance [employer] PLANS DIRECT PLANS DIRECT DIRECT [place] [address] [employer] [facility] [place] [address] DIRECT Care Teams Tuber Operator Relationship Specialty Start Date End Date Josef Moon MD [email or web address] PCP - General 09/22/14 Additional Source Comments The information contained in this document represents components of the legal health record. It is not the complete legal health record.[facility]
== END 2025-05-08 14:42 | disposition home or self-care (01) ==
LOC: HO.ACS 14:04
PROVIDERS: PCP Internal Medicine; Visit Provider Internal Medicine Medical Oncology
DX: Z79.01 Long term (current) use of anticoagulants (principal)

== ENCOUNTER → 2025-05-08 14:04 | Outpatient (BNVA) | payer MEDICARE, SELFPAY ==
[2023-06-23 08:35] VITALS: BP 110/58; BP 116/60; BP 94/50; BMI 35.1
== END ==
PROVIDERS: PCP Internal Medicine; Visit Provider Internal Medicine Medical Oncology
DX: I48.0 Paroxysmal atrial fibrillation (principal); Z79.01 Long term (current) use of anticoagulants; Z51.81 Encounter for therapeutic drug level monitoring
CPT/HCPCS: 85610; 99211